=== PATIENT | female | born 1945 | race African-American/Black ===

== ENCOUNTER 2020-02-24 18:41 | Emergency (ER) | payer MEDICARE, SELFPAY ==
--- NOTE | ~2020-02-24 | CT_ITS ---
EXAMINATION: CT brain wo con DATE: 02/24/2020 19:31 INDICATION: Altered mental status TECHNIQUE: Computed tomography (CT) of the head was performed without intravenous contrast. Sagittal and coronal reconstructions were performed. The mA was adjusted according to patient size. Iterative reconstruction technique was employed. The dose-length product was 681.00 mGy-cm. COMPARISON: head CT dated 12/27/2017 FINDINGS: Large amount of intraparenchymal hemorrhage throughout the left and right lateral ventricles, the thi rd ventricle and fourth ventricle extending through the bilateral foramina of Luschka. No evident int raparenchymal hemorrhage or other abnormal peripheral extra-axial fluid collections. There has been i nterval enlargement of the ventricles concerning for entrapment. Moderate-sized region of encephaloma lacia in the right parietal lobe consistent with chronic infarct. No abnormal masses. There is modera te scattered white matter hypoattenuation consistent with chronic small vessel ischemic disease. Chavez ges of bilateral intraocular lens replacement. The orbits and mastoid air cells are normal. Mild muco periosteal thickening the bilateral ethmoid sinuses. Nasogastric tube extends through the nasopharynx . IMPRESSION: 1. Large intraventricular hemorrhage extending throughout the interval enlarged left and right latera l, third and fourth ventricles which is concerning for entrapment. Recommend emergent neurosurgical c onsultation. Dr. Amador discussed these findings with Dr. Rodriges at 7:30 PM. 2. Chronic moderate-sized right parietal infarct. 3. Moderate scattered white matter hypoattenuation consistent with chronic small vessel ischemic dise ase. Reviewed, dictated and finalized at location A. IMPRESSION: 1. Large intraventricular hemorrhage extending throughout the interval enlarged left and right lateral, third and fourth ventricles which is concerning for en trapment. Recommend emergent neurosurgical consultation. Dr. Amador discussed these findings with Dr. Rodriges at 7:30 PM. 2. Chronic moderate-sized right parietal infarct. 3. Moderate scattered white matter hypoattenuation consistent with chronic smal l vessel ischemic disease.
--- NOTE | ~2020-02-24 | XR_ITS ---
EXAMINATION: XR chest ET placement DATE: 02/24/2020 19:24 INDICATION: Endotracheal tube and orogastric tube placement TECHNIQUE: frontal view of the chest was obtained. COMPARISON: Chest radiograph dated 01/26/2019 FINDINGS: Endotracheal tube tip 2.3 cm above the kaykay. Nasogastric tube proximal side port in the body of the stomach with distal tip collimated beyond the inferior margin of the [id number]. Hazy opacities i n the right mid to upper lung zone patchy airspace opacities in the left lower lung zone which could represent atelectasis, pulmonary edema or pneumonia. No pleural effusion or pneumothorax. Cardiomegal y. IMPRESSION: 1. Bilateral airspace opacities which could represent atelectasis, pulmonary edema or pneumonia. 2. Cardiomegaly. Reviewed, dictated and finalized at location A. IMPRESSION: 1. Bilateral airspace opacities which could represent atelectasis, pulmonary ed wilberto or pneumonia. 2. Cardiomegaly.
--- NOTE | 2020-02-24 18:48 | ECG_ITS ---
Measurements Intervals [place] Rate: 138 P: AK: 0 QRS: 11 QRSD: 82 T: -23 QT: 294 QTc: 446 Interpretive Statements ATRIAL FLUTTER WITH RAPID VENTRICULAR RESPONSE NONSPECIFIC ST & T-WAVE ABNORMALITY- INF/LAT LEADS BASELINE ARTIFACT- II, III, AVF, V1-V2, V6 ABNORMAL ECG Electronically Signed On 02-25-2020 6:58:29 CDT by Mello Nesbitt D.O.
[2020-02-24 18:54] VITALS: O2SAT 98
[2020-02-24 18:55] VITALS: BP 181/136; PULSE 164; RESP 24; TEMP 36.7; O2SAT 96
[2020-02-24] MEDS: LABETALOL HCL INJ 100 MG/20 ML VIAL (18:59)
[2020-02-24 19:05] VITALS: PULSE 101; O2SAT 98
--- NOTE | 2020-02-24 19:08 | PC.NURSE ---
Called XR to confirm tube placement.
[2020-02-24 19:10] LABS: Basophils Absolute Auto 0.1 K/mm3 (0.0-0.1); Basophils Percent Auto 0.7 % (0.2-1.2); Eosinophils Absolute Auto 0.4 K/mm3 (0-0.3); Eosinophils Percent Auto 3.1 % (0-4.4); Hematocrit 49.4 % (37.0-47.0); Hemoglobin 15.8 g/dL (12.0-15.0); Immature Granulocyte Absolute 0.06 K/mm3 (0.00-0.031); Immature Granulocyte Percent A 0.5 % (0-0.5); Lymphocytes Absolute Auto 3.66 K/mm3 (0.9-3.2); Lymphocytes Percent Auto 30.2 % (18.3-44.2); Mean Corpuscular Hemoglobin 24.4 pg (26-34); Mean Corpuscular Volume 76.2 fl (80-100); Mean Platelet Volume 10.8 fl (7.4-10.4); Monocytes Absolute Auto 1.2 K/mm3 (0.1-0.6); Monocytes Percent Auto 9.8 % (2.6-8.5); Neutrophils Absolute Auto 6.8 K/mm3 (1.3-6.7); Neutrophils Percent Auto 55.7 % (45.5-73.1); Platelet Count Result 344 k/mm3 (150-375); Red Blood Count 6.48 M/mm3 (4.2-5.4); Red Cell Distribution Width 16.8 % (11.5-14.5); White Blood Count 12.1 K/mm3 (4.5-10.0)
[2020-02-24 19:13] LABS: Glucose Point of Care 194 (65-105)
[2020-02-24 19:16] LABS: Add Urine Microscopic? YES; Appearance Urine Clear (Clear); Bilirubin Urine Negative (Negative); Blood Urine Negative (Negative); Color Urine Straw (Yellow); Glucose Urine UA 1+ mg/dL (Negative); Ketones Urine Negative (Negative); Leukocyte Esterase Ur Negative LEU/UL (Negative); Nitrate Urine Negative (Negative); Protein Urine 3+ mg/dL (Negative); RBC Urine 0-2 /hpf (0-2); Specific Grav Ur 1.011 (1.001-1.035); Urobilinogen Urine Negative mg/dL (<2.0)
[2020-02-24 19:19] LABS: INR 1.1; Prothrombin Time 13.6 Seconds (11.1-14.7)
[2020-02-24 19:20] LABS: Partial Thromboplastin Time 20.8 SECONDS (22.3-36.8)
[2020-02-24 19:23] LABS: Alanine Aminotransferase 22 U/L (4-35); Alkaline Phosphatase 109 U/L (38-126); Anion Gap 7 mmol/L (8-16); Aspartate Amino Transferase 38 U/L (14-36); Bilirubin,Total 1.1 mg/dL (0.2-1.3); Blood Urea Nitrogen 23 mg/dL (7-17); Calcium 8.7 mg/dL (8.4-10.2); Carbon Dioxide 26 mmol/L (22-30); Chloride 103 mmol/L (98-107); Estimated Glomerular Filt Rate 53; Glucose 200 mg/dL (65-105); Potassium 4.1 mmol/L (3.4-5.0); Sodium 136 mmol/L (137-145)
--- NOTE | 2020-02-24 19:25 | PC.NURSE ---
185 20mg Etomidate given IVP per EDP via verbal order readback. 1856 Intubation complete, 23cm at the lip, 7.5 tube used 1858 per EDP via verbal order readback give 20mg of labetalol IVP for hypertension 1909 Pt. HR went from 180s to 110s and BP dropped from 90s/80s systolic. EDP notified. IVFs infusing wide open at this time per EDP via verbal order readback, Pt. taken to CT scan.
[2020-02-24 19:46] VITALS: BP 133/91; PULSE 102; RESP 12; O2SAT 96
--- NOTE | 2020-02-24 19:54 | ED.GENADULT ---
HPI - General Adult General Chief complaint: Altered Mental Status Stated complaint: unresponsive Time Seen by Provider: 02/24/20 19:01 Source: family and EMS History of Present Illness HPI narrative: Patient is a 74 y/o female brought in by EMS for unresponsiveness. Per EMS, patient had snoring respiration. They attempted to intubate, but was unsuccessful. She was bagged. Patient has no response to painful stimuli. She is unable to provide any history. Daughter states that patient complained of headache, neck pain and back pain prior to becoming unresponsive. She states that patient felt like of being struck by something suddenly around 5:25 PM. Patient had some nausea and dry heaving. She gave patient Aleve for headache. Patient then had snoring respiration and became unresponsive later. Daughter states that there was no recent trauma. EMS was then called. Per daughter, patient has history of A Fib and she is on Eliquis 5 mg twice daily. Related Data Home Medications Medication Instructions Recorded Confirmed apixaban [Eliquis] 5 mg PO BID 02/24/20 02/24/20 budesonide-formoterol [Symbicort] INHALATION 02/24/20 budesonide-formoterol [Symbicort] INHALATION 02/24/20 cefdinir mg 02/24/20 diltiazem HCl PO 02/24/20 famotidine 20 mg PO BID 02/24/20 02/24/20 insulin NPH isoph U-100 human SUBCUT 02/24/20 [Novolin N NPH U-100 Insulin] insulin syringe-needle U-100 [BD 02/24/20 02/24/20 Veo Insulin Syringe UF] loteprednol etabonate [Lotemax SM] 02/24/20 metoprolol tartrate 02/24/20 nebivolol [Bystolic] mg 02/24/20 oxybutynin chloride 02/24/20 Allergies Allergy/AdvReac Type Severity Reaction Status Date / Time JOLIE Inhibitors Allergy Unknown Verified 01/26/19 12:09 hydrocodone Allergy Unknown Verified 01/26/19 12:09 lovastatin Allergy Unknown Verified 01/26/19 12:09 pravastatin Allergy Unknown Verified 01/26/19 12:09 Sulfa (Sulfonamide Allergy Unknown Verified 01/26/19 12:09 Antibiotics) Sulfonylureas Allergy Unknown Verified 01/26/19 12:09 Review of Systems Review of Systems: ROS unobtainable: Yes unobtainable due to mental status Constitutional: Constitutional: Reports headache(s) [facility] Family History Family History Other Cerebrovascular accident Diabetes mellitus Family history of arthritis Hypertension Social History Social History Smoking status: Never smoker Alcohol intake: never Gender identity (if verbalized by the patient): Female Exam Const: General: no acute distress and well developed Orientation/consciousness: oriented to person, oriented to place, oriented to time and patient oriented x3 HENMT: Head: normocephalic Ears: external ears normal General nose exam: Normal external nose present Eyes: Conjunctivae: conjunctivae normal Pupils: Dilated pupils Neck: Neck: normal visual inspection and full ROM Chest: Chest palpation & inspection: normal inspection of the chest and no tenderness Resp: Effort & Inspection: normal respiratory effort, tachypneic and other (snoring respirations) Cardio: Rate: tachycardic Rhythm: regular rhythm GI: GI Palp: No abdominal tenderness and Yes Soft to palpation Skin: General skin exam: normal color and turgor normal Neuro: General: patient obtunded Cognition (Neuro): abnormal cognition Speech: Global aphasia present Motor exam (neuro): Other motor observations present (unable to assess motor strength due to unresponsiveness) Extrem: General: normal to inspection, full ROM and no pedal edema Psych: Appearance: grossly normal Mental Status: mental status grossly normal Affect: normal affect Course Reevaluation(s) Reevaluation #1: Discussed with patient's daughter about the options. Informed her that we're waiting for bed at [place], or patient can be transferred to [facility] ED. Daughter wants to wait for bed at [place]. Date
[2020-02-24 20:11] VITALS: BP 135/107; PULSE 106; RESP 14; O2SAT 98
[2020-02-24] MEDS: MANNITOL 20% 500 ML IV CONT (20:55)
--- NOTE | 2020-02-24 21:00 | PC.NURSE ---
report to ICU Yahir Garcia RN. awaiting transport.
[2020-02-24] MEDS: HUMAN PROTHROMBIN COMPLEX(PCC) 5,000 UNITS in PREMIXIV 0 ML 504 UNITS IV CONT (21:07)
[2020-02-24 21:38] VITALS: BP 150/104; PULSE 105; RESP 14; TEMP 36.7; O2SAT 98
== END 2020-02-24 21:39 | disposition short-term general hospital (02) ==
LOC: ANHED 19:28
PROVIDERS: Emergency Provider Emergency Medicine; PCP Family Medicine
DX: I61.5 Nontraumatic intracerebral hemorrhage, intraventricular (principal); I10 Essential (primary) hypertension; I48.20 Chronic atrial fibrillation, unspecified; R00.0 Tachycardia, unspecified; Z79.01 Long term (current) use of anticoagulants; E11.9 Type 2 diabetes mellitus without complications; Z79.4 Long term (current) use of insulin
CPT/HCPCS: 31500; 36415; 51702; 70450; 80053; 81001; 85025; 85610; 85730; 87086; 93005; 96365; 96375; 99285; C9132

== ENCOUNTER 2020-05-25 11:13 | Inpatient (IN) | payer MEDICARE, SELFPAY ==
[2020-05-25] VITALS (65 sets, daily range): BP systolic 49–151; BP diastolic 19–123; PULSE 62–144; RESP 12–36; TEMP 36.2–36.5; O2SAT 59–100; BMI 32.8
--- NOTE | ~2020-05-25 | XR_ITS ---
EXAMINATION: XR chest 1V portable EXAM DATE: 05/25/2020 12:03 INDICATION: Tachycardia. Atrial fibrillation. TECHNIQUE: Portable AP frontal chest x-ray was obtained. Comparison is made to prior examination from 02/24/2020. FINDINGS: There is new tubing extending along the right side of the thorax, could be a ventriculoperi toneal shunt but clinical correlation. The lungs are clear. There are no pleural effusions. The car diomediastinal silhouette is within normal limits. There is no pneumothorax suspected. The bones an d soft tissues are unremarkable. IMPRESSION: No acute cardiopulmonary findings. Reviewed, dictated and finalized at location A. SERVICER HELPER
--- NOTE | 2020-05-25 11:36 | ECG_ITS ---
Measurements Intervals [place] Rate: 140 P: MD: 0 QRS: -13 QRSD: 78 T: 90 QT: 289 QTc: 441 Interpretive Statements ATRIAL FLUTTER/TACHYCARDIA WITH RAPID VENTRICULAR RESPONSE NONSPECIFIC ST & T-WAVE ABNORMALITY- ANTEROLATERAL LEADS BASELINE ARTIFACT- I, II, AVR ABNORMAL ECG Electronically Signed On 05-25-2020 12:00:07 METAL CASTER by Mello Nesbitt D.O.
--- NOTE | 2020-05-25 11:55 | ED.GENADULT ---
HPI - General Adult General Chief complaint: Arrhythmia/Palpitations Stated complaint: heart palpitations Time Seen by Provider: 05/25/20 11:43 Source: patient and EMS History of Present Illness HPI narrative: Patient is a 74 y/o female sent from [facility] for tachycardia. She has history A fib/flutter. She is poor historian and does not know why she here. She denies any chest pain or SOB. Of note, she had intracranial bleed 3 months ago and was sent to [place]. Related Data Home Medications Medication Instructions Recorded Confirmed apixaban [Eliquis] 5 mg PO BID 02/24/20 02/24/20 budesonide-formoterol [Symbicort] INHALATION 02/24/20 budesonide-formoterol [Symbicort] INHALATION 02/24/20 cefdinir mg 02/24/20 diltiazem HCl PO 02/24/20 famotidine 20 mg PO BID 02/24/20 02/24/20 insulin NPH isoph U-100 human SUBCUT 02/24/20 [Novolin N NPH U-100 Insulin] insulin syringe-needle U-100 [BD 02/24/20 02/24/20 Veo Insulin Syringe UF] loteprednol etabonate [Lotemax SM] 02/24/20 metoprolol tartrate 02/24/20 nebivolol [Bystolic] mg 02/24/20 oxybutynin chloride 02/24/20 Allergies Allergy/AdvReac Type Severity Reaction Status Date / Time JOLIE Inhibitors Allergy Unknown Verified 01/26/19 12:09 hydrocodone Allergy Unknown Verified 01/26/19 12:09 lovastatin Allergy Unknown Verified 01/26/19 12:09 pravastatin Allergy Unknown Verified 01/26/19 12:09 Sulfa (Sulfonamide Allergy Unknown Verified 01/26/19 12:09 Antibiotics) Sulfonylureas Allergy Unknown Verified 01/26/19 12:09 Review of Systems Review of Systems: ROS unobtainable: Yes unobtainable due to mental status [facility] Past Medical History Medical History (Updated 05/25/20 @ 18:20 by Maryan Rodriges MD) Atrial flutter G tube feedings Intracerebral hemorrhage 02/2020 while on eliquis PAF (paroxysmal atrial fibrillation) SDH (subdural hematoma) 04/2020 Type 2 diabetes mellitus, uncontrolled Surgical History Surgical History (Updated 05/25/20 @ 17:58 by Mady Anderson MD) MACHINE ROPE MAKER (ventriculoperitoneal) shunt status Family History Family History Other Cerebrovascular accident Diabetes mellitus Family history of arthritis Hypertension Social History Social History Social History: Lives in [facility] Smoking status: Never smoker Alcohol intake: never Gender identity (if verbalized by the patient): Female Exam Const: General: no acute distress and well developed Orientation/consciousness: oriented to person and confusion HENMT: Head: normocephalic Ears: external ears normal General nose exam: Normal external nose present Eyes: General: appearance normal, both eyes and all related structures Conjunctivae: conjunctivae normal Neck: Neck: normal visual inspection and full ROM Chest: Chest palpation & inspection: normal inspection of the chest and no tenderness Resp: Effort & Inspection: normal respiratory effort Auscultation: clear to auscultation bilaterally Cardio: Rate: tachycardic Rhythm: regular rhythm GI: Inspection: other (gastrostomy tube in place) GI Palp: No abdominal tenderness and Yes Soft to palpation Skin: General skin exam: normal color and turgor normal Neuro: General: oriented to person Cognition (Neuro): abnormal cognition Extrem: General: normal to inspection, full ROM and no pedal edema Psych: Appearance: grossly normal Mental Status: mental status grossly normal Affect: normal affect Course Consultations Consultation #1: Discussed with Nguyen Luis (cardiology), who agrees to consult. Date: 05/25/20 Time: 14:32 Consultation #2: Discussed with Dr. Schmidt, who agrees to admit. Date: 05/25/20 Time: 14:42 Vital Signs Vital signs: Vital Signs Pulse Rate 140 H 05/25/20 11:25 Respiratory Rate 23 H 05/25/20 11:25 Pulse Oximetry 100 05/25/20 11:25 Pulse Rat
[2020-05-25] MEDS: dilTIAZem HCl INJ 25 MG/5 ML VIAL IV PUSH (12:32)
[2020-05-25 12:37] LABS: Basophils Absolute Auto 0.1 K/mm3 (0.0-0.1); Eosinophils Absolute Auto 0.7 K/mm3 (0-0.3); Eosinophils Percent Auto 6.3 % (0-4.4); Hematocrit 44.1 % (37.0-47.0); Hemoglobin 13.5 g/dL (12.0-15.0); Immature Granulocyte Absolute 0.06 K/mm3 (0.00-0.031); Immature Granulocyte Percent A 0.5 % (0-0.5); Lymphocytes Absolute Auto 1.83 K/mm3 (0.9-3.2); Lymphocytes Percent Auto 16.2 % (18.3-44.2); Mean Corpuscular HGB Conc 30.6 g/dl (32-36); Mean Corpuscular Hemoglobin 22.8 pg (26-34); Mean Corpuscular Volume 74.4 fl (80-100); Mean Platelet Volume 9.5 fl (7.4-10.4); Monocytes Absolute Auto 0.9 K/mm3 (0.1-0.6); Monocytes Percent Auto 7.5 % (2.6-8.5); Neutrophils Absolute Auto 7.7 K/mm3 (1.3-6.7); Neutrophils Percent Auto 68.5 % (45.5-73.1); Platelet Count Result 559 k/mm3 (150-375); Red Blood Count 5.93 M/mm3 (4.2-5.4); Red Cell Distribution Width 17.3 % (11.5-14.5); White Blood Count 11.3 K/mm3 (4.5-10.0)
[2020-05-25 12:45] LABS: Prothrombin Time 13.5 Seconds (11.1-14.7)
[2020-05-25 12:46] LABS: Partial Thromboplastin Time 23.4 SECONDS (22.3-36.8)
[2020-05-25 12:47] LABS: Anion Gap 6 mmol/L (8-16); Blood Urea Nitrogen 22 mg/dL (7-17); Calcium 9.5 mg/dL (8.4-10.2); Carbon Dioxide 32 mmol/L (22-30); Chloride 96 mmol/L (98-107); Estimated CRCL calculation 75 ml/min; Estimated Glomerular Filt Rate > 60; Glucose 300 mg/dL (65-105); Potassium 4.8 mmol/L (3.4-5.0); Sodium 134 mmol/L (137-145)
[2020-05-25 13:00] LABS: Troponin I < 0.012 ng/mL (0.000-0.034)
--- NOTE | 2020-05-25 13:54 | PC.NURSE ---
1354 - Diltiazem drip rate increased to 15 mg/hr per VO from MD Rodriges. Patient's HR remains 140 in aflutter. BP 120/94. Patient self-removed monitor leads and pulse ox multiple times. This RN verbalized need for all monitor equipment to remain in place. Call light in reach.
[2020-05-25] MEDS: AMIODARONE 150 MG/D5W 100 ML 150 MG/100 ML BAG 600 MG IV CONT (14:52)
[2020-05-25] MEDS: AMIODARONE 360 MG/D5W 200 ML 360 MG/200 ML BAG 33.33 MG IV CONT (15:08)
[2020-05-25 16:23] LABS: Troponin I < 0.012 ng/mL (0.000-0.034)
--- NOTE | 2020-05-25 17:00 | PM.IMHP ---
H&P: HPI History of Present Illness Date/Time: 05/25/20 17:00 Chief complaint: Atrial flutter with rapid ventricular response. Narrative: Bettie Roque is a 74-year-old female with history of paroxysmal atrial fibrillation/flutter, thromboembolic and hemorrhagic stroke, hypertension, insulin-dependent diabetes, and several other comorbidities who presented to the emergency department earlier this morning via EMS from [facility] for further treatment of atrial flutter with rapid ventricular response. She is able to provide a fair history but some of the following is obtained via a review of her electronic medical records as well. She has had an unfortunate couple of months with several admission to [place] after suffering from a hemorrhagic CVA in February 2020 while on Eliquis and a subdural hematoma after a fall in April 2020. She is now status post right GAS WELDING EQUIPMENT MECHANIC shunt due to hydrocephalus. She was hospitalized once again at the beginning of May with altered mental status attributed to a urinary tract infection and right lower lobe pneumonia (GAS WELDING EQUIPMENT MECHANIC shunt was functioning appropriately at that time). She was discharged back to the longterm on May 21, [address]. [address] Anderson's note, the patient had been taking metoprolol 100 mg q.6 hours and diltiazem 120 mg q.6 hours per NG tube for rate control but unfortunately her rate continued to be difficult to control. She is currently on diltiazem and amiodarone drips with some improvement in her rate. At the time my evaluation she is alert and voices no complaints. She specifically denies chest discomfort, feelings of racing heart, palpitations, shortness of breath, nausea, vomiting, and sweats. Review of Systems Review of Systems: Narrative: Twelve systems were reviewed with pertinent positives and negatives as per HPI. Somewhat limited as she seems to have some cognitive delay as a result of her previous strokes. She has no complaints and did say no to every question I asked of her. [facility] Past Medical History Medical History (Updated 05/25/20 @ 22:17 by Mara Topete PA-C) Beta thalassemia trait Cerebrovascular accident, embolic (~12/2017) Chronic anemia Dysphagia As a result of previous strokes. G-tube in place. Hydrocephalus (~02/2020) Status post GAS WELDING EQUIPMENT MECHANIC shunt. Hyperlipidemia Intolerant to statins. Hypertension Indwelling Aparicio catheter present Intracerebral hemorrhage (~02/2020) Hemorrhagic stroke occurred while she was on Eliquis, and she was hospitalized at [facility] at that time. Obstructive sleep apnea Osteoarthritis Paroxysmal atrial fibrillation Paroxysmal atrial flutter Subdural hematoma (~04/2020) Type 2 diabetes mellitus, uncontrolled Surgical History Surgical History (Updated 05/25/20 @ 22:00 by Mara Topete PA-C) History of appendectomy History of gastrostomy tube placement History of total bilateral knee replacement History of tracheostomy History of tubal ligation Status post ventriculo-peritoneal shunt placement (~02/2020) Family History Family History (Updated 05/25/20 @ 22:01 by Mara Topete PA-C) Other Alzheimer's dementia Carcinoma of colon Cerebrovascular accident Diabetes mellitus Family history of arthritis Hypertension Social History Social History (Updated 05/25/20 @ 22:04 by Mara Topete PA-C) Social History: The patient is a resident at [facility]. Prior to her recent stroke she was living in [place] with her . She is a former smoker and quit in the 1970s. No mention of alcohol or substance abuse. She has 3 children. Her Luis Roque and daughter Shaneka Hinojosa are listed as her emergency contact. She is listed as a full code. Spiritual care concerns: No Meds Home Medications and Allergies Home Medications Medication Instructions Recorded Confirmed Type apixaban [Eliquis] 5 mg FEEDING TUBE BID 02/24/20 05/25/20 History kayla
--- NOTE | 2020-05-25 17:37 | PM.CNCAR ---
Assessment and Plan Assessment and plan (1) Atrial flutter: Code(s): I48.92 - Unspecified atrial flutter Status: Acute Assessment and Plan: Patient has a history of atrial flutter which has been controlled with metoprolol 100 mg q.6 hours and diltiazem 120 mg Q.6 hours per NG tube-- at least, according to the discharge summary from [place] on May 21. The seemed like extremely high doses particularly the metoprolol, suggesting her atrial flutter has been difficult to control in the past. I do not have any documentation of what she is currently getting at [facility]. I do not see any evidence of any inciting events such as pneumonia or UTI, or sepsis to cause her atrial flutter to be so difficult to control. She remains in RVR although does not appear to be in any distress. Will continue the IV Cardizem and amiodarone and I have ordered another bolus of IV amiodarone. In view of her intracerebral bleed, and recent subdural hematoma, I think it is unwise to add any anticoagulation at this time. (2) PAF (paroxysmal atrial fibrillation): Code(s): I48.0 - Paroxysmal atrial fibrillation Status: Acute Assessment and Plan: History of paroxysmal atrial fibrillation (3) Intracerebral hemorrhage: Code(s): I61.9 - Nontraumatic intracerebral hemorrhage, unspecified Status: Acute Assessment and Plan: History of intracerebral hemorrhage and also subdural hematoma this year. Baseline mental status is oriented x1; she seems at baseline. History of Present Illness History of Present Illness Consult date/time: 05/25/20 17:37 Requesting physician: Rell Schmidt MD Reason For Visit: atrial flutter with rvr Narrative: Date of service: 05/25/2020 Bettie Roque is an unfortunate 74-year-old white female, who resides in a group home because of a history of hemorrhagic stroke, whom we were asked to see at the request of the hospitalist for advice and opinion regarding her a flutter, RVR. She has a history of atrial flutter and is supposed to be taking metoprolol and diltiazem. I cannot find any group home notes to confirm her current medications. She was admitted to [place] in February with an intracranial bleed while on Eliquis. She has hydrocephalus status post a right MEDICAL LEGAL INVESTIGATOR shunt. She was again hospitalized in April for an acute subdural hematoma after a fall. Apixaban was to be resumed on May 15. She was readmitted to [facility] on May 16 with an altered mental status and these records were reviewed. She had a right lower lobe pneumonia as well as UTI. The MEDICAL LEGAL INVESTIGATOR shunt was functioning appropriately. Her atrial flutter sounds like it was under control on metoprolol and diltiazem by a her G-tube and her apixaban was still held. She was discharged on May 21 back to [facility]. Today she was noted to be tachycardic and brought to the ER w/ atrial flutter HR 130-140's. She was started in a cardizem bolus + drip at 15 mg/hour but HR still in the 130's so started on IV amiodarone. she is normally O X 1, but has no complaints today. BP and O2 sat are stable, Review of Systems Review of Systems: Narrative: Difficult to obtain 2nd mental status. some obtained fr the RN. Eyes: Eyes: Reports no additional eye complaints ENT: Denies epistaxis Cardiovascular: Cardiovascular: Denies chest pain, Denies leg edema, Denies lightheadedness and Denies palpitations Respiratory: Respiratory: Denies no additional respiratory complaints, Denies cough and Denies dyspnea Gastrointestinal: Gastrointestinal: Denies abdominal pain and Denies hematochezia Genitourinary: Genitourinary: Denies hematuria Musculoskeletal: Musculoskeletal: Denies back pain Integumentary/Breasts: Skin/Breast: Denies rash Neurologic: Reports confusion (baseline) Psychiatric: Psychi
--- NOTE | 2020-05-25 18:03 | PC.NURSE ---
This patient, Bettie Roque, was admitted to IMU Room 206-02. Patient/family oriented to hospital policies and general routines including ID bracelet, bed and alarms, visiting hours, pain management, procedures, bathroom and other care routines, personal items, smoking policy, room service/diet, and visiting hours. Information on how to activate the Rapid Response Team has been discussed. Patient/Family are encouraged to report perceived risks to care and to ask questions if they do not understand what they are told or what they should do.
[2020-05-25 20:12] LABS: Glucose Point of Care 242 (65-105)
[2020-05-25] MEDS: AMIODARONE 360 MG/D5W 200 ML 360 MG/200 ML BAG 16.67 MG IV CONT (23:27)
[2020-05-25] MEDS: METOPROLOL TARTRATE INJ 5 MG/5 ML VIAL IV PUSH (23:29)
[2020-05-25 23:35] LABS: Troponin I < 0.012 ng/mL (0.000-0.034)
[2020-05-25] MEDS: levETIRAcetam 500 MG TABLET 1000 MG XX (23:35)
[2020-05-26] VITALS (25 sets, daily range): BP systolic 108–136; BP diastolic 59–90; PULSE 43–131; RESP 16–20; TEMP 36.1–36.7; O2SAT 92–100; BMI 33.0
[2020-05-26] MEDS: dilTIAZem HCl INJ 25 MG/5 ML VIAL 10 MG IV PUSH (01:49)
[2020-05-26] MEDS: AMIODARONE 150 MG/D5W 100 ML 150 MG/100 ML BAG 600 MG IV CONT (01:53)
[2020-05-26 02:41] LABS: Add Urine Microscopic? YES; Appearance Urine Clear (Clear); Bilirubin Urine Negative (Negative); Blood Urine 1+ (Negative); Calcium Oxalate Crystals Urine Present /hpf; Color Urine Yellow (Yellow); Glucose Urine UA 3+ mg/dL (Negative); Ketones Urine Negative (Negative); Leukocyte Esterase Ur Trace LEU/UL (Negative); Mucus Urine Rare /lpf; Nitrate Urine Negative (Negative); Protein Urine 1+ mg/dL (Negative); RBC Urine 51-75 /hpf (0-2); Squamous Epithelial Cell Urine Rare /hpf (Few); Urobilinogen Urine Negative mg/dL (<2.0); WBC Urine 21-30 /hpf
[2020-05-26] MEDS: METOPROLOL TARTRATE INJ 5 MG/5 ML VIAL IV PUSH (03:37)
[2020-05-26] MEDS: METOPROLOL TARTRATE 50 MG TAB 100 MG FEED TUBE ×4 (06:06→23:53)
[2020-05-26 07:27] LABS: Glucose Point of Care 295 (65-105)
[2020-05-26] MEDS: INSULIN ASPART (*BKC) 100 UNITS/ML SUB-Q ×3 (07:27→18:04)
[2020-05-26 07:44] LABS: Hematocrit 38.3 % (37.0-47.0); Hemoglobin 12.1 g/dL (12.0-15.0); Mean Corpuscular HGB Conc 31.6 g/dl (32-36); Mean Corpuscular Hemoglobin 22.6 pg (26-34); Mean Corpuscular Volume 71.6 fl (80-100); Mean Platelet Volume 9.4 fl (7.4-10.4); Platelet Count Result 461 k/mm3 (150-375); Red Blood Count 5.35 M/mm3 (4.2-5.4); White Blood Count 10.6 K/mm3 (4.5-10.0)
[2020-05-26 07:52] LABS: Hemoglobin A1C 7.9 % (<5.7)
[2020-05-26 07:55] LABS: Anion Gap 6 mmol/L (8-16); Blood Urea Nitrogen 19 mg/dL (7-17); Carbon Dioxide 28 mmol/L (22-30); Chloride 98 mmol/L (98-107); Estimated CRCL calculation 66 ml/min; Estimated Glomerular Filt Rate > 60; Glucose 303 mg/dL (65-105); Magnesium 1.5 mg/dL (1.6-2.3); Potassium 4.5 mmol/L (3.4-5.0); Sodium 132 mmol/L (137-145)
[2020-05-26] MEDS: FLUTICASONE PROPIONATE 0.05% NA SPR 16 GM BTL (*BKC) 2 SPRAY NASAL (08:53)
[2020-05-26] MEDS: LORATADINE 10 MG TABLET PO (08:54)
[2020-05-26] MEDS: levETIRAcetam 500 MG TABLET 1000 MG XX ×2 (08:54→20:20)
[2020-05-26] MEDS: FAMOTIDINE 20 MG TABLET FEED TUBE ×2 (08:54→18:02)
[2020-05-26] MEDS: CHOLECALCIFEROL 1,000 UNITS TABLET 4000 UNITS FEED TUBE (08:54)
[2020-05-26] MEDS: CALCIUM CARBONATE (TUMS) 500 MG (200 MG ELEMENTAL) FEED TUBE (08:56)
--- NOTE | 2020-05-26 09:08 | PC.NURSE ---
RN notifed Ngueyn WORKMAN of patient heart rate sustaining in 40s. Verbal orders to decrease diltiazem gtt to 10mcg from 20mcg. Will continue to monitor.
[2020-05-26] MEDS: MAGNESIUM SULFATE 3GM/D5W100ML 3 GM/100 ML BAG IVPB (10:58)
--- NOTE | 2020-05-26 11:59 | PM.PNCARD ---
Progress Note: A&P Assessment and Plan (1) Atrial flutter with rapid ventricular response: Code(s): I48.92 - Unspecified atrial flutter Status: Acute Assessment and Plan: History of atrial fibrillation and more recently atrial flutter with a difficult to control heart rate, uncontrolled while taking metoprolol 100 mg and diltiazem 120 mg per G-tube Q 6 hours. No obvious factor causing exacerbation of atrial flutter. Currently much improved with IV amiodarone, IV metoprolol and Cardizem. Had elevated liver enzymes in the past on amiodarone but adding amio may be the best option for now. Will obtain baseline liver enzymes. Back on his her usual high dose Cardizem and metoprolol; will change the IV amiodarone to p.o. amiodarone 200 mg daily. She's a occasionally bradycardic so will hold her meds if HR < 50 BPM. Aware of interaction of amio with diltiazem. (2) History of intracranial hemorrhage: Code(s): Z86.79 - Personal history of other diseases of the circulatory system Status: Acute Assessment and Plan: History of intracerebral hemorrhage and also subdural hematoma. Anticoagulation is being held. Mental status appears at baseline. (3) Hypertension: Code(s): I10 - Essential (primary) hypertension Status: Acute Assessment and Plan: Controlled. Subjective Date/time seen: 05/26/20 11:59 Interval history: Follow-up AFlutter RVR. History of atrial fibrillation and atrial flutter with a very difficult to control heart rate. She also has a history intracranial bleed while on Eliquis in February, status post a right CHARTER DRIVER shunt, acute subdural hematoma and of recently admitted for altered mental status secondary to pneumonia at [facility], discharged May 21 to [facility]. Further review of records show that he she has been seen by Dr. Hurtado in the past and also library services assistant Dr. Arguelles at [facility]. When last seen her heart rate seemed controlled with metoprolol 25 mg b.i.d., although she has been on much higher doses recently, 100 mg q.6 hours as well as diltiazem 120 mg q.6 hours. She had been on amiodarone past which was discontinued because of elevated liver enzymes (SGOT/SGPT 100-110). She failed sotalol in the past and had a ischemic stroke in 2018, despite anticoagulation. She has not been anticoagulated recently because of her intracranial bleed and subdural hematoma. Date of service 05/26/2020: The patient was on a Cardizem drip overnight, increased to 20 milligrams/hour, as well as amiodarone drip which required 2nd amiodarone bolus. Through the night her heart rate became better controlled, and was even dropping into the 40s so we stopped the Cardizem drip and started her back on her usual Cardizem 120 mg q.6 hours and metoprolol 100 mg q.6 hours per G tube. The patient denies any problems with palpitations, shortness of breath or chest pain. Review of Systems Constitutional: Constitutional: Reports weakness Eyes: Eyes: Reports no additional eye complaints ENT: Denies epistaxis Cardiovascular: Cardiovascular: Denies chest pain, Denies pedal edema and Denies palpitations Respiratory: Respiratory: Denies no additional respiratory complaints and Denies dyspnea Gastrointestinal: Gastrointestinal: Denies abdominal pain Genitourinary: Genitourinary: Denies hematuria Musculoskeletal: Musculoskeletal: Denies back pain Integumentary/Breasts: Skin/Breast: Denies rash Neurologic: Reports confusion Psychiatric: Psychiatric: Reports no additional psychiatric complaints Exam Narrative: Exam Narrative: The patient does regard me and is more alert today, answers some simple questions and smiles. Const: General: comfortable and no acute distress HENMT: Mouth: Yes Abnormal oral and palat
[2020-05-26] MEDS: AMIODARONE 360 MG/D5W 200 ML 360 MG/200 ML BAG 16.67 MG IV CONT (12:16)
[2020-05-26] MEDS: dilTIAZem HCL 60 MG TABLET 120 MG FEED TUBE ×3 (12:55→23:53)
--- NOTE | 2020-05-26 13:07 | PM.IMPN ---
Progress Note: A&P Assessment and Plan (1) Atrial flutter with rapid ventricular response: Code(s): I48.92 - Unspecified atrial flutter Status: Acute Assessment and Plan: Management per cardiology - appreciate further recommendations. Historically difficult to control her rate. Initially treated with IV amiodarone, IV metoprolol and cardizem. Today she is being transitioned back to her home high-dose cardizem and metoprolol and transitioned to oral amio. Anticoagulation held due to recent hemorrhagic CVA Feb 2020 and subdural hematoma Apr 2020. (2) Type 2 diabetes mellitus: Code(s): E11.9 - Type 2 diabetes mellitus without complications Status: Chronic Assessment and Plan: Hgb A1c 7.9%. Blood sugars elevated. Continue to monitor accu-cheks and cover with SSI. (3) Chronic anemia: Code(s): D64.9 - Anemia, unspecified Status: Chronic Assessment and Plan: Stable. Monitor H&H. (4) Hypertension: Code(s): I10 - Essential (primary) hypertension Status: Chronic Assessment and Plan: Blood pressures are stable despite medication changes; last 124/. Monitor BP and adjust treatment as needed. Cardiology following. (5) Hydrocephalus: Onset Date: ~02/2020 Code(s): G91.9 - Hydrocephalus, unspecified Status: Chronic Assessment and Plan: History of hydrocephalus s/p BATTERY LOADER shunt. (6) History of intracranial hemorrhage: Code(s): Z86.79 - Personal history of other diseases of the circulatory system Status: Chronic Assessment and Plan: Recent hemorrhagic CVA February 2020, subdural hematoma after a fall April 2020 thus she is not on any systemic anticoagulation. Dysphagia secondary to CVA; G-tube in place. Subjective Date/time seen: 05/26/20 1245 Interval history: Ms. Roque is a 74yo F admitted for a flutter RVR. She is seen in follow up this afternoon and reports feeling okay, denies being in any pain. She denies any chest pain or shortness of breath at this time and is resting comfortably. She gets a bit confused and becomes tearful talking about her children but otherwise offers no complaints at this time. Review of Systems Review of Systems: All systems reviewed & are unremarkable except as noted in HPI and below Exam Narrative: Exam Narrative: General: Female resting supine in bed in no acute distress. HEENT: Normocephalic, EOMI, oral mucosa moist. Cardiovascular: Rate is normal, rhythm irregular. Telemetry review shows rates high 50sbpm. Respiratory: Lungs clear to auscultation bilaterally. Non-labored breathing. Tolerating room air. Abdomen: Soft, non-tender, non-distended, bowel sounds present. G-tube intact left upper abdomen. Extremities: Peripheral pulses intact. No edema. Neuro: She is oriented to self and place but not time. Able to follow simple commands. Degreaser Operator strength is weak bilaterally. Speech is clear, memory deficit noted. Objective Data Vital Signs Vital Signs: Last Vital Signs Temp 97.9 F 05/26/20 07:06 Pulse 66 05/26/20 12:54 Resp 18 05/26/20 07:06 BP 124/66 05/26/20 12:16 Pulse Ox 94 05/26/20 07:06 Intake/Output Intake/Output: Intake & Output 05/23/20 05/24/20 05/25/20 05/26/20 23:59 23:59 23:59 23:59 Intake Total 100 300 Output Total 600 Balance 100 -300 Meds/Results Medications: Active Medications Generic Name Dose Route Start Last Admin Trade Name Freq PRN Reason Stop Dose Admin Acetaminophen 650 mg 05/25/20 22:21 Acetaminophen 325 Mg Tablet FEED TUBE Q4H PRN Fever Albuterol 5 mg 05/25/20 22:21 Albuterol Sulfate Neb 2.5 Mg/0.5 Ml Inh INHALATION Q4H PRN
[2020-05-26 13:24] LABS: Glucose Point of Care 277 (65-105)
--- NOTE | 2020-05-26 15:38 | PCDIET ---
MD consult received. Agree with Glucerna 1.2 formula. Recommend goal rate of 60mL/hr x 22 hours/day for 1584kcal, 79g protein and 1062mL free water. Suggest continuing 50mL water flush every 4 hours at this time. Will monitor closely; thank you for this consult.
[2020-05-26 17:22] LABS: Glucose Point of Care 228 (65-105)
[2020-05-26 23:29] LABS: Glucose Point of Care 225 (65-105)
[2020-05-27] VITALS (20 sets, daily range): BP systolic 112–132; BP diastolic 48–70; PULSE 62–126; RESP 12–18; TEMP 35.5–36.6; O2SAT 94–100
[2020-05-27] MEDS: METOPROLOL TARTRATE 50 MG TAB 100 MG FEED TUBE ×4 (05:11→23:36)
[2020-05-27] MEDS: dilTIAZem HCL 60 MG TABLET 120 MG FEED TUBE ×4 (05:12→23:36)
[2020-05-27 05:13] LABS: Alanine Aminotransferase 22 U/L (4-35); Albumin Level 3.3 g/dL (3.5-5.1); Alkaline Phosphatase 102 U/L (38-126); Anion Gap 10 mmol/L (8-16); Aspartate Amino Transferase 24 U/L (14-36); Bilirubin,Total 0.5 mg/dL (0.2-1.3); Blood Urea Nitrogen 21 mg/dL (7-17); Calcium 9.2 mg/dL (8.4-10.2); Carbon Dioxide 27 mmol/L (22-30); Chloride 97 mmol/L (98-107); Estimated CRCL calculation 59 ml/min; Estimated Glomerular Filt Rate > 60; Glucose 260 mg/dL (65-105); Magnesium 1.9 mg/dL (1.6-2.3); Potassium 4.3 mmol/L (3.4-5.0); Sodium 134 mmol/L (137-145)
[2020-05-27 05:25] LABS: Glucose Point of Care 233 (65-105)
[2020-05-27] MEDS: CALCIUM CARBONATE (TUMS) 500 MG (200 MG ELEMENTAL) FEED TUBE (10:00)
[2020-05-27] MEDS: AMIODARONE HCL 200 MG TABLET PO (10:00)
[2020-05-27] MEDS: CHOLECALCIFEROL 1,000 UNITS TABLET 4000 UNITS FEED TUBE (10:01)
[2020-05-27] MEDS: FAMOTIDINE 20 MG TABLET FEED TUBE ×2 (10:01→17:44)
[2020-05-27] MEDS: LORATADINE 10 MG TABLET PO (10:02)
[2020-05-27] MEDS: levETIRAcetam 500 MG TABLET 1000 MG XX ×2 (10:02→21:56)
--- NOTE | 2020-05-27 11:45 | PM.IMPN ---
Progress Note: A&P Assessment and Plan (1) Atrial flutter with rapid ventricular response: Code(s): I48.92 - Unspecified atrial flutter Status: Acute Assessment and Plan: Management per cardiology - appreciate further recommendations. Historically difficult to control her rate. Initially treated with IV amiodarone, IV metoprolol and cardizem; now transitioned back to her home high-dose cardizem and metoprolol and transitioned to oral amio. Anticoagulation held due to recent hemorrhagic CVA Feb 2020 and subdural hematoma Apr 2020. (2) Type 2 diabetes mellitus: Qualifiers: Diabetes mellitus medical terminologist insulin use: with medical terminologist use Diabetes mellitus complication status: without complication Qualified Code(s): E11.9 - Type 2 diabetes mellitus without complications; Z79.4 - prison (current) use of insulin Code(s): E11.9 - Type 2 diabetes mellitus without complications Status: Chronic Assessment and Plan: Hgb A1c 7.9%. Blood sugars elevated. Continue to monitor accu-cheks and cover with SSI, increase SSI. (3) Chronic anemia: Code(s): D64.9 - Anemia, unspecified Status: Chronic Assessment and Plan: Stable. Monitor H&H. (4) Hypertension: Qualifiers: Hypertension type: essential hypertension Qualified Code(s): I10 - Essential (primary) hypertension Code(s): I10 - Essential (primary) hypertension Status: Chronic Assessment and Plan: Blood pressures are stable despite medication changes; last . Monitor BP and adjust treatment as needed. Cardiology following. (5) Hydrocephalus: Onset Date: ~02/2020 Qualifiers: Hydrocephalus type: unspecified Qualified Code(s): G91.9 - Hydrocephalus, unspecified Code(s): G91.9 - Hydrocephalus, unspecified Status: Chronic Assessment and Plan: History of hydrocephalus s/p HEEL SEAM RUBBER shunt. (6) History of intracranial hemorrhage: Code(s): Z86.79 - Personal history of other diseases of the circulatory system Status: Chronic Assessment and Plan: Recent hemorrhagic CVA February 2020, subdural hematoma after a fall April 2020 thus she is not on any systemic anticoagulation. Dysphagia secondary to CVA; G-tube in place. Additional Plan Mild growth of yeast in urine is noted; asymptomatic. No further treatment indicated at this time. Subjective Date/time seen: 05/27/20 0900 Interval history: Ms. Roque is a 74yo F admitted for a flutter RVR. She is feeling okay today. Nursing notes she had an episode of vomiting last night and tube feed was stopped. Patient is baseline disoriented thus does not recall this episode and endorses no nausea currently. Denies chest pain or shortness of breath and is resting comfortably. She calls out for her daughter who is not in the room. Review of Systems Review of Systems: All systems reviewed & are unremarkable except as noted in HPI and below Exam Narrative: Exam Narrative: General: Female resting comfortably supine in bed in no acute distress. HEENT: Normocephalic, EOMI, oral mucosa moist. Cardiovascular: Rate is normal, rhythm irregular. Telemetry review shows a flutter rate 82bpm with intermittent bradycardia into the high 40s bpm overnight. Respiratory: Lungs clear to auscultation bilaterally. Non-labored breathing. Tolerating room air. Abdomen: Soft, non-tender, non-distended, bowel sounds present. G-tube clean/dry/intact left upper abdomen. Extremities: Peripheral pulses intact. No edema. Neuro: She is oriented to self and place but not time. Able to follow simple commands. Drawstring Knotter strength is weak bilaterally. Speech is clear, memory deficit noted.
[2020-05-27] MEDS: FLUTICASONE PROPIONATE 0.05% NA SPR 16 GM BTL (*BKC) 2 SPRAY NASAL (11:52)
[2020-05-27] MEDS: INSULIN ASPART (*BKC) 100 UNITS/ML SUB-Q ×3 (11:55→23:56)
--- NOTE | 2020-05-27 12:39 | PM.PNCARD ---
Progress Note: A&P Assessment and Plan (1) Atrial flutter with rapid ventricular response: Code(s): I48.92 - Unspecified atrial flutter Status: Acute Assessment and Plan: History of atrial fibrillation and more recently atrial flutter with a difficult to control heart rate, uncontrolled while taking metoprolol 100 mg and diltiazem 120 mg per G-tube Q 6 hours. No obvious factor causing exacerbation of atrial flutter. Currently much improved with IV amiodarone, IV metoprolol and Cardizem. Had elevated liver enzymes in the past on amiodarone but adding amio may be the best option for now. Baseline LFTs within normal limits Back on his her usual high dose Cardizem and metoprolol. Continue amiodarone 200 mg daily. She's a occasionally bradycardic so will hold her meds if HR < 50 BPM. Aware of interaction of amio with diltiazem. (2) History of intracranial hemorrhage: Code(s): Z86.79 - Personal history of other diseases of the circulatory system Status: Chronic Assessment and Plan: History of intracerebral hemorrhage and also subdural hematoma. Anticoagulation is being held. Mental status appears at baseline. (3) Hypertension: Qualifiers: Hypertension type: essential hypertension Qualified Code(s): I10 - Essential (primary) hypertension Code(s): I10 - Essential (primary) hypertension Status: Chronic Assessment and Plan: Controlled. Additional Plan Has had no tachyarrhythmias for the last 24 hours. Can discharge from a cardiac standpoint. Will need close follow-up with labs for amiodarone monitoring. Plan discussed with Dr. Hurtado 1300 05/27/2020 Subjective Date/time seen: 05/27/20 12:39 Interval history: Follow-up for: AFlutter RVR, history of atrial fibrillation and atrial flutter with difficult heart rate control. History of intracranial bleed while on Eliquis in February 2020, history of recent acute subdural hematoma. Date of service: 05/27/2020 Subjective: Smiles and says that she is okay. Denied chest discomfort, shortness of breath, lightheadedness or palpitations. Review of Systems Constitutional: Constitutional: Reports weakness Eyes: Eyes: Denies blind spots and Denies blurry vision ENT: Denies epistaxis Cardiovascular: Cardiovascular: Denies chest pain, Denies pedal edema, Denies leg edema, Denies lightheadedness, Denies palpitations and Denies dyspnea Respiratory: Respiratory: Denies cough and Denies dyspnea Gastrointestinal: Gastrointestinal: Denies abdominal pain, Denies hematochezia, Denies nausea and Denies vomiting Genitourinary: Genitourinary: Denies hematuria Musculoskeletal: Musculoskeletal: Denies back pain Integumentary/Breasts: Skin/Breast: Denies rash Neurologic: Reports behavioral changes (baseline disorientation), Reports confusion and Reports weakness Psychiatric: Psychiatric: Reports no additional psychiatric complaints, Reports behavioral changes (baseline disorientation) and Reports confusion Endocrine: Endocrine: Denies palpitations Hematologic/Lymphatic: Hematologic/Lymphatic: Denies easy bleeding and Denies easy bruising Allergic/Immunologic: Allergic/Immunologic: Denies wheezing Exam Const: General: comfortable, no acute distress and confusion Orientation/consciousness: confusion HENMT: General nose exam: no epistaxis Mouth: Yes moist mucous membranes and Yes Abnormal oral and palatal mucosa present Eyes: EOM: EOMs intact bilaterally Neck: Neck: supple and no JVD Resp: Effort & Inspection: normal respiratory effort Auscultation: clear to auscultation bilaterally Cardio: Jugular venous distension: no JVD Rate: regular rate Rhythm: abnormal rhythm irregularly irregular Heart sounds: no murmurs GI: Inspection: non-distended GI Palp: Yes Soft to palpation
[2020-05-27 12:54] LABS: Glucose Point of Care 303 (65-105)
--- NOTE | 2020-05-27 15:50 | PC.NURSE ---
Transfer has been received from IMU room 206. Patient belongings are with patient. Patient is oriented to room.
--- NOTE | 2020-05-27 15:51 | PC.NURSE ---
This patient, Bettie Roque, was transferred to [[id number]] on 05/27/20 at 1551. Personal belongings sent with patient. Report given to [Sarah YARBROUGH]. Appropriate documentation sent with patient.
[2020-05-27 17:46] LABS: Glucose Point of Care 234 (65-105)
[2020-05-27 23:59] LABS: Glucose Point of Care 237 (65-105)
[2020-05-28] VITALS (9 sets, daily range): BP systolic 103–120; BP diastolic 49–85; PULSE 54–128; RESP 16–20; TEMP 35.9–37.2; O2SAT 94–97
[2020-05-28] MEDS: dilTIAZem HCL 60 MG TABLET 120 MG FEED TUBE ×2 (05:05→14:26)
[2020-05-28] MEDS: METOPROLOL TARTRATE 50 MG TAB 100 MG FEED TUBE ×2 (05:05→14:26)
[2020-05-28] MEDS: INSULIN ASPART (*BKC) 100 UNITS/ML SUB-Q ×2 (05:11→14:24)
[2020-05-28 05:16] LABS: Glucose Point of Care 250 (65-105)
[2020-05-28 06:06] LABS: Anion Gap 7 mmol/L (8-16); Blood Urea Nitrogen 20 mg/dL (7-17); Carbon Dioxide 28 mmol/L (22-30); Chloride 97 mmol/L (98-107); Estimated CRCL calculation 66 ml/min; Estimated Glomerular Filt Rate > 60; Glucose 267 mg/dL (65-105); Magnesium 1.7 mg/dL (1.6-2.3); Potassium 4.6 mmol/L (3.4-5.0); Sodium 132 mmol/L (137-145)
[2020-05-28 06:20] LABS: Basophils Absolute Auto 0.1 K/mm3 (0.0-0.1); Basophils Percent Auto 0.9 % (0.2-1.2); Eosinophils Absolute Auto 0.4 K/mm3 (0-0.3); Eosinophils Percent Auto 4.9 % (0-4.4); Hematocrit 39.7 % (37.0-47.0); Hemoglobin 12.5 g/dL (12.0-15.0); Immature Granulocyte Absolute 0.05 K/mm3 (0.00-0.031); Immature Granulocyte Percent A 0.6 % (0-0.5); Lymphocytes Absolute Auto 1.26 K/mm3 (0.9-3.2); Lymphocytes Percent Auto 14.8 % (18.3-44.2); Mean Corpuscular HGB Conc 31.5 g/dl (32-36); Mean Corpuscular Hemoglobin 22.7 pg (26-34); Mean Corpuscular Volume 72.2 fl (80-100); Mean Platelet Volume 9.3 fl (7.4-10.4); Monocytes Percent Auto 11.8 % (2.6-8.5); Neutrophils Absolute Auto 5.7 K/mm3 (1.3-6.7); Platelet Count Result 457 k/mm3 (150-375); Red Cell Distribution Width 16.6 % (11.5-14.5); White Blood Count 8.5 K/mm3 (4.5-10.0)
[2020-05-28] MEDS: levETIRAcetam 500 MG TABLET 1000 MG XX (09:14)
[2020-05-28] MEDS: AMIODARONE HCL 200 MG TABLET PO (09:14)
[2020-05-28] MEDS: FAMOTIDINE 20 MG TABLET FEED TUBE (09:14)
[2020-05-28] MEDS: CHOLECALCIFEROL 1,000 UNITS TABLET 4000 UNITS FEED TUBE (09:14)
[2020-05-28] MEDS: CALCIUM CARBONATE (TUMS) 500 MG (200 MG ELEMENTAL) FEED TUBE (09:14)
[2020-05-28] MEDS: LORATADINE 10 MG TABLET PO (09:14)
[2020-05-28] MEDS: FLUTICASONE PROPIONATE 0.05% NA SPR 16 GM BTL (*BKC) 2 SPRAY NASAL (09:15)
[2020-05-28] MEDS: MAGNESIUM SULF 2 GM/WATER 50ML 2 GM/50 ML BAG IVPB (10:07)
--- NOTE | 2020-05-28 10:43 | PCNFU ---
Nutrition Follow-Up Complete: Inadequate infusion of enteral nutrition related to tube feeding order as evidenced by tube feeding order providing 1320kcal per 22 hours versus estimated needs of 1600kcal per day. Goal: Patient to meet estimated nutritional needs. Progressing towards goal. We will continue current goal. Pt current nutrition is Glucerna 1.2 at 50 ml/hr. Last recorded weight is 103.6 kg up from admit weight of 101.6 kg. Bowel Motility: No reported BM. Labs Reviewed: BUN 20,Na 132 Meds Noted:Tums,Novolog,Lopressor,Vit.D, Keppra, Pepsid. Additional Notes: Spoke with nursing today, patient is tolerating tube feedings at 50 ml/hr. Tube feedings are providing 1320 kcals/66 gms protein. Current tube feeding is meeting 83% of patients caloric needs. To meet estimated nutritional needs recommend increasing tube feedings to 60 ml/hr. which will provide 1584 kcals/79 gms protein. No wounds noted. Monitoring: Follow up every Sunday/Sunday.
--- NOTE | 2020-05-28 12:52 | PM.PNCARD ---
Progress Note: A&P Assessment and Plan (1) Atrial flutter with rapid ventricular response: Code(s): I48.92 - Unspecified atrial flutter Status: Acute Assessment and Plan: History of atrial fibrillation and more recently atrial flutter with a difficult to control heart rate, uncontrolled while taking metoprolol 100 mg and diltiazem 120 mg per G-tube Q 6 hours. No obvious factor causing exacerbation of atrial flutter. Currently much improved with IV amiodarone, IV metoprolol and Cardizem. Had elevated liver enzymes in the past on amiodarone but adding amio may be the best option for now. Baseline LFTs within normal limits Back on his her usual high dose Cardizem and metoprolol. Continue amiodarone 200 mg daily. She's a occasionally bradycardic so will hold her meds if HR < 50 BPM. Aware of interaction of amio with diltiazem. Heart rate tends to get into the 126 range when it is time for her next dose of medications. The staff at [facility] needs to be aware of this. (2) History of intracranial hemorrhage: Code(s): Z86.79 - Personal history of other diseases of the circulatory system Status: Chronic Assessment and Plan: History of intracerebral hemorrhage and also subdural hematoma. Anticoagulation is being held. Resumption of anticoagulation will be up to the neurosurgeons at [place] (3) Hypertension: Qualifiers: Hypertension type: essential hypertension Qualified Code(s): I10 - Essential (primary) hypertension Code(s): I10 - Essential (primary) hypertension Status: Chronic Assessment and Plan: Controlled. Additional Plan OK to discharge from cardiac standpoint. Will need close follow-up of labs with amiodarone therapy. Plan discussed Dr. Hurtado 1300 05/28/2020 Subjective Date/time seen: 05/28/20 12:52 Interval history: Follow-up for: AFlutter RVR, history of atrial fibrillation and atrial flutter with difficult heart rate control. History of intracranial bleed while on Eliquis in February 2020, history of recent acute subdural hematoma. Date of service: 05/28/2020 Subjective: Less verbal today. Arouses from sleep answering questions today. Review of Systems Review of Systems: ROS unobtainable: Yes unobtainable due to mental status Exam Const: General: comfortable, no acute distress and confusion (Not answering questions today.) HENMT: General nose exam: no epistaxis Mouth: Yes moist mucous membranes and Yes Abnormal oral and palatal mucosa present Eyes: EOM: EOMs intact bilaterally Neck: Neck: supple and no JVD Resp: Effort & Inspection: normal respiratory effort Auscultation: clear to auscultation bilaterally Cardio: Jugular venous distension: no JVD Rate: regular rate Rhythm: abnormal rhythm irregularly irregular Heart sounds: no murmurs GI: Inspection: non-distended Auscultation: normal bowel sounds Other: G-tube present Urinary Catheter: Urinary Catheter: patent and draining and urine clear Skin: General skin exam: normal color and no rashes or lesions noted Neuro: Cognition (Neuro): abnormal cognition (Unable to assess she is not answering questions today) Extrem: General: no pedal edema Other: intact post tibial pulses and left DP pulse; ouldn't easily palpate right DP pulse. Warm extremities Psych: Mental Status: mental status grossly abnormal (appears bewildered but calm) Affect: No normal affect Objective Data Vital Signs Vital Signs: Vital Signs - 24 hr 05/27/20 14:00 05/27/20 15:31 05/27/20 16:00 Temperature 36.3 C L Pulse Rate 62 62 84 Respiratory Rate 14 Blood Pressure 112/48 L Pulse Oximetry 98 05/27/20 16:29 05/27/20 17:44 05/27/20 18:00 Temperature 35.5 C L Pulse Rate 76 85 94 Respiratory Rate 16 Blood Pressure 131/66 Pul
[2020-05-28 15:04] LABS: Glucose Point of Care 299 (65-105)
--- NOTE | 2020-05-28 15:35 | PC.NURSE ---
Report called to LINNEA Pittman at [facility]. No further questions or concerns regarding the patient.
--- NOTE | 2020-05-28 16:44 | PM.DS ---
DS: Admitting Diagnosis Admitting Diagnosis Admitting Diagnosis: Atrial flutter with rapid ventricular response. DS: Discharge Diagnosis Discharge Diagnosis (1) Atrial flutter with rapid ventricular response: Code(s): I48.92 - Unspecified atrial flutter Status: Acute Assessment and Plan: Date of Admission 05/25/20 Date of Discharge/DOS 05/28/20 Ms. Roque is a 74yo F with history of recent hemorrhagic CVA February 2020, subdural hematoma after a fall April 2020, dysphagia secondary to CVA with G tube and G tube feedings (NPO), hydrocephalus s/p MANAGER FRONT OFFICE shunt, insulin-dependent type 2 diabetes mellitus, chronic anemia, hypertension, and history of atrial flutter not on systemic anticoagulation due to recent bleeds mentioned above who presented to the ED from the snf for evaluation of elevated heart rate. She was found to be in atrial flutter with RVR. She is known to require high doses of her rate-controlling medications with metoprolol and diltiazem through her G tube due to difficulty controlling her heart rate. Cardiology was consulted and she was seen by Dr Anderson. She was initially treated with IV amiodarone, IV metoprolol and IV cardizem. Her heart rates decreased and she was transitioned back to her oral (g tube) regimen with cardizem and metoprolol. She was started on new oral (g tube) amiodarone. Baseline TSH and liver function are normal. She was recently hospitalized at [place] last week and her home Deborah remains on hold per [place] neuro[facility] until her follow up appointment with them. Her G tube feeds are Glucerna 1.5 50mL/hr continuous feed with 100mL water flushes. She is alert and oriented to self but not place or time which has been her new baseline since recent CVAs in past months. Her rates were improved and she was hemodynamically stable for discharge back to SNF with instructions to follow up with PCP/snf provider within 1 week. Blood sugars were elevated and need to continue to be monitored at the snf. 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 Blood sugars elevated. Follow up with PCP. (3) Chronic anemia: Code(s): D64.9 - Anemia, unspecified Status: Chronic Assessment and Plan: Stable. Monitor H&H. (4) Hypertension: Qualifiers: Hypertension type: essential hypertension Qualified Code(s): I10 - Essential (primary) hypertension Code(s): I10 - Essential (primary) hypertension Status: Chronic Assessment and Plan: Blood pressures are stable on regimen described above. (5) Hydrocephalus: Onset Date: ~02/2020 Qualifiers: Hydrocephalus type: unspecified Qualified Code(s): G91.9 - Hydrocephalus, unspecified Code(s): G91.9 - Hydrocephalus, unspecified Status: Chronic Assessment and Plan: History of hydrocephalus s/p MANAGER FRONT OFFICE shunt. (6) History of intracranial hemorrhage: Code(s): Z86.79 - Personal history of other diseases of the circulatory system Status: Chronic Assessment and Plan: Recent hemorrhagic CVA February 2020, subdural hematoma after a fall April 2020 thus she is not on any systemic anticoagulation. Dysphagia secondary to CVA; G-tube in place. DS: Summary Time Spent with Patient Time attestation: Total time spent providing and/o
== END 2020-05-28 18:01 | DRG 309 ==
LOC: ANHED 11:43 → ANHIMU 18:20 → ANH3MED 05-28 11:32 → ANHIMU 06-01 10:32
PROVIDERS: Internal Medicine Cardiovascular Disease; Physician Assistant; Admitting Provider Internal Medicine; Emergency Provider Emergency Medicine; PCP Family Medicine; Visit Provider Physician Assistant
DX: I48.92 Unspecified atrial flutter (principal); G91.9 Hydrocephalus, unspecified; E11.9 Type 2 diabetes mellitus without complications; I48.0 Paroxysmal atrial fibrillation; D64.9 Anemia, unspecified; I69.191 Dysphagia following nontraumatic intracerebral hemorrhage; R13.10 Dysphagia, unspecified; Z93.1 Gastrostomy status; I10 Essential (primary) hypertension
CPT/HCPCS: 36415; 71045; 80048; 80053; 81001; 83036; 83735; 84443; 84484; 85025; 85027; 85610; 85730; 87086; 87088; 93005; 96365; 99285; A9270; J0282; J1815; J3475

== ENCOUNTER 2020-05-31 21:51 | Inpatient (IN) | payer MEDICARE, SELFPAY ==
--- NOTE | ~2020-05-31 | CT_ITS ---
EXAMINATION: CT abdomen pelvis w con DATE: 06/01/2020 00:50 INDICATION: Abdominal pain TECHNIQUE: Computed tomography (CT) of the abdomen and pelvis was performed without intravenous contr ast. The dose-length product was 1430.77 mGy-cm. Automated exposure control and iterative reconstruct ion technique were employed. COMPARISON: Chest dated 05/31/2020. FINDINGS: There is bibasilar dependent atelectasis. There are lingular infiltrates. Borderline heart size. No significant pleural or pericardial effusion. There is a G-tube present. Nonobstructive bowel gas pattern. There is a ventriculoperitoneal shunt. The liver, spleen, pancreas, adrenal glands and kidneys are unremarkable. Aparicio catheter present in t he bladder which is decompressed. There are calcifications of the uterus, likely fibroid changes. Sma ll fat-containing umbilical hernia. There is lumbar spondylosis. IMPRESSION: 1. Lingular infiltrates may represent atelectasis or pneumonia. Bibasilar dependent atelectasis. 2: No acute abdominal abnormality. Reviewed, dictated and finalized at location A. SYSTEMS ENGINEER IMPRESSION: 1. Lingular infiltrates may represent atelectasis or pneumonia. Bibasilar depen dent atelectasis. 2: No acute abdominal abnormality.
--- NOTE | ~2020-05-31 | XR_ITS ---
EXAMINATION: XR chest 1V portable DATE: 05/31/2020 22:50 INDICATION: Diabetes, hypertension and atrial fibrillation presenting with chest pain TECHNIQUE: frontal view of the chest was obtained. COMPARISON: Chest radiograph dated 05/25/2020 FINDINGS: The lungs remain clear with no focal airspace opacities, pulmonary edema, pleural effusion or pneumot horax. The cardiomediastinal silhouette is normal. Dense seen is catheter tubing extending from the r ight neck across the medial side of the right thorax into the right upper quadrant likely representin g a ventriculoperitoneal shunt. Correlate with clinical history. IMPRESSION: 1. No acute cardiopulmonary disease. Reviewed, dictated and finalized at location H. R OPERATOR
[2020-05-31 21:51] VITALS: BP 188/137; PULSE 147; RESP 40; TEMP 37.5; O2SAT 100
--- NOTE | 2020-05-31 22:20 | ED.ARRPALP ---
HPI - Arrhythmia/Palpitations General Chief Complaint: Recheck/Abnormal Lab/Rx Stated Complaint: elevated bp/HR Time Seen by Provider: 05/31/20 22:00 History of Present Illness HPI narrative: 74 yo female w/ h/o DM, HTN, a-fib, hemorrhagic stroke, SDH presents to the ED for abdominal pain. She has been having abdominal pain since early this evening. Thought to be mildly distended. She receives her medications through her G-tube and [facility] staff did not admister them due to her pain. Since not receiving her medications she went into atrial flutter. History limited by mental status. Daughter assisted in providing the history. Related Data Home Medications Medication Instructions Recorded Confirmed Eliquis 5 mg FEEDING TUBE BID 02/24/20 05/25/20 budesonide-formoterol [Symbicort] 2 puff INHALATION BID 02/24/20 05/25/20 famotidine 20 mg FEEDING TUBE BID 02/24/20 05/25/20 insulin syringe-needle U-100 [BD 02/24/20 05/25/20 Veo Insulin Syringe UF] metoprolol tartrate 100 mg FEEDING TUBE Q6H 02/24/20 05/25/20 acetaminophen 650 mg FEEDING TUBE Q4H PRN 05/25/20 05/25/20 albuterol sulfate 5 mg INHALATION Q4H PRN 05/25/20 05/25/20 aspirin 81 mg FEEDING TUBE DAILY 05/25/20 05/25/20 bisacodyl 10 mg MN DAILY PRN 05/25/20 05/25/20 calcium carbonate 200 mg FEEDING TUBE DAILY 05/25/20 05/25/20 cetirizine 10 mg FEEDING TUBE DAILY 05/25/20 05/25/20 cholecalciferol (vitamin D3) 4,000 mcg FEEDING TUBE DAILY 05/25/20 05/25/20 [Vitamin D3] diltiazem HCl 120 mg FEEDING TUBE Q6H 05/25/20 05/25/20 docusate sodium 10 mg FEEDING TUBE BID 05/25/20 05/25/20 fluticasone propionate [Flonase 2 spray INTRANASAL DAILY 05/25/20 05/25/20 Allergy Relief] glucagon 1 mg SUBCUT Q30M PRN 05/25/20 05/25/20 ipratropium bromide 2.5 ml INHALATION QID 05/25/20 05/25/20 levetiracetam 1,000 mg FEEDING TUBE Q12H 05/25/20 05/25/20 polyethylene glycol 3350 17 g FEEDING TUBE DAILY PRN 05/25/20 05/25/20 ramelteon 8 mg PO HS 05/25/20 05/25/20 vitamin B complex [B 1 tablet FEEDING TUBE DAILY 05/25/20 05/25/20 Complex-Vitamin B12] Allergies Allergy/AdvReac Type Severity Reaction Status Date / Time JOLIE Inhibitors Allergy Unknown Unknown Verified 05/25/20 18:23 hydrocodone Allergy Unknown Unknown Verified 05/25/20 18:23 lovastatin Allergy Unknown Unknown Verified 05/25/20 18:23 pravastatin Allergy Unknown Unknown Verified 05/25/20 18:23 Sulfa (Sulfonamide Allergy Unknown Unknown Verified 05/25/20 18:23 Antibiotics) Sulfonylureas Allergy Unknown Unknown Verified 05/25/20 18:23 acetaminophen Allergy Unknown Verified 05/31/20 22:03 Review of Systems Review of Systems: ROS unobtainable: Yes unobtainable due to mental status PMFSH Past Medical History Medical History Atrial flutter Beta thalassemia trait Cerebrovascular accident, embolic (~12/2017) Chronic anemia Dysphagia As a result of previous strokes. G-tube in place. History of intracranial hemorrhage Hydrocephalus (~02/2020) Status post BLANKET CUTTING MACHINE OPERATOR shunt. Hyperlipidemia Intolerant to statins. Hypertension Indwelling Aparicio catheter present Intracerebral hemorrhage (~02/2020) Hemorrhagic stroke occurred while she was on Eliquis, and she was hospitalized at [facility] at that time. Obstructive sleep apnea Osteoarthritis Paroxysmal atrial fibrillation Paroxysmal atrial flutter Subdural hematoma (~04/2020) Type 2 diabetes mellitus, uncontrolled Surgical History Surgical History History of appendectomy History of gastrostomy tube placement History of total bilateral knee replacement History of tracheostomy History of tubal ligation Status post ventriculo-peritoneal shunt placement (~02/2020) Family History Family History Other Alzheimer's dementia Carcinoma of colon Cerebrovascular accident Diabetes mellitus Family history of
--- NOTE | 2020-05-31 22:24 | ECG_ITS ---
Measurements Intervals [place] Rate: 145 P: [place]: 0 QRS: -32 QRSD: 86 T: 149 QT: 185 QTc: 288 Interpretive Statements ATRIAL FLUTTER/TACHYCARDIA WITH RAPID VENTRICULAR RESPONSE LEFT AXIS DEVIATION NONSPECIFIC ST & T-WAVE ABNORMALITY- DIFFUSE LEADS ABNORMAL ECG Electronically Signed On 06-01-2020 7:16:56 CHUCKING MACHINE SET UP OPERATOR by Mello Nesbitt D.O.
--- NOTE | 2020-05-31 23:15 | PC.NURSE ---
3 FAILED PERIPHERAL IV STICKS AT THIS TIME, 2 BY THIS RN AND [address] WHITING WITH ULTRASOUND ASSISTANCE.
[2020-05-31 23:46] LABS: Add Urine Microscopic? YES; Appearance Urine Turbid (Clear); Bacteria Urine 1+ /hpf; Bilirubin Urine Negative (Negative); Blood Urine 1+ (Negative); Color Urine Yellow (Yellow); Glucose Urine UA 3+ mg/dL (Negative); Ketones Urine Trace mg/dL (Negative); Leukocyte Esterase Ur 3+ LEU/UL (Negative); Mucus Urine Rare /lpf; Nitrate Urine Negative (Negative); Protein Urine 2+ mg/dL (Negative); RBC Urine >75 /hpf (0-2); Specific Grav Ur 1.017 (1.001-1.035); Squamous Epithelial Cell Urine Few /hpf (Few); Urobilinogen Urine Negative mg/dL (<2.0); WBC Urine 21-30 /hpf
[2020-05-31 23:49] LABS: Budding Yeast Urine Present /hpf
[2020-06-01] VITALS (32 sets, daily range): BP systolic 93–160; BP diastolic 53–115; PULSE 72–149; RESP 16–37; TEMP 36.2–37.4; O2SAT 91–100; BMI 29.9
[2020-06-01 00:03] LABS: Basophils Absolute Auto 0.1 K/mm3 (0.0-0.1); Basophils Percent Auto 0.7 % (0.2-1.2); Eosinophils Percent Auto 0.2 % (0-4.4); Hematocrit 41.5 % (37.0-47.0); Hemoglobin 13.3 g/dL (12.0-15.0); Immature Granulocyte Absolute 0.03 K/mm3 (0.00-0.031); Immature Granulocyte Percent A 0.3 % (0-0.5); Lymphocytes Absolute Auto 0.74 K/mm3 (0.9-3.2); Lymphocytes Percent Auto 8.3 % (18.3-44.2); Mean Corpuscular Hemoglobin 23.3 pg (26-34); Mean Corpuscular Volume 72.7 fl (80-100); Mean Platelet Volume 9.8 fl (7.4-10.4); Monocytes Absolute Auto 0.9 K/mm3 (0.1-0.6); Monocytes Percent Auto 9.6 % (2.6-8.5); Neutrophils Absolute Auto 7.2 K/mm3 (1.3-6.7); Neutrophils Percent Auto 80.9 % (45.5-73.1); Platelet Count Result 466 k/mm3 (150-375); Red Blood Count 5.71 M/mm3 (4.2-5.4); Red Cell Distribution Width 16.5 % (11.5-14.5)
[2020-06-01 00:07] LABS: Prothrombin Time 13.5 Seconds (11.1-14.7)
[2020-06-01 00:08] LABS: Lactic Acid Reflex 1.5 mmol/L (0.7-2.1); Partial Thromboplastin Time 24.7 SECONDS (22.3-36.8)
[2020-06-01] MEDS: dilTIAZem HCl INJ 25 MG/5 ML VIAL 10 MG IV PUSH ×2 (00:10→01:26)
[2020-06-01 00:11] LABS: Alanine Aminotransferase 16 U/L (4-35); Albumin Level 3.6 g/dL (3.5-5.1); Alkaline Phosphatase 116 U/L (38-126); Anion Gap 11 mmol/L (8-16); Aspartate Amino Transferase 20 U/L (14-36); Bilirubin,Total 0.7 mg/dL (0.2-1.3); Blood Urea Nitrogen 23 mg/dL (7-17); CRP 7.7 mg/dL (<1.0); Calcium 9.2 mg/dL (8.4-10.2); Carbon Dioxide 29 mmol/L (22-30); Chloride 97 mmol/L (98-107); Estimated CRCL calculation 71 ml/min; Estimated Glomerular Filt Rate > 60; Glucose 458 mg/dL (65-105); Potassium 4.5 mmol/L (3.4-5.0); Sodium 137 mmol/L (137-145)
[2020-06-01] MEDS: fentaNYL CITRATE INJ (*CRX) 100 MCG/2 ML VIAL 50 MCG IV PUSH (00:12)
[2020-06-01] MEDS: SODIUM CHLORIDE 0.9% IV 1,000 ML 999 ML IV CONT (00:19)
[2020-06-01 00:20] LABS: Troponin I < 0.012 ng/mL (0.000-0.034)
[2020-06-01] MEDS: INSULIN HUMAN REGULAR (*BKC) 100 UNITS/ML 10 UNITS IV PUSH (02:44)
[2020-06-01 06:09] LABS: Glucose Point of Care 389 (65-105)
--- NOTE | 2020-06-01 09:52 | PM.IMHP ---
H&P: HPI History of Present Illness Date/Time: 06/01/20 09:52 Chief complaint: Atrial flutter with RVR, UTI Narrative: Bettie Roque is a 74yo female with hx of DM, HTN, Afib, and recent hemorrhagic stroke (Feb 2020) who is sent in [facility] for abdominal pain. She is aphasic and dysphagia secondary to CVA with G tube(NPO), hydrocephalus s/p ADJUNCT PROFESSOR OF LAW shunt. She was recently hospitalized here from 05/25- for AFlutter with RVR. She had been at [facility] the week before and her home Eliquis is to remain on hold per [facility] neurosurgery until her follow up appointment with them. She was discharged on 05/28 on Amiodarone 200mg daily, diltiazem 120mg Q6h and metoprolol 100mg Q6h. She has been having abdominal pain which began on the day of admission. The [facility] staff did not administer her home meds due to pain. Since not receiving her medications she went into atrial flutter. The NH notes show a BP 170/130 with HR 114 and that she was somnolent. EMS notes with BP 170-100, HR 144 and glucose 396. History unable to be provided by patient. Discussed with daughter. Patient was complaining of frequency and urgency but no fever or chills per dtr. In the ED, patient was tachycardic and hypertensive. EKG showing AFlutter with RVR. She was given Diltiazem and started on a drip. UA positive and Rocephin started emperically. She was admitted for further care. Review of Systems Review of Systems: ROS unobtainable: Yes unobtainable due to mental status [facility] Past Medical History Medical History (Updated 06/01/20 @ 10:42 by Rohan Colon MD) Atrial flutter Beta thalassemia trait Cerebrovascular accident, embolic (~12/2017) Chronic anemia Dysphagia As a result of previous strokes. G-tube in place. History of intracranial hemorrhage Hydrocephalus (~02/2020) Status post ADJUNCT PROFESSOR OF LAW shunt. Hyperlipidemia Intolerant to statins. Hypertension Indwelling Aparicio catheter present Intracerebral hemorrhage (~02/2020) Hemorrhagic stroke occurred while she was on Eliquis, and she was hospitalized at [facility] at that time. Obstructive sleep apnea Osteoarthritis Paroxysmal atrial fibrillation Paroxysmal atrial flutter Subdural hematoma (~04/2020) Type 2 diabetes mellitus, uncontrolled Surgical History Surgical History History of appendectomy History of gastrostomy tube placement History of total bilateral knee replacement History of tracheostomy History of tubal ligation Status post ventriculo-peritoneal shunt placement (~02/2020) Family History Family History Other Alzheimer's dementia Carcinoma of colon Cerebrovascular accident Diabetes mellitus Family history of arthritis Hypertension Social History Social History (Updated 06/01/20 @ 10:37 by Rohan Colon MD) Social History: The patient is a resident at [facility] ([facility]). Prior to her recent stroke she was living in [place] with her . She is a former smoker and quit in the . No alcohol or substance abuse. She has 3 children. Her Luis Roque and daughter Shaneka Hinojosa are listed as her emergency contact. She is listed as a full code. Smoking status: Unknown if ever smoked Alcohol intake: unknown Substance use: unknown Spiritual care concerns: No Meds Home Medications and Allergies Home Medications Medication Instructions Recorded Confirmed Type Eliquis 5 mg FEEDING TUBE BID 02/24/20 06/01/20 History budesonide-formoterol [Symbicort] 2 puff INHALATION BID 02/24/20 06/01/20 History famotidine 20 mg FEEDING TUBE BID 02/24/20 06/01/20 History metoprolol tartrate 100 mg FEEDING TUBE Q6H 02/24/20 06/01/20 History acetaminophen 650 mg FEEDING TUBE Q4H PRN 05/25/20 06/01/20 History albuterol sulfate 5 mg INHALATION Q4H PRN 05/25/20 06/01/20 History aspirin 81 mg FEEDING TUBE DAILY 05/25/20 06/01/20
[2020-06-01] MEDS: SODIUM CHLORIDE 0.9% IV 1,000 ML 70 ML IV CONT (10:51)
[2020-06-01] MEDS: METOPROLOL TARTRATE INJ 5 MG/5 ML VIAL IV PUSH (10:52)
[2020-06-01 11:58] LABS: Glucose Point of Care 392 (65-105)
[2020-06-01] MEDS: INSULIN ASPART (*BKC) 100 UNITS/ML SUB-Q ×3 (11:59→23:27)
[2020-06-01] MEDS: levETIRAcetam 1000MG/NACL100ML 1,000 MG/100 ML BAG 400 MG IVPB ×2 (13:47→23:19)
[2020-06-01] MEDS: METOPROLOL TARTRATE 50 MG TAB 100 MG FEED TUBE ×3 (13:47→23:20)
--- NOTE | 2020-06-01 15:02 | PC.NURSE ---
Spoke with Dr. Colon regarding patient's heart rate after receiving metoprolol thru feeding tube. Patient still in Aflutter but rate has decreased to 70's from 140's. New order to start on 90mg cardizem q6hr through feeding tune. D/C cardizem drip one hour after first dose through feeding tube
[2020-06-01] MEDS: dilTIAZem HCL TAB 30 MG, dilTIAZem HCL TAB 60 MG 90 MG FEED TUBE ×2 (15:52→23:20)
[2020-06-01] MEDS: DOCUSATE SODIUM LIQ 100 MG/10 ML UDC FEED TUBE (17:46)
[2020-06-01] MEDS: FAMOTIDINE 20 MG TABLET FEED TUBE (17:46)
[2020-06-01 17:57] LABS: Glucose Point of Care 300 (65-105)
[2020-06-01 23:17] LABS: Glucose Point of Care 282 (65-105)
[2020-06-02] VITALS (12 sets, daily range): BP systolic 118–147; BP diastolic 60–97; PULSE 75–152; RESP 16–28; TEMP 35.8–36.8; O2SAT 91–100
[2020-06-02 04:39] LABS: Basophils Percent Auto 0.5 % (0.2-1.2); Eosinophils Percent Auto 0.3 % (0-4.4); Hematocrit 38.7 % (37.0-47.0); Hemoglobin 11.9 g/dL (12.0-15.0); Immature Granulocyte Absolute 0.03 K/mm3 (0.00-0.031); Immature Granulocyte Percent A 0.5 % (0-0.5); Lymphocytes Absolute Auto 1.13 K/mm3 (0.9-3.2); Lymphocytes Percent Auto 17.7 % (18.3-44.2); Mean Corpuscular HGB Conc 30.7 g/dl (32-36); Mean Corpuscular Hemoglobin 22.7 pg (26-34); Mean Corpuscular Volume 73.7 fl (80-100); Mean Platelet Volume 9.4 fl (7.4-10.4); Monocytes Absolute Auto 0.8 K/mm3 (0.1-0.6); Neutrophils Absolute Auto 4.4 K/mm3 (1.3-6.7); Platelet Count Result 299 k/mm3 (150-375); Red Blood Count 5.25 M/mm3 (4.2-5.4); Red Cell Distribution Width 16.3 % (11.5-14.5); White Blood Count 6.4 K/mm3 (4.5-10.0)
[2020-06-02] MEDS: SODIUM CHLORIDE 0.9% IV 1,000 ML 70 ML IV CONT (05:26)
[2020-06-02] MEDS: dilTIAZem HCL TAB 30 MG, dilTIAZem HCL TAB 60 MG 90 MG FEED TUBE (05:27)
[2020-06-02] MEDS: METOPROLOL TARTRATE 50 MG TAB 100 MG FEED TUBE ×2 (05:28→11:52)
[2020-06-02] MEDS: FLUTICASONE PROPIONATE 0.05% NA SPR 16 GM BTL (*BKC) 2 SPRAY NASAL (08:26)
[2020-06-02] MEDS: DOCUSATE SODIUM LIQ 100 MG/10 ML UDC FEED TUBE (08:26)
[2020-06-02] MEDS: ASPIRIN 81 MG CHEWABLE TABLET FEED TUBE (08:27)
[2020-06-02] MEDS: AMIODARONE HCL 200 MG TABLET FEED TUBE (08:27)
[2020-06-02] MEDS: FAMOTIDINE 20 MG TABLET FEED TUBE (08:27)
[2020-06-02] MEDS: CHOLECALCIFEROL 1,000 UNITS TABLET 4000 UNITS FEED TUBE (08:27)
[2020-06-02] MEDS: levETIRAcetam 1000MG/NACL100ML 1,000 MG/100 ML BAG 400 MG IVPB (08:32)
[2020-06-02] MEDS: CALCIUM CARBONATE (TUMS) 500 MG (200 MG ELEMENTAL) FEED TUBE (08:37)
--- NOTE | 2020-06-02 10:08 | PC.NURSE ---
Spoke with Dr. Colon regarding increase in heart rate back to 150's. New order for one time Lopressor 5mg IVP, and will increase Cardizem to home dose of 120mg PO q6hr resuming at 1200 today
[2020-06-02] MEDS: LORATADINE 10 MG TABLET FEED TUBE (10:21)
[2020-06-02] MEDS: METOPROLOL TARTRATE INJ 5 MG/5 ML VIAL IV PUSH (10:22)
[2020-06-02] MEDS: MULTIVIT W/ IRON, MINERALS 15 ML LIQUID (*BKC) PO (10:22)
[2020-06-02 11:41] LABS: Glucose Point of Care 417 (65-105)
[2020-06-02 11:44] LABS: Alanine Aminotransferase 15 U/L (4-35); Albumin Level 3.1 g/dL (3.5-5.1); Alkaline Phosphatase 92 U/L (38-126); Anion Gap 8 mmol/L (8-16); Aspartate Amino Transferase 24 U/L (14-36); Bilirubin,Total 0.6 mg/dL (0.2-1.3); Blood Urea Nitrogen 34 mg/dL (7-17); Calcium 8.6 mg/dL (8.4-10.2); Carbon Dioxide 28 mmol/L (22-30); Chloride 100 mmol/L (98-107); Estimated CRCL calculation 54 ml/min; Estimated Glomerular Filt Rate > 60; Glucose 433 mg/dL (65-105); Magnesium 1.7 mg/dL (1.6-2.3); Phosphorus 3.9 mg/dL (2.5-4.5); Potassium 4.2 mmol/L (3.4-5.0); Sodium 136 mmol/L (137-145)
[2020-06-02] MEDS: INSULIN ASPART (*BKC) 100 UNITS/ML SUB-Q (11:51)
[2020-06-02] MEDS: dilTIAZem HCL 60 MG TABLET 120 MG FEED TUBE (12:34)
--- NOTE | 2020-06-02 12:39 | PM.DS ---
DS: Admitting Diagnosis Admitting Diagnosis Admitting Diagnosis: Atrial flutter with RVR, UTI DS: Discharge Diagnosis Discharge Diagnosis (1) Atrial flutter with rapid ventricular response: Code(s): I48.92 - Unspecified atrial flutter Status: Acute Assessment and Plan: Patient has been admitted to IMU on a diltiazem drip. Heart rate poorly controlled. Will determine if G-tube is functional. Start medications via G-tube when able. Anticoagulation on hold. Lopressor IV x1. Continue diltiazem drip. (2) Dysphagia: Code(s): R13.10 - Dysphagia, unspecified Status: Inactive Assessment and Plan: There is concern that the G-tube has been replaced recently although unclear when this would have been done. I called the care home but nurse not available at this time. Will perform G-tube radiology evaluation to ensure proper placement. If properly placed, will resume medications and tube feedings. Spoke with radiology. CT scan showing GTube in good position and he felt that further imaging not required. Will start back home meds and tube feedings. (3) Abdominal pain: Code(s): R10.9 - Unspecified abdominal pain Status: Acute Assessment and Plan: Patient had abdominal pain prior to admission. Clinically, no significant pain or concerning exam findings at this time. CT of the abdomen and pelvis showed no acute abdominal abnormalities. She has lingular infiltrates either atelectasis or pneumonia but felt atelectasis. Urinalysis could be consistent with UTI which could explain some abdominal pain. She also pulled her GTube which also could have caused the pain. (4) History of intracranial hemorrhage: Code(s): Z86.79 - Personal history of other diseases of the circulatory system Status: Chronic Assessment and Plan: Patient has recent hemorrhagic stroke (Feb 2020) who is aphasic and dysphagia with G tube. She also had hydrocephalus s/p HOMEOWNER ASSOCIATION MANAGER shunt. There is a heel bruise and she has heel protectors. Also with groin maceration and barrier cream added. (5) Type 2 diabetes mellitus: Qualifiers: Diabetes mellitus complication status: without complication Diabetes mellitus remote computer terminal operator insulin use: with halfway use Qualified Code(s): E11.9 - Type 2 diabetes mellitus without complications; Z79.4 - termination clerk (current) use of insulin Code(s): E11.9 - Type 2 diabetes mellitus without complications Status: Chronic Assessment and Plan: A1c 7.9. The patient's blood glucose to be monitored. Continue AccuCheks covering with sliding scale. Hypoglycemia protocol available as needed. (6) Hypertension: Qualifiers: Hypertension type: essential hypertension Qualified Code(s): I10 - Essential (primary) hypertension Code(s): I10 - Essential (primary) hypertension Status: Chronic Assessment and Plan: Patient's blood pressure noted. Blood pressure stable currently. Will continue current medications. DS: Summary Hospital Course Reason for hospitalization: 74yo female here for abdominal pain and AFib/RVR. Please see H&P for details Hospital Course: Please see above. Time Spent with Patient Time attestation: Total time spent providing and/or coordinating discharge services:34 minutes Time spent: Greater than 30 minutes Exam Narrative: Exam Narrative: AF 98.2 102 147/97 22 94% ra Gen - NARD Chest - lungs are clear anteriorly CV - regular; Tele showing AFlutter Abd - abdomen was soft. Nondistended. Positive bowel sounds. Gtube site clean, dry and intact Ext - no edema. Neuro - patient is more alert and can speak a few words; confused Skin - warm and dry. Right heel ecchymosis and possible early bullae DS: Data Data Completed and Pending Labs on day of discharge: Labs from last 24 hours 06/02/20 06/02/20 06/02/20 11:33 11:25 04:25 WBC 6.4 RBC 5.25 Hgb 11.9 L H
--- NOTE | 2020-06-07 14:01 | PC.NURSE ---
Blood cx are negative. Urine cx shows >100,00 of VRE. >100,[address] Isaiah galvan.
== END 2020-06-02 16:39 | DRG 309 ==
LOC: ANHED 06-01 02:20 → ANHIMU 06-01 04:09
PROVIDERS: Admitting Provider Family Medicine; Emergency Provider Emergency Medicine; PCP Family Medicine; Visit Provider Internal Medicine
DX: I48.92 Unspecified atrial flutter (principal); N39.0 Urinary tract infection, site not specified; J98.11 Atelectasis; E11.9 Type 2 diabetes mellitus without complications; I10 Essential (primary) hypertension; D64.9 Anemia, unspecified; E78.5 Hyperlipidemia, unspecified; G47.33 Obstructive sleep apnea (adult) (pediatric); E86.0 Dehydration; I69.391 Dysphagia following cerebral infarction; R13.10 Dysphagia, unspecified; I69.320 Aphasia following cerebral infarction; E66.9 Obesity, unspecified; Z68.33 Body mass index [BMI] 33.0-33.9, adult; Z96.653 Presence of artificial knee joint, bilateral; Z79.4 Long term (current) use of insulin; Z93.1 Gastrostomy status; Z87.891 Personal history of nicotine dependence; Z98.2 Presence of cerebrospinal fluid drainage device
CPT/HCPCS: 36415; 71045; 74177; 80053; 81001; 83605; 83735; 84100; 84484; 85025; 85610; 85730; 86140; 87040; 87077; 87086; 87088; 87186; 93005; 94640; 96365; 96375; 96376; 99285; A9270; J0696; J1815; J1953; J3010; J3370; J7030; Q9967

== ENCOUNTER 2020-06-03 15:46 | Inpatient (IN) | payer MEDICARE, SELFPAY ==
[2020-06-03] VITALS (15 sets, daily range): BP systolic 105–140; BP diastolic 67–86; PULSE 75–120; RESP 18–54; TEMP 36.1–36.4; O2SAT 92–100; BMI 33.9; BMI 31.7
--- NOTE | ~2020-06-03 | XR_ITS ---
XR chest 1V portable DATE: 06/05/2020 05:59 INDICATION: Left-sided weakness. Confusion. Covid-positive. TECHNIQUE: Portable AP chest on 06/05/2020 at 0540 hours COMPARISON: 06/03/2020 portable AP chest at 1739 hours 05/31/2020 portable AP chest FINDINGS: The patient is rotated to the left; this limits assessment for possible volume loss and jorge ft of heart and mediastinum. There are left mid and bilateral lower lung infiltrates and/atelectasis, increased since 05/28/2020. Again noted is mild elevation of the right leaf of the diaphragm. No pleural effusion or pneumothorax is evident. Right ventriculoperitoneal shunt catheter tubing. IMPRESSION: Left mid and bilateral lower lung infiltrate and/atelectasis, increased since 06/03/2020 Reviewed, dictated and finalized at location A. CTOR OF STUDENT FINANCIAL AID IMPRESSION: Left mid and bilateral lower lung infiltrate and/atelectasis, incre ased since 06/03/2020
--- NOTE | ~2020-06-03 | XR_ITS ---
EXAMINATION: XR chest 1V portable DATE: 06/03/2020 18:06 INDICATION: Hypoxia. TECHNIQUE: A single frontal view of the chest was obtained. COMPARISON: Chest single view 05/31/2020 FINDINGS: There are airspace opacities in left mid and lower lung zones. No pleural effusion or pneum othorax. The heart size is normal. There is a right-sided ventriculoperitoneal shunt. IMPRESSION: 1. Worsened airspace opacities in left mid and lower lung zones, consistent with pneumonia. Reviewed, dictated and finalized at location A. OR PROGRAMMER ANALYST IMPRESSION: 1. Worsened airspace opacities in left mid and lower lung zones, consistent wit h pneumonia.
--- NOTE | ~2020-06-03 | XR_ITS ---
EXAMINATION: XR chest 1V portable EXAM DATE: 06/07/2020 06:02 INDICATION: COVID-19. TECHNIQUE: Portable AP frontal chest x-ray was obtained. Comparison is made to prior examination from 1126, 06/05, 05/31. FINDINGS: There is been slight interval progression in the bilateral acute airspace disease, moderate on the left and smaller amount on the right compared to prior studies. There is right-sided shunt tu john. No pneumothorax or pleural effusion. The cardiomediastinal silhouette is prominent but magnifie d on this AP technique. There are no osseous abnormalities identified. IMPRESSION: Mild progression in left-sided predominant atelectasis and/or infection. Reviewed, dictated and finalized at location A. ER FEEDER IMPRESSION: Mild progression in left-sided predominant atelectasis and/or infe ction.
--- NOTE | ~2020-06-03 | CT_ITS ---
EXAMINATION: CT brain wo con DATE: 06/03/2020 17:52 INDICATION: Altered mental status. Weakness. TECHNIQUE: Computed tomography (CT) of the head was performed without intravenous contrast. The mA wa s adjusted according to patient size. Iterative reconstruction technique was employed. The dose-lengt h product was 605.33 mGy-cm. COMPARISON: Head CT 02/24/2020 FINDINGS: There is a mixed hyperdense and hypodense subdural hematoma overlying right frontal parieta l region with maximum thickness of 11 mm. There is chronic encephalomalacia in right parietal lobe. T here is an infarct in left occipital lobe, new from 02/24/2020. There are scattered areas of low atten uation in the cerebral white matter. There is no abnormal mass lesion. The ventricles are normal in s ize. There is a right-sided ventriculostomy catheter with tip in the right lateral ventricle abutting the septum pellucidum. The paranasal sinuses are clear. The mastoid air cells are normal. There are likely changes of ocular lens replacement surgeries. IMPRESSION: 1. Right frontal parietal subdural hematoma, likely acute or subacute. 2. Infarct in left occipital lobe, new from 02/24/2020, likely acute or subacute. 3. Chronic encephalomalacia in right parietal lobe. 4. Moderate nonspecific cerebral white matter disease, which likely represents chronic small vessel i schemic disease. 5. I discussed this case with Aleksandr Conley on 06/03/20 at 18:01. Reviewed, dictated and finalized at location A. SIT PLANNING MANAGER IMPRESSION: 1. Right frontal parietal subdural hematoma, likely acute or subacute. 2. Infarct in left occipital lobe, new from 02/24/2020, likely acute or subacute . 3. Chronic encephalomalacia in right parietal lobe. 4. Moderate nonspecific cerebral white matter disease, which likely represents chronic small vessel ischemic disease. 5. I discussed this case with Aleksandr Conley on 06/03/20 at 18:01.
--- NOTE | 2020-06-03 15:45 | ECG_ITS ---
Measurements Intervals [place] Rate: 75 P: [place]: 0 QRS: 7 QRSD: 97 T: 49 QT: 420 QTc: 469 Interpretive Statements ATRIAL FLUTTER/TACHYCARDIA ABNORMAL ECG Electronically Signed On 06-03-2020 16:11:42 BOOK COVERER by Mello Nesbitt D.O.
--- NOTE | 2020-06-03 15:56 | ED.GENADULT ---
HPI - General Adult General Chief complaint: Shortness of Breath/Dyspnea Stated complaint: AMS, COVID + Source: EMS and old records reviewed Mode of arrival: EMS Limitations: altered mental status History of Present Illness HPI narrative: Patient is a 74-year-old female who presents back to emergency department after being discharged yesterday patient had been treated for atrial flutter urinary tract infection at that time was discharged back notes that she has had altered mentation per staff low blood pressure. Patient on arrival is a limited historian due to history of dementia and stroke. Patient is alert and oriented to self. Patient does not appear to be in distress upon arrival or uncomfortable Related Data Home Medications Medication Instructions Recorded Confirmed Eliquis 5 mg FEEDING TUBE BID 02/24/20 06/01/20 budesonide-formoterol [Symbicort] 2 puff INHALATION BID 02/24/20 06/01/20 famotidine 20 mg FEEDING TUBE BID 02/24/20 06/01/20 metoprolol tartrate 100 mg FEEDING TUBE Q6H 02/24/20 06/01/20 acetaminophen 650 mg FEEDING TUBE Q4H PRN 05/25/20 06/01/20 albuterol sulfate 5 mg INHALATION Q4H PRN 05/25/20 06/01/20 aspirin 81 mg FEEDING TUBE DAILY 05/25/20 06/01/20 bisacodyl 10 mg MD DAILY PRN 05/25/20 06/01/20 calcium carbonate 200 mg FEEDING TUBE DAILY 05/25/20 06/01/20 cetirizine 10 mg FEEDING TUBE DAILY 05/25/20 06/01/20 cholecalciferol (vitamin D3) 4,000 mcg FEEDING TUBE DAILY 05/25/20 06/01/20 [Vitamin D3] diltiazem HCl 120 mg FEEDING TUBE Q6H 05/25/20 06/01/20 docusate sodium 100 mg FEEDING TUBE BID 05/25/20 06/01/20 fluticasone propionate [Flonase 2 spray INTRANASAL DAILY 05/25/20 06/01/20 Allergy Relief] glucagon 1 mg SUBCUT Q30M PRN 05/25/20 06/01/20 ipratropium bromide 2.5 ml INHALATION QID 05/25/20 06/01/20 levetiracetam 1,000 mg FEEDING TUBE Q12H 05/25/20 06/01/20 polyethylene glycol 3350 17 g FEEDING TUBE DAILY PRN 05/25/20 06/01/20 ramelteon 8 mg PO HS 05/25/20 06/01/20 vitamin B complex [B 1 tablet FEEDING TUBE DAILY 05/25/20 06/01/20 Complex-Vitamin B12] amiodarone [Pacerone] 200 mg FEEDING TUBE DAILY@0800 06/01/20 06/01/20 insulin NPH isoph U-100 human 20 unit SUBCUT Q12H 06/01/20 06/01/20 Allergies Allergy/AdvReac Type Severity Reaction Status Date / Time JOLIE Inhibitors Allergy Unknown Unknown Verified 05/25/20 18:23 hydrocodone Allergy Unknown Unknown Verified 06/01/20 04:23 lovastatin Allergy Unknown Unknown Verified 06/01/20 04:23 pravastatin Allergy Unknown Unknown Verified 06/01/20 04:23 Sulfa (Sulfonamide Allergy Unknown Unknown Verified 06/01/20 04:23 Antibiotics) Sulfonylureas Allergy Unknown Unknown Verified 06/01/20 04:23 acetaminophen Allergy Unknown Verified 06/01/20 04:23 Review of Systems Review of Systems: ROS unobtainable: Yes unobtainable due to medical condition PMFSH Past Medical History Medical History Atrial flutter Beta thalassemia trait Cerebrovascular accident, embolic (~12/2017) Chronic anemia Dysphagia As a result of previous strokes. G-tube in place. History of intracranial hemorrhage Hydrocephalus (~02/2020) Status post NATIONAL ACCOUNTS RECRUITER shunt. Hyperlipidemia Intolerant to statins. Hypertension Indwelling Aparicio catheter present Intracerebral hemorrhage (~02/2020) Hemorrhagic stroke occurred while she was on Eliquis, and she was hospitalized at [facility] at that time. Obstructive sleep apnea Osteoarthritis Paroxysmal atrial fibrillation Paroxysmal atrial flutter Subdural hematoma (~04/2020) Type 2 diabetes mellitus, uncontrolled Surgical History Surgical History History of appendectomy History of gastrostomy tube placement History of total bilateral knee replacement History of tracheostomy History of tubal ligation Status post ventriculo-peritoneal shunt placement (~02/2020) Family History Family History (Reviewed 06/01/20 @ 10:10 by Terrance
[2020-06-03 16:24] LABS: Basophils Percent Auto 0.5 % (0.2-1.2); Eosinophils Percent Auto 0.5 % (0-4.4); Hematocrit 38.7 % (37.0-47.0); Immature Granulocyte Absolute 0.07 K/mm3 (0.00-0.031); Immature Granulocyte Percent A 1.1 % (0-0.5); Immature Platelet Fraction Pct 2.7 % (0.9-11.2); Lymphocytes Absolute Auto 0.99 K/mm3 (0.9-3.2); Lymphocytes Percent Auto 15.1 % (18.3-44.2); Mean Corpuscular Hemoglobin 22.8 pg (26-34); Mean Corpuscular Volume 73.4 fl (80-100); Mean Platelet Volume 11.5 fl (7.4-10.4); Monocytes Absolute Auto 0.7 K/mm3 (0.1-0.6); Monocytes Percent Auto 10.4 % (2.6-8.5); Neutrophils Absolute Auto 4.8 K/mm3 (1.3-6.7); Neutrophils Percent Auto 72.4 % (45.5-73.1); Platelet Count Result 190 k/mm3 (150-375); Red Blood Count 5.27 M/mm3 (4.2-5.4); Red Cell Distribution Width 16.8 % (11.5-14.5); White Blood Count 6.6 K/mm3 (4.5-10.0)
[2020-06-03 16:35] LABS: Lactic Acid Reflex 3.6 mmol/L (0.7-2.1)
[2020-06-03 16:36] LABS: Add Urine Microscopic? YES; Appearance Urine Turbid (Clear); Bilirubin Urine Negative (Negative); Budding Yeast Urine Present /hpf; Color Urine Yellow (Yellow); Glucose Urine UA 3+ mg/dL (Negative); Ketones Urine Negative (Negative); Leukocyte Esterase Ur 3+ LEU/UL (Negative); Nitrate Urine Negative (Negative); Protein Urine 2+ mg/dL (Negative); RBC Urine >75 /hpf (0-2); Specific Grav Ur 1.017 (1.001-1.035); Squamous Epithelial Cell Urine Moderate /hpf (Few); WBC Urine >75 /hpf
[2020-06-03 16:39] LABS: Blood Urine Negative (Negative)
[2020-06-03 16:40] LABS: Alanine Aminotransferase 17 U/L (4-35); Albumin Level 3.1 g/dL (3.5-5.1); Alkaline Phosphatase 107 U/L (38-126); Anion Gap 9 mmol/L (8-16); Aspartate Amino Transferase 31 U/L (14-36); Bilirubin,Total 0.6 mg/dL (0.2-1.3); Blood Urea Nitrogen 53 mg/dL (7-17); Carbon Dioxide 30 mmol/L (22-30); Chloride 102 mmol/L (98-107); Estimated CRCL calculation 37 ml/min; Estimated Glomerular Filt Rate 41; Glucose 380 mg/dL (65-105); Lipase 55 U/L (23-300); Potassium 4.5 mmol/L (3.4-5.0); Sodium 141 mmol/L (137-145)
[2020-06-03 16:49] LABS: Troponin I 0.245 ng/mL (0.000-0.034)
[2020-06-03 17:04] LABS: CRP 14.9 mg/dL (<1.0)
[2020-06-03] MEDS: SODIUM CHLORIDE 0.9% IV 1,000 ML 999 ML IV CONT (17:15)
[2020-06-03 17:28] LABS: Alveolar/Arterial O2 Gradient 100.8 mmHg; Base Excess ABG 2.6 mEq/l (+/-2.0); Carboxyhemoglobin 0.7 % THb (0-2.0); Fractional Inspired Oxygen 30 %; HCO3 ABG 27.3 mEq/l (22.0-26.0); Methemoglobin ABG 0.3 %THb (0-1.5); Oxygen Saturation ABG 92.6 % (95.0-100.0); Oxyhemoglobin 90.8 % THb (90.0-100.0); PCO2 ABG 42.5 mmHg (35.0-45.0); PO2 ABG 63.2 mmHg (80.0-100.0); PO2 FiO2 Ratio Arterial Blood 2.11 %; Reduced Hemoglobin 8.2 %THb (0-5.0); Total Hemoglobin 12.5 g/dL (12.0-18.0); pH ABG 7.425 (7.350-7.450)
[2020-06-03 17:29] LABS: Device NASAL CANNULA; Liters per Minute 2.5 LPM; Site Drawn LEFT BRACHIAL
--- NOTE | 2020-06-03 17:39 | PC.NURSE ---
LAB HAS REJECTED X2 BLUE TOP, PT STUCK X6 WITHOUT SUCCESS, ED CHARGE PETERSON INFORMED, SHE HAS SPOKEN WITH JACINTA MALCOLM AT THIS TIME WHO STATES THAT THE D-DIMER AND PT/PTT INR DOES NOT NEED TO BE STAT DRAW AND CAN WAIT. ALSO STATES THAT HE WILL INFORM THE HOSPITALIST.
--- NOTE | 2020-06-03 18:00 | PC.NURSE ---
SPOKE WITH PT FAMILY, UPDATED ON STATUS, NO FURTHER QUESTIONS.
[2020-06-03 19:20] LABS: Reflex Lactic Acid Yes or No Add Lactic
[2020-06-03] MEDS: LACTATED RINGERS 1,000 ML 75 ML IV CONT (20:38)
[2020-06-03 20:41] LABS: Prothrombin Time 13.6 Seconds (11.1-14.7)
[2020-06-03 20:42] LABS: Partial Thromboplastin Time 26.2 SECONDS (22.3-36.8)
[2020-06-03 20:59] LABS: Troponin I 0.187 ng/mL (0.000-0.034)
[2020-06-03 21:05] LABS: D Dimer 19.77 ug/mL (<0.48)
--- NOTE | 2020-06-03 22:30 | ADMGEN ---
This patient, Bettie Roque, was admitted to IMU Room 206-01 at 2220. Patient/family oriented to hospital policies and general routines including ID bracelet, bed and alarms, visiting hours, pain management, procedures, bathroom and other care routines, personal items, smoking policy, room service/diet, and visiting hours. Information on how to activate the Rapid Response Team has been discussed. Patient/Family are encouraged to report perceived risks to care and to ask questions if they do not understand what they are told or what they should do.
--- NOTE | 2020-06-03 23:21 | PM.IMHP ---
H&P: HPI History of Present Illness Date/Time: 06/03/20 23:21 Chief complaint: sepsis, elevated troponin, UTI, pneumonia, Narrative: This is an unfortunate 74 year old Diabetic female with known history of atrial fibrillation, HTN, and recent hemorrhagic CVA this past summer who was just discharged from the hospital yesterday and now returned from the long term secondary to hyperglycemia. The patient is known to be aphasic w/ dysphagia w/ G tube at baseline. The patient was just treated this past week in our hospital for atrial fibrillation w/ RVR. She tested positive at the long term for COVID-19. She is followed by [facility] who had placed her DECORATOR CONSULTANT shunt secondary to hydrocephalus. Today in the ER the patient was found to have a right frontal parietal subdural hematoma, likely acute or subacute and an infarct in left occipital lobe, new from 02/24/2020, likely acute or subacute. ER provider has discussed these findings with [facility], Dr. Smart who refused the patient for direct admission after reviewing the CT images as they felt the patient did not need neurosurgical services. The patient has an indwelling Aparicio catheter and her Urine culture from 05/31/2020 just came back positive tonight with VRE. Her urinalysis in the ER was grossly abnormal. On my encounter with the patient she cannot answer my questions appropriately. I called and spoke with the patient's daughter who hasn't seen the patient and cannot tell me if her baseline is any different than normal. At this point in time her daughter wants us to continue medical management and keep the patient full code. Review of Systems Review of Systems: ROS unobtainable: Yes unobtainable due to medical condition and unobtainable due to mental status [facility] Past Medical History Medical History Atrial flutter Beta thalassemia trait Cerebrovascular accident, embolic (~12/2017) Chronic anemia Diabetes mellitus Dysphagia As a result of previous strokes. G-tube in place. History of intracranial hemorrhage Hydrocephalus (~02/2020) Status post DECORATOR CONSULTANT shunt. Hyperlipidemia Intolerant to statins. Hypertension Indwelling Aparicio catheter present Intracerebral hemorrhage (~02/2020) Hemorrhagic stroke occurred while she was on Eliquis, and she was hospitalized at [facility] at that time. Obstructive sleep apnea Osteoarthritis Paroxysmal atrial fibrillation Paroxysmal atrial flutter Subdural hematoma (~04/2020) Type 2 diabetes mellitus, uncontrolled Surgical History Surgical History History of appendectomy History of gastrostomy tube placement History of total bilateral knee replacement History of tracheostomy History of tubal ligation Status post ventriculo-peritoneal shunt placement (~02/2020) Family History Family History Other Alzheimer's dementia Carcinoma of colon Cerebrovascular accident Diabetes mellitus Family history of arthritis Hypertension Social History Social History Social History: The patient is a resident at [facility] ([facility]). Prior to her recent stroke she was living in [place] with her . She is a former smoker and quit in the . No alcohol or substance abuse. She has 3 children. Her Luis Roque and daughter Shaneka Hinojosa are listed as her emergency contact. She is listed as a full code. Smoking status: Unknown if ever smoked Alcohol intake: unknown Substance use: unknown Gender identity (if verbalized by the patient): Female Spiritual care concerns: No Meds Home Medications and Allergies Home Medications Medication Instructions Recorded Confirmed Type Eliquis 5 mg FEEDING TUBE BID 02/24/20 06/03/20 History budesonide-formoterol [Symbicor
[2020-06-04] VITALS (23 sets, daily range): BP systolic 104–145; BP diastolic 57–97; PULSE 96–159; RESP 22–36; TEMP 36–38.3; O2SAT 90–100; BMI 31.7
[2020-06-04 00:37] LABS: Alveolar/Arterial O2 Gradient 185.2 mmHg; Fractional Inspired Oxygen 40 %; HCO3 ABG 26.2 mEq/l (22.0-26.0); Oxygen Content ABG 15.3 %vol (16.0-22.0); Oxygen Saturation ABG 89.6 % (95.0-100.0); PCO2 ABG 39.4 mmHg (35.0-45.0); PO2 ABG 54.7 mmHg (80.0-100.0); PO2 FiO2 Ratio Arterial Blood 1.37 %; Total Hemoglobin 12.4 g/dL (12.0-18.0)
[2020-06-04 00:38] LABS: Device NASAL CANNULA; Site Drawn RIGHT BRACHIAL
--- NOTE | 2020-06-04 01:14 | ECG_ITS ---
Measurements Intervals [place] Rate: 136 P: NH: 0 QRS: -12 QRSD: 93 T: 78 QT: 306 QTc: 460 Interpretive Statements ATRIAL FLUTTER/TACHYCARDIA WITH RAPID VENTRICULAR RESPONSE NONSPECIFIC ST & T-WAVE ABNORMALITY- HIGH LATERA LEADS BASELINE ARTIFACT- I, II, III, AVR, AVL, AVF, V1-V2 ABNORMAL ECG Electronically Signed On 06-07-2020 12:06:21 SIGN SHOP SUPERVISOR by Mello Nesbitt D.O.
[2020-06-04] MEDS: LINEZOLID 600 MG/300 ML 600 MG/300 ML SOLN 300 MG IVPB ×2 (02:47→13:51)
[2020-06-04] MEDS: FAMOTIDINE 20 MG/2 ML VIAL IV PUSH ×3 (02:47→21:46)
[2020-06-04] MEDS: dilTIAZem HCl INJ 25 MG/5 ML VIAL 15 MG IV PUSH (02:48)
--- NOTE | 2020-06-04 03:12 | WPDPROCEDUR ---
Procedures Central Line Placement Right Femoral: Central Line Date: 06/04/20 Central Line Time: 02:30 Discussed w/ the patient/family/POA,the placement of a central venous catheter, including its clinical necessity/indication & associated potential risks, benifits and alternatives.: Yes Time Out Performed: Yes Patient Position: supine Patient placed on monitor/pulse ox: Yes Provider Prep: mask, sterile gown, sterile gloves, Max. sterile barrier precautions, cap and hand hygiene with conventional soap/water or alcohol based hand rub Central line prep: 2% Chlorhexidine scrub Local anesthesia used: lidocaine 1% Amount of anesthesia used (ml): 4 Sterile US Technique with sterile gel/sterile probe covers: Yes Central line lumen inserted: triple [place]kin[place]: 7 Length (cm): 20 Depth of Insertion (cm): 20 Post Procedure: sutured in place, good blood return, all ports aspirated, flushed, capped, transparent dressing, securement product and aseptic technique maintained throughout procedure Patient tolerated procedure: well Complications: none Additional comments: Date of service of procedure was 06/04/2020 at 02:30 hrs.
[2020-06-04 03:33] LABS: Troponin I 0.114 ng/mL (0.000-0.034)
[2020-06-04 05:36] LABS: Basophils Percent Auto 0.3 % (0.2-1.2); Eosinophils Percent Auto 0.6 % (0-4.4); Hematocrit 36.1 % (37.0-47.0); Hemoglobin 11.3 g/dL (12.0-15.0); Immature Granulocyte Absolute 0.05 K/mm3 (0.00-0.031); Immature Granulocyte Percent A 0.7 % (0-0.5); Immature Platelet Fraction Pct 3.2 % (0.9-11.2); Lymphocytes Absolute Auto 0.63 K/mm3 (0.9-3.2); Lymphocytes Percent Auto 8.8 % (18.3-44.2); Mean Corpuscular HGB Conc 31.3 g/dl (32-36); Mean Corpuscular Hemoglobin 22.8 pg (26-34); Mean Corpuscular Volume 72.8 fl (80-100); Mean Platelet Volume 10.9 fl (7.4-10.4); Monocytes Absolute Auto 0.6 K/mm3 (0.1-0.6); Monocytes Percent Auto 8.8 % (2.6-8.5); Neutrophils Absolute Auto 5.8 K/mm3 (1.3-6.7); Neutrophils Percent Auto 80.8 % (45.5-73.1); Platelet Count Result 159 k/mm3 (150-375); Red Blood Count 4.96 M/mm3 (4.2-5.4); Red Cell Distribution Width 16.3 % (11.5-14.5); White Blood Count 7.2 K/mm3 (4.5-10.0)
[2020-06-04 05:56] LABS: Alanine Aminotransferase 14 U/L (4-35); Albumin Level 2.9 g/dL (3.5-5.1); Alkaline Phosphatase 87 U/L (38-126); Anion Gap 8 mmol/L (8-16); Aspartate Amino Transferase 27 U/L (14-36); Bilirubin,Total 0.7 mg/dL (0.2-1.3); Blood Urea Nitrogen 37 mg/dL (7-17); Calcium 8.3 mg/dL (8.4-10.2); Carbon Dioxide 29 mmol/L (22-30); Chloride 106 mmol/L (98-107); Estimated CRCL calculation 60 ml/min; Estimated Glomerular Filt Rate > 60; Glucose 392 mg/dL (65-105); Sodium 143 mmol/L (137-145)
--- NOTE | 2020-06-04 06:06 | PCRCNOTE ---
Window of time for administration has passed. See next scheduled administration.
[2020-06-04] MEDS: INSULIN ASPART (*BKC) 100 UNITS/ML SUB-Q ×3 (06:41→16:34)
--- NOTE | 2020-06-04 07:33 | WPDCDIQUERY2 ---
CDI Query Clarification Request -05/31 urine culture growing VRE and Emily albicans - urinalysis could be consistent with UTI documented. Please clarify if UTI has been ruled in or ruled out. <Laura Ortiz RN - Last Filed: 06/04/20 12:34>
[2020-06-04 07:38] LABS: Glucose Point of Care 358 (65-105)
[2020-06-04] MEDS: LACTATED RINGERS 1,000 ML 75 ML IV CONT (13:51)
[2020-06-04 14:54] LABS: Glucose Point of Care 345 (65-105)
--- NOTE | 2020-06-04 15:10 | PM.IMPN ---
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 She had been on Eliquis at the time. She also had a subdural hematoma after a fall in April 2020. Patient has had multiple hospitalizations and a ACUTE DIALYSIS NURSE shunt was placed at one point for hydrocephalus. Last hospitalization at [place] was earlier this month for AMS felt related to UTI and PNA (ACUTE DIALYSIS NURSE shunt was working normally at that time). Patient returns this admission for hyperglycemia and AMS. She has CT brain showing a right frontal parietal subdural hematoma, likely acute or subacute and a infarct in left occipital lobe, new from 02/24/2020, likely acute or subacute. [facility] was contacted but the neurosurgeon did not feel patient needed to be transferred because these were more chronic. Will discuss with family about termite renewal inspector plans. Spoke with daughter today. She wants patient transferred to [facility]. [facility] unable to accept at this time. After speaking with her family, daughter states patient should remain a full code at this time. I spoke with her about hospice as an option and all questions were answered. (2) Catheter-associated urinary tract infection: Qualifiers: Encounter type: initial encounter Indwelling urinary catheter type: indwelling urethral catheter Qualified Code(s): T83.511A - Infection and inflammatory reaction due to indwelling urethral catheter, initial encounter; N39.0 - Urinary tract infection, site not specified Code(s): T83.511A - Infection and inflammatory reaction due to indwelling urethral catheter, initial encounter; N39.0 - Urinary tract infection, site not specified Status: Acute Assessment and Plan: Patient has chronic indwelling Aparicio. UCx growing VRE. Zyvox IV ordered. Infectious Disease consulted. (3) Atrial fibrillation with rapid ventricular response: Code(s): I48.91 - Unspecified atrial fibrillation Status: Acute Assessment and Plan: Patient started on IV diltiazem. Heart rate still poorly controlled. Will resume metoprolol and amiodarone through the G-tube. Will change house attendant to diltiazem to G-tube as well if blood pressure tolerates. (4) Severe sepsis: Code(s): A41.9 - Sepsis, unspecified organism; R65.20 - Severe sepsis without septic shock Status: Acute Assessment and Plan: Low-grade fever, tachycardia and lactic acidosis. Probably multifactorial from COVID, and/or VRE UTI and/or PNA. Continue to monitor (5) COVID-19: Code(s): U07.1 - COVID-19 Status: Acute Assessment and Plan: Patient had a positive rapid test. Daughter is concerned that this was a false positive. Chest x-ray was clear on 05/31/[address] scan showed possible lingular infiltrate. [facility] X-ray this admission showed worsened airspace opacities left mid lower lung zones consistent with pneumonia. Patient currently on 5 L nasal cannula and is tachypneic. Will start dexamethasone and Remdesivir. Consider retesting. (6) Pneumonia: Code(s): J18.9 - Pneumonia, unspecified organism Status: Acute Assessment and Plan: Chest x-ray reviewed. Patient with left lower lobe findings. Probably COVID related but will cover for bacterial PNA. Consider possible aspiration given hx. Continue Rocephin, Azithro and Zyvox. Continue Xopenex. Wean O2 at tolerated. (7) Acute kidney injury: Code(s): N17.9 - Acute kidney failure, unspecified Status: A
--- NOTE | 2020-06-04 15:55 | PCDIET ---
Nutrition Assessment Complete: Swallowing difficulty related to hx of CVA as evidence by need for enteral nutrition to meet needs Goal: Total intake will meet estimated nutrition needs Additional Notes: Recommend initiation of Glucerna 1.2 at 10ml/hr, advancing 10ml/hr q 4 hrs to goal of 60ml/hr to provide 1584kcals, 79g protein, and 1062ml of free water to meet needs. Water flush of 30ml q 4hrs appropriate with other IV fluids, otherwise recommend 70ml water flush q 4 hrs if all IV fluids off.
[2020-06-04] MEDS: AMIODARONE HCL 200 MG TABLET FEED TUBE (16:14)
[2020-06-04] MEDS: METOPROLOL TARTRATE 50 MG TAB 100 MG PO (16:15)
[2020-06-04] MEDS: ACETAMINOPHEN ELIXIR 325 MG/10.15 ML UDC 650 MG FEED TUBE (16:16)
[2020-06-04] MEDS: DOCUSATE SODIUM LIQ 100 MG/10 ML UDC FEED TUBE (16:19)
[2020-06-04 16:42] LABS: Glucose Point of Care 373 (65-105)
--- NOTE | 2020-06-04 20:09 | WPDINFPN2 ---
Progress Note: A&P Assessment and Plan (1) COVID-19: Code(s): U07.1 - COVID-19 Status: Acute Assessment and Plan: 1. Fever and lung infiltrates due to CoVid 2. Chronic Aparicio with abnormal UA, no infection REC Agree remdesivir and steroid. No antibacterials. Call if other Qs Subjective Date/time seen: 06/04/20 20:09 Objective Data Vital Signs Vital Signs: Vital Signs - 24 hr 06/03/20 21:55 06/03/20 22:00 06/03/20 22:30 Temperature 36.1 C L Pulse Rate 97 110 H 120 H Respiratory Rate 40 H 26 H Blood Pressure 123/76 140/86 Pulse Oximetry 94 94 06/04/20 00:00 06/04/20 00:15 06/04/20 01:00 Temperature 36.4 C L Pulse Rate 120 H 140 H Respiratory Rate 26 H 26 H 24 H Blood Pressure 136/97 H Pulse Oximetry 90 90 98 06/04/20 02:00 06/04/20 02:49 06/04/20 04:00 Temperature 36.6 C Pulse Rate 131 H 138 H 132 H Respiratory Rate 22 H Blood Pressure 145/87 H Pulse Oximetry 100 06/04/20 06:00 06/04/20 08:00 06/04/20 10:30 Temperature 38.3 C H Pulse Rate 127 H 120 H 129 H Respiratory Rate 24 H Blood Pressure 135/76 Pulse Oximetry 91 06/04/20 15:11 06/04/20 15:23 06/04/20 16:14 Temperature Pulse Rate 159 H 158 H 153 H Respiratory Rate 36 H 36 H Blood Pressure Pulse Oximetry 91 06/04/20 16:15 06/04/20 16:16 06/04/20 16:33 Temperature 38.3 C H Pulse Rate 158 H 127 H Respiratory Rate Blood Pressure 130/79 Pulse Oximetry 06/04/20 19:59 Temperature Pulse Rate 96 Respiratory Rate Blood Pressure Pulse Oximetry Intake/Output Intake/Output: Intake & Output 06/01/20 06/02/20 06/03/20 06/04/20 23:59 23:59 23:59 23:59 Intake Total 1050 1800 Output Total 1200 Balance 1050 600 Meds/Results Medications: Active Medications Generic Name Dose Route Start Last Admin Trade Name Freq PRN Reason Stop Dose Admin Acetaminophen 650 mg 06/04/20 13:45 06/04/20 16:16 Acetaminophen Elixir 325 Mg/10.15 Ml Udc FEED TUBE 650 mg Q4H PRN Administration Mild Pain (1-3) or Fever Amiodarone HCl 200 mg 06/05/20 08:00 Amiodarone Hcl 200 Mg Tablet FEED TUBE DAILY@0800 [facility] Bisacodyl 10 mg 06/04/20 15:07 Bisacodyl 10 Mg Suppository RECTAL DAILY PRN Constipation Budesonide/Formoterol Fumarate 2 puff 06/04/20 20:00 Budesonide/Form 160-4.5 Mcg (*Sp) INHALATION Q12HRT [facility] Calcium Carbonate 200 mg 06/05/20 09:00 Calcium Carbonate (Tums) 500 Mg (200 Mg Elemental) FEED TUBE DAILY [facility] Dexamethasone Sodium Phosphate 6 mg 06/04/20 16:15 Dexamethasone Sod Phos Inj 4 Mg/Ml Vial IV PUSH 06/13/20 09:01 DAILY [facility] Dextrose 12.5 gm 06/03/20 20:07 Dextrose 50% 25 Gm/50 Ml Syringe IV PUSH PRN PRN Hypoglycemia Protocol Dextrose 12.5 gm 06/04/20 16:15 Dextrose 50% 25 Gm/50 Ml Syringe IV PUSH PRN PRN Hypoglycemia Protocol Docusate Sodium 100 mg 06/04/20 17:00 06/04/20 16:19 Docusate Sodium Liq 100 Mg/10 Ml Udc FEED TUBE 100 mg BID BENITA Administration Famotidine 20 mg 06/03/20 21:00 06/04/20 08:51 Famotidine 20 Mg/2 Ml Vial IV PUSH 20 mg Q12HR BENITA Administration Fluticasone Propionate 2 spray 06/05/20 09:00 Fluticasone Propionate 0.05% Na Spr 16 Gm Btl (*Bkc) NASAL DAILY [facility] Glucagon 1 mg 06/03/20 20:07 Glucagon For Inj 1 Mg Vial IM PRN PRN Hypoglycemia Protocol Glucagon 1 mg 06/04/20 16:15 Glucagon For Inj 1 Mg Vial IM PRN PRN Hypoglycemia Protocol Glucose 15 gm 06/03/20 20:07 Glucose Oral Gel 15 Gm Of Glucse In 37.5 Gm Tube PO PRN PRN Hypoglycemia Protocol Glucose 15 gm 06/04/20 16:15 Glucose Oral Gel 15 Gm Of Glucse In 37.5 Gm Tube PO PRN PRN Hypoglycemia Protocol Lactated Ringer's 1,000 mls @ 75 mls/hr 06/03/20 20:10 06/04/20 13:51 Lr - Lactated Ringers Iv IV CONT 75 mls/hr .[id number] [facility] Administ
[2020-06-04] MEDS: DEXAMETHASONE SOD PHOS INJ 4 MG/ML VIAL 6 MG IV PUSH (20:26)
[2020-06-04] MEDS: REMDESIVIR 200 MG/NS 250 ML 200 MG/250 ML BAG 250 MG IVPB (20:26)
--- NOTE | 2020-06-04 21:02 | CONS_ITS ---
DATE OF CONSULTATION: 06/04/2020 REASON FOR CONSULTATION: VRE in the urine. HISTORY OF PRESENT ILLNESS: The patient is a 74-year-old female, who was admitted on May 25 with atrial flutter. She was discharged on the , returned on the with atrial flutter once again, discharged on the , and then came back on the with low blood pressure and altered mentation. Here, she has been started on linezolid due to concern over urinary tract infection present on her previous culture. She has a chronic Aparicio catheter in place. She is unable to provide any history. She has been febrile here at 38.3. No events here in the hospital this admission. FAMILY HISTORY: Diabetes and other illnesses. PAST MEDICAL HISTORY: POSTIE shunt February of this year, bilateral total knee arthroplasties, G-tube, appendectomy, intracerebral hemorrhage, subdural hematoma in April 2020, hydrocephalus necessitating the POSTIE shunt, previous strokes, beta thalassemia trait, multiple other illnesses as detailed on record. MEDICATIONS: Present medications, linezolid. She also has been started on remdesivir and dexamethasone for positive Coronavirus assay. Copy of the result is on her paper chart. Present medications, no other immunosuppressants. ALLERGIES: SULFA, UNKNOWN REACTION. OTHERS NOT PERTINENT. REVIEW OF SYSTEMS: 5-point review not obtainable from the patient, but attempted. PHYSICAL EXAMINATION: GENERAL: This is an elderly female, who appears her actual age. No acute distress. Coughing actively. Vital Signs: T-max 38.3, and in the last several weeks, no fevers recorded at this hospital pulse 127, blood pressure 130/79, and her saturation down to 91%. SKIN: Warm and dry. EENT: Conjunctivae are normal. She will not cooperate for exam of the mouth. NECK: No masses. No meningismus. HEAD: Surgical scars in place and no drainage. LUNGS: Clear to auscultation. CARDIAC: Regular rate and rhythm at this time. No murmurs or gallops. ABDOMEN: Nontender, soft, obese. : Aparicio catheter draining clear yellow urine. EXTREMITIES: 2+ edema. LABORATORY DATA: Blood cultures from the and early on , no growth so far. Repeated yesterday. Urine from the , yeast and urine from the , yeast and VRE. White blood cell count 7.2, hemoglobin 11.3, platelets are 159. Her arterial blood gases show a pO2 of 55 on 5 L. High Accu-Cheks and glucose. Troponin high. Urinalysis, multiple abnormalities over time, which are reviewed in full. RADIOLOGY: Chest x-ray 06/03, airspace opacities. ASSESSMENT: 1. 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 She has no apparent urine infection. 2. Fever, hypoxemia, lung infiltrates due to Coronavirus infection. RECOMMENDATIONS: 1. Stop linezolid. 2. Also stop ceftriaxone, azithromycin. 3. Remdesivir and dexamethasone had been started. Stop dates already entered. Thank you very much for asking me to see her. Please call if other questions arise. MARILIN BRYANT M.D. PHARMACY CUSTOMER CARE SPECIALIST PHARMACY CUSTOMER CARE SPECIALIST D I MT: [place]
[2020-06-04] MEDS: levETIRAcetam ORAL SOL 500 MG/5 ML UDC 1000 MG FEED TUBE (21:46)
[2020-06-04] MEDS: INSULIN DETEMIR 100 UNITS/ML 30 UNITS SUB-Q (21:53)
[2020-06-04 22:05] LABS: Glucose Point of Care 364 (65-105)
[2020-06-05] VITALS (27 sets, daily range): BP systolic 98–129; BP diastolic 42–88; PULSE 66–128; RESP 18–30; TEMP 36.1–37.6; O2SAT 90–100
[2020-06-05 00:36] LABS: Glucose Point of Care 364 (65-105)
[2020-06-05] MEDS: METOPROLOL TARTRATE 50 MG TAB 100 MG FEED TUBE ×4 (00:51→16:36)
--- NOTE | 2020-06-05 01:04 | PCRCNOTE ---
Window of time for administration has passed. See next scheduled administration.
[2020-06-05] MEDS: IPRATROPIUM BR 0.02% INH SOLN 0.5 MG/2.5 ML VIAL INHALATION ×3 (03:41→22:30)
[2020-06-05] MEDS: LACTATED RINGERS 1,000 ML 75 ML IV CONT (05:31)
[2020-06-05 05:54] LABS: Glucose Point of Care 357 (65-105)
[2020-06-05 06:19] LABS: Basophils Percent Auto 0.2 % (0.2-1.2); Hematocrit 33.6 % (37.0-47.0); Hemoglobin 10.6 g/dL (12.0-15.0); Immature Granulocyte Absolute 0.03 K/mm3 (0.00-0.031); Immature Granulocyte Percent A 0.5 % (0-0.5); Immature Platelet Fraction Pct 5.6 % (0.9-11.2); Lymphocytes Absolute Auto 0.61 K/mm3 (0.9-3.2); Lymphocytes Percent Auto 10.1 % (18.3-44.2); Mean Corpuscular HGB Conc 31.5 g/dl (32-36); Mean Corpuscular Volume 72.9 fl (80-100); Monocytes Absolute Auto 0.2 K/mm3 (0.1-0.6); Monocytes Percent Auto 3.5 % (2.6-8.5); Neutrophils Absolute Auto 5.2 K/mm3 (1.3-6.7); Neutrophils Percent Auto 85.7 % (45.5-73.1); Platelet Count Result 137 k/mm3 (150-375); Red Blood Count 4.61 M/mm3 (4.2-5.4)
[2020-06-05 07:15] LABS: Iron 14 ug/dL (37-170)
[2020-06-05 07:21] LABS: Alveolar/Arterial O2 Gradient 196.8 mmHg; Base Excess ABG 1.7 mEq/l (+/-2.0); Fractional Inspired Oxygen 40 %; Oxygen Content ABG 13.9 %vol (16.0-22.0); Oxygen Saturation ABG 87.1 % (95.0-100.0); Oxyhemoglobin 84.4 % THb (90.0-100.0); PCO2 ABG 34.8 mmHg (35.0-45.0); PO2 FiO2 Ratio Arterial Blood 1.21 %; Total Hemoglobin 11.7 g/dL (12.0-18.0); pH ABG 7.475 (7.350-7.450)
[2020-06-05 07:23] LABS: PO2 ABG 48.4 mmHg (80.0-100.0)
[2020-06-05 07:24] LABS: Device NASAL CANNULA; Modified Allen's Test Pass; Site Drawn LEFT RADIAL
[2020-06-05 07:25] LABS: Percent Iron Saturation 6 % (20-50)
[2020-06-05 08:52] LABS: Alanine Aminotransferase 16 U/L (4-35); Albumin Level 2.7 g/dL (3.5-5.1); Alkaline Phosphatase 66 U/L (38-126); Anion Gap 7 mmol/L (8-16); Aspartate Amino Transferase 30 U/L (14-36); Bilirubin,Total 0.6 mg/dL (0.2-1.3); Blood Urea Nitrogen 33 mg/dL (7-17); CRP 21.3 mg/dL (<1.0); Calcium 8.4 mg/dL (8.4-10.2); Carbon Dioxide 29 mmol/L (22-30); Chloride 106 mmol/L (98-107); Estimated CRCL calculation 55 ml/min; Estimated Glomerular Filt Rate > 60; Folic Acid 16.3 ng/mL (2.76->20); Glucose 403 mg/dL (65-105); Lactate Dehydrogenase 770 U/L (313-618); Magnesium 1.8 mg/dL (1.6-2.3); Phosphorus 3.6 mg/dL (2.5-4.5); Potassium 4.5 mmol/L (3.4-5.0); Sodium 142 mmol/L (137-145); Vitamin B12 > 1000.0 pg/mL (239-931)
[2020-06-05] MEDS: INSULIN DETEMIR 100 UNITS/ML 30 UNITS SUB-Q (09:20)
[2020-06-05] MEDS: INSULIN ASPART (*BKC) 100 UNITS/ML SUB-Q ×3 (09:20→18:38)
[2020-06-05] MEDS: FAMOTIDINE 20 MG/2 ML VIAL IV PUSH ×2 (09:21→21:53)
[2020-06-05] MEDS: levETIRAcetam ORAL SOL 500 MG/5 ML UDC 1000 MG FEED TUBE ×2 (09:21→21:54)
[2020-06-05] MEDS: DEXAMETHASONE SOD PHOS INJ 4 MG/ML VIAL 6 MG IV PUSH (09:21)
[2020-06-05] MEDS: FLUTICASONE PROPIONATE 0.05% NA SPR 16 GM BTL (*BKC) 2 SPRAY NASAL (09:22)
[2020-06-05] MEDS: DOCUSATE SODIUM LIQ 100 MG/10 ML UDC FEED TUBE ×2 (09:22→16:36)
[2020-06-05 09:36] LABS: Glucose Point of Care 365 (65-105)
[2020-06-05] MEDS: LORATADINE 10 MG TABLET FEED TUBE (09:54)
[2020-06-05] MEDS: CALCIUM CARBONATE (TUMS) 500 MG (200 MG ELEMENTAL) FEED TUBE (09:55)
[2020-06-05] MEDS: AMIODARONE HCL 200 MG TABLET FEED TUBE (09:55)
[2020-06-05] MEDS: VITAMIN B COMPLEX CAPSULE 1 CAP FEED TUBE (09:55)
[2020-06-05] MEDS: CHOLECALCIFEROL 1,000 UNITS TABLET 4000 UNITS FEED TUBE (09:57)
[2020-06-05 13:14] LABS: Glucose Point of Care 374 (65-105)
--- NOTE | 2020-06-05 13:51 | ECG_ITS ---
Measurements Intervals [place] Rate: 105 P: NH: 0 QRS: -3 QRSD: 107 T: 72 QT: 349 QTc: 462 Interpretive Statements ATRIAL FLUTTER WITH RAPID VENTRICULAR RESPONSE BASELINE ARTIFACT- V1-V3 ABNORMAL ECG Electronically Signed On 06-05-2020 16:28:09 CHANCELLOR by Mello Nesbitt D.O.
--- NOTE | 2020-06-05 16:24 | PM.IMPN ---
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 She had been on Eliquis at the time. She also had a subdural hematoma after a fall in April 2020. Patient has had multiple hospitalizations at [facility] and had a FARM ASSISTANT shunt placed at one point for hydrocephalus. Last hospitalization at [facility] was earlier this month for AMS felt related to UTI and PNA (FARM ASSISTANT shunt was working normally at that time). Patient returns this admission for hyperglycemia and AMS. She had a CT brain showing a right frontal parietal subdural hematoma, likely acute or subacute and a infarct in left occipital lobe, new from 02/24/2020, likely acute or subacute. [facility] was contacted but the neurosurgeon did not feel patient needed to be transferred because these were more chronic findings. Will discuss with family about terminal worker plans. Spoke with daughter yesterday and she wanted patient transferred to [facility] medical service. Spoke with [facility] yesterday and again last evening. They wee unable to accept patient. RN did inform daughter. Patient improving so feel need for transfer unnecessary. (2) Catheter-associated urinary tract infection: Qualifiers: Encounter type: initial encounter Indwelling urinary catheter type: indwelling urethral catheter Qualified Code(s): T83.511A - Infection and inflammatory reaction due to indwelling urethral catheter, initial encounter; N39.0 - Urinary tract infection, site not specified Code(s): T83.511A - Infection and inflammatory reaction due to indwelling urethral catheter, initial encounter; N39.0 - Urinary tract infection, site not specified Status: Acute Assessment and Plan: She was recently hospitalized here from 06/01-06/02 for abdominal pain. Patient has chronic indwelling Aparicio. She was found to have UCx positive for Enterococcus and yeast. She was discharged to [facility] with macrobid (sensitivities were not back at time of discharge). Patient returns and original UCx growing VRE. Zyvox IV ordered but ID felt NOT a true infection. Abx stopped. UTI RULED OUT. (3) Atrial fibrillation with rapid ventricular response: Code(s): I48.91 - Unspecified atrial fibrillation Status: Acute Assessment and Plan: Patient started on IV diltiazem. Heart rate was poorly controlled yesterday. We resumed metoprolol and amiodarone through the G-tube and HR improved. BP stable. Will cell changer to diltiazem today. (4) Severe sepsis: Code(s): A41.9 - Sepsis, unspecified organism; R65.20 - Severe sepsis without septic shock Status: Acute Assessment and Plan: Low-grade fever, tachycardia and lactic acidosis. Probably from COVID/PNA since UTI ruled out. Continue supportive care. (5) COVID-19: Code(s): U07.1 - COVID-19 Status: Acute Assessment and Plan: Patient had a positive rapid test. Daughter is concerned that this was a false positive. Chest x-ray was clear on 05/31/[address] scan showed possible lingular infiltrate. Patient was discharged back to the intermediate on room air. X-ray this admission showing worsening airspace opacities left mid lower lung zones consistent with pneumonia. Patient currently on 5 L nasal cannula and is tachypneic. Continue dexamethasone and Remdesivir. (6) Pneumonia: Code(s): J18.9 - Pneumonia, unspecified organism Status: Acute Assessment and Plan: Chest x-ray reviewed. Patient with left lower lobe findings. Probably COVID related; bacterial PNA l
[2020-06-05] MEDS: REMDESIVIR 100 MG/NS 250 ML 100 MG/250 ML BAG 250 MG IVPB (16:46)
[2020-06-05 18:31] LABS: SARS-CoV-2 RNA PCR Positive
[2020-06-05] MEDS: dilTIAZem HCL 60 MG TABLET 120 MG FEED TUBE (18:34)
[2020-06-05 18:41] LABS: Glucose Point of Care 358 (65-105)
[2020-06-05] MEDS: INSULIN DETEMIR 100 UNITS/ML 40 UNITS SUB-Q (21:54)
[2020-06-06] VITALS (24 sets, daily range): BP systolic 100–118; BP diastolic 61–74; PULSE 75–157; RESP 16–28; TEMP 36.1–36.5; O2SAT 91–100
[2020-06-06 00:38] LABS: Glucose Point of Care 276 (65-105)
[2020-06-06] MEDS: dilTIAZem HCL 60 MG TABLET 120 MG FEED TUBE ×4 (01:20→17:21)
[2020-06-06] MEDS: METOPROLOL TARTRATE 50 MG TAB 100 MG FEED TUBE ×4 (01:21→17:20)
[2020-06-06] MEDS: INSULIN ASPART (*BKC) 100 UNITS/ML SUB-Q ×4 (01:21→17:20)
[2020-06-06 05:55] LABS: Glucose Point of Care 232 (65-105)
[2020-06-06 06:02] LABS: Hematocrit 33.6 % (37.0-47.0); Hemoglobin 10.5 g/dL (12.0-15.0); Immature Platelet Fraction Pct 7.2 % (0.9-11.2); Mean Corpuscular HGB Conc 31.3 g/dl (32-36); Mean Corpuscular Hemoglobin 22.7 pg (26-34); Mean Corpuscular Volume 72.7 fl (80-100); Platelet Count Result 141 k/mm3 (150-375); Red Blood Count 4.62 M/mm3 (4.2-5.4); Red Cell Distribution Width 16.1 % (11.5-14.5); White Blood Count 11.4 K/mm3 (4.5-10.0)
[2020-06-06 06:46] LABS: Alanine Aminotransferase 15 U/L (4-35); CRP 16.1 mg/dL (<1.0); Lactate Dehydrogenase 748 U/L (313-618); Magnesium 2.1 mg/dL (1.6-2.3); Phosphorus 3.1 mg/dL (2.5-4.5)
--- NOTE | 2020-06-06 06:52 | PCRCNOTE ---
Window of time for administration has passed. See next scheduled administration.
[2020-06-06] MEDS: AMIODARONE HCL 200 MG TABLET FEED TUBE (08:50)
[2020-06-06] MEDS: CALCIUM CARBONATE (TUMS) 500 MG (200 MG ELEMENTAL) FEED TUBE (08:51)
[2020-06-06] MEDS: LORATADINE 10 MG TABLET FEED TUBE (08:51)
[2020-06-06] MEDS: CHOLECALCIFEROL 1,000 UNITS TABLET 4000 UNITS FEED TUBE (08:51)
[2020-06-06] MEDS: FLUTICASONE PROPIONATE 0.05% NA SPR 16 GM BTL (*BKC) 2 SPRAY NASAL (08:51)
[2020-06-06] MEDS: levETIRAcetam ORAL SOL 500 MG/5 ML UDC 1000 MG FEED TUBE ×2 (08:51→21:56)
[2020-06-06] MEDS: DOCUSATE SODIUM LIQ 100 MG/10 ML UDC FEED TUBE (08:51)
[2020-06-06] MEDS: DEXAMETHASONE SOD PHOS INJ 4 MG/ML VIAL 6 MG IV PUSH (08:52)
[2020-06-06] MEDS: INSULIN DETEMIR 100 UNITS/ML 40 UNITS SUB-Q (08:52)
[2020-06-06] MEDS: FAMOTIDINE 20 MG/2 ML VIAL IV PUSH ×2 (08:52→21:56)
[2020-06-06] MEDS: VITAMIN B COMPLEX CAPSULE 1 CAP FEED TUBE (08:52)
--- NOTE | 2020-06-06 09:00 | ECG_ITS ---
Measurements Intervals [place] Rate: 80 P: NM: 0 QRS: 12 QRSD: 93 T: 53 QT: 461 QTc: 532 Interpretive Statements ATRIAL FLUTTER/TACHYCARDIA BASELINE ARTIFACT- I, V1-V3 ABNORMAL ECG Electronically Signed On 06-06-2020 9:27:40 GUEST ROOM INSPECTOR by Mello Nesbitt D.O.
[2020-06-06] MEDS: IPRATROPIUM BR 0.02% INH SOLN 0.5 MG/2.5 ML VIAL INHALATION ×2 (10:56→21:14)
[2020-06-06 11:57] LABS: Glucose Point of Care 214 (65-105)
[2020-06-06] MEDS: REMDESIVIR 100 MG/NS 250 ML 100 MG/250 ML BAG 250 MG IVPB (17:20)
[2020-06-06 17:30] LABS: Glucose Point of Care 260 (65-105)
--- NOTE | 2020-06-06 18:23 | PM.IMPN ---
Progress Note: A&P Assessment and Plan (1) COVID-19: Code(s): U07.1 - COVID-19 Status: Acute Assessment and Plan: Patient had a positive rapid test that was confirmed here. Chest x-ray was clear on 05/31/[address] scan showed possible lingular infiltrate. Patient was discharged back to the senior living on room air. X-ray this admission 06/03 showing worsening airspace opacities left mid lower lung zones. Repeat CXR 06/05 showing progression. Inflammatory markers better toay. Patient remains on 5 L nasal cannula but is more comfortable. Continue dexamethasone and Remdesivir. 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 She had been on Eliquis at the time. She also had a subdural hematoma after a fall in April 2020. Patient has had multiple hospitalizations at [facility] and had a SENIOR SITE MANAGER shunt placed at one point for hydrocephalus. Last hospitalization at [facility] was earlier this month for AMS felt related to UTI and PNA (SENIOR SITE MANAGER shunt was working normally at that time). Patient returns this admission for hyperglycemia and AMS. She had a CT brain showing a right frontal parietal subdural hematoma, likely acute or subacute and a infarct in left occipital lobe, new from 02/24/2020, likely acute or subacute. [facility] was contacted but the neurosurgeon did not feel patient needed to be transferred because these were more chronic findings. Patient is returning to her baseline with current care. (3) Catheter-associated urinary tract infection: Qualifiers: Encounter type: initial encounter Indwelling urinary catheter type: indwelling urethral catheter Qualified Code(s): T83.511A - Infection and inflammatory reaction due to indwelling urethral catheter, initial encounter; N39.0 - Urinary tract infection, site not specified Code(s): T83.511A - Infection and inflammatory reaction due to indwelling urethral catheter, initial encounter; N39.0 - Urinary tract infection, site not specified Status: Acute Assessment and Plan: She was recently hospitalized here from 06/01-06/02 for abdominal pain. Patient has chronic indwelling Aparicio. She was found to have UCx positive for Enterococcus and yeast. She was discharged to [facility] with macrobid (sensitivities were not back at time of discharge). Patient returns and original UCx growing VRE. Zyvox IV ordered but ID felt NOT a true infection. Abx stopped. UTI RULED OUT. (4) Atrial fibrillation with rapid ventricular response: Code(s): I48.91 - Unspecified atrial fibrillation Status: Acute Assessment and Plan: Heart rate was poorly controlled. Patient started on IV diltiazem. We resumed metoprolol and amiodarone through the G-tube and HR improved. BP stable. We changed her over to diltiazem via GTube yesterday. HR remaining stable. (5) Severe sepsis: Code(s): A41.9 - Sepsis, unspecified organism; R65.20 - Severe sepsis without septic shock Status: Acute Assessment and Plan: Low-grade fever, tachycardia and lactic acidosis. Probably from COVID/PNA since UTI ruled out. Continue supportive care. (6) Pneumonia: Code(s): J18.9 - Pneumonia, unspecified organism Status: Acute Assessment and Plan: Chest x-ray reviewed. Patient with left lower lobe findings. Probably COVID related; bacterial PNA les likely. Consider possible aspiration given hx. Fever has resolved. Abx stopped. Continue Xopenex and Atrovent. Wean O2 at tolerated. (7) Acute kidney injury: Code(s): N17.9 - Acute kid
[2020-06-06 21:30] LABS: Glucose Point of Care 221 (65-105)
[2020-06-06] MEDS: INSULIN DETEMIR 100 UNITS/ML 48 UNITS SUB-Q (21:56)
[2020-06-07] VITALS (21 sets, daily range): BP systolic 112–151; BP diastolic 68–92; PULSE 78–158; RESP 18–36; TEMP 35.6–36.2; O2SAT 90–100
[2020-06-07 00:10] LABS: Glucose Point of Care 251 (65-105)
[2020-06-07] MEDS: INSULIN ASPART (*BKC) 100 UNITS/ML SUB-Q (00:40)
[2020-06-07] MEDS: dilTIAZem HCL 60 MG TABLET 120 MG FEED TUBE ×5 (00:41→22:27)
[2020-06-07] MEDS: METOPROLOL TARTRATE 50 MG TAB 100 MG FEED TUBE ×5 (00:42→22:27)
[2020-06-07] MEDS: IPRATROPIUM BR 0.02% INH SOLN 0.5 MG/2.5 ML VIAL INHALATION ×3 (03:50→21:19)
[2020-06-07 05:33] LABS: Glucose Point of Care 179 (65-105)
[2020-06-07 05:54] LABS: Alanine Aminotransferase 17 U/L (4-35); Albumin Level 2.9 g/dL (3.5-5.1); Alkaline Phosphatase 101 U/L (38-126); Anion Gap 5 mmol/L (8-16); Aspartate Amino Transferase 38 U/L (14-36); Bilirubin,Total 0.7 mg/dL (0.2-1.3); Blood Urea Nitrogen 50 mg/dL (7-17); CRP 6.9 mg/dL (<1.0); Calcium 8.8 mg/dL (8.4-10.2); Carbon Dioxide 31 mmol/L (22-30); Chloride 111 mmol/L (98-107); Estimated CRCL calculation 61 ml/min; Estimated Glomerular Filt Rate > 60; Glucose 201 mg/dL (65-105); Lactate Dehydrogenase 1016 U/L (313-618); Potassium 4.1 mmol/L (3.4-5.0); Sodium 147 mmol/L (137-145)
[2020-06-07 05:55] LABS: Basophils Percent Auto 0.2 % (0.2-1.2); Hematocrit 36.1 % (37.0-47.0); Hemoglobin 11.2 g/dL (12.0-15.0); Immature Granulocyte Absolute 0.25 K/mm3 (0.00-0.031); Immature Granulocyte Percent A 1.4 % (0-0.5); Immature Platelet Fraction Pct 6.8 % (0.9-11.2); Lymphocytes Absolute Auto 1.36 K/mm3 (0.9-3.2); Lymphocytes Percent Auto 7.3 % (18.3-44.2); Mean Corpuscular Hemoglobin 22.8 pg (26-34); Mean Corpuscular Volume 73.4 fl (80-100); Monocytes Percent Auto 5.3 % (2.6-8.5); Neutrophils Absolute Auto 15.9 K/mm3 (1.3-6.7); Neutrophils Percent Auto 85.8 % (45.5-73.1); Nucleated Red Blood Cells Absolute Auto 0.2 K/mm3 (0.0-0.012); Nucleated Red Blood Cells Perc 1.2 % (0.0-0.2); Platelet Count Result 189 k/mm3 (150-375); Red Blood Count 4.92 M/mm3 (4.2-5.4); White Blood Count 18.5 K/mm3 (4.5-10.0)
[2020-06-07] MEDS: ASPIRIN 81 MG CHEWABLE TABLET FEED TUBE (11:11)
[2020-06-07] MEDS: CHOLECALCIFEROL 1,000 UNITS TABLET 4000 UNITS FEED TUBE (11:11)
[2020-06-07] MEDS: DOCUSATE SODIUM LIQ 100 MG/10 ML UDC FEED TUBE (11:11)
[2020-06-07] MEDS: CALCIUM CARBONATE (TUMS) 500 MG (200 MG ELEMENTAL) FEED TUBE (11:12)
[2020-06-07] MEDS: AMIODARONE HCL 200 MG TABLET FEED TUBE (11:12)
[2020-06-07] MEDS: levETIRAcetam ORAL SOL 500 MG/5 ML UDC 1000 MG FEED TUBE ×2 (11:13→20:53)
[2020-06-07] MEDS: DEXAMETHASONE SOD PHOS INJ 4 MG/ML VIAL 6 MG IV PUSH (11:13)
[2020-06-07] MEDS: FLUTICASONE PROPIONATE 0.05% NA SPR 16 GM BTL (*BKC) 2 SPRAY NASAL (11:13)
[2020-06-07] MEDS: FAMOTIDINE 20 MG/2 ML VIAL IV PUSH (11:13)
[2020-06-07] MEDS: LORATADINE 10 MG TABLET FEED TUBE (11:13)
[2020-06-07] MEDS: VITAMIN B COMPLEX CAPSULE 1 CAP FEED TUBE (11:14)
[2020-06-07] MEDS: INSULIN DETEMIR 100 UNITS/ML 48 UNITS SUB-Q ×2 (12:00→20:54)
[2020-06-07 12:25] LABS: Glucose Point of Care 139 (65-105)
--- NOTE | 2020-06-07 13:07 | PM.IMPN ---
Progress Note: A&P Assessment and Plan (1) COVID-19: Code(s): U07.1 - COVID-19 Status: Acute Assessment and Plan: Patient had a positive rapid test that was confirmed here. Chest x-ray was clear on 05/31/[address] scan showed possible lingular infiltrate. Patient was discharged back to the long term on room air on 06/02. X-ray this admission 06/03 showing worsening airspace opacities left mid lower lung zones. Repeat CXR 06/07 showing progression mostly in the lower lobes. Inflammatory markers up and down. Patient remains on 5L nasal cannula but is more comfortable. Continue dexamethasone and Remdesivir. Wean O2 as tolerated Called dtr and updated. All questions answered. 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 She had been on Eliquis at the time. She also had a subdural hematoma after a fall in April 2020. 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 Last hospitalization at [facility] was earlier this month for AMS felt related to UTI and PNA (HEALTH EDUCATION COORDINATOR shunt was working normally at that time). Patient returns this admission for hyperglycemia and AMS. She had a CT brain showing a right frontal parietal subdural hematoma, likely acute or subacute and a infarct in left occipital lobe, new from 02/24/2020, likely acute or subacute. [facility] was contacted but the neurosurgeon did not feel patient needed to be transferred because these were more chronic findings. Patient's mental status is returning to her baseline with current care. (3) Catheter-associated urinary tract infection: Qualifiers: Encounter type: initial encounter Indwelling urinary catheter type: indwelling urethral catheter Qualified Code(s): T83.511A - Infection and inflammatory reaction due to indwelling urethral catheter, initial encounter; N39.0 - Urinary tract infection, site not specified Code(s): T83.511A - Infection and inflammatory reaction due to indwelling urethral catheter, initial encounter; N39.0 - Urinary tract infection, site not specified Status: Acute Assessment and Plan: She was recently hospitalized here from 06/01-06/02 for abdominal pain. Patient has chronic indwelling Aparicio. She was found to have UCx positive for Enterococcus and yeast. She was discharged to [place] with macrobid (sensitivities were not back at time of discharge). Patient returns and original UCx growing VRE. Zyvox IV ordered but ID felt NOT a true infection. Abx stopped. UTI RULED OUT. (4) Atrial fibrillation with rapid ventricular response: Code(s): I48.91 - Unspecified atrial fibrillation Status: Acute Assessment and Plan: Heart rate was poorly controlled. Patient started on IV diltiazem. We resumed metoprolol and amiodarone through the G-tube and HR improved. BP stable. We changed her over to diltiazem via GTube yesterday. HR remaining stable. (5) Severe sepsis: Code(s): A41.9 - Sepsis, unspecified organism; R65.20 - Severe sepsis without septic shock Status: Acute Assessment and Plan: Low-grade fever, tachycardia and lactic acidosis. Probably from COVID/PNA since UTI ruled out. Continue supportive care. (6) Pneumonia: Code(s): J18.9 - Pneumonia, unspecified organism Status: Acute Assessment and Plan: Chest x-ray reviewed from today showing mostly left sided airspace disease. Probably COVID related; bacterial PNA les likely. Consider possible aspiration given hx. Fever has resolved.
[2020-06-07] MEDS: REMDESIVIR 100 MG/NS 250 ML 100 MG/250 ML BAG 250 MG IVPB (17:42)
[2020-06-07] MEDS: NEOMYCIN/POLYMYXIN/BACITRACIN OINTMENT PACKET 1 PACKET TOPICAL (17:43)
--- NOTE | 2020-06-07 18:07 | PCRCNOTE ---
Window of time for administration has passed. See next scheduled administration.
[2020-06-07 19:10] LABS: Glucose Point of Care 252 (65-105)
[2020-06-07 21:01] LABS: Glucose Point of Care 253 (65-105)
--- NOTE | 2020-06-07 22:51 | PC.NURSE ---
Jacinda parks in the 150s. called [facility] and gave midnight meds early. now in the 90s
[2020-06-08] VITALS (17 sets, daily range): BP systolic 117–149; BP diastolic 70–99; PULSE 43–154; RESP 14–22; TEMP 35.5–36.6; O2SAT 90–98
[2020-06-08] MEDS: INSULIN ASPART (*BKC) 100 UNITS/ML SUB-Q (00:45)
[2020-06-08 00:47] LABS: Glucose Point of Care 239 (65-105)
--- NOTE | 2020-06-08 04:28 | ADMGEN ---
This patient, Bettie Roque, was admitted to IMU Room 211-01. Patient/family oriented to hospital policies and general routines including ID bracelet, bed and alarms, visiting hours, pain management, procedures, bathroom and other care routines, personal items, smoking policy, room service/diet, and visiting hours. Information on how to activate the Rapid Response Team has been discussed. Patient/Family are encouraged to report perceived risks to care and to ask questions if they do not understand what they are told or what they should do. This patient, Bettie Roque, was transferred to [[id number]] on 06/08/20 at 0428. Personal belongings sent with patient. Report given to [ ]. Appropriate documentation sent with patient.
--- NOTE | 2020-06-08 04:50 | PC.NURSE ---
Pt transfered from IMU 211 to 3RD M/S 314 at 0410. Report from Huan. Pt resting comfortably on 4L 02.
[2020-06-08] MEDS: dilTIAZem HCL 60 MG TABLET 120 MG FEED TUBE ×4 (05:29→23:23)
[2020-06-08] MEDS: METOPROLOL TARTRATE 50 MG TAB 100 MG FEED TUBE ×4 (05:30→23:23)
[2020-06-08 06:23] LABS: Glucose Point of Care 238 (65-105)
--- NOTE | 2020-06-08 06:53 | PC.NURSE ---
Pt received to floor with no tube feeding running. Called house sup for glucerna 1.2 pt is to receive, but none available in the kitchen. Rate from IMU was 40 mls/hr. Charted rate had been 60. Pt heart rate at 265; sustained heart rate greater than 160 for [address] minutes[address] Called Dr. Gaviria to inform. Was administering 0600 dose of metoprolol and diltiazem. She said to give pt an hour to observe heart rate and call back if further episodes of tach. Ok to hold feedings until able to obtain from dietary.
[2020-06-08] MEDS: IPRATROPIUM BR 0.02% INH SOLN 0.5 MG/2.5 ML VIAL INHALATION ×3 (08:54→21:05)
[2020-06-08] MEDS: FAMOTIDINE 20 MG/2 ML VIAL IV PUSH ×2 (09:23→21:11)
[2020-06-08] MEDS: LORATADINE 10 MG TABLET FEED TUBE (09:23)
[2020-06-08] MEDS: AMIODARONE HCL 200 MG TABLET FEED TUBE (09:23)
[2020-06-08] MEDS: VITAMIN B COMPLEX CAPSULE 1 CAP FEED TUBE (09:24)
[2020-06-08] MEDS: CHOLECALCIFEROL 1,000 UNITS TABLET 4000 UNITS FEED TUBE (09:24)
[2020-06-08] MEDS: DEXAMETHASONE SOD PHOS INJ 4 MG/ML VIAL 6 MG IV PUSH (09:24)
[2020-06-08] MEDS: FLUTICASONE PROPIONATE 0.05% NA SPR 16 GM BTL (*BKC) 2 SPRAY NASAL (09:25)
[2020-06-08] MEDS: levETIRAcetam ORAL SOL 500 MG/5 ML UDC 1000 MG FEED TUBE ×2 (09:25→21:09)
[2020-06-08] MEDS: INSULIN DETEMIR 100 UNITS/ML 48 UNITS SUB-Q (09:28)
[2020-06-08] MEDS: CALCIUM CARBONATE (TUMS) 500 MG (200 MG ELEMENTAL) FEED TUBE (10:51)
[2020-06-08] MEDS: DOCUSATE SODIUM LIQ 100 MG/10 ML UDC FEED TUBE ×2 (10:51→17:28)
[2020-06-08] MEDS: ASPIRIN 81 MG CHEWABLE TABLET FEED TUBE (10:51)
[2020-06-08 11:37] LABS: Hematocrit 40.8 % (37.0-47.0); Hemoglobin 12.7 g/dL (12.0-15.0); Immature Platelet Fraction Pct 6.6 % (0.9-11.2); Mean Corpuscular HGB Conc 31.1 g/dl (32-36); Mean Corpuscular Hemoglobin 22.8 pg (26-34); Mean Corpuscular Volume 73.1 fl (80-100); Platelet Count Result 200 k/mm3 (150-375); Red Blood Count 5.58 M/mm3 (4.2-5.4); Red Cell Distribution Width 18.1 % (11.5-14.5); White Blood Count 19.2 K/mm3 (4.5-10.0)
[2020-06-08 11:52] LABS: Alanine Aminotransferase 17 U/L (4-35); Anion Gap 5 mmol/L (8-16); Blood Urea Nitrogen 46 mg/dL (7-17); CRP 5.1 mg/dL (<1.0); Calcium 9.1 mg/dL (8.4-10.2); Carbon Dioxide 30 mmol/L (22-30); Chloride 114 mmol/L (98-107); Estimated CRCL calculation 68 ml/min; Estimated Glomerular Filt Rate > 60; Glucose 106 mg/dL (65-105); Lactate Dehydrogenase 1102 U/L (313-618); Potassium 3.9 mmol/L (3.4-5.0); Sodium 149 mmol/L (137-145)
[2020-06-08 12:05] LABS: Glucose Point of Care 89 (65-105)
--- NOTE | 2020-06-08 14:43 | PM.IMPN ---
Progress Note: A&P Assessment and Plan (1) COVID-19: Code(s): U07.1 - COVID-19 Status: Acute Assessment and Plan: Patient had a positive rapid test that was confirmed here. Chest x-ray was clear on 05/31/[address] scan showed possible lingular infiltrate. Patient was discharged back to the senior living on room air. X-ray this admission 06/03 showing worsening airspace opacities left mid lower lung zones. Repeat CXR 06/05 showing progression. . Patient down to 4 L nasal cannula and is more comfortable. Continue dexamethasone and finished Remdesivir today. 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 She had been on Eliquis at the time. She also had a subdural hematoma after a fall in April 2020. 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 Last hospitalization at [facility] was earlier this month for AMS felt related to UTI and PNA (SUPERVISOR MOLD CONSTRUCTION shunt was working normally at that time). Patient returns this admission for hyperglycemia and AMS. She had a CT brain showing a right frontal parietal subdural hematoma, likely acute or subacute and a infarct in left occipital lobe, new from 02/24/2020, likely acute or subacute. [facility] was contacted but the neurosurgeon did not feel patient needed to be transferred because these were more chronic findings. Patient is returning to her baseline with current care. (3) Catheter-associated urinary tract infection: Qualifiers: Indwelling urinary catheter type: indwelling urethral catheter Encounter type: initial encounter Qualified Code(s): T83.511A - Infection and inflammatory reaction due to indwelling urethral catheter, initial encounter; N39.0 - Urinary tract infection, site not specified Code(s): T83.511A - Infection and inflammatory reaction due to indwelling urethral catheter, initial encounter; N39.0 - Urinary tract infection, site not specified Status: Acute Assessment and Plan: She was recently hospitalized here from 06/01-11/25 for abdominal pain. Patient has chronic indwelling Aparicio. She was found to have UCx positive for Enterococcus and yeast. She was discharged to [place] with macrobid (sensitivities were not back at time of discharge). Patient returns and original UCx growing VRE. Zyvox IV ordered but ID felt NOT a true infection. Abx stopped. UTI RULED OUT. (4) Atrial fibrillation with rapid ventricular response: Code(s): I48.91 - Unspecified atrial fibrillation Status: Acute Assessment and Plan: Heart rate was poorly controlled. We resumed metoprolol, diltiazem and amiodarone through the G-tube and HR improved. BP stable. (5) Severe sepsis: Code(s): A41.9 - Sepsis, unspecified organism; R65.20 - Severe sepsis without septic shock Status: Acute Assessment and Plan: Low-grade fever, tachycardia and lactic acidosis. Probably from COVID/PNA since UTI ruled out. Continue supportive care. (6) Pneumonia: Code(s): J18.9 - Pneumonia, unspecified organism Status: Acute Assessment and Plan: Chest x-ray reviewed. Patient with left lower lobe findings. Probably COVID related; bacterial PNA les likely. Consider possible aspiration given hx. Fever has resolved. Abx stopped. Continue Xopenex and Atrovent. Wean O2 at tolerated. (7) Acute kidney injury: Code(s): N17.9 - Acute kidney failure, unspecified Status: Acute Assessment and Plan: Cr 1.5 on admission but back to normal
--- NOTE | 2020-06-08 17:11 | PCDIET ---
Nutrition Follow-Up Complete: Swallowing difficulty related to hx of CVA as evidence by need for enteral nutrition to meet needs Total intake will meet estimated nutrition needs Goal: Goal met. Continue goal. Pt current nutrition is Glucerna 1.2 at 60ml/hr Nutrition recommendation: agree Last recorded weight is 103 kg, up from 100.4kg on admit Bowel Motility: None noted, miralax on board Labs Reviewed:Na 149, WBC 19.2, .114 Troponin Meds Noted:Colace, Decadron, Insulin, Remdesivir, Vitamin D, Vitamin B complex Additional Notes: Pt tolerating EN well. Glucerna 1.2 at 60ml/hr over 22hrs providing 1584kcals, 79g protein, and 1062ml of free water. Water flush of 30ml q 4hrs appropriate with other IV fluids, otherwise recommend 70ml water flush q 4 hrs if all IV fluids off. We will continue to monitor tube feed tolerance, wt, labs, skin every t/f.
[2020-06-08] MEDS: REMDESIVIR 100 MG/NS 250 ML 100 MG/250 ML BAG 250 MG IVPB (17:28)
[2020-06-08] MEDS: DEXTROSE 5% 1,000 ML 1,000 ML 100 ML IVPB (17:39)
[2020-06-08 18:18] LABS: Glucose Point of Care 60 (65-105)
[2020-06-08 21:53] LABS: Glucose Point of Care 92 (65-105)
[2020-06-08 23:42] LABS: Glucose Point of Care 99 (65-105)
[2020-06-09] VITALS (12 sets, daily range): BP systolic 115–137; BP diastolic 66–89; PULSE 63–105; RESP 14–20; TEMP 36.4–36.9; O2SAT 90–95; BMI 11.0
[2020-06-09] MEDS: IPRATROPIUM BR 0.02% INH SOLN 0.5 MG/2.5 ML VIAL INHALATION ×4 (02:00→20:21)
[2020-06-09] MEDS: dilTIAZem HCL 60 MG TABLET 120 MG FEED TUBE ×4 (06:18→23:58)
[2020-06-09] MEDS: METOPROLOL TARTRATE 50 MG TAB 100 MG FEED TUBE ×3 (06:18→17:08)
[2020-06-09 06:53] LABS: Glucose Point of Care 191 (65-105)
[2020-06-09] MEDS: AMIODARONE HCL 200 MG TABLET FEED TUBE (07:36)
[2020-06-09] MEDS: CHOLECALCIFEROL 1,000 UNITS TABLET 4000 UNITS FEED TUBE (07:36)
[2020-06-09] MEDS: levETIRAcetam ORAL SOL 500 MG/5 ML UDC 1000 MG FEED TUBE ×2 (07:36→21:21)
[2020-06-09] MEDS: ASPIRIN 81 MG CHEWABLE TABLET FEED TUBE (07:37)
[2020-06-09] MEDS: LORATADINE 10 MG TABLET FEED TUBE (07:37)
[2020-06-09] MEDS: DOCUSATE SODIUM LIQ 100 MG/10 ML UDC FEED TUBE ×2 (07:37→17:08)
[2020-06-09] MEDS: FLUTICASONE PROPIONATE 0.05% NA SPR 16 GM BTL (*BKC) 2 SPRAY NASAL (07:37)
[2020-06-09] MEDS: VITAMIN B COMPLEX CAPSULE 1 CAP FEED TUBE (07:37)
[2020-06-09] MEDS: CALCIUM CARBONATE (TUMS) 500 MG (200 MG ELEMENTAL) FEED TUBE (07:39)
[2020-06-09] MEDS: INSULIN DETEMIR 100 UNITS/ML 35 UNITS SUB-Q ×2 (08:27→21:22)
[2020-06-09 10:00] LABS: Basophils Absolute Auto 0.1 K/mm3 (0.0-0.1); Basophils Percent Auto 0.3 % (0.2-1.2); Hemoglobin 13.3 g/dL (12.0-15.0); Immature Granulocyte Absolute 0.76 K/mm3 (0.00-0.031); Immature Granulocyte Percent A 3.7 % (0-0.5); Immature Platelet Fraction Pct 6.8 % (0.9-11.2); Lymphocytes Absolute Auto 2.35 K/mm3 (0.9-3.2); Lymphocytes Percent Auto 11.5 % (18.3-44.2); Mean Corpuscular HGB Conc 30.9 g/dl (32-36); Mean Corpuscular Hemoglobin 22.9 pg (26-34); Mean Corpuscular Volume 73.9 fl (80-100); Monocytes Percent Auto 4.7 % (2.6-8.5); Neutrophils Absolute Auto 16.3 K/mm3 (1.3-6.7); Neutrophils Percent Auto 79.8 % (45.5-73.1); Platelet Count Result 243 k/mm3 (150-375); Red Blood Count 5.82 M/mm3 (4.2-5.4); Red Cell Distribution Width 18.8 % (11.5-14.5); White Blood Count 20.5 K/mm3 (4.5-10.0)
[2020-06-09] MEDS: FAMOTIDINE 20 MG/2 ML VIAL IV PUSH ×2 (10:00→21:21)
[2020-06-09] MEDS: DEXAMETHASONE SOD PHOS INJ 4 MG/ML VIAL 6 MG IV PUSH (10:00)
[2020-06-09 10:40] LABS: Alanine Aminotransferase 19 U/L (4-35); Albumin Level 3.3 g/dL (3.5-5.1); Alkaline Phosphatase 114 U/L (38-126); Anion Gap 7 mmol/L (8-16); Aspartate Amino Transferase 41 U/L (14-36); Bilirubin,Total 1.1 mg/dL (0.2-1.3); Blood Urea Nitrogen 46 mg/dL (7-17); CRP 3.3 mg/dL (<1.0); Calcium 9.1 mg/dL (8.4-10.2); Carbon Dioxide 31 mmol/L (22-30); Chloride 105 mmol/L (98-107); Estimated CRCL calculation 77 ml/min; Estimated Glomerular Filt Rate > 60; Glucose 301 mg/dL (65-105); Lactate Dehydrogenase 1531 U/L (313-618); Potassium 4.5 mmol/L (3.4-5.0); Sodium 143 mmol/L (137-145)
[2020-06-09 10:41] LABS: D Dimer > 20.00 ug/mL (<0.48)
[2020-06-09] MEDS: INSULIN ASPART (*BKC) 100 UNITS/ML SUB-Q ×2 (11:43→17:22)
[2020-06-09 11:53] LABS: Glucose Point of Care 242 (65-105)
--- NOTE | 2020-06-09 17:29 | PM.IMPN ---
Progress Note: A&P Assessment and Plan (1) COVID-19: Code(s): U07.1 - COVID-19 Status: Acute Assessment and Plan: Patient had a positive rapid test that was confirmed here. Chest x-ray was clear on 05/31/[address] scan showed possible lingular infiltrate. Patient was discharged back to the custodial on room air. X-ray this admission 06/03 showing worsening airspace opacities left mid lower lung zones. Repeat CXR 06/05 showing progression. . Patient down to 3 L nasal cannula and is more comfortable. Continue dexamethasone and finished Remdesivir 06/08. 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 She had been on Eliquis at the time. She also had a subdural hematoma after a fall in April 2020. 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 Last hospitalization at [facility] was earlier this month for AMS felt related to UTI and PNA (PARKING LOT CHAUFFEUR shunt was working normally at that time). Patient returns this admission for hyperglycemia and AMS. She had a CT brain showing a right frontal parietal subdural hematoma, likely acute or subacute and a infarct in left occipital lobe, new from 02/24/2020, likely acute or subacute. [facility] was contacted but the neurosurgeon did not feel patient needed to be transferred because these were more chronic findings. Patient is returning to her baseline with current care. (3) Catheter-associated urinary tract infection: Qualifiers: Indwelling urinary catheter type: indwelling urethral catheter Encounter type: initial encounter Qualified Code(s): T83.511A - Infection and inflammatory reaction due to indwelling urethral catheter, initial encounter; N39.0 - Urinary tract infection, site not specified Code(s): T83.511A - Infection and inflammatory reaction due to indwelling urethral catheter, initial encounter; N39.0 - Urinary tract infection, site not specified Status: Acute Assessment and Plan: She was recently hospitalized here from 06/01-06/02 for abdominal pain. Patient has chronic indwelling Aparicio. She was found to have UCx positive for Enterococcus and yeast. She was discharged to [place] with macrobid (sensitivities were not back at time of discharge). Patient returns and original UCx growing VRE. Zyvox IV ordered but ID felt NOT a true infection. Abx stopped. UTI RULED OUT. (4) Atrial fibrillation with rapid ventricular response: Code(s): I48.91 - Unspecified atrial fibrillation Status: Acute Assessment and Plan: Heart rate was poorly controlled. We resumed metoprolol, diltiazem and amiodarone through the G-tube and HR improved. BP stable. (5) Severe sepsis: Code(s): A41.9 - Sepsis, unspecified organism; R65.20 - Severe sepsis without septic shock Status: Acute Assessment and Plan: Low-grade fever, tachycardia and lactic acidosis. Probably from COVID/PNA since UTI ruled out. Continue supportive care. (6) Pneumonia: Code(s): J18.9 - Pneumonia, unspecified organism Status: Acute Assessment and Plan: Chest x-ray reviewed. Patient with left lower lobe findings. Probably COVID related; bacterial PNA les likely. Consider possible aspiration given hx. Fever has resolved. Abx stopped. Continue Xopenex and Atrovent. Wean O2 at tolerated. (7) Acute kidney injury: Code(s): N17.9 - Acute kidney failure, unspecified Status: Acute Assessment and Plan: Cr 1.5 on admission but back to normal
[2020-06-09 17:58] LABS: Glucose Point of Care 250 (65-105)
[2020-06-10] VITALS (17 sets, daily range): BP systolic 117–146; BP diastolic 68–97; PULSE 44–90; RESP 18–24; TEMP 36.2–37.1; O2SAT 90–100
[2020-06-10 00:21] LABS: Glucose Point of Care 232 (65-105)
[2020-06-10] MEDS: INSULIN ASPART (*BKC) 100 UNITS/ML SUB-Q ×2 (00:22→23:34)
[2020-06-10] MEDS: IPRATROPIUM BR 0.02% INH SOLN 0.5 MG/2.5 ML VIAL INHALATION ×4 (03:12→20:46)
[2020-06-10] MEDS: dilTIAZem HCL 60 MG TABLET 120 MG FEED TUBE ×4 (06:22→23:26)
[2020-06-10] MEDS: METOPROLOL TARTRATE 50 MG TAB 100 MG FEED TUBE ×4 (06:23→23:28)
[2020-06-10 06:41] LABS: Estimated CRCL calculation 77 ml/min; Estimated Glomerular Filt Rate > 60
[2020-06-10 06:42] LABS: Glucose Point of Care 197 (65-105)
[2020-06-10] MEDS: CHOLECALCIFEROL 1,000 UNITS TABLET 4000 UNITS FEED TUBE (08:47)
[2020-06-10] MEDS: AMIODARONE HCL 200 MG TABLET FEED TUBE (08:47)
[2020-06-10] MEDS: ASPIRIN 81 MG CHEWABLE TABLET FEED TUBE (08:47)
[2020-06-10] MEDS: VITAMIN B COMPLEX CAPSULE 1 CAP FEED TUBE (08:47)
[2020-06-10] MEDS: DEXAMETHASONE SOD PHOS INJ 4 MG/ML VIAL 6 MG IV PUSH (08:48)
[2020-06-10] MEDS: FLUTICASONE PROPIONATE 0.05% NA SPR 16 GM BTL (*BKC) 2 SPRAY NASAL (08:48)
[2020-06-10] MEDS: levETIRAcetam ORAL SOL 500 MG/5 ML UDC 1000 MG FEED TUBE ×2 (08:48→20:19)
[2020-06-10] MEDS: LORATADINE 10 MG TABLET FEED TUBE (08:48)
[2020-06-10] MEDS: FAMOTIDINE 20 MG/2 ML VIAL IV PUSH ×2 (08:48→20:19)
[2020-06-10] MEDS: DOCUSATE SODIUM LIQ 100 MG/10 ML UDC FEED TUBE ×2 (08:48→17:23)
[2020-06-10] MEDS: CALCIUM CARBONATE (TUMS) 500 MG (200 MG ELEMENTAL) FEED TUBE (08:49)
[2020-06-10] MEDS: INSULIN DETEMIR 100 UNITS/ML 35 UNITS SUB-Q ×2 (08:50→20:20)
[2020-06-10 13:07] LABS: Glucose Point of Care 147 (65-105)
--- NOTE | 2020-06-10 14:17 | PM.IMPN ---
Progress Note: A&P Assessment and Plan (1) COVID-19: Code(s): U07.1 - COVID-19 Status: Acute Assessment and Plan: Patient had a positive rapid test that was confirmed here. Chest x-ray was clear on 05/31/[address] scan showed possible lingular infiltrate. Patient was discharged back to the long-term on room air. X-ray this admission 06/03 showing worsening airspace opacities left mid lower lung zones. Repeat CXR 06/05 showing progression. . Patient down to 3-4 L nasal cannula and is more comfortable. Continue dexamethasone, day 7, and finished Remdesivir 06/08. 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 She had been on Eliquis at the time. She also had a subdural hematoma after a fall in April 2020. 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 Last hospitalization at [facility] was earlier this month for AMS felt related to UTI and PNA (PLASTICS SCIENTIST shunt was working normally at that time). Patient returns this admission for hyperglycemia and AMS. She had a CT brain showing a right frontal parietal subdural hematoma, likely acute or subacute and a infarct in left occipital lobe, new from 02/24/2020, likely acute or subacute. [facility] was contacted but the neurosurgeon did not feel patient needed to be transferred because these were more chronic findings. Patient is returning to her baseline with current care. (3) Catheter-associated urinary tract infection: Qualifiers: Indwelling urinary catheter type: indwelling urethral catheter Encounter type: initial encounter Qualified Code(s): T83.511A - Infection and inflammatory reaction due to indwelling urethral catheter, initial encounter; N39.0 - Urinary tract infection, site not specified Code(s): T83.511A - Infection and inflammatory reaction due to indwelling urethral catheter, initial encounter; N39.0 - Urinary tract infection, site not specified Status: Acute Assessment and Plan: She was recently hospitalized here from 06/01-06/02 for abdominal pain. Patient has chronic indwelling Aparicio. She was found to have UCx positive for Enterococcus and yeast. She was discharged to [place] with macrobid (sensitivities were not back at time of discharge). Patient returns and original UCx growing VRE. Zyvox IV ordered but ID felt NOT a true infection. Abx stopped. UTI RULED OUT. (4) Atrial fibrillation with rapid ventricular response: Code(s): I48.91 - Unspecified atrial fibrillation Status: Acute Assessment and Plan: Heart rate was poorly controlled. We resumed metoprolol, diltiazem and amiodarone through the G-tube and HR improved. BP stable. (5) Severe sepsis: Code(s): A41.9 - Sepsis, unspecified organism; R65.20 - Severe sepsis without septic shock Status: Acute Assessment and Plan: Low-grade fever, tachycardia and lactic acidosis. Probably from COVID/PNA since UTI ruled out. Continue supportive care. (6) Pneumonia: Code(s): J18.9 - Pneumonia, unspecified organism Status: Acute Assessment and Plan: Chest x-ray reviewed. Patient with left lower lobe findings. Probably COVID related; bacterial PNA les likely. Consider possible aspiration given hx. Fever has resolved. Abx stopped. Continue Xopenex and Atrovent. Wean O2 at tolerated. (7) Acute kidney injury: Code(s): N17.9 - Acute kidney failure, unspecified Status: Acute Assessment and Plan: Cr 1.5 on admission but back
[2020-06-10 17:48] LABS: Glucose Point of Care 138 (65-105)
[2020-06-10] MEDS: ACETAMINOPHEN ELIXIR 325 MG/10.15 ML UDC 650 MG FEED TUBE (23:49)
[2020-06-10 23:58] LABS: Glucose Point of Care 284 (65-105)
[2020-06-11] VITALS (17 sets, daily range): BP systolic 103–147; BP diastolic 68–95; PULSE 67–117; RESP 18–20; TEMP 36.3–36.7; O2SAT 94–100
[2020-06-11] MEDS: IPRATROPIUM BR 0.02% INH SOLN 0.5 MG/2.5 ML VIAL INHALATION ×4 (01:27→19:44)
[2020-06-11 06:33] LABS: Basophils Absolute Auto 0.1 K/mm3 (0.0-0.1); Basophils Percent Auto 0.3 % (0.2-1.2); Hematocrit 42.8 % (37.0-47.0); Immature Granulocyte Absolute 0.78 K/mm3 (0.00-0.031); Immature Granulocyte Percent A 4.3 % (0-0.5); Immature Platelet Fraction Pct 6.8 % (0.9-11.2); Lymphocytes Absolute Auto 1.55 K/mm3 (0.9-3.2); Lymphocytes Percent Auto 8.6 % (18.3-44.2); Mean Corpuscular HGB Conc 30.4 g/dl (32-36); Mean Corpuscular Hemoglobin 22.7 pg (26-34); Mean Corpuscular Volume 74.7 fl (80-100); Monocytes Absolute Auto 0.9 K/mm3 (0.1-0.6); Monocytes Percent Auto 4.7 % (2.6-8.5); Neutrophils Absolute Auto 14.8 K/mm3 (1.3-6.7); Neutrophils Percent Auto 82.1 % (45.5-73.1); Nucleated Red Blood Cells Absolute Auto 1.3 K/mm3 (0.0-0.012); Nucleated Red Blood Cells Perc 7.4 % (0.0-0.2); Platelet Count Result 217 k/mm3 (150-375); Red Blood Count 5.73 M/mm3 (4.2-5.4); Red Cell Distribution Width 19.6 % (11.5-14.5)
[2020-06-11] MEDS: METOPROLOL TARTRATE 50 MG TAB 100 MG FEED TUBE ×4 (06:37→23:09)
[2020-06-11] MEDS: dilTIAZem HCL 60 MG TABLET 120 MG FEED TUBE ×4 (06:37→23:08)
[2020-06-11] MEDS: INSULIN ASPART (*BKC) 100 UNITS/ML SUB-Q ×4 (06:37→23:07)
[2020-06-11 06:49] LABS: Glucose Point of Care 277 (65-105)
--- NOTE | 2020-06-11 06:56 | PC.NURSE ---
0400PT HAS REMOVED O2/NC, PULSE OX READING 100% ON ROOM AIR WILL CONTINUE TO MONITOR. PULSE OX OBTAIN ON LEFT THIRD TOE. 0640 PT REMAINS ON ROOM AIR 96%
[2020-06-11 07:49] LABS: D Dimer > 20.00 ug/mL (<0.48)
[2020-06-11 07:58] LABS: Hypochromasia 1+ (NORMAL); Target Cells 1+ (NORMAL)
[2020-06-11 07:59] LABS: Platelet Estimate Adequate (Adequate); Polychromasia 1+ (NORMAL)
--- NOTE | 2020-06-11 08:48 | PCRCNOTE ---
PT. unable to follow commands to do MDI properly.
[2020-06-11] MEDS: VITAMIN B COMPLEX CAPSULE 1 CAP FEED TUBE (09:08)
[2020-06-11] MEDS: AMIODARONE HCL 200 MG TABLET FEED TUBE (09:08)
[2020-06-11] MEDS: CHOLECALCIFEROL 1,000 UNITS TABLET 4000 UNITS FEED TUBE (09:08)
[2020-06-11] MEDS: levETIRAcetam ORAL SOL 500 MG/5 ML UDC 1000 MG FEED TUBE ×2 (09:09→22:40)
[2020-06-11] MEDS: LORATADINE 10 MG TABLET FEED TUBE (09:09)
[2020-06-11] MEDS: ASPIRIN 81 MG CHEWABLE TABLET FEED TUBE (09:09)
[2020-06-11] MEDS: FAMOTIDINE 20 MG/2 ML VIAL IV PUSH ×2 (09:09→22:39)
[2020-06-11] MEDS: DEXAMETHASONE SOD PHOS INJ 4 MG/ML VIAL 6 MG IV PUSH (09:09)
[2020-06-11] MEDS: FLUTICASONE PROPIONATE 0.05% NA SPR 16 GM BTL (*BKC) 2 SPRAY NASAL (09:10)
[2020-06-11] MEDS: INSULIN DETEMIR 100 UNITS/ML 35 UNITS SUB-Q (09:13)
[2020-06-11] MEDS: DOCUSATE SODIUM LIQ 100 MG/10 ML UDC FEED TUBE ×2 (09:14→17:50)
[2020-06-11] MEDS: CALCIUM CARBONATE (TUMS) 500 MG (200 MG ELEMENTAL) FEED TUBE (09:14)
[2020-06-11 09:19] LABS: Chloride 107 mmol/L (98-107); Potassium 4.5 mmol/L (3.4-5.0); Sodium 144 mmol/L (137-145)
[2020-06-11] MEDS: ACETAMINOPHEN ELIXIR 325 MG/10.15 ML UDC 650 MG FEED TUBE (09:37)
[2020-06-11 09:49] LABS: Glucose Point of Care 247 (65-105)
[2020-06-11 10:16] LABS: Alanine Aminotransferase 18 U/L (4-35); Alkaline Phosphatase 144 U/L (38-126); Anion Gap 6 mmol/L (8-16); Aspartate Amino Transferase 26 U/L (14-36); Bilirubin,Total 0.8 mg/dL (0.2-1.3); Blood Urea Nitrogen 48 mg/dL (7-17); CRP 1.7 mg/dL (<1.0); Carbon Dioxide 31 mmol/L (22-30); Estimated CRCL calculation 68 ml/min; Estimated Glomerular Filt Rate > 60; Glucose 336 mg/dL (65-105); Lactate Dehydrogenase 1279 U/L (313-618)
--- NOTE | 2020-06-11 11:29 | PCNFU ---
Nutrition Follow-Up Complete: Swallowing difficulty related to hx of CVA as evidence by need for enteral nutrition to meet needs Goal: Total intake will meet estimated nutrition needs Patient is currently meeting nutrition goal. No new goal. Pt current nutrition is tube feeding of Glucerna 1.2. Nutrition recommendation: Agree Last recorded weight is 103 kg up from 100.9 kg on admit. Bowel Motility:+BM reported 06/10 Labs Reviewed:BUN 46,Na 149 Meds Noted:Vit B complex, Vit D, Lopressor, Keppra, NovoLog, Levemir, Colace, Pepcid. Additional Notes: Nutrition follow up. Patient currently on tube feeding goal of Glucerna 1.2 at 60 ml/hr providing 1584 kcals/79 gms protein/1062 ml water. Tolerating tube feedings well per nursing. Monitoring: tube feed tolerance, wt, labs, skin every t/f
--- NOTE | 2020-06-11 12:55 | PC.NURSE ---
Spoke with pt's daughter Beverley. Pt's daughter seemed very surprised that the pt has not been speaking much and has been lethargic. She stated she was told by care coordination the pt had been talking and was awake and alert. She requested that the Dr be notified. Dr. Schmidt notified and aware of daughter's concern. Pt continuing to rest comfortably at this time and is currently on room air.
--- NOTE | 2020-06-11 13:00 | PM.IMPN ---
Progress Note: A&P Assessment and Plan (1) COVID-19: Code(s): U07.1 - COVID-19 Status: Acute Assessment and Plan: Patient had a positive rapid test that was confirmed here. Chest x-ray was clear on 05/31/[address] scan showed possible lingular infiltrate. Patient was [facility] to [facility]. X-ray this admission 06/03 showing worsening airspace opacities left mid lower lung zones. Repeat CXR 06/05 showing progression. . Patient down to RA, off nasal cannula and is more comfortable. Continue dexamethasone, day 8, and finished Remdesivir 06/08. 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 She had been on Eliquis at the time. She also had a subdural hematoma after a fall in April 2020. Patient has had multiple hospitalizations at [facility] and had a NUTRITION COUNSELOR shunt placed at one point for hydrocephalus. Last hospitalization at [facility] was earlier this month for AMS felt related to UTI and PNA (NUTRITION COUNSELOR shunt was working normally at that time). Patient returns this admission for hyperglycemia and AMS. She had a CT brain showing a right frontal parietal subdural hematoma, likely acute or subacute and a infarct in left occipital lobe, new from 02/24/2020, likely acute or subacute. [facility] was contacted but the neurosurgeon did not feel patient needed to be transferred because these were more chronic findings. Patient is returning to her baseline with current care. Still intermitant lethargy (3) Catheter-associated urinary tract infection: Qualifiers: Indwelling urinary catheter type: indwelling urethral catheter Encounter type: initial encounter Qualified Code(s): T83.511A - Infection and inflammatory reaction due to indwelling urethral catheter, initial encounter; N39.0 - Urinary tract infection, site not specified Code(s): T83.511A - Infection and inflammatory reaction due to indwelling urethral catheter, initial encounter; N39.0 - Urinary tract infection, site not specified Status: Acute Assessment and Plan: She was recently hospitalized here from 06/01-06/02 for abdominal pain. Patient has chronic indwelling Aparicio. She was found to have UCx positive for Enterococcus and yeast. She was discharged to [facility] with macrobid (sensitivities were not back at time of discharge). Patient returns and original UCx growing VRE. Zyvox IV ordered but ID felt NOT a true infection. Abx stopped. UTI RULED OUT. (4) Atrial fibrillation with rapid ventricular response: Code(s): I48.91 - Unspecified atrial fibrillation Status: Acute Assessment and Plan: Heart rate was poorly controlled. We resumed metoprolol, diltiazem and amiodarone through the G-tube and HR improved. BP stable. (5) Severe sepsis: Code(s): A41.9 - Sepsis, unspecified organism; R65.20 - Severe sepsis without septic shock Status: Acute Assessment and Plan: Low-grade fever, tachycardia and lactic acidosis. Probably from COVID/PNA since UTI ruled out. Continue supportive care. persistent leukocytosis thought secondary to dexamethasone and slowly falling now (6) Pneumonia: Code(s): J18.9 - Pneumonia, unspecified organism Status: Acute Assessment and Plan: Chest x-ray reviewed. Patient with left lower lobe findings. Probably COVID related; bacterial PNA les likely. Consider possible aspiration given hx. Fever has resolved. Abx stopped. Continue Xopenex and Atrovent. Weaned O2 off (7) Acute kidney injury: Code(s): N17.9 - Acute ki
[2020-06-11 13:03] LABS: Glucose Point of Care 297 (65-105)
--- NOTE | 2020-06-11 14:06 | PCPTNOTE ---
Attempted therapy session at 13:30. was with Pt for 30mins due to other needs. Pt refused therapy. Pt did not verbally communicate however answered yes and no questions. When therapist attempted AAROM/PROM to B LE's, Pt shook her head 'no' and scowled at therapist. When asked if she needed anything Pt stated water. Due to Pt being NPO therapist used mouth swabs to moisten Pt's lips and mouth. Therapist then applied chap stick to Pt's lips due to Pt being unable to do so after therapist handed her the chap stick. When asked again to participate in therapy, Pt shook her head 'no' and closed her eyes. Will continue per POC.
[2020-06-11 17:48] LABS: Glucose Point of Care 201 (65-105)
[2020-06-11] MEDS: ENOXAPARIN 40 MG/0.4 ML SYRINGE SUB-Q (22:39)
[2020-06-11] MEDS: INSULIN DETEMIR 100 UNITS/ML 40 UNITS SUB-Q (22:40)
[2020-06-11 23:45] LABS: Glucose Point of Care 213 (65-105)
[2020-06-12] VITALS (11 sets, daily range): BP systolic 103–135; BP diastolic 71–98; PULSE 71–120; RESP 18–24; TEMP 36.1–36.4; O2SAT 94–99
[2020-06-12] MEDS: dilTIAZem HCL 60 MG TABLET 120 MG FEED TUBE ×2 (06:53→12:38)
[2020-06-12] MEDS: METOPROLOL TARTRATE 50 MG TAB 100 MG FEED TUBE ×2 (06:53→13:53)
--- NOTE | 2020-06-12 07:33 | PCRCNOTE ---
Window of time for administration has passed. See next scheduled administration.
[2020-06-12 07:42] LABS: Anion Gap 2 mmol/L (8-16); Blood Urea Nitrogen 46 mg/dL (7-17); Calcium 9.3 mg/dL (8.4-10.2); Carbon Dioxide 35 mmol/L (22-30); Chloride 109 mmol/L (98-107); Estimated CRCL calculation 68 ml/min; Estimated Glomerular Filt Rate > 60; Glucose 94 mg/dL (65-105); Potassium 4.5 mmol/L (3.4-5.0); Sodium 146 mmol/L (137-145)
[2020-06-12 07:44] LABS: Hematocrit 43.6 % (37.0-47.0); Hemoglobin 13.4 g/dL (12.0-15.0); Immature Platelet Fraction Pct 6.9 % (0.9-11.2); Mean Corpuscular HGB Conc 30.7 g/dl (32-36); Mean Corpuscular Hemoglobin 23.1 pg (26-34); Mean Corpuscular Volume 75.3 fl (80-100); Platelet Count Result 249 k/mm3 (150-375); Red Blood Count 5.79 M/mm3 (4.2-5.4); White Blood Count 19.5 K/mm3 (4.5-10.0)
[2020-06-12] MEDS: AMIODARONE HCL 200 MG TABLET FEED TUBE (07:52)
[2020-06-12] MEDS: DEXAMETHASONE SOD PHOS INJ 4 MG/ML VIAL 6 MG IV PUSH (07:53)
[2020-06-12] MEDS: CHOLECALCIFEROL 1,000 UNITS TABLET 4000 UNITS FEED TUBE (07:53)
[2020-06-12] MEDS: ASPIRIN 81 MG CHEWABLE TABLET FEED TUBE (07:53)
[2020-06-12] MEDS: LORATADINE 10 MG TABLET FEED TUBE (07:54)
[2020-06-12] MEDS: DOCUSATE SODIUM LIQ 100 MG/10 ML UDC FEED TUBE (07:54)
[2020-06-12] MEDS: FAMOTIDINE 20 MG/2 ML VIAL IV PUSH (07:54)
[2020-06-12] MEDS: levETIRAcetam ORAL SOL 500 MG/5 ML UDC 1000 MG FEED TUBE (07:54)
[2020-06-12] MEDS: FLUTICASONE PROPIONATE 0.05% NA SPR 16 GM BTL (*BKC) 2 SPRAY NASAL (07:54)
[2020-06-12] MEDS: VITAMIN B COMPLEX CAPSULE 1 CAP FEED TUBE (07:55)
[2020-06-12] MEDS: CALCIUM CARBONATE (TUMS) 500 MG (200 MG ELEMENTAL) FEED TUBE (08:00)
[2020-06-12 08:23] LABS: Anisocytosis 1+ (NORMAL); Blastocytes 1 %; Monocytes Absolute Manual 1.17 K/mm3 (0.1-0.90); Monocytes Percent Manual 6 % (3-9); Neutrophils Percent Manual 73 % (46-73); Nucleated Red Blood Cells 10 %; Platelet Estimate Adequate (Adequate); Total Cells Counted 100
[2020-06-12 08:24] LABS: Ovalocytes 1+ (NORMAL); Target Cells 2+ (NORMAL)
[2020-06-12 08:25] LABS: Basophilic Stippling 1+ (NORMAL); Polychromasia 1+ (NORMAL)
[2020-06-12] MEDS: INSULIN DETEMIR 100 UNITS/ML 35 UNITS SUB-Q (09:03)
[2020-06-12] MEDS: IPRATROPIUM BR 0.02% INH SOLN 0.5 MG/2.5 ML VIAL INHALATION ×2 (09:16→14:31)
[2020-06-12 09:31] LABS: Glucose Point of Care 89 (65-105)
[2020-06-12 12:51] LABS: Glucose Point of Care 189 (65-105)
--- NOTE | 2020-06-12 17:36 | PM.DS ---
DS: Admitting Diagnosis Admitting Diagnosis Admitting Diagnosis: sepsis, elevated troponin, UTI, pneumonia, DS: Discharge Diagnosis Discharge Diagnosis (1) COVID-19: Code(s): U07.1 - COVID-19 Status: Acute Assessment and Plan: Patient had a positive rapid test that was confirmed here. Chest x-ray was clear on 05/31/[address] scan showed possible lingular infiltrate. Patient was [facility] air. X-ray this admission 06/03 showing worsening airspace opacities left mid lower lung zones. Repeat CXR 06/05 showing progression. . Patient down to RA, off nasal cannula and is more comfortable by time of discharge although Nursing would replace patient back on 2 L. finished 9 days of dexamethasone, and finished course of Remdesivir 06/08. 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 She had been on Eliquis at the time. She also had a subdural hematoma after a fall in April 2020. 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 Last hospitalization at [facility] was earlier this month for AMS felt related to UTI and PNA (CUSTOMER DATA TECHNICIAN shunt was working normally at that time). Patient returns this admission for hyperglycemia and AMS. She had a CT brain showing a right frontal parietal subdural hematoma, likely acute or subacute and a infarct in left occipital lobe, new from 02/24/2020, likely acute or subacute. [facility] was contacted but the neurosurgeon did not feel patient needed to be transferred because these were more chronic findings. Patient is returning to her baseline with current care. Still intermitant lethargy Off full anticoagulation due to above cerebral findings (3) Catheter-associated urinary tract infection: Qualifiers: Indwelling urinary catheter type: indwelling urethral catheter Encounter type: initial encounter Qualified Code(s): T83.511A - Infection and inflammatory reaction due to indwelling urethral catheter, initial encounter; N39.0 - Urinary tract infection, site not specified Code(s): T83.511A - Infection and inflammatory reaction due to indwelling urethral catheter, initial encounter; N39.0 - Urinary tract infection, site not specified Status: Acute Assessment and Plan: She was recently hospitalized here from 06/01-06/02 for abdominal pain. Patient has chronic indwelling Aparicio. She was found to have UCx positive for Enterococcus and yeast. She was discharged to [facility] with macrobid (sensitivities were not back at time of discharge). Patient returns and original UCx growing VRE. Zyvox IV ordered but ID felt NOT a true infection. Abx stopped. UTI RULED OUT. (4) Atrial fibrillation with rapid ventricular response: Code(s): I48.91 - Unspecified atrial fibrillation Status: Acute Assessment and Plan: Heart rate was poorly controlled. We resumed metoprolol, diltiazem and amiodarone through the G-tube and HR improved. BP stable. And no anticoagulation due to cerebral bleeds (5) Severe sepsis: Code(s): A41.9 - Sepsis, unspecified organism; R65.20 - Severe sepsis without septic shock Status: Acute Assessment and Plan: Low-grade fever, tachycardia and lactic acidosis. Probably from COVID/PNA since UTI ruled out. Continue supportive care. persistent leukocytosis thought secondary to dexamethasone and slowly falling now , repeat [facility] 10 [facility] at the [facility] (6) Pneumonia: Code(s): J18.9 - Pneumonia, unspecified organism
== END 2020-06-12 16:28 | DRG 871 ==
LOC: ANHED 20:03 → ANHIMU 06-04 07:47 → ANH3MEDSUR 06-11 23:01 → ANHIMU 06-15 17:48
PROVIDERS: Emergency Medicine Emergency Medical Services; Internal Medicine; Admitting Provider Family Medicine; Emergency Provider Emergency Medicine; PCP Family Medicine; Visit Provider Internal Medicine
DX: A41.89 Other specified sepsis (principal); U07.1 COVID-19; S06.5X9A Traumatic subdural hemorrhage with loss of consciousness of unspecified duration, initial encounter; J12.89 Other viral pneumonia; N17.9 Acute kidney failure, unspecified; G91.9 Hydrocephalus, unspecified; R65.20 Severe sepsis without septic shock; E11.65 Type 2 diabetes mellitus with hyperglycemia; F03.90 Unspecified dementia, unspecified severity, without behavioral disturbance, psychotic disturbance, mood disturbance, and anxiety; I48.91 Unspecified atrial fibrillation; I10 Essential (primary) hypertension; D56.3 Thalassemia minor; I69.320 Aphasia following cerebral infarction; I69.391 Dysphagia following cerebral infarction; R13.10 Dysphagia, unspecified; G47.33 Obstructive sleep apnea (adult) (pediatric); R77.8 Other specified abnormalities of plasma proteins; Z93.1 Gastrostomy status; Z98.2 Presence of cerebrospinal fluid drainage device; Z79.01 Long term (current) use of anticoagulants; Z79.4 Long term (current) use of insulin; Z79.82 Long term (current) use of aspirin; Z87.891 Personal history of nicotine dependence; Z88.2 Allergy status to sulfonamides; Z96.653 Presence of artificial knee joint, bilateral
CPT/HCPCS: 36415; 36600; 70450; 71045; 80048; 80053; 80076; 81001; 82375; 82565; 82607; 82728; 82746; 82805; 83050; 83540; 83550; 83605; 83615; 83690; 83735; 84100; 84460; 84484; 85025; 85027; 85055; 85380; 85610; 85730; 86140; 87040; 87086; 87635; 93005; 94640; 96361; 96365; 97110; 97161; 97167; 99285; A9270; C1751; C9803; J0456; J0696; J1100; J1650; J1815; J2020; J7030; J7070; J7120; U0003

== ENCOUNTER 2020-07-08 23:30 | Emergency (ER) | payer MEDICARE, SELFPAY ==
--- NOTE | ~2020-07-08 | XR_ITS ---
EXAMINATION: XR chest 2V DATE: 07/09/2020 00:29 INDICATION: Shortness of breath. COVID positive. TECHNIQUE: frontal and lateral views of the chest were obtained. COMPARISON: Chest radiograph dated 06/07/2020 FINDINGS: Increased opacities in the bilateral lower lung zones due primarily to small right and very small lef t pleural effusions. No pneumothorax. The cardiomediastinal silhouette is within normal limits for AP technique. Ventriculoperitoneal shunt projects over the right side of the chest and neck, poorly vis ualized in the region of the abdomen due to body habitus and underpenetration. IMPRESSION: 1. Small right and very small left pleural effusions with associated basilar atelectasis versus less likely pneumonia. Reviewed, dictated and finalized at location A. RGICAL MUSIC DIRECTOR IMPRESSION: 1. Small right and very small left pleural effusions with associated basilar at electasis versus less likely pneumonia.
--- NOTE | ~2020-07-08 | CT_ITS ---
EXAMINATION: CTA chest PE protocol DATE: 07/09/2020 03:23 INDICATION: Shortness of breath TECHNIQUE: Computed tomography angiography (CTA) of the chest was performed with 100 mL Omnipaque-350 intravenous contrast timed to evaluate the pulmonary arteries. Coronal maximum intensity projection 3D-reconstructions were created by the technologist. The dose-length product (DLP) was 886.59 mGy-cm. Automated exposure control and iterative reconstruction technique were employed. COMPARISON: None. FINDINGS: The pulmonary arteries are well-opacified. There are emboli in the proximal right lower lob e pulmonary artery extending into several smaller branches. An embolus is also present in the right m ain pulmonary artery. There is thrombus in the left atrium. Straightening of the interventricular sep jorden is noted. There are moderate size right and small left pleural effusions. There is dependent atel ectasis. More focal airspace opacities are seen in the right lower lobe. Smooth interlobular septal t hickening is noted. There is cardiomegaly. Ventriculoperitoneal shunt catheter tubing courses anterio rly in the right chest. A percutaneous gastrostomy is noted. There is a partially imaged inferior jesus a cava filter. There is mild thoracic spondylosis. IMPRESSION: 1. Acute pulmonary emboli in the right main pulmonary artery and right lower lobe. 2. Thrombus in the left atrium. 3. Moderate size right and small left pleural effusions. 4. Right basilar airspace opacities which could reflect atelectasis, pneumonia, or possibly pulmonary infarct. Case findings were transmitted to the Emergency Department at 0426 hours on 07/09/2020 by the [facility] R adiologist. Reviewed, dictated and finalized at location A. IT VERIFIER IMPRESSION: 1. Acute pulmonary emboli in the right main pulmonary artery and right lower lo be. 2. Thrombus in the left atrium. 3. Moderate size right and small left pleural effusions. 4. Right basilar airspace opacities which could reflect atelectasis, pneumonia, or possibly pulmonary infarct. Case findings were transmitted to the Emergency Department at 0426 hours on 07/09 by the [facility] Radiologist.
[2020-07-08 23:34] VITALS: BP 127/68; PULSE 63; RESP 26; TEMP 37; O2SAT 90
[2020-07-09] VITALS (60 sets, daily range): BP systolic 108–149; BP diastolic 65–92; PULSE 70–95; RESP 13–35; O2SAT 86–100
--- NOTE | 2020-07-09 00:03 | ECG_ITS ---
Measurements Intervals [place] Rate: 66 P: ID: 0 QRS: 10 QRSD: 97 T: 250 QT: 418 QTc: 438 Interpretive Statements ATRIAL FLUTTER/TACHYCARDIA NONSPECIFIC T-WAVE ABNORMALITY- HIGH LATERAL LEADS BASELINE ARTIFACT- I, II, AVL, AVF, V1-V3 ABNORMAL ECG Electronically Signed On 07-09-2020 8:09:40 NUT TIGHTENER by Mello Nesbitt D.O.
[2020-07-09 01:13] LABS: Basophils Absolute Auto 0.1 K/mm3 (0.0-0.1); Basophils Percent Auto 0.9 % (0.2-1.2); Eosinophils Absolute Auto 0.1 K/mm3 (0-0.3); Eosinophils Percent Auto 1.4 % (0-4.4); Hematocrit 32.7 % (37.0-47.0); Hemoglobin 10.1 g/dL (12.0-15.0); Immature Granulocyte Absolute 0.03 K/mm3 (0.00-0.031); Immature Granulocyte Percent A 0.5 % (0-0.5); Lymphocytes Absolute Auto 1.65 K/mm3 (0.9-3.2); Lymphocytes Percent Auto 25.3 % (18.3-44.2); Mean Corpuscular HGB Conc 30.9 g/dl (32-36); Mean Corpuscular Hemoglobin 23.8 pg (26-34); Mean Corpuscular Volume 76.9 fl (80-100); Mean Platelet Volume 8.9 fl (7.4-10.4); Monocytes Absolute Auto 0.9 K/mm3 (0.1-0.6); Monocytes Percent Auto 14.4 % (2.6-8.5); Neutrophils Absolute Auto 3.7 K/mm3 (1.3-6.7); Neutrophils Percent Auto 57.5 % (45.5-73.1); Nucleated Red Blood Cells Absolute Auto 0.1 K/mm3 (0.0-0.012); Nucleated Red Blood Cells Perc 1.8 % (0.0-0.2); Platelet Count Result 336 k/mm3 (150-375); Red Blood Count 4.25 M/mm3 (4.2-5.4); Red Cell Distribution Width 21.9 % (11.5-14.5); White Blood Count 6.5 K/mm3 (4.5-10.0)
[2020-07-09 01:31] LABS: Anion Gap 6 mmol/L (8-16); Blood Urea Nitrogen 14 mg/dL (7-17); Calcium 8.3 mg/dL (8.4-10.2); Carbon Dioxide 26 mmol/L (22-30); Chloride 101 mmol/L (98-107); Estimated CRCL calculation 56 ml/min; Estimated Glomerular Filt Rate > 60; Glucose 160 mg/dL (65-105); Potassium 4.4 mmol/L (3.4-5.0); Sodium 133 mmol/L (137-145)
[2020-07-09 01:32] LABS: Alanine Aminotransferase 22 U/L (4-35); Albumin Level 2.8 g/dL (3.5-5.1); Alkaline Phosphatase 76 U/L (38-126); Aspartate Amino Transferase 22 U/L (14-36); Bilirubin,Total 0.6 mg/dL (0.2-1.3)
[2020-07-09 01:49] LABS: NT Pro B Type Natriuretic Pept 2660 PG/ML (5-100); Troponin I 0.115 ng/mL (0.000-0.034)
--- NOTE | 2020-07-09 03:52 | ED.GENADULT ---
HPI - General Adult General Chief complaint: Shortness of Breath/Dyspnea <Rohan Harper MD - Last Filed: 07/09/20 06:13> Stated complaint: SOB <Rohan Harper MD - Last Filed: 07/09/20 06:13> Time Seen by Provider: 07/09/20 00:24 <Rohan Harper MD - Last Filed: 07/09/20 06:13> History of Present Illness HPI narrative: Patient is a 74-year-old female who presents the emergency department with chief complaint of shortness of breath. Patient was recently admitted at [facility] and was discharged in the last week. Patient this evening had an episode of shortness of breath and the family decided to call an ambulance. Patient was initially being transported to [facility] and then after discussion with EMS decided to be transported to our facility. Patient currently states that she feels okay does not having any shortness of breath or chest pain at this exact time. Patient states that she has had lower extremity clots and has a Harvey filter. <Rohan Harper MD - Last Filed: 07/09/20 06:13> Related Data Home medications: Home Medications Medication Instructions Recorded Confirmed budesonide-formoterol [Symbicort] 2 puff INHALATION BID 02/24/20 06/03/20 famotidine 20 mg FEEDING TUBE BID 02/24/20 06/03/20 metoprolol tartrate 100 mg FEEDING TUBE Q6H 02/24/20 06/03/20 acetaminophen 650 mg FEEDING TUBE Q4H PRN 05/25/20 06/03/20 albuterol sulfate 5 mg INHALATION Q4H PRN 05/25/20 06/03/20 aspirin 81 mg FEEDING TUBE DAILY 05/25/20 06/03/20 bisacodyl 10 mg IL DAILY PRN 05/25/20 06/03/20 calcium carbonate 200 mg FEEDING TUBE DAILY 05/25/20 06/03/20 cetirizine 10 mg FEEDING TUBE DAILY 05/25/20 06/03/20 cholecalciferol (vitamin D3) 4,000 mcg FEEDING TUBE DAILY 05/25/20 06/03/20 [Vitamin D3] diltiazem HCl 120 mg FEEDING TUBE Q6H 05/25/20 06/03/20 docusate sodium 100 mg FEEDING TUBE BID 05/25/20 06/03/20 fluticasone propionate [Flonase 2 spray INTRANASAL DAILY 05/25/20 06/03/20 Allergy Relief] glucagon 1 mg SUBCUT Q30M PRN 05/25/20 06/03/20 ipratropium bromide 2.5 ml INHALATION QID 05/25/20 06/03/20 levetiracetam 1,000 mg FEEDING TUBE Q12H 05/25/20 06/03/20 polyethylene glycol 3350 17 g FEEDING TUBE DAILY PRN 05/25/20 06/03/20 ramelteon 8 mg PO HS 05/25/20 06/03/20 vitamin B complex [B 1 tablet FEEDING TUBE DAILY 05/25/20 06/03/20 Complex-Vitamin B12] amiodarone [Pacerone] 200 mg FEEDING TUBE DAILY@0800 06/01/20 06/03/20 <Rohan Harper MD - Last Filed: 07/09/20 06:13> Allergies/adverse reactions: Allergies Allergy/AdvReac Type Severity Reaction Status Date / Time JOLIE Inhibitors Allergy Unknown Unknown Verified 07/09/20 08:51 hydrocodone Allergy Unknown Unknown Verified 07/09/20 08:51 lovastatin Allergy Unknown Unknown Verified 07/09/20 08:51 pravastatin Allergy Unknown Unknown Verified 07/09/20 08:51 Sulfa (Sulfonamide Allergy Unknown Unknown Verified 07/09/20 08:51 Antibiotics) Sulfonylureas Allergy Unknown Unknown Verified 07/09/20 08:51 <Rohan Harper MD - Last Filed: 07/09/20 06:13> Review of Systems Review of Systems: Narrative: A 10 system review of systems was completed on the patient and is negative except for what is stated in the HPI. Nursing and ancillary documentation was reviewed. <Rohan Harper MD - Last Filed: 07/09/20 06:13> [facility] Past Medical History Medical History: Medical History Atrial flutter Beta thalassemia trait Cerebrovascular accident, embolic (~12/2017) Chronic anemia Diabetes mellitus Dysphagia As a result of previous strokes. G-tube in place. History of intracranial hemorrhage Hydrocephalus (~02/2020) Status post AGRISCIENCE INSTRUCTOR shunt. Hyperlipidemia Intolerant to statins. Hypertension Indwelling Aparicio catheter present Intracerebral hemorrhage (~02/2020) Hemorrhagic stroke occurred while she was on Eliquis, and she was hospi
[2020-07-09] MEDS: HEPARIN SODIUM 5,000 UNITS/ML VIAL 8500 UNITS IV PUSH (06:45)
[2020-07-09] MEDS: HEPARIN SOD/D5W 100 UNITS/ML 25,000 UNITS/250 ML BAG 15 UNITS IV CONT (06:46)
--- NOTE | 2020-07-09 07:12 | PC.NURSE ---
rec'd pt from night coordinator joey mtz. pt asleep without cardiac or resp distress. iv heparin continues via pump at 1500 units/hr. relative at bedside. awaiting acceptance at [facility]
--- NOTE | 2020-07-09 08:15 | PC.NURSE ---
received report from Vilma YARBROUGH. patient being transferred to [facility] when bed available. notes reviewed. resting on stretcher. both RN's to room. patient changed into hospital gown. Zamzam and merly assessed. statlock for moreland placed on right thigh. patient's in room. both aware of current treatment plan and possible wait time. warm blankets given. denies needs. call light in reach.
--- NOTE | 2020-07-09 08:39 | PC.NURSE ---
[facility] declined transfer to [facility] accepted transfer to [facility] 12:30 Trip #[phone]
--- NOTE | 2020-07-09 08:47 | PC.NURSE ---
phone report to [facility] [phone]
[2020-07-09 08:48] LABS: INR 1.2; Prothrombin Time 15.4 Seconds (11.1-14.7)
[2020-07-09 09:05] LABS: Partial Thromboplastin Time > 200.0 SECONDS (22.3-36.8)
--- NOTE | 2020-07-09 09:07 | PC.NURSE ---
[facility], [facility], [facility] and [facility] all declined transfer to [facility]
--- NOTE | 2020-07-09 09:45 | PC.NURSE ---
patient has bed assigned at [facility]. EMS contacted for transfer. no availablity until 12:30pm. patient and updated. coffee given to each. no change in conditon.
--- NOTE | 2020-07-09 12:07 | PC.NURSE ---
EMS should be here in 10 minutes. chart is ready. patient and aware.
--- NOTE | 2020-07-09 12:30 | PC.NURSE ---
EMS here for transport to [facility]. EMS given copy of chart for [facility], report given and patient released to EMS care for transport. patient denies needs prior to transfer. aware to call [facility] for updated visitor policy.
== END 2020-07-09 12:32 | disposition short-term general hospital (02) ==
PROVIDERS: Emergency Medicine; Emergency Provider Emergency Medicine; PCP Family Medicine
DX: I26.99 Other pulmonary embolism without acute cor pulmonale (principal); I50.9 Heart failure, unspecified; R79.89 Other specified abnormal findings of blood chemistry; I48.0 Paroxysmal atrial fibrillation; I48.92 Unspecified atrial flutter; D64.9 Anemia, unspecified; E11.9 Type 2 diabetes mellitus without complications; E78.5 Hyperlipidemia, unspecified; I11.0 Hypertensive heart disease with heart failure; G47.33 Obstructive sleep apnea (adult) (pediatric); M19.90 Unspecified osteoarthritis, unspecified site; Z79.82 Long term (current) use of aspirin; I69.391 Dysphagia following cerebral infarction; R13.10 Dysphagia, unspecified; G91.9 Hydrocephalus, unspecified; Z79.4 Long term (current) use of insulin; R94.31 Abnormal electrocardiogram [ECG] [EKG]; R91.8 Other nonspecific abnormal finding of lung field; Z93.1 Gastrostomy status; Z96.653 Presence of artificial knee joint, bilateral; Z98.2 Presence of cerebrospinal fluid drainage device; Z87.891 Personal history of nicotine dependence
CPT/HCPCS: 36415; 71046; 71275; 80048; 80076; 83880; 84484; 85025; 85610; 85730; 93005; 96365; 96366; 99285; J1644; Q9967

== ENCOUNTER 2020-12-10 10:47 | Inpatient (IN) | payer MEDICARE, SELFPAY ==
[2020-12-10] VITALS (34 sets, daily range): BP systolic 121–183; BP diastolic 60–82; PULSE 30–50; RESP 14–25; TEMP 35.7–36.7; O2SAT 92–100; BMI 39.9
--- NOTE | ~2020-12-10 | XR_ITS ---
EXAMINATION: XR chest 1V portable EXAM DATE: 12/10/2020 11:56 INDICATION: Bradycardia. TECHNIQUE: Portable AP frontal chest x-ray was obtained. Comparison is made to prior examination from 07/09/2020. FINDINGS: There is cardiomegaly and pulmonary vascular congestion. Possible mild pulmonary edema. No confluent consolidation, pneumothorax or pleural effusion suspected. There are no osseous abnormaliti es identified. IMPRESSION: 1. Cardiomegaly, congestion. 2. Possible mild edema. Reviewed, dictated and finalized at location B.
[2020-12-10 11:02] LABS: Glucose Point of Care > 500 mg/dl (65-105)
[2020-12-10 11:39] LABS: Alveolar/Arterial O2 Gradient 28.8 mmHg; Base Excess ABG 1.6 mEq/l (+/-2.0); Carboxyhemoglobin 1.4 % THb (0-2.0); Fractional Inspired Oxygen 21 %; HCO3 ABG 27.3 mEq/l (22.0-26.0); Methemoglobin ABG 0.3 %THb (0-1.5); Oxygen Content ABG 15.7 %vol (16.0-22.0); Oxygen Saturation ABG 91.9 % (95.0-100.0); Oxyhemoglobin 89.7 % THb (90.0-100.0); PCO2 ABG 47.4 mmHg (35.0-45.0); PO2 ABG 64.2 mmHg (80.0-100.0); PO2 FiO2 Ratio Arterial Blood 3.06 %; Reduced Hemoglobin 8.6 %THb (0-5.0); Total Hemoglobin 12.4 g/dL (12.0-18.0); pH ABG 7.378 (7.350-7.450)
[2020-12-10 11:41] LABS: Device ROOM AIR; Modified Allen's Test Pass; Site Drawn RIGHT BRACHIAL
[2020-12-10 11:54] LABS: Basophils Absolute Auto 0.1 K/mm3 (0.0-0.1); Eosinophils Absolute Auto 0.2 K/mm3 (0-0.3); Eosinophils Percent Auto 2.3 % (0-4.4); Hematocrit 36.8 % (37.0-47.0); Immature Granulocyte Absolute 0.02 K/mm3 (0.00-0.031); Immature Granulocyte Percent A 0.3 % (0-0.5); Lymphocytes Absolute Auto 1.96 K/mm3 (0.9-3.2); Lymphocytes Percent Auto 28.5 % (18.3-44.2); Mean Corpuscular HGB Conc 29.9 g/dl (32-36); Mean Corpuscular Hemoglobin 21.9 pg (26-34); Mean Corpuscular Volume 73.3 fl (80-100); Mean Platelet Volume 10.9 fl (7.4-10.4); Monocytes Absolute Auto 0.7 K/mm3 (0.1-0.6); Monocytes Percent Auto 9.6 % (2.6-8.5); Neutrophils Percent Auto 58.3 % (45.5-73.1); Platelet Count Result 316 k/mm3 (150-375); Red Blood Count 5.02 M/mm3 (4.2-5.4); Red Cell Distribution Width 18.4 % (11.5-14.5); White Blood Count 6.9 K/mm3 (4.5-10.0)
[2020-12-10 12:00] LABS: Alanine Aminotransferase 41 U/L (4-35); Albumin Level 3.3 g/dL (3.5-5.1); Alkaline Phosphatase 87 U/L (38-126); Anion Gap 9 mmol/L (8-16); Aspartate Amino Transferase 33 U/L (14-36); Bilirubin,Total 0.8 mg/dL (0.2-1.3); Blood Urea Nitrogen 25 mg/dL (7-17); Calcium 8.5 mg/dL (8.4-10.2); Carbon Dioxide 22 mmol/L (22-30); Chloride 100 mmol/L (98-107); Estimated CRCL calculation 39 ml/min; Estimated Glomerular Filt Rate 48; Glucose 478 mg/dL (65-105); Magnesium 1.5 mg/dL (1.6-2.3); Potassium 5.4 mmol/L (3.4-5.0); Sodium 131 mmol/L (137-145)
--- NOTE | 2020-12-10 12:02 | ECG_ITS ---
Measurements Intervals [place] Rate: 37 P: CO: 0 QRS: 5 QRSD: 91 T: 27 QT: 541 QTc: 425 Interpretive Statements SLOW JUNCTIONAL RHYTHM ATRIAL PREMATURE COMPLEX DELAYED PRECORDIAL R/S TRANSITION BORDERLINE ST-T WAVE ABNORMALITY- INFERIOR LEADS BASELINE ARTIFACT- I, II, III, AVR, AL, AVF, V1-V6 ABNORMAL ECG Electronically Signed On 12-10-2020 13:37:56 CDT by Mello Nesbitt D.O.
[2020-12-10] MEDS: SODIUM CHLORIDE 0.9% IV 1,000 ML 999 ML IV CONT (12:03)
[2020-12-10 12:10] LABS: Troponin I < 0.012 ng/mL (0.000-0.034)
--- NOTE | 2020-12-10 12:36 | ED.RECABL ---
HPI - Recheck/Abnormal Lab/Rx General Chief Complaint: Recheck/Abnormal Lab/Rx Stated Complaint: Elevated Blood Sugar Time Seen by Provider: 12/10/20 11:01 Source: patient, RN notes reviewed and old records reviewed Mode of arrival: ambulatory Limitations: no limitations History of Present Illness HPI narrative: This is a 75 year old female with multiple medical problems including DM who presents to ER for evaluation of high blood sugar. She states she has a home health nurse who checked her BS this morning and it was found to be over 500. She reports there hasn't been a change in her diet and she has been taking her insulin and medication as prescribed. She denies chest pain, cough, nausea, vomiting, abdominal pain, headache or fever. She was found to be bradycardic in ER but she denies dizziness or weakness. She takes Eliquis, metoprolol and amiodarone for atrial fibrillation. Related Data Home Medications Medication Instructions Recorded Confirmed budesonide-formoterol [Symbicort] 2 puff INHALATION BID 02/24/20 12/10/20 metoprolol tartrate 100 mg PO DAILY 02/24/20 12/10/20 cetirizine 10 mg PO DAILY 05/25/20 12/10/20 cholecalciferol (vitamin D3) 5,000 mcg PO DAILY 05/25/20 12/10/20 [Vitamin D3] fluticasone propionate [Flonase 2 spray INTRANASAL DAILY 05/25/20 12/10/20 Allergy Relief] polyethylene glycol 3350 17 g PO DAILY PRN 05/25/20 12/10/20 amiodarone [Pacerone] 200 mg PO BID 06/01/20 12/10/20 acetaminophen 500 mg PO Q4H PRN 12/10/20 12/10/20 albuterol sulfate 2 puff INHALATION DAILY 12/10/20 12/10/20 enoxaparin [Lovenox] 150 mg SUBCUT DAILY 12/10/20 12/10/20 escitalopram oxalate 5 mg PO HS 12/10/20 12/10/20 gabapentin [Neurontin] 100 mg PO HS 12/10/20 12/10/20 insulin degludec [Tresiba 40 unit SUBCUT DAILY 12/10/20 12/10/20 FlexTouch U-100] pantoprazole [Protonix] 40 mg PO DAILY 12/10/20 12/10/20 Allergies Allergy/AdvReac Type Severity Reaction Status Date / Time JOLIE Inhibitors Allergy Unknown Unknown Verified 12/10/20 17:23 hydrocodone Allergy Unknown Unknown Verified 12/10/20 17:23 lovastatin Allergy Unknown Unknown Verified 12/10/20 17:23 pravastatin Allergy Unknown Unknown Verified 12/10/20 17:23 Sulfa (Sulfonamide Allergy Unknown Unknown Verified 12/10/20 17:23 Antibiotics) Sulfonylureas Allergy Unknown Unknown Verified 12/10/20 17:23 Review of Systems Review of Systems: All systems reviewed & are unremarkable except as noted in HPI and below PMFSH Past Medical History Medical History (Updated 12/10/20 @ 17:15 by Jaimee Quinones NP) Atrial flutter Atrial flutter with rapid ventricular response Beta thalassemia trait Catheter-associated urinary tract infection Cerebrovascular accident, embolic (~12/2017) Chronic anemia Diabetes mellitus DVT (deep venous thrombosis) Dysphagia As a result of previous strokes. G-tube in place. Gastrostomy tube in place History of intracranial hemorrhage Hydrocephalus (~02/2020) Status post COOK LARDER shunt. Hyperlipidemia Intolerant to statins. Hypertension Indwelling Aparicio catheter present Intracerebral hemorrhage (~02/2020) Hemorrhagic stroke occurred while she was on Eliquis, and she was hospitalized at [facility] at that time. Obstructive sleep apnea Osteoarthritis PAF (paroxysmal atrial fibrillation) Paroxysmal atrial fibrillation Paroxysmal atrial flutter Severe sepsis Subdural hematoma (~04/2020) Type 2 diabetes mellitus, uncontrolled Surgical History Surgical History (Updated 12/10/20 @ 17:25 by Jaimee Quinones NP) History of appendectomy History of gastrostomy tube placement History of total bilateral knee replacement History of tracheostomy History of tubal ligation S/P IVC filter Status post ventriculo-peritoneal shunt placement (~02/2020) Family History Family History Other Alzheimer's dementia Carcinoma of colon Cerebrovascular accident Diabetes mellitus
[2020-12-10 12:40] LABS: NT Pro B Type Natriuretic Pept 2660 pg/mL (5-100)
[2020-12-10 12:41] LABS: Add Urine Microscopic? YES; Appearance Urine Clear (Clear); Bilirubin Urine Negative (Negative); Blood Urine Negative (Negative); Color Urine Yellow (Yellow); Glucose Urine UA 3+ mg/dL (Negative); Ketones Urine Negative (Negative); Leukocyte Esterase Ur Negative LEU/UL (Negative); Mucus Urine Rare /lpf; Nitrate Urine Negative (Negative); Protein Urine Negative (Negative); RBC Urine 0-2 /hpf (0-2); Specific Grav Ur 1.021 (1.001-1.035); Squamous Epithelial Cell Urine Rare /hpf (Few); Urobilinogen Urine Negative mg/dL (<2.0); WBC Urine 0-3 /hpf
[2020-12-10] MEDS: INSULIN HUMAN REGULAR (*BKC) 100 UNITS/ML 6 UNITS IV PUSH (12:51)
[2020-12-10 12:56] LABS: Glucose Point of Care 381 mg/dl (65-105)
[2020-12-10 13:54] LABS: Glucose Point of Care 255 mg/dl (65-105)
--- NOTE | 2020-12-10 14:55 | PM.CNCAR ---
Assessment and Plan Additional Plan This is a 75-year-old lady who has had problematic atrial fibrillation for about 5 years. She has recently for the last 6-9 months been maintained on beta-gaetano therapy and modest dose of amiodarone. She presents to the hospital with concerning hyperglycemia and in that setting is found to be much more bradycardic and interestingly no longer in atrial fib or flutter. It was presumed that she would be chronically in atrial fib/flutter the last time she saw the electrophysiology consultants as I mentioned above. Presumably with ongoing amiodarone treatment she has now converted and is no longer in AF. The rhythm now was junctional with retrograde atrial activation. I am going to recommend holding her beta-gaetano and amiodarone at this time in hopes that her sinus node will recover. She is hemodynamically stable and at this point does not require a temporary pacemaker she has a fairly stable looking narrow QRS escape rhythm. Furthermore she has not had any symptoms of syncope or presyncope. I would hope and expect the sinus node activity was start to recover and reappear as the medications washout and I would like then to probably consider resuming maintenance dose of amiodarone since this lady has very difficult to control heart rate when she is in AFib or flutter. Thank you for asking me to see this nice lady and participate in this challenging situation Vincent Hurtado MD [facility] History of Present Illness History of Present Illness Consult date/time: 12/10/20 14:55 Consult reason: atrial fibrillation Reason For Visit: bradycardia/atrial fibrillation/hyperglycemia Narrative: This is a very pleasant and rather unfortunate 75-year-old lady who I know with a history of atrial fibrillation. Seeing her at the request of the hospitalist because of bradycardia. She has a complex history of atrial fibrillation which has been problematic since January of 2016. She was found that time to have left ventricular hypertrophy from hypertension and good systolic function and was treated with a combination of sotalol and systemic anticoagulation. That went on for a couple of years but surprisingly she had an ischemic CVA in 2017 despite being compliant with systemic anticoagulation. She had had recurrences of atrial fib despite high doses of sotalol and was shifted to amiodarone. She was seen by our practice as well as the arrhythmia Center at [facility] for the next couple of years and was actually the last time I saw her in persistent atrial fibrillation with which she was unaware and was anticoagulated and the electrophysiology compensation consultant did not believe there was any need to consider ablate of treatment since she was asymptomatic of her arrhythmia otherwise. In 2019 she had a series of hospitalizations at several other institutions where she was treated for atrial fib with RVR, she had connor virus pneumonia in April of 2020 and had some atrial fibrillation at that that time. She had a hemorrhagic subdural hematoma in the fall of 2019 that resulted in the obvious decision to discontinue anticoagulation. In June and July she was hospitalized a couple of times at [facility] with symptoms of excessive lethargy and bilateral lower extremity DVTs for which she received an IVC filter. Despite all of this she did have in July evidence of pulmonary embolism in the right main pulmonary artery and ultimately was discharged to home. Most recent hospitalization in August of this year occurred because of some chest pain and hematemesis which resulted in her being evaluated again at [facility]. Anticoagulation was changed to Lovenox at that time at a dosage of 80 mg b.i.d. being titrated to an anti factor 10 a goal of 0.5-1. She then has been maintained recently on low-dose of amiodarone and very high dose of metoprolol at 100 mg q.6 hours to maintain heart rate control. The patient has not had any cardiac symptoms recently was lucia
[2020-12-10 16:27] LABS: Glucose Point of Care 200 mg/dl (65-105)
--- NOTE | 2020-12-10 17:07 | PM.IMHP ---
H&P: HPI History of Present Illness Date/Time: 12/10/20 17:07 patient lives at home with her . She has home health coming to her home. Today home health felt that her blood sugar was too high. Her blood sugar was greater than 500. The patient stated that she has been taking her oral medication as well as insulin. Her daughter told her that she needed to go to the emergency room. The patient was not having any shortness of breath or chest pain. The patient has been taking her medications as prescribed. When the patient was received to the hospital her blood sugar was Greater than 500 and that came down to 381. IV fluids and IV insulin x1. Her heart rate was found to be in the 30s. Cardiology has been consulted. Patient is asymptomatic with her bradycardia patient is now converted. Is recommended the patient is being admitted to observation status on the date of service of 12/10/2020. Chief Complaint: elevated blood sugar Review of Systems Review of Systems: All systems reviewed & are unremarkable except as noted in HPI and below Constitutional: Constitutional: Reports as per HPI and Reports no additional constitutional complaints Eyes: Eyes: Reports as per HPI and Reports no additional eye complaints ENT: Reports system reviewed and no additional complaints, except as documented and Reports Normal hearing present Cardiovascular: Cardiovascular: Reports no additional cardiovascular complaints Respiratory: Respiratory: Reports no additional respiratory complaints and Reports no additional respiratory complaints Gastrointestinal: Gastrointestinal: Reports as per HPI and Reports no additional gastrointestinal complaints Musculoskeletal: Musculoskeletal: Reports no additional musculoskeletal complaints Integumentary/Breasts: Skin/Breast: Reports system reviewed and no additional complaints, except as docu and Reports as per HPI Neurologic: Reports system reviewed and no additional complaints, except as documented, Reports as per HPI and Reports Normal hearing present Psychiatric: Psychiatric: Reports no additional psychiatric complaints and Reports as per HPI Endocrine: Endocrine: Reports no additional endocrine complaints Hematologic/Lymphatic: Hematologic/Lymphatic: Reports no additional hematologic/lymphatic complaints Allergic/Immunologic: Allergic/Immunologic: Reports no additional allergic/immunologic complaints [facility] Past Medical History Medical History (Updated 12/10/20 @ 17:15 by Jaimee Quinones NP) Atrial flutter Atrial flutter with rapid ventricular response Beta thalassemia trait Catheter-associated urinary tract infection Cerebrovascular accident, embolic (~12/2017) Chronic anemia Diabetes mellitus DVT (deep venous thrombosis) Dysphagia As a result of previous strokes. G-tube in place. Gastrostomy tube in place History of intracranial hemorrhage Hydrocephalus (~02/2020) Status post DESIGN CHECKER shunt. Hyperlipidemia Intolerant to statins. Hypertension Indwelling Aparicio catheter present Intracerebral hemorrhage (~02/2020) Hemorrhagic stroke occurred while she was on Eliquis, and she was hospitalized at [facility] at that time. Obstructive sleep apnea Osteoarthritis PAF (paroxysmal atrial fibrillation) Paroxysmal atrial fibrillation Paroxysmal atrial flutter Severe sepsis Subdural hematoma (~04/2020) Type 2 diabetes mellitus, uncontrolled Surgical History Surgical History (Updated 12/10/20 @ 17:25 by Jaimee Quinones NP) History of appendectomy History of gastrostomy tube placement History of total bilateral knee replacement History of tracheostomy History of tubal ligation S/P IVC filter Status post ventriculo-peritoneal shunt placement (~02/2020) Family History Family History Other Alzheimer's dementia Carcinoma of colon Cerebrovascular accident Diabetes mellitus Family history of arthritis Hypertension Social History
[2020-12-10 17:11] LABS: Hemoglobin A1C 11.1 % (<5.7)
--- NOTE | 2020-12-10 17:16 | ADMGEN ---
This patient, Bettie Roque, was admitted to IMU Room 202-01 12/10/20 at 1422. Patient/family oriented to hospital policies and general routines including ID bracelet, bed and alarms, visiting hours, pain management, procedures, bathroom and other care routines, personal items, smoking policy, room service/diet, and visiting hours. Information on how to activate the Rapid Response Team has been discussed. Patient/Family are encouraged to report perceived risks to care and to ask questions if they do not understand what they are told or what they should do.
[2020-12-10] MEDS: ACETAMINOPHEN 500 MG TABLET PO (18:27)
[2020-12-10] MEDS: MAGNESIUM SULF 2 GM/WATER 50ML 2 GM/50 ML BAG IVPB (18:27)
[2020-12-10] MEDS: ESCITALOPRAM OXALATE 5 MG TABLET PO (20:21)
[2020-12-10] MEDS: GABAPENTIN 100 MG CAPSULE PO (20:21)
[2020-12-10] MEDS: INSULIN GLARGINE (*BKC) 100 UNITS/ML 40 UNITS SUB-Q (20:22)
[2020-12-10 20:40] LABS: Glucose Point of Care 324 mg/dl (65-105)
[2020-12-10] MEDS: INSULIN ASPART (*BKC) 100 UNITS/ML SUB-Q (21:00)
[2020-12-10 22:19] LABS: Anion Gap 5 mmol/L (8-16); Blood Urea Nitrogen 22 mg/dL (7-17); Calcium 8.8 mg/dL (8.4-10.2); Carbon Dioxide 26 mmol/L (22-30); Chloride 104 mmol/L (98-107); Estimated CRCL calculation 34 ml/min; Estimated Glomerular Filt Rate 41; Glucose 317 mg/dL (65-105); Potassium 4.9 mmol/L (3.4-5.0); Sodium 135 mmol/L (137-145)
[2020-12-11] VITALS (15 sets, daily range): BP systolic 128–188; BP diastolic 67–84; PULSE 34–68; RESP 16–20; TEMP 36.1–36.6; O2SAT 94–100
[2020-12-11 05:31] LABS: Basophils Absolute Auto 0.1 K/mm3 (0.0-0.1); Basophils Percent Auto 0.9 % (0.2-1.2); Eosinophils Absolute Auto 0.3 K/mm3 (0-0.3); Eosinophils Percent Auto 4.6 % (0-4.4); Hemoglobin 11.3 g/dL (12.0-15.0); Immature Granulocyte Absolute 0.02 K/mm3 (0.00-0.031); Immature Granulocyte Percent A 0.4 % (0-0.5); Lymphocytes Absolute Auto 1.65 K/mm3 (0.9-3.2); Lymphocytes Percent Auto 29.2 % (18.3-44.2); Mean Corpuscular HGB Conc 29.7 g/dl (32-36); Mean Corpuscular Hemoglobin 21.9 pg (26-34); Mean Corpuscular Volume 73.8 fl (80-100); Mean Platelet Volume 10.5 fl (7.4-10.4); Monocytes Absolute Auto 0.6 K/mm3 (0.1-0.6); Monocytes Percent Auto 11.2 % (2.6-8.5); Neutrophils Percent Auto 53.7 % (45.5-73.1); Platelet Count Result 323 k/mm3 (150-375); Red Blood Count 5.15 M/mm3 (4.2-5.4); Red Cell Distribution Width 18.2 % (11.5-14.5); White Blood Count 5.7 K/mm3 (4.5-10.0)
[2020-12-11 06:01] LABS: Alanine Aminotransferase 47 U/L (4-35); Albumin Level 3.2 g/dL (3.5-5.1); Alkaline Phosphatase 66 U/L (38-126); Anion Gap 7 mmol/L (8-16); Aspartate Amino Transferase 38 U/L (14-36); Bilirubin,Total 0.8 mg/dL (0.2-1.3); Blood Urea Nitrogen 20 mg/dL (7-17); Carbon Dioxide 27 mmol/L (22-30); Chloride 104 mmol/L (98-107); Estimated CRCL calculation 36 ml/min; Estimated Glomerular Filt Rate 44; Glucose 234 mg/dL (65-105); Potassium 4.8 mmol/L (3.4-5.0); Sodium 138 mmol/L (137-145)
[2020-12-11 06:21] LABS: Platelet Estimate Adequate (Adequate)
[2020-12-11 06:22] LABS: Hypochromasia 2+ (NORMAL)
[2020-12-11] MEDS: ALBUTEROL SULFATE (*SP) AEROSOL 1 PUFF 2 PUFF INHALATION (07:19)
[2020-12-11] MEDS: INSULIN ASPART (*BKC) 100 UNITS/ML SUB-Q ×4 (08:20→21:26)
[2020-12-11] MEDS: CHOLECALCIFEROL 1,000 UNITS TABLET 5000 UNITS PO (08:23)
[2020-12-11] MEDS: PANTOPRAZOLE 40 MG TABLET PO (08:24)
[2020-12-11] MEDS: LORATADINE 10 MG TABLET PO (08:24)
[2020-12-11] MEDS: FLUTICASONE PROPIONATE 0.05% NA SPR 16 GM BTL (*BKC) 2 SPRAY NASAL (08:24)
[2020-12-11] MEDS: ENOXAPARIN 80 MG/0.8 ML SYRINGE 150 MG SUB-Q (08:27)
[2020-12-11 08:41] LABS: Glucose Point of Care 222 mg/dl (65-105)
--- NOTE | 2020-12-11 10:31 | PM.PNCARD ---
Progress Note: A&P Assessment and Plan (1) Junctional rhythm: Code(s): I49.8 - Other specified cardiac arrhythmias Status: Acute Assessment and Plan: Went into a junctional rhythm taking metoprolol 100 mg q.6 hours an amiodarone 200 mg? daily. Converted to sinus bradycardia early this morning. Resume amiodarone 200 mg daily tomorrow to help maintain sinus rhythm but will hold off on metoprolol for now. Okay to discharge today though preferably tomorrow but will need close follow-up in the office. She also has a home health nurse who can check her heart rate and blood pressure periodically. (2) History of atrial flutter: Code(s): Z86.79 - Personal history of other diseases of the circulatory system Status: Acute Assessment and Plan: Patient has a history of difficult to control atrial fibrillation and atrial flutter requiring high-dose therapy. Has converted to sinus rhythm on amiodarone. (3) Chronic anticoagulation: Code(s): Z79.01 - computer terminal operator (current) use of anticoagulants Status: Acute Assessment and Plan: Currently on Lovenox but apparently was taking Eliquis at home. (4) History of stroke: Code(s): Z86.73 - Personal history of transient ischemic attack (TIA), and cerebral infarction without residual deficits Status: Acute Assessment and Plan: Patient has a history of (probably cardioembolic) stroke and also hemorrhagic strokes, recovering well. Subjective Date/time seen: 12/11/20 10:31 Interval history: Atrial fib, atrial flutter, and junctional rhythm. 12/10/[address] Hurtado: This is a 75-year-old lady who has had problematic atrial fibrillation for about 5 years. She has recently for the last 6-9 months been maintained on beta-gaetano therapy and modest dose of amiodarone. She presents to the hospital with concerning hyperglycemia and in that setting is found to be much more bradycardic and interestingly no longer in atrial fib or flutter. It was presumed that she would be chronically in atrial fib/flutter the last time she saw the electrophysiology consultants as I mentioned above. Presumably with ongoing amiodarone treatment she has now converted and is no longer in AF. The rhythm now was junctional with retrograde atrial activation. I am going to recommend holding her beta-gaetano and amiodarone at this time in hopes that her sinus node will recover. She is hemodynamically stable and at this point does not require a temporary pacemaker she has a fairly stable looking narrow QRS escape rhythm. Furthermore she has not had any symptoms of syncope or presyncope. I would hope and expect the sinus node activity was start to recover and reappear as the medications washout and I would like then to probably consider resuming maintenance dose of amiodarone since this lady has very difficult to control heart rate when she is in AFib or flutter. Date of service 12/11/2020: Converted from junctional rhythm to sinus bradycardia at 2:30 a.m.. Heart rate generally in the 50s, sometimes up in the 60s. Patient feels well today, no particular problems. Says she usually takes Eliquis at home. Review of Systems Constitutional: Constitutional: Reports no additional constitutional complaints ENT: Denies epistaxis Cardiovascular: Cardiovascular: Denies chest pain, Denies pedal edema, Denies leg edema and Denies lightheadedness Respiratory: Respiratory: Denies dyspnea and Denies wheezing Gastrointestinal: Gastrointestinal: Denies abdominal pain Genitourinary: Genitourinary: Denies hematuria Musculoskeletal: Musculoskeletal: Reports back pain (Chronic) Integumentary/Breasts: Skin/Breast: Denies rash Neurologic: Reports system reviewed and no additional complaints, except as documented Psychiatric: Psychiatric: Reports no additional psychiatric complaints Exam Narrative: Exam Narrative: Very pleasant lady in no distress Const: General: comforta
[2020-12-11 12:27] LABS: Glucose Point of Care 328 mg/dl (65-105)
--- NOTE | 2020-12-11 15:57 | PM.IMPN ---
Progress Note: A&P Assessment and Plan (1) Bradycardia, unspecified: Code(s): R00.1 - Bradycardia, unspecified Status: Acute Assessment and Plan: Patient has a heart rate in the 30s but is asymptomatic. Will hold the metoprolol and amiodarone for now. Cardiology has been consulted. And they recommended possibly adding low-dose amiodarone back to her regimen. (2) Hyperglycemia: Code(s): R73.9 - Hyperglycemia, unspecified Status: Acute Assessment and Plan: Will continue with her basal insulin with moderate sliding scale insulin. (3) Hydrocephalus: Onset Date: ~02/2020 Qualifiers: Hydrocephalus type: unspecified Qualified Code(s): G91.9 - Hydrocephalus, unspecified Code(s): G91.9 - Hydrocephalus, unspecified Status: Chronic Assessment and Plan: The patient has a RAILROAD ACCOUNTANT shunt and is very forgetful at times. She has a history of having of thrombolytic clot and then later on having a hemorrhagic stroke. (4) DVT (deep venous thrombosis): Code(s): I82.409 - Acute embolism and thrombosis of unspecified deep veins of unspecified lower extremity Status: Acute Assessment and Plan: pt is on lovenox daily (5) Atrial flutter: Qualifiers: Atrial flutter type: typical Qualified Code(s): I48.3 - Typical atrial flutter Code(s): I48.92 - Unspecified atrial flutter Status: Acute Assessment and Plan: Further recommendation per Cardiology from medication. Subjective Date/time seen: 12/11/20 15:57 Interval history: Patient is asymptomatic with her bradycardia patient is now converted. Pt Has history of AF/ Atrial flutter known to cardiology service. Pt has history of COVID subdural hematoma, pneumonia, DM Review of Systems Review of Systems: All systems reviewed & are unremarkable except as noted in HPI and below Exam Const: General: comfortable, alert and awake HENMT: Head: normal to inspection and other (Scar noted on top of her head, side and back from RAILROAD ACCOUNTANT shunt) Resp: Effort & Inspection: normal respiratory effort Auscultation: clear to auscultation bilaterally Percussion: percussion normal Cardio: Palpation: normal PMI Rate: regular rate Rhythm: regular rhythm Heart sounds: S1 normal heart sound present and S2 normal heart sound present Peripheral pulses: Peripheral pulses 2+ throughout GI: Inspection: normal to inspection Auscultation: normal bowel sounds Skin: General skin exam: normal color Lesions: no lesions Rashes: no rashes Trauma: no lacerations or abrasions Wounds: no wounds Hair: normal Nails: normal Neuro: General: oriented to person, oriented to place, oriented to time and patient oriented x3 Cranial nerves: Yes Equal, round and reactive pupils present and Yes Normal hearing present Cognition (Neuro): normal cognition Speech: normal speech Gait exam (Neuro): Normal gait present Motor exam (neuro): 5/5 motor strength present throughout Sensory Exam: normal sensation Psych: Appearance: grossly normal Mental Status: mental status grossly normal Speech and movement: Normal speech and movement present Affect: normal affect Attitude: cooperative Thought process: Other thought process findings present (Forgetful) Insight: Limited insight present (Psych) Judgement: Limited judgement present (Psych) Objective Data Vital Signs Vital Signs: Vital Signs - 24 hr 12/10/20 16:00 12/10/20 16:59 12/10/20 18:00 Temperature 35.7 C L Pulse Rate 34 L 40 L 36 L Respiratory Rate 20 Blood Pressure 148/69 H Pulse Oximetry 100 12/10/20 19:58 12/10/20 20:00 12/10/20 22:00 Temperature 36.4 C L Pulse Rate 38 L 50 L 39 L Respiratory Rate 16 Blood Pressure 121/60 Pulse Oximetry 96 12/11/20 00:00 12/11/20 02:00 12/11/20 04:00 Temperature 36.3 C L 36.3 C L Pulse Rate 39 L 52 L 53 L Respiratory Rate 16 16 Blood Pressure 128/67 180/74 H Pulse Oximetry 94 100 06
[2020-12-11 17:30] LABS: Glucose Point of Care 284 mg/dl (65-105)
[2020-12-11] MEDS: GABAPENTIN 100 MG CAPSULE PO (20:31)
[2020-12-11] MEDS: INSULIN GLARGINE (*BKC) 100 UNITS/ML 40 UNITS SUB-Q (20:32)
[2020-12-11] MEDS: ESCITALOPRAM OXALATE 5 MG TABLET PO (20:32)
[2020-12-11 20:35] LABS: Glucose Point of Care 291 mg/dl (65-105)
[2020-12-12] VITALS (9 sets, daily range): BP systolic 134–214; BP diastolic 77–96; PULSE 64–83; RESP 16–20; TEMP 36.3–36.5; O2SAT 100
[2020-12-12 08:45] LABS: Glucose Point of Care 319 mg/dl (65-105)
[2020-12-12] MEDS: FLUTICASONE PROPIONATE 0.05% NA SPR 16 GM BTL (*BKC) 2 SPRAY NASAL (08:47)
[2020-12-12] MEDS: CHOLECALCIFEROL 1,000 UNITS TABLET 5000 UNITS PO (08:47)
[2020-12-12] MEDS: PANTOPRAZOLE 40 MG TABLET PO (08:48)
[2020-12-12] MEDS: ENOXAPARIN 100 MG/ML SYRINGE SUB-Q (08:48)
[2020-12-12] MEDS: LORATADINE 10 MG TABLET PO (08:48)
[2020-12-12] MEDS: INSULIN ASPART (*BKC) 100 UNITS/ML SUB-Q ×2 (08:53→13:00)
[2020-12-12] MEDS: ALBUTEROL SULFATE (*SP) AEROSOL 1 PUFF 2 PUFF INHALATION (08:58)
--- NOTE | 2020-12-12 11:11 | PM.PNCARD ---
Progress Note: A&P Assessment and Plan (1) Junctional rhythm: Code(s): I49.8 - Other specified cardiac arrhythmias Status: Acute Assessment and Plan: Went into a junctional rhythm taking metoprolol 100 mg 100 mg q.d. and amiodarone 200 mg b.i.d.. Converted to sinus bradycardia 12/11/2020. Resume amiodarone 200 mg daily to help maintain sinus rhythm but will metoprolol. Okay to discharge today; daughter Shaneka will check heart rate and blood pressures at home and she will need close follow-up in the office. She also has a home health nurse who can check her heart rate and blood pressure periodically. (2) History of atrial flutter: Code(s): Z86.79 - Personal history of other diseases of the circulatory system Status: Acute Assessment and Plan: Patient has a history of difficult to control atrial fibrillation and atrial flutter requiring high-dose therapy. Has converted to sinus rhythm on amiodarone. (3) Chronic anticoagulation: Code(s): Z79.01 - exterminator (current) use of anticoagulants Status: Acute Assessment and Plan: Currently on Lovenox 150 mg daily at home (4) History of stroke: Code(s): Z86.73 - Personal history of transient ischemic attack (TIA), and cerebral infarction without residual deficits Status: Acute Assessment and Plan: Patient has a history of (probably cardioembolic) stroke and also hemorrhagic strokes, recovering well. (5) Hypertension: Qualifiers: Hypertension type: essential hypertension Qualified Code(s): I10 - Essential (primary) hypertension Code(s): I10 - Essential (primary) hypertension Status: Chronic Assessment and Plan: Blood pressures been quite high since she has been off of her metoprolol. Will resume a different antihypertensive. Since she is diabetic with some chronic kidney disease an ARB may be the best medication. Has an allergy to Jenaro inhibitors, with a cough but no angioedema. Discussed using an ARB with the patient and daughter, call if increased cough. Start losartan 50 mg daily. Subjective Date/time seen: 12/12/20 11:11 Interval history: Atrial fib, atrial flutter, and junctional rhythm. 12/10/[address] Fleissner: This is a 75-year-old lady who has had problematic atrial fibrillation for about 5 years. She has recently for the last 6-9 months been maintained on beta-gaetano therapy and modest dose of amiodarone. She presents to the hospital with concerning hyperglycemia and in that setting is found to be much more bradycardic and interestingly no longer in atrial fib or flutter. It was presumed that she would be chronically in atrial fib/flutter the last time she saw the electrophysiology consultants as I mentioned above. Presumably with ongoing amiodarone treatment she has now converted and is no longer in AF. The rhythm now was junctional with retrograde atrial activation. I am going to recommend holding her beta-gaetano and amiodarone at this time in hopes that her sinus node will recover. She is hemodynamically stable and at this point does not require a temporary pacemaker she has a fairly stable looking narrow QRS escape rhythm. Furthermore she has not had any symptoms of syncope or presyncope. I would hope and expect the sinus node activity was start to recover and reappear as the medications washout and I would like then to probably consider resuming maintenance dose of amiodarone since this lady has very difficult to control heart rate when she is in AFib or flutter. 12/11/2020: Converted from junctional rhythm to sinus bradycardia at 2:30 a.m.. Heart rate generally in the 50s, sometimes up in the 60s. Patient feels well today, no particular problems. Says she usually takes Eliquis at home. Date of service 12/12/2020: Remains in sinus rhythm, rate in the 70s. Daughter Shaneka is at the bedside. Patient says she was confused when she woke u
[2020-12-12 12:50] LABS: Glucose Point of Care 366 mg/dl (65-105)
[2020-12-12] MEDS: LOSARTAN POTASSIUM 50 MG TABLET PO (12:59)
--- NOTE | 2020-12-12 13:24 | PM.DS ---
DS: Admitting Diagnosis Admitting Diagnosis Admitting Diagnosis: Elevated blood sugar DS: Discharge Diagnosis Discharge Diagnosis (1) Bradycardia, unspecified: Code(s): R00.1 - Bradycardia, unspecified Status: Acute Assessment and Plan: Patient has a heart rate in the 30s but is asymptomatic. Will hold the metoprolol and amiodarone for now. Cardiology has been consulted. And they recommended possibly adding low-dose amiodarone back to her regimen. (2) Hyperglycemia: Code(s): R73.9 - Hyperglycemia, unspecified Status: Acute Assessment and Plan: Continue Lantus 40 units daily on discharge (3) Hydrocephalus: Onset Date: ~02/2020 Qualifiers: Hydrocephalus type: unspecified Qualified Code(s): G91.9 - Hydrocephalus, unspecified Code(s): G91.9 - Hydrocephalus, unspecified Status: Chronic Assessment and Plan: The patient has a ORDER ENTRY SPECIALIST shunt and is very forgetful at times. She has a history of having of thrombolytic clot and then later on having a hemorrhagic stroke. (4) DVT (deep venous thrombosis): Code(s): I82.409 - Acute embolism and thrombosis of unspecified deep veins of unspecified lower extremity Status: Acute Assessment and Plan: pt is on lovenox daily (5) Atrial flutter: Qualifiers: Atrial flutter type: typical Qualified Code(s): I48.3 - Typical atrial flutter Code(s): I48.92 - Unspecified atrial flutter Status: Acute Assessment and Plan: Further recommendation per Cardiology from medication. DS: Summary Hospital Course Hospital Course: Patient is asymptomatic with her bradycardia patient is now normal rhythm. Pt Has history of AF/ Atrial flutter known to cardiology service. Pt has history of COVID subdural hematoma, pneumonia, DM Time Spent with Patient Time attestation: Total time spent providing and/or coordinating discharge services:40 minutes on day of discharge Exam Const: General: comfortable, alert and awake Orientation/consciousness: oriented to person, oriented to place, oriented to time and patient oriented x3 HENMT: Head: normal to inspection and other (Scar noted on top of her head, side and back from ORDER ENTRY SPECIALIST shunt) Eyes: Pupils: Equal, round and reactive pupils present Resp: Effort & Inspection: normal respiratory effort Auscultation: clear to auscultation bilaterally Percussion: percussion normal Cardio: Palpation: normal PMI Rate: regular rate Rhythm: regular rhythm Heart sounds: S1 normal heart sound present and S2 normal heart sound present Peripheral pulses: Peripheral pulses 2+ throughout GI: Inspection: normal to inspection Auscultation: normal bowel sounds Skin: General skin exam: normal color Lesions: no lesions Rashes: no rashes Trauma: no lacerations or abrasions Wounds: no wounds Hair: normal Nails: normal Neuro: General: oriented to person, oriented to place, oriented to time and patient oriented x3 Cranial nerves: Yes Equal, round and reactive pupils present and Yes Normal hearing present Cognition (Neuro): normal cognition Speech: normal speech Gait exam (Neuro): Normal gait present Motor exam (neuro): 5/5 motor strength present throughout Sensory Exam: normal sensation Psych: Appearance: grossly normal Mental Status: mental status grossly normal Speech and movement: Normal speech and movement present Affect: normal affect Attitude: cooperative Thought process: Other thought process findings present (Forgetful) Insight: Limited insight present (Psych) Judgement: Limited judgement present (Psych) DS: Data Data Completed and Pending Labs on day of discharge: Labs from last 24 hours 12/12/20 12/12/20 12/11/20 12:45 08:39 20:26 POC Capillary Glucose 366 H 319 H 291 H 12/11/20 17:06 POC Capillary Glucose 284 H Discharge Plan Discharge Attending physician on discharge: Corinna Flynn Consulting providers: Ray
--- NOTE | 2020-12-12 14:18 | PC.NURSE ---
Pt discharging at the time. Discharge instructions explained to patient and daughter, verbalizes understanding.
== END 2020-12-12 14:20 | disposition home or self-care (01) | DRG 309 ==
LOC: ANHED 13:22 → ANHIMU 13:46
PROVIDERS: Nurse Practitioner; Admitting Provider Internal Medicine; Emergency Provider General Practice; PCP Family Medicine; Visit Provider Family Medicine
DX: R00.1 Bradycardia, unspecified (principal); I82.409 Acute embolism and thrombosis of unspecified deep veins of unspecified lower extremity; G91.9 Hydrocephalus, unspecified; I48.3 Typical atrial flutter; G47.33 Obstructive sleep apnea (adult) (pediatric); E11.65 Type 2 diabetes mellitus with hyperglycemia; Z79.4 Long term (current) use of insulin; Z79.899 Other long term (current) drug therapy; Z98.2 Presence of cerebrospinal fluid drainage device; Z87.891 Personal history of nicotine dependence; Z79.01 Long term (current) use of anticoagulants; Z86.73 Personal history of transient ischemic attack (TIA), and cerebral infarction without residual deficits; Z86.16 Personal history of COVID-19; Z88.8 Allergy status to other drugs, medicaments and biological substances
CPT/HCPCS: 36415; 36600; 51701; 71045; 80048; 80053; 81001; 82375; 82805; 82948; 83036; 83050; 83735; 83880; 84100; 84484; 85025; 93005; 94640; 96361; 96365; 96372; 96375; 99285; A9270; G0378; J1650; J1815; J3475; J7030

== ENCOUNTER 2021-02-01 09:43 | Emergency (ER) | payer MEDICARE, SELFPAY ==
[2021-02-01] VITALS (8 sets, daily range): BP systolic 121–158; BP diastolic 67–94; PULSE 44–69; RESP 16–20; TEMP 36.2; O2SAT 96–100
[2021-02-01 09:59] LABS: Glucose Point of Care > 500 mg/dl (65-105)
--- NOTE | 2021-02-01 10:46 | ED.GENADULT ---
HPI - General Adult General Chief complaint: Recheck/Abnormal Lab/Rx Stated complaint: HYPERGLYCEMIA Time Seen by Provider: 02/01/21 10:39 Source: patient Mode of arrival: ambulatory Limitations: no limitations History of Present Illness HPI narrative: Patient 75 years old -Maced[place] female referred to the our emergency room by her visiting home nurse because of elevated blood glucose over the last 2 days. Patient is asymptomatic. Patient been vaccinated for COVID-19. Patient denies any fever, chills, nausea, vomiting, abdominal pain, chest pain, shortness of breath, back pain, headache. Patient denies any thing new lately in her life. Related Data Home Medications Medication Instructions Recorded Confirmed budesonide-formoterol [Symbicort] 2 puff INHALATION BID 02/24/20 12/10/20 metoprolol tartrate 100 mg PO DAILY 02/24/20 12/10/20 cetirizine 10 mg PO DAILY 05/25/20 12/10/20 cholecalciferol (vitamin D3) 5,000 mcg PO DAILY 05/25/20 12/10/20 [Vitamin D3] fluticasone propionate [Flonase 2 spray INTRANASAL DAILY 05/25/20 12/10/20 Allergy Relief] polyethylene glycol 3350 17 g PO DAILY PRN 05/25/20 12/10/20 Tresiba FlexTouch U-100 40 unit SUBCUT DAILY 12/10/20 12/10/20 acetaminophen 500 mg PO Q4H PRN 12/10/20 12/10/20 albuterol sulfate 2 puff INHALATION DAILY 12/10/20 12/10/20 escitalopram oxalate 5 mg PO HS 12/10/20 12/10/20 gabapentin [Neurontin] 100 mg PO HS 12/10/20 12/10/20 pantoprazole [Protonix] 40 mg PO DAILY 12/10/20 12/10/20 Allergies Allergy/AdvReac Type Severity Reaction Status Date / Time JOLIE Inhibitors Allergy Unknown Unknown Verified 12/10/20 17:23 hydrocodone Allergy Unknown Unknown Verified 12/10/20 17:23 lovastatin Allergy Unknown Unknown Verified 12/10/20 17:23 pravastatin Allergy Unknown Unknown Verified 12/10/20 17:23 Sulfa (Sulfonamide Allergy Unknown Unknown Verified 12/10/20 17:23 Antibiotics) Sulfonylureas Allergy Unknown Unknown Verified 12/10/20 17:23 acetaminophen Allergy Unknown Verified 02/01/21 10:58 perfume Allergy Unknown Verified 02/01/21 10:59 pollen extracts Allergy Unknown Verified 02/01/21 10:59 Review of Systems Review of Systems: Narrative: CONSTITUTIONAL: Denies fever, chills, or sweats. EYES: Denies visual changes, redness, or discharge. ENT: Denies rhinorrhea, congestion, sore throat, or otalgia. CARDIOVASCULAR: Denies chest pain, palpitations, or edema. RESPIRATORY: Denies cough or dyspnea. GASTROINTESTINAL: Denies abdominal pain, nausea, vomiting, or diarrhea. GENITOURINARY: Denies dysuria or hematuria. SKIN: Denies rash or itching. MUSCULOSKELETAL: Denies back pain, joint pain, or myalgia. NEUROLOGIC: Denies headache, numbness, or weakness. PSYCHIATRIC: Denies anxiety or depression. [facility] Past Medical History Medical History Atrial flutter Atrial flutter with rapid ventricular response Beta thalassemia trait Catheter-associated urinary tract infection Cerebrovascular accident, embolic (~12/2017) Chronic anemia Diabetes mellitus DVT (deep venous thrombosis) Dysphagia As a result of previous strokes. G-tube in place. Gastrostomy tube in place History of intracranial hemorrhage Hydrocephalus (~02/2020) Status post DIGITAL MARKETING EXECUTIVE shunt. Hyperlipidemia Intolerant to statins. Hypertension Indwelling Aparicio catheter present Intracerebral hemorrhage (~02/2020) Hemorrhagic stroke occurred while she was on Eliquis, and she was hospitalized at [facility] at that time. Obstructive sleep apnea Osteoarthritis PAF (paroxysmal atrial fibrillation) Paroxysmal atrial fibrillation Paroxysmal atrial flutter Severe sepsis Subdural hematoma (~04/2020) Type 2 diabetes mellitus, uncontrolled Surgical History Surgical History History of appendectomy History of gastrostomy tube placement History of total bilateral knee replacement History of tracheostomy History of tubal ligatio
--- NOTE | 2021-02-01 11:00 | PC.NURSE ---
Pt states she does not have a list of her home medications. Pt unable to verify home medications.
[2021-02-01 11:09] LABS: Alveolar/Arterial O2 Gradient 25.3 mmHg; Base Excess ABG -2.8 mEq/l (+/-2.0); Carboxyhemoglobin 1.5 % THb (0-2.0); Fractional Inspired Oxygen 21 %; HCO3 ABG 24.1 mEq/l (22.0-26.0); Methemoglobin ABG 0.3 %THb (0-1.5); Oxygen Content ABG 17.4 %vol (16.0-22.0); Oxygen Saturation ABG 90.1 % (95.0-100.0); Oxyhemoglobin 89.4 % THb (90.0-100.0); PCO2 ABG 50.3 mmHg (35.0-45.0); PO2 ABG 64.2 mmHg (80.0-100.0); PO2 FiO2 Ratio Arterial Blood 3.06 %; Reduced Hemoglobin 8.8 %THb (0-5.0); Total Hemoglobin 13.8 g/dL (12.0-18.0); pH ABG 7.298 (7.350-7.450)
[2021-02-01 11:11] LABS: Device ROOM AIR; Site Drawn RIGHT BRACHIAL
[2021-02-01] MEDS: INSULIN HUMAN REGULAR (*BKC) 100 UNITS/ML 11 UNITS IV PUSH (11:35)
[2021-02-01] MEDS: INSULIN HUMAN REGULAR (*BKC) 100 UNITS in SODIUM CHLORIDE 0.9% IV 99 ML 8.8 UNITS IV CONT (11:39)
[2021-02-01] MEDS: SODIUM CHLORIDE 0.9% IV 1,000 ML 999 ML IV CONT (11:40)
[2021-02-01 11:58] LABS: Add Urine Microscopic? YES; Appearance Urine Clear (Clear); Bilirubin Urine Negative (Negative); Blood Urine Negative (Negative); Budding Yeast Urine Present /hpf; Color Urine Straw (Yellow); Glucose Urine UA 3+ mg/dL (Negative); Ketones Urine Negative (Negative); Leukocyte Esterase Ur Negative LEU/UL (Negative); Mucus Urine Rare /lpf; Nitrate Urine Negative (Negative); Protein Urine Negative (Negative); Specific Grav Ur 1.022 (1.001-1.035); Squamous Epithelial Cell Urine Occasional /hpf (Few); Urobilinogen Urine Negative mg/dL (<2.0); WBC Urine 0-3 /hpf
[2021-02-01 12:32] LABS: Alanine Aminotransferase 40 U/L (4-35); Albumin Level 3.7 g/dL (3.5-5.1); Alkaline Phosphatase 170 U/L (38-126); Anion Gap 10 mmol/L (8-16); Aspartate Amino Transferase 35 U/L (14-36); Bilirubin,Total 0.6 mg/dL (0.2-1.3); Blood Urea Nitrogen 29 mg/dL (7-17); Calcium 8.8 mg/dL (8.4-10.2); Carbon Dioxide 23 mmol/L (22-30); Chloride 99 mmol/L (98-107); Estimated CRCL calculation 31 ml/min; Estimated Glomerular Filt Rate 33; Glucose 500 mg/dL (65-110); Magnesium 1.9 mg/dL (1.6-2.3); Phosphorus 5.1 mg/dL (2.5-4.5); Potassium 6.8 mmol/L (3.4-5.0); Sodium 132 mmol/L (137-145)
[2021-02-01 12:51] LABS: Glucose Point of Care 337 mg/dl (65-105)
[2021-02-01 13:20] LABS: Basophils Absolute Auto 0.1 K/mm3 (0.0-0.1); Basophils Percent Auto 0.8 % (0.2-1.2); Eosinophils Absolute Auto 0.1 K/mm3 (0-0.3); Eosinophils Percent Auto 1.5 % (0-4.4); Hematocrit 47.1 % (37.0-47.0); Hemoglobin 13.5 g/dL (12.0-15.0); Immature Granulocyte Absolute 0.02 K/mm3 (0.00-0.031); Immature Granulocyte Percent A 0.3 % (0-0.5); Lymphocytes Absolute Auto 1.31 K/mm3 (0.9-3.2); Lymphocytes Percent Auto 21.4 % (18.3-44.2); Mean Corpuscular HGB Conc 28.7 g/dl (32-36); Mean Corpuscular Hemoglobin 21.3 pg (26-34); Mean Corpuscular Volume 74.3 fl (80-100); Mean Platelet Volume 10.7 fl (7.4-10.4); Monocytes Absolute Auto 0.4 K/mm3 (0.1-0.6); Monocytes Percent Auto 5.7 % (2.6-8.5); Neutrophils Absolute Auto 4.3 K/mm3 (1.3-6.7); Neutrophils Percent Auto 70.3 % (45.5-73.1); Platelet Count Result 354 k/mm3 (150-375); Red Blood Count 6.34 M/mm3 (4.2-5.4); Red Cell Distribution Width 19.8 % (11.5-14.5); White Blood Count 6.1 K/mm3 (4.5-10.0)
[2021-02-01] MEDS: SODIUM CHLORIDE 0.9% IV 500 ML IV CONT (13:27)
[2021-02-01] MEDS: SODIUM POLYSTYRENE SULFONONATE 15 GM/60 ML BTL 30 GM PO (13:27)
[2021-02-01] MEDS: CALCIUM CHLORIDE 1,000 MG/10 ML SYRINGE 1000 MG IV PUSH (13:27)
[2021-02-01] MEDS: SODIUM BICARBONATE 8.4% 50 MEQ/50 ML SYRINGE IV PUSH (13:27)
[2021-02-01 13:45] LABS: Macrocytosis 3+ (NORMAL)
[2021-02-01 13:48] LABS: Hyperchromasia 2+ (NORMAL); Poikilocytosis 1+ (NORMAL)
[2021-02-01 14:06] LABS: Glucose Point of Care 186 mg/dl (65-105)
[2021-02-01 14:49] LABS: Glucose Point of Care 150 mg/dl (65-105)
[2021-02-01 15:21] LABS: Alveolar/Arterial O2 Gradient 36.7 mmHg; Fractional Inspired Oxygen 21 %; Oxygen Saturation ABG 87.9 % (95.0-100.0); Oxyhemoglobin 87.8 % THb (90.0-100.0); PCO2 ABG 46.9 mmHg (35.0-45.0); PO2 ABG 56.9 mmHg (80.0-100.0); PO2 FiO2 Ratio Arterial Blood 2.71 %; pH ABG 7.345 (7.350-7.450)
[2021-02-01 15:22] LABS: Device ROOM AIR; Site Drawn LEFT BRACHIAL
--- NOTE | 2021-02-01 15:30 | PC.NURSE ---
Report given to LINNEA Chiang
--- NOTE | 2021-02-01 15:30 | PM.IMHP ---
H&P: HPI History of Present Illness Date/Time: 02/01/21 15:30 The patient was seen and evaluated in the emergency department. Chief Complaint: Hyperglycemia. Narrative: This is a very pleasant 75-year-old female with insulin-dependent diabetes, paroxysmal atrial fibrillation/flutter, hypertension, stroke, and several other comorbidities who presented to the emergency department earlier today from home for evaluation of hyperglycemia. Over the last couple of days her home health nerves has noted that her glucose has been ever increasing and they have been having a difficult time getting it down and thus she was sent in for evaluation. She was diagnosed with diabetic ketoacidosis in the emergency department was started on insulin drip. I came to evaluate the patient who was still in the emergency department and she had no complaints and told me she felt just fine. She denied fever, chills, sweats, cold and flu symptoms, chest pain, shortness of breath, cough, nausea, vomiting, diarrhea, and dysuria. I received a call couple of hours there after that she was off of the insulin drip and that her electrolytes and glucose had improved enough that she was going to be discharged home. Review of Systems Review of Systems: Narrative: Twelve systems were reviewed with pertinent positives and negatives as per HPI. Except as documented, all other systems were reviewed and are negative. [facility] Past Medical History Medical History Atrial flutter Atrial flutter with rapid ventricular response Beta thalassemia trait Catheter-associated urinary tract infection Cerebrovascular accident, embolic (~12/2017) Chronic anemia Diabetes mellitus DVT (deep venous thrombosis) Dysphagia As a result of previous strokes. G-tube in place. Gastrostomy tube in place History of intracranial hemorrhage Hydrocephalus (~02/2020) Status post PROGRAM STRATEGIST shunt. Hyperlipidemia Intolerant to statins. Hypertension Indwelling Aparicio catheter present Intracerebral hemorrhage (~02/2020) Hemorrhagic stroke occurred while she was on Eliquis, and she was hospitalized at [facility] at that time. Obstructive sleep apnea Osteoarthritis PAF (paroxysmal atrial fibrillation) Paroxysmal atrial fibrillation Paroxysmal atrial flutter Severe sepsis Subdural hematoma (~04/2020) Type 2 diabetes mellitus, uncontrolled Surgical History Surgical History History of appendectomy History of gastrostomy tube placement History of total bilateral knee replacement History of tracheostomy History of tubal ligation S/P IVC filter Status post ventriculo-peritoneal shunt placement (~02/2020) Family History Family History Other Alzheimer's dementia Carcinoma of colon Cerebrovascular accident Diabetes mellitus Family history of arthritis Hypertension Social History Social History Social History: The patient lives with her has [employer]. She is a former smoker and quit in the . No alcohol or substance abuse. She has 3 children. Her Luis Roque and daughter Shaneka Hinojosa are listed as her emergency contact. She is listed as a full code. Smoking packs per day: 2 Smoking cigarettes per day: 40.0 Years smoked: 22 Smoking pack-years: 44.00 Tobacco type: cigarettes Alcohol intake: never Substance use: never Gender identity (if verbalized by the patient): Female Spiritual care concerns: No Meds Home Medications and Allergies Home Medications Medication Instructions Recorded Confirmed Type budesonide-formoterol [Symbicort] 2 puff INHALATION BID 02/24/20 12/10/20 History metoprolol tartrate 100 mg PO DAILY 02/24/20 12/10/20 History cetirizine 10 mg PO DAILY 05/25/20 12/10/20 History cholecalciferol (vitamin
[2021-02-01 15:41] LABS: Anion Gap 7 mmol/L (8-16); Blood Urea Nitrogen 29 mg/dL (7-17); Calcium 9.5 mg/dL (8.4-10.2); Carbon Dioxide 27 mmol/L (22-30); Chloride 103 mmol/L (98-107); Estimated CRCL calculation 35 ml/min; Estimated Glomerular Filt Rate 38; Glucose 158 mg/dL (65-110); Magnesium 1.8 mg/dL (1.6-2.3); Potassium 4.9 mmol/L (3.4-5.0); Sodium 137 mmol/L (137-145)
== END 2021-02-01 18:40 | disposition home or self-care (01) ==
PROVIDERS: Physician Assistant; Emergency Provider Emergency Medicine; PCP Family Medicine
DX: E11.65 Type 2 diabetes mellitus with hyperglycemia (principal); E11.10 Type 2 diabetes mellitus with ketoacidosis without coma; N17.9 Acute kidney failure, unspecified; E87.5 Hyperkalemia; I48.92 Unspecified atrial flutter; I48.0 Paroxysmal atrial fibrillation; E78.5 Hyperlipidemia, unspecified; I10 Essential (primary) hypertension; G47.33 Obstructive sleep apnea (adult) (pediatric); M19.90 Unspecified osteoarthritis, unspecified site; Z86.73 Personal history of transient ischemic attack (TIA), and cerebral infarction without residual deficits; Z79.4 Long term (current) use of insulin; Z96.653 Presence of artificial knee joint, bilateral; Z86.718 Personal history of other venous thrombosis and embolism; Z87.891 Personal history of nicotine dependence
CPT/HCPCS: 36415; 36600; 80048; 80053; 81001; 82010; 82375; 82805; 82948; 83050; 83735; 84100; 85025; 96365; 96366; 96375; 99284; A9270; J1815; J7030; J7040

== ENCOUNTER 2021-12-16 00:47 | Day surgery (SDC) | payer MEDICARE, SELFPAY ==
--- NOTE | 2021-12-16 10:00 | ECG_ITS ---
Measurements Intervals [place] Rate: 86 P: [place]: 0 QRS: -2 QRSD: 97 T: -31 QT: 346 QTc: 414 Interpretive Statements ATRIAL FLUTTER NONSPECIFIC T-WAVE ABNORMALITY ABNORMAL RHYTHM ECG COMPARED TO ECG 12/10/2020 11:04:33 ATRIAL FLUTTER REPLACES JUNCTIONAL RHYTHM Electronically Signed On 12-16-2021 14:17:16 CDT by Vincent Hurtado M.D.
[2021-12-16 11:10] VITALS: BP 120/80; PULSE 89; RESP 12; TEMP 36.4; O2SAT 92
[2021-12-16 11:23] VITALS: BMI 36.4
[2021-12-16 11:31] LABS: Anion Gap 4 mmol/L (8-16); Blood Urea Nitrogen 20 mg/dL (7-17); Calcium 8.3 mg/dL (8.4-10.2); Carbon Dioxide 31 mmol/L (22-30); Chloride 106 mmol/L (98-107); Estimated CRCL calculation 33 ml/min; Estimated Glomerular Filt Rate 35; Glucose 132 mg/dL (65-110); Magnesium 1.9 mg/dL (1.6-2.3); Potassium 4.5 mmol/L (3.4-5.0); Sodium 141 mmol/L (137-145)
[2021-12-16 11:42] VITALS: BMI 36.4
--- NOTE | 2021-12-16 14:02 | PC.NURSE ---
During pre op prep work it was discovered that patient ate breakfast and drank coffee at around [address] Hurtado was immediately made aware and ordered for the procedure to be cancelled for today and rescheduled. Patient/caretake report they did not receive any instructions pre procedure in the mail and that they called the office the day prior and were not told that she couldn't eat and that her arrival time was 1030 for 11 am procedure (her arrival time should have been 10 am for 1130 am procedure). The numbers listed on file on the scheduling sheet are the patient's home and cell number both of which are not routinely monitored to be answered. I obtained better contact numbers including the phone number to the caregiver MICHAEL Hawk and Luis who were both present as well as the patient's daughter Shaneka Hinojosa. At discharge I escorted patient and family to [facility] office and gave the bowling or skating front desk clerk of [facility] the updated phone numbers for them to be updated in their office system and talked with Ana Lilia YARBROUGH who got the patient rescheduled. I also called [facility] patient registration and gave them the updated phone numbers as well. Patient was stable and nasal cannula O2 and peripheral IV were both discontinued. I informed mall plant caretaker to expect a call the day before her procedure to again review instructions as well as preadmission questions, meds, allergies and past medical history and that if they do not receive a call by 3pm the day prior to procedure to please call the [facility] [place] at [phone].
--- NOTE | 2021-12-16 14:23 | PC.NURSE ---
At discharge patient's preprocedure lab results from today 12/16 were given to LINNEA Sung at [facility] office to communicate to Dr. Hurtado as Creatinine was elevated at 1.70 and I was unaware of any prior results. Ana Lilia reported she will let Dr. Hurtado know of labs to ensure no changes such as renal dosing of anticoagulation are needed.
[2021-12-21] VITALS (8 sets, daily range): BP systolic 113–142; BP diastolic 69–91; PULSE 70–99; RESP 16–25; TEMP 36.4; O2SAT 94–100; BMI 40.1
--- NOTE | 2021-12-21 07:00 | ECG_ITS ---
Measurements Intervals [place] Rate: 73 P: 234 [place]: 230 QRS: -2 QRSD: 118 T: 18 QT: 454 QTc: 501 Interpretive Statements ELECTRONIC ATRIAL PACEMAKER MODERATE INTRAVENTRICULAR CONDUCTION DELAY [110+ ms QRS DURATION] PROLONGED QT INTERVAL NONSPECIFIC ST AND T-WAVE ABNORMALITY ABNORMAL ECG COMPARED TO ECG 12/21/2021 07:24:14 PROLONGED QT INTERVAL NOW PRESENT Electronically Signed On 12-21-2021 10:33:03 CDT by Kings West M.D.
--- NOTE | 2021-12-21 07:53 | SUR.PREOP ---
0798 I notified patient's deli clerk Carine Sandoval that patient's dexcomG6 had to be removed from right lower abdomen for cardioversion procedure and that patient's sensor was placed in denture cup with patient label and given to patient's . She said she would make Dr. Belle her hvac service tech at [facility] aware that it was removed and until her next sensor is placed she will do fingerstick blood glucose monitoring. She had no further questions. Patients dexcomG6 removal site was clean and a bandaid was placed to right lower abdomen at site.
[2021-12-21] MEDS: APIXABAN 2.5 MG TABLET PO (08:03)
[2021-12-21] MEDS: SODIUM CHLORIDE 0.9% IV 500 ML 50 ML (08:04)
--- NOTE | 2021-12-21 08:06 | SUR.PREOP ---
0806 patient's manager creative services Carinedesiree Verdugoier was made aware that patient received AM dose of Apixaban 2.5 mg while here at [place] and shewouldn't be due for next dose until her evening dose tonight. Carine verbalized understanding.
--- NOTE | 2021-12-21 08:45 | ECG_ITS ---
Measurements Intervals [place] Rate: 95 P: [place]: 0 QRS: -1 QRSD: 120 T: 50 QT: 397 QTc: 500 Interpretive Statements ATRIAL FIBRILLATION MODERATE INTRAVENTRICULAR CONDUCTION DELAY [110+ ms QRS DURATION] NONSPECIFIC T-WAVE ABNORMALITY ABNORMAL RHYTHM ECG COMPARED TO ECG 12/16/2021 08:07:56 ATRIAL FIBRILLATION NOW PRESENT INTRAVENTRICULAR CONDUCTION DELAY NOW PRESENT Electronically Signed On 12-21-2021 10:31:49 CDT by Kings West M.D.
--- NOTE | 2021-12-21 09:03 | P.PCNCC_ITS ---
Cardiac Cath Procedure Note Date of procedure:: 12/21/21 Performing physician:: Vincent Hurtado MD Indication:: Atrial flutter Brief clinical history:: This is a 76-year-old patient with a history of atrial fibrillation and atrial flutter. She underwent pacemaker implantation for treatment of symptomatic bradycardia to allow treatment of her arrhythmias. Device was implanted in June of last year. On device check she has now been in atrial flutter for over a month and the desire is to try to restore sinus rhythm electrically. She is taking amiodarone 400 mg daily at this time she is systemically anticoagulated with apixaban. Procedure Procedure performed:: DC cardioversion Sedation/Medication given:: IV propofol total dosage of 80 mg Estimated blood loss:: No blood loss Procedure note:: Patient was brought to the labor service representative holding area in the postabsorptive state IV access was placed in the right arm. Defibrillator patches were placed in AP position. Device was connected to the defibrillator in synchronized with 200 joule output. She was in after being sedated was DC cardioverted using 1 200 joule shock in a synchronized fashion which terminated the atrial flutter and the rhythm became atrial pacing with ventricular sensing. To keep the atrium in train we did increase the lower rate limit to 70 beats per minute. Patient was then recovered from sedation procedure was uneventful and well tolerated Findings:: As above Conclusion:: Successful uncomplicated DC cardioversion terminating atrial flutter restoring atrial pacing with normal left intraventricular conduction as discussed above Vincnet Hurtado MD [facility]
--- NOTE | 2022-01-27 12:44 | PM.IMHP ---
H&P: HPI History of Present Illness Date/Time: 01/27/22 12:44 Chief Complaint: No complaint, elective admission for cardioversion as an outpatient Narrative: A history of atrial fibrillation/atrial flutter. The patient also has history of problematic [place] arrhythmias for which she previously has undergone pacemaker implantation. In outpatient follow-up it has been noticed on her pacemaker interrogation that she has been in atrial flutter for approximately 2-3 months. She has been anticoagulated systemically and an attempt at restoring sinus rhythm electrically has been recommended for today. Patient is comfortable asymptomatic and has no complaints at this time Review of Systems Constitutional: Constitutional: Reports no additional constitutional complaints Eyes: Eyes: Reports no additional eye complaints ENT: Reports system reviewed and no additional complaints, except as documented Cardiovascular: Cardiovascular: Reports no additional cardiovascular complaints Respiratory: Respiratory: Reports no additional respiratory complaints Gastrointestinal: Gastrointestinal: Reports no additional gastrointestinal complaints Musculoskeletal: Musculoskeletal: Reports no additional musculoskeletal complaints Integumentary/Breasts: Skin/Breast: Reports system reviewed and no additional complaints, except as docu Neurologic: Reports system reviewed and no additional complaints, except as documented [facility] Past Medical History Medical History Atrial flutter Atrial flutter with rapid ventricular response Beta thalassemia trait Catheter-associated urinary tract infection Cerebrovascular accident, embolic (~12/2017) Chronic anemia Diabetes mellitus DVT (deep venous thrombosis) Dysphagia As a result of previous strokes. G-tube in place. Gastrostomy tube in place History of intracranial hemorrhage Hydrocephalus (~02/2020) Status post STOCKROOM SELECTOR shunt. Hyperlipidemia Intolerant to statins. Hypertension Indwelling Aparicio catheter present Intracerebral hemorrhage (~02/2020) Hemorrhagic stroke occurred while she was on Eliquis, and she was hospitalized at [facility] at that time. Obstructive sleep apnea Osteoarthritis PAF (paroxysmal atrial fibrillation) Paroxysmal atrial fibrillation Paroxysmal atrial flutter Severe sepsis Subdural hematoma (~04/2020) Type 2 diabetes mellitus, uncontrolled Surgical History Surgical History History of appendectomy History of gastrostomy tube placement History of total bilateral knee replacement History of tracheostomy History of tubal ligation S/P IVC filter Status post ventriculo-peritoneal shunt placement (~02/2020) Family History Family History Other Alzheimer's dementia Carcinoma of colon Cerebrovascular accident Diabetes mellitus Family history of arthritis Hypertension Social History Social History Social History: The patient lives with her has [facility] [employer] [facility]. She is a former smoker and quit in the 1970s. No alcohol or substance abuse. She has 3 children. Her Luis Roque and daughter Shaneka Hinojosa are listed as her emergency contact. She is listed as a full code. Smoking packs per day: 2 Smoking cigarettes per day: 40.0 Years smoked: 22 Smoking pack-years: 44.00 Tobacco type: cigarettes Alcohol intake: never Substance use: never Gender identity (if verbalized by the patient): Female Spiritual care concerns: No Meds Home Medications and Allergies Home Medications Medication Instructions Recorded Confirmed Type budesonide-formoterol HFA 160 2 puff inhalation BID 02/24/20 12/16/21 History mcg-4.5 mcg/actuation aerosol inhaler (Symbicort) metoprolol tartrate 50 mg tablet 100 mg PO DAILY
== END 2021-12-21 09:50 | disposition home or self-care (01) ==
PROVIDERS: PCP Family Medicine; Visit Provider Specialist
PROC: 5A2204Z Restoration of Cardiac Rhythm, Single (ICD-10-PCS; principal; 2021-12-21 08:30)
DX: I48.92 Unspecified atrial flutter (principal); Z79.01 Long term (current) use of anticoagulants
CPT/HCPCS: 36415; 80048; 83735; 92960; A9270; J2250; J2704; J3010; J7030; J7040

== ENCOUNTER 2022-06-14 12:57 | Inpatient (IN) | payer MEDICARE, SELFPAY ==
--- NOTE | ~2022-06-14 | CT_ITS ---
EXAMINATION: CT brain wo con DATE: 06/14/2022 20:53 INDICATION: Weakness . TECHNIQUE: Computed tomography (CT) of the head was performed without intravenous contrast. The mA wa s adjusted according to patient size. Iterative reconstruction technique was employed. The dose-lengt h product was 605.33 mGy-cm. COMPARISON: 06/03/2020. FINDINGS: No acute intracranial hemorrhage or extra-axial fluid collection. No hydrocephalus, mass, or herniation. No acute ischemic infarct. Unremarkable dural venous sinus attenuation. No acute osseous abnormality. The aerated spaces are clear. Right parietal DISASTER RECOVERY SPECIALIST shunt terminating in the right lateral ventricle, the tip positioned has changed sl ightly, but there is no interval ventriculomegaly. Thin chronic right subdural collection, likely chr onic subdural hemorrhage. Similar areas of encephalomalacia in the right frontal temporal and parieta l lobes. Interval progression of encephalomalacia in the left occipital and parietal lobes. Mild atro phy and chronic white matter change. Old bilateral basal ganglia lacunar infarcts. Atherosclerotic in tracranial calcification. Bilateral lens replacements. IMPRESSION: No acute intracranial process. Chronic findings detailed above. Reviewed, dictated and finalized at location K. RVISOR TUMBLING AND ROLLING
--- NOTE | ~2022-06-14 | XR_ITS ---
Portable chest x-ray Comparison: 06/14/2022 Clinical History: Shortness of breath Findings: There are probable mild central pulmonary venous congestive changes. No consolidation or p leural effusion. Cardiomediastinal silhouette is stable, with pacemaker device. Bones and soft tissu es are unremarkable. Impression: Probable mild central pulmonary venous congestive change. Pacemaker device. Reviewed, dictated and finalized at location [] TRUCTION ADMINISTRATIVE ASSISTANT Impression: Probable mild central pulmonary venous congestive change. Pacemaker device.
--- NOTE | ~2022-06-14 | US_ITS ---
EXAMINATION: US retroperitoneal duplex ltd, US renal BI DATE: 06/22/2022 09:20 INDICATION: Hypertension TECHNIQUE: Multiple grayscale, color Doppler, and pulsed Doppler images of the kidneys and renal fior joanna were obtained. COMPARISON: None. FINDINGS: The aorta peak systolic velocity is 75.7 cm/s. The right renal artery peak systolic velocity is 77.9 cm/s in the proximal segment, 39.6 cm/s in the mid segment, and 41.7 cm/s in the distal segment. The left renal artery peak systolic velocity is 42.1 cm/s in the proximal segment, 61.2 cm/s in the mid s egment, and 41.9 cm/s in the distal segment. The right kidney measures 9.8 x 3.9 x 3.8 cm. The left kidney measures 10.3 x 4.9 x 5.2 cm. The kidne ys demonstrate normal parenchymal echogenicity. There is no hydronephrosis. The bladder is normal. IMPRESSION: 1. No Doppler evidence of renal artery stenosis. 2. Normal kidneys without hydronephrosis. Reviewed, dictated and finalized at location A. ABLE FEED MILL OPERATOR IMPRESSION: 1. No Doppler evidence of renal artery stenosis. 2. Normal kidneys without hydronephrosis.
--- NOTE | ~2022-06-14 | US_ITS ---
EXAMINATION: US abdomen limited DATE: 06/17/2022 09:27 INDICATION: Elevated liver function tests TECHNIQUE: Multiple grayscale and Doppler ultrasound images of the abdomen were obtained. COMPARISON: None FINDINGS: The pancreatic head and body are normal in appearance. The pancreatic tail is not visualized. Liver has normal echogenicity and contour, with a smooth surface. No liver lesion identified. No intrahepat ic biliary duct dilation suspected. Portal venous flow was seen in the hepatopetal, normal direction and has normal Doppler waveform. The gallbladder is normal in appearance. There is no cholelithiasis . The common bile duct measures 5-6 mm, which is normal. Sonographic Stout sign was reported as nega tive by the drum tester. IMPRESSION: 1. Normal right upper quadrant ultrasound. Reviewed, dictated and finalized at location A. S OPERATOR APPRENTICE
--- NOTE | ~2022-06-14 | XR_ITS ---
Right Knee Technique: AP, lateral, and oblique views were obtained. Clinical History: Pain Findings: No fracture or dislocation is seen. Total knee arthroplasty hardware in place. No hardware complication identified. Soft tissues are unremarkable. No joint effusion is seen. Impression: No acute abnormality. Total knee arthroplasty in place. Reviewed, dictated and finalized at location [] NALISM INTERNSHIP Impression: No acute abnormality. Total knee arthroplasty in place.
--- NOTE | ~2022-06-14 | XR_ITS ---
XR chest 2V 06/14/2022 13:33 Indication: Weakness. Lower extremity edema. Procedure: AP and lateral views of the chest Comparison: Comparison to multiple prior studies sequentially, with oldest reviewed study dated 07/2020. Findings: There is bibasilar airspace disease which may represent atelectasis or pneumonia. Shallow i nspiration. Cardiomegaly. Pacemaker leads are in expected position. There is a catheter overlying the right chest. Impression: 1: Bibasilar airspace disease may represent atelectasis or pneumonia. Reviewed, dictated and finalized at location A. NICAL INFORMATION SPECIALIST Impression: 1: Bibasilar airspace disease may represent atelectasis or pneumonia.
--- NOTE | ~2022-06-14 | XR_ITS ---
Left Knee Technique: AP, lateral, and oblique views were obtained. Clinical History: Pain Findings: No fracture or dislocation is seen. Total knee arthroplasty hardware present. No hardware c omplication seen. Soft tissues are unremarkable. No joint effusion is seen. Impression: No acute abnormality. Total knee arthroplasty in place. Reviewed, dictated and finalized at location [] ET MAKER Impression: No acute abnormality. Total knee arthroplasty in place.
--- NOTE | 2022-06-14 13:03 | ECG_ITS ---
Measurements Intervals [place] Rate: 113 P: [place]: 0 QRS: -3 QRSD: 96 T: -9 QT: 363 QTc: 498 Interpretive Statements ATRIAL FIBRILLATION WITH RAPID VENTRICULAR RESPONSE ABNORMAL RHYTHM ECG COMPARED TO ECG 12/21/2021 08:50:38 ATRIAL FIBRILLATION NOW PRESENT Electronically Signed On 06-14-2022 15:16:07 BRIAR CUTTER by Saúl Almaraz M.D.
[2022-06-14 13:05] VITALS: BP 118/65; PULSE 114; RESP 20; TEMP 36.9; O2SAT 98
[2022-06-14 15:30] LABS: Basophils Absolute Auto 0.1 K/mm3 (0.0-0.1); Basophils Percent Auto 0.5 % (0.2-1.2); Eosinophils Absolute Auto 0.1 K/mm3 (0-0.3); Eosinophils Percent Auto 0.9 % (0-4.4); Hemoglobin 11.5 g/dL (12.0-15.0); Immature Granulocyte Absolute 0.06 K/mm3 (0.00-0.031); Immature Granulocyte Percent A 0.5 % (0-0.5); Lymphocytes Absolute Auto 0.87 K/mm3 (0.9-3.2); Lymphocytes Percent Auto 6.7 % (18.3-44.2); Mean Corpuscular HGB Conc 31.1 g/dl (32-36); Mean Corpuscular Hemoglobin 22.6 pg (26-34); Mean Corpuscular Volume 72.8 fl (80-100); Monocytes Absolute Auto 0.9 K/mm3 (0.1-0.6); Monocytes Percent Auto 7.1 % (2.6-8.5); Neutrophils Absolute Auto 10.9 K/mm3 (1.3-6.7); Neutrophils Percent Auto 84.3 % (45.5-73.1); Platelet Count Result 349 k/mm3 (150-375); Red Blood Count 5.08 M/mm3 (4.2-5.4); Red Cell Distribution Width 19.6 % (11.5-14.5); White Blood Count 12.9 K/mm3 (4.5-10.0)
[2022-06-14 15:42] LABS: Alanine Aminotransferase 71 U/L (6-35); Albumin Level 3.2 g/dL (3.5-5.1); Alkaline Phosphatase 135 U/L (38-126); Anion Gap 7 mmol/L (8-16); Aspartate Amino Transferase 112 U/L (14-36); Bilirubin,Total 1.6 mg/dL (0.2-1.3); Blood Urea Nitrogen 20 mg/dL (7-17); Calcium 8.1 mg/dL (8.4-10.2); Carbon Dioxide 26 mmol/L (22-30); Chloride 104 mmol/L (98-107); Estimated CRCL calculation 42 ml/min; Estimated Glomerular Filt Rate 48; Glucose 155 mg/dL (65-110); Potassium 4.8 mmol/L (3.4-5.0); Sodium 137 mmol/L (137-145)
[2022-06-14 16:08] LABS: Platelet Estimate Adequate (Adequate)
[2022-06-14 16:09] LABS: Anisocytosis 1+ (NORMAL); Hypochromasia 1+ (NORMAL); Microcytosis 1+ (NORMAL); Ovalocytes 1+ (NORMAL); Target Cells 1+ (NORMAL)
[2022-06-14 16:21] LABS: Schistocytes None Seen (NORMAL)
--- NOTE | 2022-06-14 20:17 | ED.GENADULT ---
HPI - General Adult General Chief complaint: Weakness Stated complaint: increased weakness Time Seen by Provider: 06/14/22 18:25 History of Present Illness HPI narrative: this is a 76-year-old female with multiple medical problems presenting ED with chief complaint of weakness. Patient recently finished a 10 day stay in a rehab center for generalized weakness. She is doing well at the custodial but then came home and was too weak to stand up or go to the restroom on her own. Patient notes that she is having shortness of breath and increased edema of her lower extremities. She has no history of heart failure that she knows of but does have a pacemaker. She is a poor historian in general. Patient denies fever, chills, chest pain, abdominal pain. She does note that she has had 1 episode of nausea vomiting diarrhea as well as urinary symptoms. Related Data Home Medications Medication Instructions Recorded Confirmed budesonide-formoterol HFA 160 2 puff inhalation BID 02/24/20 12/16/21 mcg-4.5 mcg/actuation aerosol inhaler (Symbicort) metoprolol tartrate 50 mg tablet 100 mg PO DAILY 02/24/20 12/16/21 cholecalciferol (vitamin D3) 25 5,000 mcg PO DAILY 05/25/20 12/16/21 mcg (1,000 unit) tablet (Vitamin D3) acetaminophen 500 mg tablet 500 mg PO Q4H PRN Pain 12/10/20 12/16/21 albuterol sulfate 90 mcg/actuation 2 puff inhalation DAILY 12/10/20 12/16/21 aerosol inhaler escitalopram oxalate 10 mg tablet 10 mg PO HS 12/10/20 12/20/21 insulin degludec 100 unit/mL (3 40 unit subcut DAILY 12/10/20 12/16/21 mL) subcutaneous pen (Tresiba FlexTouch U-100 insulin) pantoprazole 40 mg tablet,delayed 40 mg PO BID 12/10/20 12/16/21 release (Protonix) ondansetron HCl 4 mg tablet 4 mg PO Q8H PRN Nausea 12/16/21 12/20/21 amiodarone 200 mg tablet (Pacerone) 200 mg PO BID 12/20/21 12/20/21 amlodipine 10 mg tablet 1 tablet PO DAILY 12/20/21 12/20/21 apixaban 2.5 mg tablet (Eliquis) 2.5 tablet PO BID 12/20/21 12/21/21 ezetimibe 10 mg tablet 1 tablet PO DAILY 12/20/21 12/20/21 fluticasone propionate 50 2 spray intranasal DAILY 12/20/21 12/20/21 mcg/actuation nasal spray,suspension (Flonase Allergy Relief) gabapentin 300 mg capsule 1 cap PO BID 12/20/21 12/20/21 insulin aspart U-100 100 unit/mL subcut 12/20/21 (3 mL) subcutaneous pen (Novolog Flexpen U-100 Insulin aspart) insulin glargine 100 unit/mL (3 ea subcut 12/20/21 mL) subcutaneous pen (Basaglar KwikPen U-100 Insulin) insulin regular human 100 unit/mL ea subcut 12/20/21 (3 mL) subcutaneous pen (Novolin R Flexpen) linagliptin 5 mg tablet (Tradjenta) 1 tablet PO DAILY 12/20/21 12/20/21 montelukast 10 mg tablet 1 tablet PO DAILY 12/20/21 12/20/21 oxybutynin chloride 5 mg tablet 1 tablet PO BID 12/20/21 12/20/21 rosuvastatin 40 mg tablet 1 tablet PO DAILY 12/20/21 12/20/21 Allergies Allergy/AdvReac Type Severity Reaction Status Date / Time JOLIE Inhibitors Allergy Unknown Unknown Verified 12/21/21 07:34 hydrocodone Allergy Unknown Unknown Verified 12/21/21 07:34 lovastatin Allergy Unknown Unknown Verified 12/21/21 07:34 pravastatin Allergy Unknown Unknown Verified 12/21/21 07:34 Sulfa (Sulfonamide Allergy Unknown Unknown Verified 12/21/21 07:34 Antibiotics) Sulfonylureas Allergy Unknown Unknown Verified 12/21/21 07:34 acetaminophen Allergy Unknown Verified 12/21/21 07:34 perfume Allergy Unknown Verified 12/21/21 07:34 pollen extracts Allergy Unknown Verified 12/21/21 07:34 Review of Systems Review of Systems: CONSTITUTIONAL: Denies night sweats. EYES: No eye pain ENT: Denies rhinorrhea CARDIOVASCULAR: Denies palpitations RESPIRATORY: Denies hemoptysis GASTROINTESTINAL: Denies hematemesis GENITOURINARY: Denies hematuria. SKIN: Denies rash MUSCULOSKELETAL: Denies myalgia. NEUROLOGIC: Denies weakness. PSYCHIATRIC: Denies delusions PMFSH Past Medical History Medical History Atrial
[2022-06-14 20:29] LABS: Appearance Urine Slightly Cloudy (Clear); Bilirubin Urine Negative (Negative); Blood Urine Negative (Negative); Color Urine Amber (Yellow); Glucose Urine UA Negative (Negative); Ketones Urine Negative (Negative); Leukocyte Esterase Ur Negative LEU/UL (Negative); Nitrate Urine Negative (Negative); Protein Urine 1+ mg/dL (Negative); Specific Grav Ur 1.015 (1.001-1.035); Urobilinogen Urine 0.2 mg/dL (<2.0); pH Urine 5.5 (5.0-9.0)
[2022-06-14 20:36] LABS: Bacteria Urine Trace /hpf; Mucus Urine Rare /lpf; RBC Urine 0-2 /hpf (0-2); Squamous Epithelial Cell Urine Rare /hpf (Few); WBC Urine 0-3 /hpf
[2022-06-14 20:39] LABS: Add Urine Microscopic? YES
[2022-06-14 20:48] LABS: Influenza A QL RT-PCR Negative (Negative); Influenza B QL RT-PCR Negative (Negative); SARS-CoV-2 RNA PCR Negative
[2022-06-14 20:54] LABS: NT Pro B Type Natriuretic Pept 1260 pg/mL (5-100); Troponin I 0.018 ng/mL (0.000-0.034)
--- NOTE | 2022-06-14 22:14 | PM.IMHP ---
H&P: HPI History of Present Illness Date/Time: 06/14/22 22:14 Chief Complaint: generalized weakness Narrative: This is a 76-year-old female with past medical history significant for insulin-dependent diabetes mellitus, atrial flutter, beat and thalassemia trait, chronic anemia, obstructive sleep apnea, paroxysmal atrial fibrillation, subdural hematoma, ventriculoperitoneal shunt placement, pacemaker in situ due to bradyarrhythmia. patient just recently discharged from rehabilitation facility she comes today for evaluation to the emergency room for generalized weakness, chills, poor appetite, denies any nausea, vomiting, diarrhea, denies sputum production, denies cough, has had shortness of breath and bilateral lower extremity worsening edema. Preliminary workup was significant for: Impression: 1: Bibasilar airspace disease may represent atelectasis or pneumonia CT of the head was reported as: IMPRESSION:? No acute intracranial process. Chronic findings detailed above. Review of Systems Review of Systems: generalized weakness, poor appetite, bilateral lower extremity edema. Constitutional: Constitutional: Denies chills, Reports fatigue, Denies fever(s), Reports lethargy, Denies night sweats and Reports weakness Eyes: Eyes: Denies change in vision ENT: Denies dysphagia, Denies vertigo, Denies dizziness, Denies epistaxis, Denies nasal congestion and Denies odynophagia Cardiovascular: Cardiovascular: Denies chest pain, Denies syncope, Denies irregular heart rhythm, Reports leg edema and Denies lightheadedness Respiratory: Respiratory: Denies chest congestion, Denies cough, Denies excessive phlegm production, Reports dyspnea on exertion and Denies wheezing Gastrointestinal: Gastrointestinal: Denies abdominal pain, Denies dyspepsia, Denies diarrhea, Denies nausea and Denies vomiting Genitourinary: Genitourinary: Denies dysuria Musculoskeletal: Musculoskeletal: Reports muscle weakness Integumentary/Breasts: Skin/Breast: Denies rash Neurologic: Denies vertigo, Denies dizziness, Denies focal weakness and Denies Sensory deficit (Neuro) Psychiatric: Psychiatric: Reports no additional psychiatric complaints and Reports as per HPI Endocrine: Endocrine: Denies cold intolerance, Denies flushing, Denies heat intolerance, Denies polyphagia, Denies polydipsia and Denies palpitations Hematologic/Lymphatic: Hematologic/Lymphatic: Reports no additional hematologic/lymphatic complaints and Reports as per HPI Allergic/Immunologic: Allergic/Immunologic: Reports no additional allergic/immunologic complaints and Reports as per HPI [facility] Past Medical History Medical History Atrial flutter Atrial flutter with rapid ventricular response Beta thalassemia trait Catheter-associated urinary tract infection Cerebrovascular accident, embolic (~12/2017) Chronic anemia Diabetes mellitus DVT (deep venous thrombosis) Dysphagia As a result of previous strokes. G-tube in place. Gastrostomy tube in place History of intracranial hemorrhage Hydrocephalus (~02/2020) Status post INSURANCE BILLING SPECIALIST shunt. Hyperlipidemia Intolerant to statins. Hypertension Indwelling Aparicio catheter present Intracerebral hemorrhage (~02/2020) Hemorrhagic stroke occurred while she was on Eliquis, and she was hospitalized at [facility] at that time. Obstructive sleep apnea Osteoarthritis PAF (paroxysmal atrial fibrillation) Paroxysmal atrial fibrillation Paroxysmal atrial flutter Severe sepsis Subdural hematoma (~04/2020) Type 2 diabetes mellitus, uncontrolled Surgical History Surgical History History of appendectomy History of gastrostomy tube placement History of total bilateral knee replacement History of tracheostomy History of tubal ligation S/P IVC filter Status post ventriculo-peritoneal shunt placement (~02/2020) Family History Family History (Reviewed 06/14
[2022-06-14] MEDS: SODIUM CHLORIDE 0.9% IV 1,000 ML 999 ML IV CONT (22:51)
[2022-06-14 23:32] VITALS: BP 101/66; PULSE 90; RESP 20; O2SAT 98
[2022-06-15] VITALS (7 sets, daily range): BP systolic 100–129; BP diastolic 52–65; PULSE 78–89; RESP 16–20; TEMP 35.8–36.9; O2SAT 92–100; BMI 41.2
--- NOTE | 2022-06-15 03:50 | ADMGEN ---
This patient, Bettie Roque, was admitted to 3 Med Surg Room 306-01. Patient/family oriented to hospital policies and general routines including ID bracelet, bed and alarms, visiting hours, pain management, procedures, bathroom and other care routines, personal items, smoking policy, room service/diet, and visiting hours. Information on how to activate the Rapid Response Team has been discussed. Patient/Family are encouraged to report perceived risks to care and to ask questions if they do not understand what they are told or what they should do. Patient arrived and is confused about where she is and what is going on. Patient was redirected several times.
--- NOTE | 2022-06-15 07:54 | PM.IMPN ---
Progress Note: A&P Assessment and Plan (1) Weakness: Code(s): R53.1 - Weakness Status: Acute Assessment and Plan: Resolving, PT/OT pending (2) Pneumonia: Code(s): J18.9 - Pneumonia, unspecified organism Status: Acute Assessment and Plan: Day 2 of Rocephin azithromycin, blood cultures negative growth to date (3) Edema, peripheral: Code(s): R60.9 - Edema, unspecified Status: Acute Assessment and Plan: stable (4) Diabetes mellitus: Code(s): E11.9 - Type 2 diabetes mellitus without complications Status: Acute Assessment and Plan: Accu-Cheks AC and HS continue Lantus and post postprandial coverage Plan DVT prophylaxis with SCDs GI prophylaxis not indicated Code status full code Subjective Date/time seen: 06/15/22 07:54 Interval history: No overnight events noted. No chest pain or shortness of breath. No nausea, vomiting or diarrhea. No fevers or chills. 92% on room air Review of Systems Review of Systems: 12 point review of systems was assessed and was negative except as noted in the HPI Exam Narrative: General: No acute distress, alert and oriented per baseline HEENT: Atraumatic, normocephalic, mucous membranes moist CV: Regular rate and rhythm, S1, S2 Lungs: Clear to auscultation bilaterally, no rales or crackles noted, no wheezes, good air entry Abdomen: Soft, nontender, nondistended Extremities: Normal to inspection Skin: No rashes noted, no lesions or wounds seen Psych: Euthymic, normal affect Objective Data Vital Signs Vital Signs: Vital Signs - 24 hr 06/14/22 13:05 06/14/22 23:32 06/15/22 00:22 Temperature 98.4 F Pulse Rate 114 H 90 82 Respiratory Rate 20 20 20 Blood Pressure 118/65 101/66 105/65 Pulse Oximetry 98 98 99 Oxygen Delivery Room Air 06/15/22 02:21 06/15/22 02:53 06/15/22 05:47 Temperature 97.8 F 98.4 F Pulse Rate 84 82 78 Respiratory Rate 20 18 18 Blood Pressure 104/60 110/56 L 100/52 L Pulse Oximetry 98 92 92 Oxygen Delivery 06/15/22 05:53 Temperature 98.4 F Pulse Rate 78 Respiratory Rate Blood Pressure 100/52 L Pulse Oximetry Oxygen Delivery Intake/Output Intake/Output: Intake & Output 06/12/22 06/13/22 06/14/22 06/15/22 23:59 23:59 23:59 23:59 Intake Total 1050 250 Output Total 0 Balance 1050 250 Meds/Results Medications: Active Medications Generic Name Dose Route Start Last Admin Trade Name Earlq PRN Reason Stop Dose Admin Ceftriaxone Sodium/Dextrose 1 gm in 50 mls @ 100 mls/hr 06/15/22 21:00 Rocephin 1 Gm/D5w 50 Ml IVPB Q24H BENITA Azithromycin 500 mg in 250 mls @ 250 mls/hr 06/15/22 21:00 Zithromax IVPB Q24H BENITA Radiology Results: ITS Impressions Chest X-Ray 06/14/22 13:43 Impression: 1: Bibasilar airspace disease may represent atelectasis or pneumonia. Head CT 06/14/22 21:09 IMPRESSION: No acute intracranial process. Chronic findings detailed above. Labs Labs: Laboratory Results - last 24 hr 06/14/22 06/14/22 06/14/22 15:08 15:08 15:08 WBC 12.9 H RBC 5.08 Hgb 11.5 L Hct 37.0 MCV 72.8 L MCH 22.6 L MCHC 31.1 L RDW 19.6 H Plt Count 349 MPV 10.0 Immature Gran % (Auto) 0.5 Neut % (Auto) 84.3 H Lymph % (Auto) 6.7 L [place] % (Auto) 7.1 Eos % (Auto) 0.9 Baso % (Auto) 0.5 Lymph # (Auto) 0.87 L [place] # (Auto) 0.9 H Eos # (Auto) 0.1 Baso # (Auto) 0.1 Abs Immat Gran (auto) 0.06 H Absolute Neuts (auto) 10.9 H Absolute Nucleated RBC 0.0 Nucleated RBC % 0.0 Platelet Estimate Adequate Hypochromasia 1+ Anisocytosis 1+ Microcytosis 1+ Target Cells 1+ Ovalocytes 1+ Schistocytes None seen Sodium 137 Potassium 4.8 Chloride 104 Carbon Dioxide 26 Anion Gap 7 L BUN 20 H Creatinine 1.30 H Estim Creat Clear Calc 42 Estimated GFR 48 L Glucose 155 H
[2022-06-15 08:11] LABS: Glucose Point of Care 147 mg/dl (65-105)
[2022-06-15 11:59] LABS: Glucose Point of Care 218 mg/dl (65-105)
[2022-06-15 17:00] LABS: Glucose Point of Care 235 mg/dl (65-105)
[2022-06-15 19:08] LABS: Basophils Absolute Auto 0.1 K/mm3 (0.0-0.1); Basophils Percent Auto 0.6 % (0.2-1.2); Eosinophils Absolute Auto 0.5 K/mm3 (0-0.3); Eosinophils Percent Auto 5.7 % (0-4.4); Hematocrit 34.8 % (37.0-47.0); Hemoglobin 10.9 g/dL (12.0-15.0); Immature Granulocyte Absolute 0.03 K/mm3 (0.00-0.031); Immature Granulocyte Percent A 0.3 % (0-0.5); Lymphocytes Absolute Auto 1.03 K/mm3 (0.9-3.2); Mean Corpuscular HGB Conc 31.3 g/dl (32-36); Mean Corpuscular Hemoglobin 23.1 pg (26-34); Mean Corpuscular Volume 73.7 fl (80-100); Mean Platelet Volume 10.8 fl (7.4-10.4); Monocytes Absolute Auto 0.8 K/mm3 (0.1-0.6); Monocytes Percent Auto 8.9 % (2.6-8.5); Neutrophils Absolute Auto 6.2 K/mm3 (1.3-6.7); Neutrophils Percent Auto 72.5 % (45.5-73.1); Platelet Count Result 322 k/mm3 (150-375); Red Blood Count 4.72 M/mm3 (4.2-5.4); Red Cell Distribution Width 19.3 % (11.5-14.5); White Blood Count 8.6 K/mm3 (4.5-10.0)
[2022-06-15 19:18] LABS: Alanine Aminotransferase 126 U/L (6-35); Alkaline Phosphatase 143 U/L (38-126); Anion Gap 6 mmol/L (8-16); Aspartate Amino Transferase 193 U/L (14-36); Bilirubin,Total 1.1 mg/dL (0.2-1.3); Blood Urea Nitrogen 28 mg/dL (7-17); Calcium 7.6 mg/dL (8.4-10.2); Carbon Dioxide 25 mmol/L (22-30); Chloride 105 mmol/L (98-107); Estimated CRCL calculation 37 ml/min; Estimated Glomerular Filt Rate 38; Glucose 234 mg/dL (65-110); Potassium 4.4 mmol/L (3.4-5.0); Sodium 136 mmol/L (137-145)
[2022-06-15 19:51] LABS: Anisocytosis 2+ (NORMAL); Hypochromasia 1+ (NORMAL); Microcytosis 1+ (NORMAL); Platelet Estimate Adequate (Adequate)
[2022-06-15 19:52] LABS: Ovalocytes 1+ (NORMAL); Schistocytes None Seen (NORMAL); Target Cells 1+ (NORMAL)
[2022-06-16 06:26] VITALS: BP 129/69; PULSE 90; RESP 18; TEMP 36.3; O2SAT 97
[2022-06-16 07:16] LABS: Basophils Absolute Auto 0.1 K/mm3 (0.0-0.1); Basophils Percent Auto 0.8 % (0.2-1.2); Eosinophils Absolute Auto 0.6 K/mm3 (0-0.3); Eosinophils Percent Auto 7.6 % (0-4.4); Hemoglobin 10.9 g/dL (12.0-15.0); Immature Granulocyte Absolute 0.04 K/mm3 (0.00-0.031); Immature Granulocyte Percent A 0.5 % (0-0.5); Lymphocytes Absolute Auto 1.16 K/mm3 (0.9-3.2); Mean Corpuscular HGB Conc 32.1 g/dl (32-36); Mean Corpuscular Hemoglobin 23.3 pg (26-34); Mean Corpuscular Volume 72.8 fl (80-100); Mean Platelet Volume 11.2 fl (7.4-10.4); Monocytes Absolute Auto 0.7 K/mm3 (0.1-0.6); Monocytes Percent Auto 9.3 % (2.6-8.5); Neutrophils Absolute Auto 5.2 K/mm3 (1.3-6.7); Neutrophils Percent Auto 66.8 % (45.5-73.1); Platelet Count Result 340 k/mm3 (150-375); Red Blood Count 4.67 M/mm3 (4.2-5.4); Red Cell Distribution Width 19.1 % (11.5-14.5); White Blood Count 7.7 K/mm3 (4.5-10.0)
[2022-06-16 07:23] LABS: Alanine Aminotransferase 108 U/L (6-35); Alkaline Phosphatase 146 U/L (38-126); Anion Gap 4 mmol/L (8-16); Aspartate Amino Transferase 139 U/L (14-36); Bilirubin,Total 0.9 mg/dL (0.2-1.3); Blood Urea Nitrogen 25 mg/dL (7-17); Calcium 7.7 mg/dL (8.4-10.2); Carbon Dioxide 27 mmol/L (22-30); Chloride 102 mmol/L (98-107); Estimated CRCL calculation 46 ml/min; Estimated Glomerular Filt Rate 48; Glucose 232 mg/dL (65-110); Potassium 4.5 mmol/L (3.4-5.0); Sodium 133 mmol/L (137-145)
[2022-06-16 08:39] LABS: Glucose Point of Care 242 mg/dl (65-105)
[2022-06-16 10:15] LABS: Hypochromasia 1+ (NORMAL); Ovalocytes 1+ (NORMAL); Schistocytes None Seen (NORMAL); Target Cells 1+ (NORMAL)
[2022-06-16 11:42] LABS: Glucose Point of Care 344 mg/dl (65-105)
[2022-06-16 12:00] VITALS: BP 91/63; PULSE 89; RESP 18; TEMP 36.3; O2SAT 100
--- NOTE | 2022-06-16 13:14 | PCSTNOTE ---
Please refer to the Bedside Swallow Evaluation in the EMR. Please note, silent aspiration cannot be ruled out at bedside.
[2022-06-16 14:00] VITALS: BP 104/62; PULSE 89; RESP 18; TEMP 36; O2SAT 100
--- NOTE | 2022-06-16 14:09 | PC.NURSE ---
Dr Sin notified of bp 104/62 [facility]
[2022-06-16 15:05] VITALS: PULSE 90
[2022-06-16] MEDS: AMIODARONE HCL 200 MG TABLET PO ×2 (15:05→20:56)
[2022-06-16] MEDS: EZETIMIBE 10 MG TABLET PO (15:05)
[2022-06-16 15:06] VITALS: PULSE 90
[2022-06-16] MEDS: FLUTICASONE PROPIONATE 0.05% NA SPR 16 GM BTL (*BKC) 2 SPRAY NASAL (15:06)
[2022-06-16] MEDS: METOPROLOL TARTRATE 50 MG TAB 100 MG PO (15:06)
[2022-06-16] MEDS: MONTELUKAST SODIUM 10 MG TABLET PO (15:06)
[2022-06-16] MEDS: ROSUVASTATIN 10 MG TABLET 40 MG PO (15:06)
[2022-06-16 16:57] LABS: Glucose Point of Care 267 mg/dl (65-105)
[2022-06-16] MEDS: APIXABAN 2.5 MG TABLET PO ×2 (17:57→20:57)
[2022-06-16] MEDS: INSULIN ASPART (*BKC) 100 UNITS/ML SUB-Q (18:00)
--- NOTE | 2022-06-16 18:23 | PM.IMPN ---
Progress Note: A&P Assessment and Plan (1) Weakness: Code(s): R53.1 - Weakness Status: Acute Assessment and Plan: Resolving, PT/OT pending (2) Pneumonia: Code(s): J18.9 - Pneumonia, unspecified organism Status: Acute Assessment and Plan: Day 3 of Rocephin azithromycin, blood cultures negative growth to date (3) Edema, peripheral: Code(s): R60.9 - Edema, unspecified Status: Acute Assessment and Plan: stable (4) Diabetes mellitus: Code(s): E11.9 - Type 2 diabetes mellitus without complications Status: Acute Assessment and Plan: Accu-Cheks AC and HS continue Lantus and post postprandial coverage (5) Elevated LFTs: Code(s): R79.89 - Other specified abnormal findings of blood chemistry Status: Acute Assessment and Plan: Uncertain etiology, check right upper quadrant ultrasound, hepatitis panel Plan DVT prophylaxis with SCDs GI prophylaxis not indicated Code status full code Subjective Date/time seen: 06/16/22 18:23 Interval history: No overnight events noted. No chest pain or shortness of breath. No nausea, vomiting or diarrhea. No fevers or chills. 100% on room air Review of Systems Review of Systems: 12 point review of systems was assessed and was negative except as noted in the HPI Exam Narrative: General: No acute distress, alert and oriented per baseline HEENT: Atraumatic, normocephalic, mucous membranes moist CV: Regular rate and rhythm, S1, S2 Lungs: Clear to auscultation bilaterally, no rales or crackles noted, no wheezes, good air entry Abdomen: Soft, nontender, nondistended Extremities: Normal to inspection Skin: No rashes noted, no lesions or wounds seen Psych: Euthymic, normal affect Objective Data Vital Signs Vital Signs: Vital Signs - 24 hr 06/15/22 22:28 06/16/22 06:26 06/16/22 10:43 Temperature 97.6 F 97.3 F L Pulse Rate 89 90 Respiratory Rate 16 18 Blood Pressure 107/61 129/69 Pulse Oximetry 96 97 Oxygen Delivery Room Air 06/16/22 15:05 06/16/22 15:06 06/16/22 14:00 Temperature 96.8 F L Pulse Rate 90 90 89 Respiratory Rate 18 Blood Pressure 104/62 Pulse Oximetry 100 Oxygen Delivery 06/16/22 12:00 Temperature 97.3 F L Pulse Rate 89 Respiratory Rate 18 Blood Pressure 91/63 L Pulse Oximetry 100 Oxygen Delivery Intake/Output Intake/Output: Intake & Output 06/13/22 06/14/22 06/15/22 06/16/22 23:59 23:59 23:59 23:59 Intake Total 1050 1494 600 Output Total 0 Balance 1050 1494 600 Meds/Results Medications: Active Medications Generic Name Dose Route Start Last Admin Trade Name Freq PRN Reason Stop Dose Admin Acetaminophen 500 mg 06/16/22 12:36 Acetaminophen 500 Mg Tablet PO Q4H PRN Pain Albuterol 2 puff 06/16/22 13:09 Albuterol Sulfate (*Sp) Aerosol 1 Puff INHALATION Q6HRT PRN sob/wheeze Amiodarone HCl 200 mg 06/16/22 13:00 06/16/22 15:05 Amiodarone Hcl 200 Mg Tablet PO 200 mg Q12HR BENITA Administration Amlodipine Besylate 10 mg 06/16/22 13:00 06/16/22 14:09 Amlodipine Besylate 5 Mg Tablet PO Not Given DAILY BENITA Apixaban 2.5 mg 06/16/22 13:30 06/16/22 17:57 Apixaban 2.5 Mg Tablet PO 2.5 mg Q12HR BENITA Administration Dextrose 12.5 gm 06/16/22 12:37 Dextrose 50% 25 Gm/50 Ml Syringe IV PUSH PRN PRN Hypoglycemia Protocol Ezetimibe 10 mg 06/16/22 13:00 06/16/22 15:05 Ezetimibe 10 Mg Tablet PO 10 mg DAILY BENITA Administration Escitalopram Oxalate 10 mg 06/16/22 21:00 Escitalopram Oxalate 10 Mg Tablet PO HS BENITA Fluticasone Propionate 2 spray 06/16/22 13:00 06/16/22 15:06 Fluticasone Propionate 0.05% Na Spr 16 Gm Btl (*Bkc) NASAL 2 spray DAILY BENITA Administration Gabapentin 300 mg 06/16/22 21:00 Gabapentin 300 Mg Capsule PO Q12HR BENITA Glucagon 1 mg 06/16/22 12:37 Glucagon For Inj 1 M
[2022-06-16] MEDS: ONDANSETRON INJ 4 MG/2 ML VIAL IV PUSH (18:56)
[2022-06-16] MEDS: OXYBUTYNIN CHLORIDE 5 MG TABLET PO (20:57)
[2022-06-16] MEDS: PANTOPRAZOLE 40 MG TABLET PO (20:57)
[2022-06-16] MEDS: GABAPENTIN 300 MG CAPSULE PO (20:57)
[2022-06-16] MEDS: ESCITALOPRAM OXALATE 10 MG TABLET PO (20:58)
[2022-06-16 22:00] VITALS: BP 107/74; PULSE 79; RESP 18; TEMP 36.5; O2SAT 97
[2022-06-16] MEDS: INSULIN ASPART (*BKC) 100 UNITS/ML 15 UNITS SUB-Q (22:14)
[2022-06-16] MEDS: INSULIN GLARGINE (*BKC) 100 UNITS/ML 50 UNITS SUB-Q (22:15)
[2022-06-16 22:21] LABS: Glucose Point of Care 291 mg/dl (65-105)
[2022-06-17 06:00] VITALS: BP 101/70; PULSE 73; RESP 16; TEMP 36.6; O2SAT 100
[2022-06-17 07:48] LABS: Basophils Absolute Auto 0.1 K/mm3 (0.0-0.1); Basophils Percent Auto 0.9 % (0.2-1.2); Eosinophils Absolute Auto 0.5 K/mm3 (0-0.3); Eosinophils Percent Auto 6.9 % (0-4.4); Hematocrit 33.4 % (37.0-47.0); Hemoglobin 10.5 g/dL (12.0-15.0); Immature Granulocyte Absolute 0.01 K/mm3 (0.00-0.031); Immature Granulocyte Percent A 0.1 % (0-0.5); Lymphocytes Absolute Auto 1.12 K/mm3 (0.9-3.2); Lymphocytes Percent Auto 16.7 % (18.3-44.2); Mean Corpuscular HGB Conc 31.4 g/dl (32-36); Mean Corpuscular Hemoglobin 23.1 pg (26-34); Mean Corpuscular Volume 73.4 fl (80-100); Mean Platelet Volume 10.3 fl (7.4-10.4); Monocytes Absolute Auto 0.7 K/mm3 (0.1-0.6); Monocytes Percent Auto 10.9 % (2.6-8.5); Neutrophils Absolute Auto 4.3 K/mm3 (1.3-6.7); Neutrophils Percent Auto 64.5 % (45.5-73.1); Platelet Count Result 340 k/mm3 (150-375); Red Blood Count 4.55 M/mm3 (4.2-5.4); Red Cell Distribution Width 19.3 % (11.5-14.5); White Blood Count 6.7 K/mm3 (4.5-10.0)
[2022-06-17 08:03] LABS: Glucose Point of Care 98 mg/dl (65-105)
[2022-06-17 08:10] LABS: Alanine Aminotransferase 85 U/L (6-35); Alkaline Phosphatase 112 U/L (38-126); Anion Gap 4 mmol/L (8-16); Aspartate Amino Transferase 98 U/L (14-36); Bilirubin,Total 0.8 mg/dL (0.2-1.3); Blood Urea Nitrogen 20 mg/dL (7-17); Calcium 7.7 mg/dL (8.4-10.2); Carbon Dioxide 26 mmol/L (22-30); Chloride 106 mmol/L (98-107); Estimated CRCL calculation 49 ml/min; Estimated Glomerular Filt Rate 53; Glucose 82 mg/dL (65-110); Potassium 4.4 mmol/L (3.4-5.0); Sodium 136 mmol/L (137-145)
[2022-06-17 08:24] LABS: Hypochromasia 3+ (NORMAL); Platelet Estimate Adequate (Adequate); Target Cells 2+ (NORMAL)
[2022-06-17 08:25] LABS: Ovalocytes 2+ (NORMAL); Polychromasia 2+ (NORMAL)
[2022-06-17 08:26] LABS: Helmet Cells 1+ (NORMAL)
[2022-06-17 08:27] LABS: Schistocytes Rare (NORMAL); Tear Drop Cells 1+ (NORMAL)
[2022-06-17 09:12] LABS: Hepatitis B Surface Antigen Negative (Negative)
[2022-06-17 09:18] LABS: HAV RESULT Negative (Negative); Hepatitis B Core IgM Result Negative (Negative)
[2022-06-17 09:30] LABS: Hepatitis C Virus Antibody Negative (Negative)
[2022-06-17] MEDS: FLUTICASONE PROPIONATE 0.05% NA SPR 16 GM BTL (*BKC) 2 SPRAY NASAL (09:31)
[2022-06-17] MEDS: AMIODARONE HCL 200 MG TABLET PO ×2 (09:33→21:07)
[2022-06-17] MEDS: CHOLECALCIFEROL 1,000 UNITS TABLET 5000 UNITS PO (09:33)
[2022-06-17] MEDS: PANTOPRAZOLE 40 MG TABLET PO ×2 (09:33→21:07)
[2022-06-17] MEDS: ROSUVASTATIN 10 MG TABLET 40 MG PO (09:34)
[2022-06-17] MEDS: APIXABAN 2.5 MG TABLET PO ×2 (09:35→21:07)
[2022-06-17] MEDS: MONTELUKAST SODIUM 10 MG TABLET PO (09:35)
[2022-06-17] MEDS: OXYBUTYNIN CHLORIDE 5 MG TABLET PO ×2 (09:35→21:07)
[2022-06-17] MEDS: amLODIPine BESYLATE 5 MG TABLET 10 MG PO (09:35)
[2022-06-17] MEDS: GABAPENTIN 300 MG CAPSULE PO ×2 (09:35→21:07)
[2022-06-17] MEDS: METOPROLOL TARTRATE 50 MG TAB 100 MG PO (09:35)
[2022-06-17] MEDS: EZETIMIBE 10 MG TABLET PO (09:35)
[2022-06-17 11:53] LABS: Glucose Point of Care 160 mg/dl (65-105)
[2022-06-17 14:00] VITALS: BP 96/62; PULSE 61; RESP 20; TEMP 35.9; O2SAT 96
--- NOTE | 2022-06-17 14:13 | PM.IMPN ---
Progress Note: A&P Assessment and Plan (1) Weakness: Code(s): R53.1 - Weakness Status: Acute Assessment and Plan: Resolving, PT/OT pending (2) Pneumonia: Code(s): J18.9 - Pneumonia, unspecified organism Status: Acute Assessment and Plan: Day 3 of Rocephin azithromycin, blood cultures negative growth to date (3) Edema, peripheral: Code(s): R60.9 - Edema, unspecified Status: Acute Assessment and Plan: stable (4) Diabetes mellitus: Code(s): E11.9 - Type 2 diabetes mellitus without complications Status: Acute Assessment and Plan: Yearly eye exam and foot exam. HBA1c ( goal <7.0%) , Renal functions, Liver panel every 3 months Monitor vitamin B12 levels Optimize JOLIE-inhibitor and statin Routine glucose monitoring. Watch for Hypoglycemia. BMI goal < 25 Yearly eye exam and foot exam Exercise, Diet ( low salt- low carb) Weight loss Routinely check for urine microalbuminuria Routine follow-up with PCP and general ophthalmologist (5) Elevated LFTs: Code(s): R79.89 - Other specified abnormal findings of blood chemistry Status: Acute Assessment and Plan: ultrasound the gallbladder negative Plan DVT prophylaxis. GI prophylaxis. All records reviewed Discussed plan of care with the nursing staff and with the patient in detail. Answered all questions and concerns from the patient. All labs have been reviewed. Code status updated dictation may have been done utilizing a voice recognition system. Attempts have been made to correct errors. However, there may be uncorrected grammatical, spelling, and recognition errors present.d Code status full code Subjective Date/time seen: 06/17/22 14:13 Interval history: No new complaints appears very comfortable Review of Systems Review of Systems: All systems reviewed & are unremarkable except as noted in HPI and below Exam Narrative: GENERAL: Well appearing, well-nourished, non-toxic, in no acute distress. HEAD: Normocephalic, atraumatic. NECK: Supple. No adenopathy, no masses. RESPIRATORY: Airway patent, respirations nonlabored. Clear to auscultation bilaterally, no rales, rhonchi, wheezing. CARDIOVASCULAR: Regular rate and rhythm without murmurs, rubs, or gallops. Peripheral pulses 2+ and equal bilaterally. ABDOMINAL: Soft, nontender, nondistended, no hepatosplenomegaly. Normoactive BS. MUSCULOSKELETAL: no Epigastric and no hypochondrial tenderness SKIN: Warm, dry, normal color. No rashes. NEURO: A&O X3. Moves all extremities PSYCHIATRIC: Appropriate mood and affect. Normal interaction. Objective Data Vital Signs Vital Signs: Vital Signs - 24 hr 06/16/22 15:05 06/16/22 15:06 06/16/22 22:00 Temperature 36.5 C Pulse Rate 90 90 79 Respiratory Rate 18 Blood Pressure 107/74 Pulse Oximetry 97 Oxygen Delivery 06/17/22 06:00 06/17/22 08:00 06/17/22 14:00 Temperature 36.6 C 35.9 C L Pulse Rate 73 61 Respiratory Rate 16 20 Blood Pressure 101/70 96/62 L Pulse Oximetry 100 96 Oxygen Delivery Room Air Intake/Output Intake/Output: Intake & Output 06/14/22 06/15/22 06/16/22 06/17/22 23:59 23:59 23:59 23:59 Intake Total 1050 1494 1520 882 Output Total 0 5 Balance 1050 1494 1515 882 Meds/Results Medications: Active Medications Generic Name Dose Route Start Last Admin Trade Name Freq PRN Reason Stop Dose Admin Acetaminophen 500 mg 06/16/22 12:36 Acetaminophen 500 Mg Tablet PO Q4H PRN Pain Albuterol 2 puff 06/16/22 13:09 Albuterol Sulfate (*Sp) Aerosol 1 Puff INHALATION Q6HRT PRN sob/wheeze Amiodarone HCl 200 mg 06/16/22 13:00 06/17/22 09:33 Amiodarone Hcl 200 Mg Tablet PO 200 mg Q12HR BENITA Administration Amlodipine Besylate 10 mg 06/16/22 13:00 06/17/22 09:35 Amlodipine Besylate 5 Mg Tablet PO 10 mg DAILY BENITA Administration Apixaban 2.5 mg 06/16/22 13:30 06/17/22 09:3
[2022-06-17 15:15] LABS: Hematocrit 33.6 % (37.0-47.0); Hemoglobin 10.6 g/dL (12.0-15.0); Mean Corpuscular HGB Conc 31.5 g/dl (32-36); Mean Corpuscular Hemoglobin 22.7 pg (26-34); Mean Corpuscular Volume 71.9 fl (80-100); Platelet Count Result 372 k/mm3 (150-375); Red Blood Count 4.67 M/mm3 (4.2-5.4); Red Cell Distribution Width 19.1 % (11.5-14.5); White Blood Count 6.7 K/mm3 (4.5-10.0)
[2022-06-17 15:32] LABS: Alanine Aminotransferase 83 U/L (6-35); Albumin Level 2.9 g/dL (3.5-5.1); Alkaline Phosphatase 130 U/L (38-126); Anion Gap 5 mmol/L (8-16); Aspartate Amino Transferase 121 U/L (14-36); Bilirubin,Total 0.8 mg/dL (0.2-1.3); Blood Urea Nitrogen 22 mg/dL (7-17); Calcium 7.7 mg/dL (8.4-10.2); Carbon Dioxide 25 mmol/L (22-30); Chloride 107 mmol/L (98-107); Estimated CRCL calculation 40 ml/min; Estimated Glomerular Filt Rate 41; Glucose 141 mg/dL (65-110); Potassium 4.6 mmol/L (3.4-5.0); Sodium 137 mmol/L (137-145)
[2022-06-17 17:01] LABS: Glucose Point of Care 167 mg/dl (65-105)
[2022-06-17] MEDS: ESCITALOPRAM OXALATE 10 MG TABLET PO (21:07)
[2022-06-17] MEDS: INSULIN GLARGINE (*BKC) 100 UNITS/ML 30 UNITS SUB-Q (21:20)
[2022-06-17] MEDS: ACETAMINOPHEN 500 MG TABLET PO (21:21)
[2022-06-17 22:00] VITALS: BP 91/64; PULSE 69; RESP 18; TEMP 36; O2SAT 100
[2022-06-17 22:33] LABS: Glucose Point of Care 254 mg/dl (65-105)
[2022-06-18 06:00] VITALS: BP 115/64; PULSE 66; RESP 18; TEMP 35.7; O2SAT 100
[2022-06-18 07:23] LABS: Basophils Absolute Auto 0.1 K/mm3 (0.0-0.1); Basophils Percent Auto 1.1 % (0.2-1.2); Eosinophils Absolute Auto 0.4 K/mm3 (0-0.3); Eosinophils Percent Auto 6.6 % (0-4.4); Hemoglobin 10.5 g/dL (12.0-15.0); Immature Granulocyte Absolute 0.02 K/mm3 (0.00-0.031); Immature Granulocyte Percent A 0.3 % (0-0.5); Lymphocytes Percent Auto 23.7 % (18.3-44.2); Mean Corpuscular HGB Conc 30.9 g/dl (32-36); Mean Corpuscular Hemoglobin 22.9 pg (26-34); Mean Corpuscular Volume 74.2 fl (80-100); Mean Platelet Volume 10.4 fl (7.4-10.4); Monocytes Absolute Auto 0.7 K/mm3 (0.1-0.6); Monocytes Percent Auto 11.7 % (2.6-8.5); Neutrophils Absolute Auto 3.6 K/mm3 (1.3-6.7); Neutrophils Percent Auto 56.6 % (45.5-73.1); Platelet Count Result 382 k/mm3 (150-375); Red Blood Count 4.58 M/mm3 (4.2-5.4); Red Cell Distribution Width 19.6 % (11.5-14.5); White Blood Count 6.3 K/mm3 (4.5-10.0)
[2022-06-18 07:38] LABS: Alanine Aminotransferase 77 U/L (6-35); Albumin Level 2.9 g/dL (3.5-5.1); Alkaline Phosphatase 155 U/L (38-126); Anion Gap 4 mmol/L (8-16); Aspartate Amino Transferase 86 U/L (14-36); Bilirubin,Total 0.5 mg/dL (0.2-1.3); Blood Urea Nitrogen 25 mg/dL (7-17); Calcium 7.8 mg/dL (8.4-10.2); Carbon Dioxide 27 mmol/L (22-30); Chloride 104 mmol/L (98-107); Estimated CRCL calculation 40 ml/min; Estimated Glomerular Filt Rate 41; Glucose 210 mg/dL (65-110); Potassium 4.6 mmol/L (3.4-5.0); Sodium 135 mmol/L (137-145)
[2022-06-18 08:01] LABS: Platelet Estimate Adequate (Adequate)
[2022-06-18 08:02] LABS: Hypochromasia 3+ (NORMAL); Ovalocytes 1+ (NORMAL); Schistocytes None Seen (NORMAL); Target Cells 2+ (NORMAL)
[2022-06-18 08:16] LABS: Glucose Point of Care 193 mg/dl (65-105)
[2022-06-18] MEDS: INSULIN ASPART (*BKC) 100 UNITS/ML 10 UNITS SUB-Q ×2 (09:10→17:07)
[2022-06-18] MEDS: FLUTICASONE PROPIONATE 0.05% NA SPR 16 GM BTL (*BKC) 2 SPRAY NASAL (09:11)
[2022-06-18] MEDS: OXYBUTYNIN CHLORIDE 5 MG TABLET PO ×2 (09:12→20:59)
[2022-06-18] MEDS: AMIODARONE HCL 200 MG TABLET PO ×2 (09:12→20:58)
[2022-06-18] MEDS: METOPROLOL TARTRATE 50 MG TAB 100 MG PO (09:12)
[2022-06-18] MEDS: EZETIMIBE 10 MG TABLET PO (09:12)
[2022-06-18] MEDS: ROSUVASTATIN 10 MG TABLET 40 MG PO (09:12)
[2022-06-18] MEDS: APIXABAN 2.5 MG TABLET PO ×2 (09:13→20:57)
[2022-06-18] MEDS: amLODIPine BESYLATE 5 MG TABLET 10 MG PO (09:13)
[2022-06-18] MEDS: CHOLECALCIFEROL 1,000 UNITS TABLET 5000 UNITS PO (09:13)
[2022-06-18] MEDS: MONTELUKAST SODIUM 10 MG TABLET PO (09:13)
[2022-06-18] MEDS: GABAPENTIN 300 MG CAPSULE PO ×2 (09:13→20:57)
[2022-06-18] MEDS: PANTOPRAZOLE 40 MG TABLET PO ×2 (09:15→20:57)
[2022-06-18 11:57] LABS: Glucose Point of Care 82 mg/dl (65-105)
--- NOTE | 2022-06-18 13:49 | PM.IMPN ---
Progress Note: A&P Assessment and Plan (1) Weakness: Code(s): R53.1 - Weakness Status: Acute Assessment and Plan: Resolving, PT/OT pending (2) Pneumonia: Code(s): J18.9 - Pneumonia, unspecified organism Status: Acute Assessment and Plan: 06/18. CC moved of Rocephin azithromycin, blood cultures negative growth to date patient still complains of productive cough shortness of breath (3) Edema, peripheral: Code(s): R60.9 - Edema, unspecified Status: Acute Assessment and Plan: stable (4) Diabetes mellitus: Code(s): E11.9 - Type 2 diabetes mellitus without complications Status: Acute Assessment and Plan: HBA1c ( goal <7.0%) , Optimize JOLIE-inhibitor and statin Routine glucose monitoring. Watch for Hypoglycemia. BMI goal < 25 Exercise, Diet ( low salt- low carb) Weight loss (5) Elevated LFTs: Code(s): R79.89 - Other specified abnormal findings of blood chemistry Status: Acute Assessment and Plan: ultrasound the gallbladder negative Plan DVT prophylaxis. GI prophylaxis. All records reviewed Discussed plan of care with the nursing staff and with the patient in detail. Answered all questions and concerns from the patient. All labs have been reviewed. Code status updated dictation may have been done utilizing a voice recognition system. Attempts have been made to correct errors. However, there may be uncorrected grammatical, spelling, and recognition errors present.d Code status full code Subjective Date/time seen: 06/18/22 13:49 Interval history: still complaining of some shortness of breath and cough Review of Systems Review of Systems: All systems reviewed & are unremarkable except as noted in HPI and below Exam Narrative: GENERAL: Well appearing, well-nourished, non-toxic, in no acute distress. HEAD: Normocephalic, atraumatic. NECK: Supple. No adenopathy, no masses. RESPIRATORY: Airway patent, respirations nonlabored. Clear to auscultation bilaterally, no rales, rhonchi, wheezing. CARDIOVASCULAR: Regular rate and rhythm without murmurs, rubs, or gallops. Peripheral pulses 2+ and equal bilaterally. ABDOMINAL: Soft, nontender, nondistended, no hepatosplenomegaly. Normoactive BS. MUSCULOSKELETAL: no Epigastric and no hypochondrial tenderness SKIN: Warm, dry, normal color. No rashes. NEURO: A&O X3. Moves all extremities PSYCHIATRIC: Appropriate mood and affect. Normal interaction. Objective Data Vital Signs Vital Signs: Vital Signs - 24 hr 06/17/22 14:00 06/17/22 22:00 06/18/22 06:00 Temperature 35.9 C L 36.0 C L 35.7 C L Pulse Rate 61 69 66 Respiratory Rate 20 18 18 Blood Pressure 96/62 L 91/64 L 115/64 Pulse Oximetry 96 100 100 Oxygen Delivery 06/18/22 09:05 Temperature Pulse Rate Respiratory Rate Blood Pressure Pulse Oximetry Oxygen Delivery Room Air Intake/Output Intake/Output: Intake & Output 06/15/22 06/16/22 06/17/22 06/18/22 23:59 23:59 23:59 23:59 Intake Total 1494 1520 2352 760 Output Total 0 5 250 Balance 1494 1515 2352 510 Meds/Results Medications: Active Medications Generic Name Dose Route Start Last Admin Trade Name Freq PRN Reason Stop Dose Admin Acetaminophen 500 mg 06/16/22 12:36 06/17/22 21:21 Acetaminophen 500 Mg Tablet PO 500 mg Q4H PRN Administration Pain Albuterol 2 puff 06/16/22 13:09 Albuterol Sulfate (*Sp) Aerosol 1 Puff INHALATION Q6HRT PRN sob/wheeze Amiodarone HCl 200 mg 06/16/22 13:00 06/18/22 09:12 Amiodarone Hcl 200 Mg Tablet PO 200 mg Q12HR BENITA Administration Amlodipine Besylate 10 mg 06/16/22 13:00 06/18/22 09:13 Amlodipine Besylate 5 Mg Tablet PO 10 mg DAILY BENITA Administration Apixaban 2.5 mg 06/16/22 13:30 06/18/22 09:13 Apixaban 2.5 Mg Tablet PO 2.5 mg Q12HR BENITA Administration Dextrose 12.5 gm 06/16/22 12:37 Dextrose 50% 25 Gm/50 Ml
[2022-06-18 14:00] VITALS: BP 93/60; PULSE 69; RESP 18; TEMP 35.9; O2SAT 97
[2022-06-18 16:21] LABS: Glucose Point of Care 184 mg/dl (65-105)
[2022-06-18] MEDS: ESCITALOPRAM OXALATE 10 MG TABLET PO (20:57)
[2022-06-18 22:00] VITALS: BP 95/58; PULSE 71; RESP 18; TEMP 36.3; O2SAT 96
[2022-06-18 23:23] LABS: Glucose Point of Care 142 mg/dl (65-105)
[2022-06-18] MEDS: INSULIN GLARGINE (*BKC) 100 UNITS/ML 30 UNITS SUB-Q (23:46)
[2022-06-19 07:18] LABS: Basophils Absolute Auto 0.1 K/mm3 (0.0-0.1); Basophils Percent Auto 1.1 % (0.2-1.2); Eosinophils Absolute Auto 0.5 K/mm3 (0-0.3); Eosinophils Percent Auto 6.7 % (0-4.4); Hematocrit 32.4 % (37.0-47.0); Hemoglobin 10.2 g/dL (12.0-15.0); Immature Granulocyte Absolute 0.03 K/mm3 (0.00-0.031); Immature Granulocyte Percent A 0.4 % (0-0.5); Lymphocytes Absolute Auto 1.49 K/mm3 (0.9-3.2); Lymphocytes Percent Auto 21.3 % (18.3-44.2); Mean Corpuscular HGB Conc 31.5 g/dl (32-36); Mean Corpuscular Hemoglobin 23.3 pg (26-34); Mean Platelet Volume 10.2 fl (7.4-10.4); Monocytes Absolute Auto 0.7 K/mm3 (0.1-0.6); Monocytes Percent Auto 10.6 % (2.6-8.5); Neutrophils Absolute Auto 4.2 K/mm3 (1.3-6.7); Neutrophils Percent Auto 59.9 % (45.5-73.1); Platelet Count Result 358 k/mm3 (150-375); Red Blood Count 4.38 M/mm3 (4.2-5.4); Red Cell Distribution Width 19.4 % (11.5-14.5)
[2022-06-19 07:40] LABS: Alanine Aminotransferase 59 U/L (6-35); Albumin Level 2.6 g/dL (3.5-5.1); Alkaline Phosphatase 122 U/L (38-126); Anion Gap 4 mmol/L (8-16); Aspartate Amino Transferase 62 U/L (14-36); Bilirubin,Total 0.4 mg/dL (0.2-1.3); Blood Urea Nitrogen 26 mg/dL (7-17); Calcium 7.8 mg/dL (8.4-10.2); Carbon Dioxide 25 mmol/L (22-30); Chloride 106 mmol/L (98-107); Estimated CRCL calculation 46 ml/min; Estimated Glomerular Filt Rate 48; Glucose 110 mg/dL (65-110); Potassium 4.7 mmol/L (3.4-5.0); Sodium 135 mmol/L (137-145)
[2022-06-19 08:24] LABS: Glucose Point of Care 101 mg/dl (65-105)
[2022-06-19 09:30] VITALS: BP 97/56; PULSE 69; RESP 18; TEMP 35.9; O2SAT 98
[2022-06-19] MEDS: PANTOPRAZOLE 40 MG TABLET PO ×2 (09:52→20:19)
[2022-06-19] MEDS: GABAPENTIN 300 MG CAPSULE PO ×2 (09:52→20:19)
[2022-06-19] MEDS: ROSUVASTATIN 10 MG TABLET 40 MG PO (09:52)
[2022-06-19] MEDS: OXYBUTYNIN CHLORIDE 5 MG TABLET PO ×2 (09:52→20:19)
[2022-06-19] MEDS: CHOLECALCIFEROL 1,000 UNITS TABLET 5000 UNITS PO (09:52)
[2022-06-19] MEDS: MONTELUKAST SODIUM 10 MG TABLET PO (09:52)
[2022-06-19] MEDS: APIXABAN 2.5 MG TABLET PO ×2 (09:52→20:20)
[2022-06-19] MEDS: EZETIMIBE 10 MG TABLET PO (09:52)
[2022-06-19] MEDS: FLUTICASONE PROPIONATE 0.05% NA SPR 16 GM BTL (*BKC) 2 SPRAY NASAL (09:53)
[2022-06-19 10:33] LABS: Platelet Estimate Adequate (Adequate)
[2022-06-19 10:34] LABS: Macrocytosis 2+ (NORMAL); Schistocytes None Seen (NORMAL); Target Cells 1+ (NORMAL)
[2022-06-19 10:35] LABS: Anisocytosis 1+ (NORMAL); Hypochromasia 1+ (NORMAL); Poikilocytosis 1+ (NORMAL)
[2022-06-19 11:59] LABS: Glucose Point of Care 189 mg/dl (65-105)
[2022-06-19] MEDS: AMIODARONE HCL 200 MG TABLET PO ×2 (13:05→20:20)
[2022-06-19] MEDS: INSULIN ASPART (*BKC) 100 UNITS/ML 10 UNITS SUB-Q ×2 (13:05→17:38)
[2022-06-19 14:00] VITALS: BP 105/62; PULSE 69; RESP 16; TEMP 35.9; O2SAT 90
--- NOTE | 2022-06-19 14:12 | PM.IMPN ---
Progress Note: A&P Assessment and Plan (1) Weakness: Code(s): R53.1 - Weakness Status: Acute Assessment and Plan: Resolving, PT/OT pending monitor blood pressure medication which are being readjusted as patient has been running low blood pressure and low heart rate (2) Pneumonia: Code(s): J18.9 - Pneumonia, unspecified organism Status: Acute Assessment and Plan: 06/18. Rocephin azithromycin, blood cultures negative growth to date patient still complains of productive cough shortness of breath (3) Edema, peripheral: Code(s): R60.9 - Edema, unspecified Status: Acute Assessment and Plan: stable (4) Diabetes mellitus: Code(s): E11.9 - Type 2 diabetes mellitus without complications Status: Acute Assessment and Plan: HBA1c ( goal <7.0%) , Optimize JOLIE-inhibitor and statin Routine glucose monitoring. Watch for Hypoglycemia. BMI goal < 25 Exercise, Diet ( low salt- low carb) Weight loss (5) Elevated LFTs: Code(s): R79.89 - Other specified abnormal findings of blood chemistry Status: Acute Assessment and Plan: ultrasound the gallbladder negative Plan DVT prophylaxis. GI prophylaxis. All records reviewed Discussed plan of care with the nursing staff and with the patient in detail. Answered all questions and concerns from the patient. All labs have been reviewed. Code status updated dictation may have been done utilizing a voice recognition system. Attempts have been made to correct errors. However, there may be uncorrected grammatical, spelling, and recognition errors present.d Code status full code Subjective Date/time seen: 06/19/22 14:12 Interval history: still complaining of some shortness of breath and cough Review of Systems Review of Systems: All systems reviewed & are unremarkable except as noted in HPI and below Exam Narrative: GENERAL: Well appearing, well-nourished, non-toxic, in no acute distress. HEAD: Normocephalic, atraumatic. NECK: Supple. No adenopathy, no masses. RESPIRATORY: Airway patent, respirations nonlabored. Clear to auscultation bilaterally, no rales, rhonchi, wheezing. CARDIOVASCULAR: Regular rate and rhythm without murmurs, rubs, or gallops. Peripheral pulses 2+ and equal bilaterally. ABDOMINAL: Soft, nontender, nondistended, no hepatosplenomegaly. Normoactive BS. MUSCULOSKELETAL: no Epigastric and no hypochondrial tenderness SKIN: Warm, dry, normal color. No rashes. NEURO: A&O X3. Moves all extremities PSYCHIATRIC: Appropriate mood and affect. Normal interaction. Objective Data Vital Signs Vital Signs: Vital Signs - 24 hr 06/18/22 22:00 06/19/22 09:30 Temperature 36.3 C L 35.9 C L Pulse Rate 71 69 Respiratory Rate 18 18 Blood Pressure 95/58 L 97/56 L Pulse Oximetry 96 98 Intake/Output Intake/Output: Intake & Output 06/16/22 06/17/22 06/18/22 06/19/22 23:59 23:59 23:59 23:59 Intake Total 1520 2352 1380 0 Output Total 5 750 Balance 1515 2352 630 0 Meds/Results Medications: Active Medications Generic Name Dose Route Start Last Admin Trade Name Freq PRN Reason Stop Dose Admin Acetaminophen 500 mg 06/16/22 12:36 06/17/22 21:21 Acetaminophen 500 Mg Tablet PO 500 mg Q4H PRN Administration Pain Albuterol 2 puff 06/16/22 13:09 Albuterol Sulfate (*Sp) Aerosol 1 Puff INHALATION Q6HRT PRN sob/wheeze Amiodarone HCl 200 mg 06/16/22 13:00 06/19/22 13:05 Amiodarone Hcl 200 Mg Tablet PO 200 mg Q12HR BENITA Administration Amlodipine Besylate 10 mg 06/16/22 13:00 06/19/22 12:31 Amlodipine Besylate 5 Mg Tablet PO Not Given DAILY BENITA Apixaban 2.5 mg 06/16/22 13:30 06/19/22 09:52 Apixaban 2.5 Mg Tablet PO 2.5 mg Q12HR BENITA Administration Dextrose 12.5 gm 06/16/22 12:37 Dextrose 50% 25 Gm/50 Ml Syringe IV PUSH PRN PRN Hypoglycemia Protocol Ezetimibe 10 mg
[2022-06-19 17:20] LABS: Glucose Point of Care 152 mg/dl (65-105)
[2022-06-19 20:20] VITALS: PULSE 79
[2022-06-19] MEDS: CEFDINIR 300 MG CAPSULE PO (20:20)
[2022-06-19] MEDS: INSULIN GLARGINE (*BKC) 100 UNITS/ML 30 UNITS SUB-Q (20:20)
[2022-06-19] MEDS: ESCITALOPRAM OXALATE 10 MG TABLET PO (20:20)
[2022-06-19 21:52] LABS: Glucose Point of Care 224 mg/dl (65-105)
[2022-06-19 22:00] VITALS: BP 109/55; PULSE 78; RESP 14; TEMP 36.6; O2SAT 95
[2022-06-20 06:00] VITALS: BP 118/68; PULSE 70; RESP 16; TEMP 36.1; O2SAT 92
[2022-06-20 06:08] LABS: Basophils Absolute Auto 0.1 K/mm3 (0.0-0.1); Basophils Percent Auto 0.9 % (0.2-1.2); Eosinophils Absolute Auto 0.4 K/mm3 (0-0.3); Eosinophils Percent Auto 5.5 % (0-4.4); Hematocrit 32.4 % (37.0-47.0); Hemoglobin 10.1 g/dL (12.0-15.0); Immature Granulocyte Absolute 0.04 K/mm3 (0.00-0.031); Immature Granulocyte Percent A 0.5 % (0-0.5); Lymphocytes Absolute Auto 1.39 K/mm3 (0.9-3.2); Lymphocytes Percent Auto 18.1 % (18.3-44.2); Mean Corpuscular HGB Conc 31.2 g/dl (32-36); Mean Corpuscular Hemoglobin 23.1 pg (26-34); Monocytes Absolute Auto 0.8 K/mm3 (0.1-0.6); Monocytes Percent Auto 10.3 % (2.6-8.5); Neutrophils Percent Auto 64.7 % (45.5-73.1); Platelet Count Result 369 k/mm3 (150-375); Red Blood Count 4.38 M/mm3 (4.2-5.4); Red Cell Distribution Width 19.7 % (11.5-14.5); White Blood Count 7.7 K/mm3 (4.5-10.0)
[2022-06-20 07:19] LABS: Anisocytosis 1+ (NORMAL); Hypochromasia 2+ (NORMAL); Ovalocytes 1+ (NORMAL); Platelet Estimate Adequate (Adequate); Target Cells 2+ (NORMAL)
[2022-06-20 07:20] LABS: Schistocytes None Seen (NORMAL)
[2022-06-20 07:32] LABS: Glucose Point of Care 121 mg/dl (65-105)
[2022-06-20] MEDS: ROSUVASTATIN 10 MG TABLET 40 MG PO (09:41)
[2022-06-20] MEDS: GABAPENTIN 300 MG CAPSULE PO ×2 (09:42→21:27)
[2022-06-20] MEDS: METOPROLOL TARTRATE 50 MG TAB 100 MG PO (09:42)
[2022-06-20] MEDS: FLUTICASONE PROPIONATE 0.05% NA SPR 16 GM BTL (*BKC) 2 SPRAY NASAL (09:42)
[2022-06-20] MEDS: CEFDINIR 300 MG CAPSULE PO ×2 (09:42→21:27)
[2022-06-20] MEDS: CHOLECALCIFEROL 1,000 UNITS TABLET 5000 UNITS PO (09:42)
[2022-06-20] MEDS: AMIODARONE HCL 200 MG TABLET PO ×2 (09:43→21:27)
[2022-06-20] MEDS: APIXABAN 2.5 MG TABLET PO ×2 (09:44→21:27)
[2022-06-20] MEDS: MONTELUKAST SODIUM 10 MG TABLET PO (09:44)
[2022-06-20] MEDS: EZETIMIBE 10 MG TABLET PO (09:44)
[2022-06-20] MEDS: amLODIPine BESYLATE 5 MG TABLET 10 MG PO (09:44)
[2022-06-20] MEDS: INSULIN ASPART (*BKC) 100 UNITS/ML 10 UNITS SUB-Q ×2 (09:44→12:42)
[2022-06-20] MEDS: PANTOPRAZOLE 40 MG TABLET PO ×2 (09:44→21:27)
[2022-06-20 09:50] LABS: Alanine Aminotransferase 53 U/L (6-35); Albumin Level 2.6 g/dL (3.5-5.1); Alkaline Phosphatase 136 U/L (38-126); Anion Gap 3 mmol/L (8-16); Aspartate Amino Transferase 54 U/L (14-36); Bilirubin,Total 0.5 mg/dL (0.2-1.3); Blood Urea Nitrogen 26 mg/dL (7-17); Calcium 7.8 mg/dL (8.4-10.2); Carbon Dioxide 28 mmol/L (22-30); Chloride 107 mmol/L (98-107); Estimated CRCL calculation 46 ml/min; Estimated Glomerular Filt Rate 48; Glucose 104 mg/dL (65-110); Sodium 138 mmol/L (137-145)
[2022-06-20] MEDS: OXYBUTYNIN CHLORIDE 5 MG TABLET PO ×2 (10:10→21:27)
[2022-06-20 11:30] LABS: Glucose Point of Care 158 mg/dl (65-105)
--- NOTE | 2022-06-20 11:44 | PM.IMPN ---
Progress Note: A&P Assessment and Plan (1) Weakness: Code(s): R53.1 - Weakness Status: Acute Assessment and Plan: PT/OT monitor blood pressure medication which are being readjusted as patient has been running low blood pressure and low heart rate (2) Pneumonia: Code(s): J18.9 - Pneumonia, unspecified organism Status: Acute Assessment and Plan: 06/18. Rocephin azithromycin, blood cultures negative growth to date patient still complains of productive cough shortness of breath will get a repeat chest x-ray (3) Edema, peripheral: Code(s): R60.9 - Edema, unspecified Status: Acute Assessment and Plan: stable (4) Diabetes mellitus: Code(s): E11.9 - Type 2 diabetes mellitus without complications Status: Acute Assessment and Plan: HBA1c ( goal <7.0%) , Optimize JOLIE-inhibitor and statin Routine glucose monitoring. Watch for Hypoglycemia. BMI goal < 25 Exercise, Diet ( low salt- low carb) Weight loss (5) Elevated LFTs: Code(s): R79.89 - Other specified abnormal findings of blood chemistry Status: Acute Assessment and Plan: ultrasound the gallbladder negative Plan DVT prophylaxis. GI prophylaxis. All records reviewed Discussed plan of care with the nursing staff and with the patient in detail. Answered all questions and concerns from the patient. All labs have been reviewed. Code status updated dictation may have been done utilizing a voice recognition system. Attempts have been made to correct errors. However, there may be uncorrected grammatical, spelling, and recognition errors present.d Code status full code Subjective Date/time seen: 06/20/22 11:44 Interval history: patient still complaining of weakness productive cough shortness of breath but appears comfortable in bed Review of Systems Review of Systems: All systems reviewed & are unremarkable except as noted in HPI and below Exam Narrative: GENERAL: Well appearing, well-nourished, non-toxic, in no acute distress. HEAD: Normocephalic, atraumatic. NECK: Supple. No adenopathy, no masses. RESPIRATORY: Airway patent, respirations nonlabored. Clear to auscultation bilaterally, no rales, rhonchi, wheezing. CARDIOVASCULAR: Regular rate and rhythm without murmurs, rubs, or gallops. Peripheral pulses 2+ and equal bilaterally. ABDOMINAL: Soft, nontender, nondistended, no hepatosplenomegaly. Normoactive BS. MUSCULOSKELETAL: no Epigastric and no hypochondrial tenderness SKIN: Warm, dry, normal color. No rashes. NEURO: A&O X3. Moves all extremities PSYCHIATRIC: Appropriate mood and affect. Normal interaction. Objective Data Vital Signs Vital Signs: Vital Signs - 24 hr 06/19/22 14:00 06/19/22 20:20 06/19/22 20:00 Temperature 35.9 C L Pulse Rate 69 79 Respiratory Rate 16 Blood Pressure 105/62 Pulse Oximetry 90 Oxygen Delivery Room Air 06/19/22 22:00 06/20/22 06:00 Temperature 36.6 C 36.1 C L Pulse Rate 78 70 Respiratory Rate 14 16 Blood Pressure 109/55 L 118/68 Pulse Oximetry 95 92 Oxygen Delivery Intake/Output Intake/Output: Intake & Output 06/17/22 06/18/22 06/19/22 06/20/22 23:59 23:59 23:59 23:59 Intake Total 2352 1380 1230 540 Output Total 750 Balance 2352 630 1230 540 Meds/Results Medications: Active Medications Generic Name Dose Route Start Last Admin Trade Name Freq PRN Reason Stop Dose Admin Acetaminophen 500 mg 06/16/22 12:36 06/17/22 21:21 Acetaminophen 500 Mg Tablet PO 500 mg Q4H PRN Administration Pain Albuterol 2 puff 06/16/22 13:09 Albuterol Sulfate (*Sp) Aerosol 1 Puff INHALATION Q6HRT PRN sob/wheeze Amiodarone HCl 200 mg 06/16/22 13:00 06/20/22 09:43 Amiodarone Hcl 200 Mg Tablet PO 200 mg Q12HR BENITA Administration Amlodipine Besylate 10 mg 06/16/22 13:00 06/20/22 09:44 Amlodipine Besylate 5 Mg Tablet PO 10 mg DAILY BENITA
[2022-06-20 13:54] VITALS: BP 121/68; PULSE 70; RESP 18; TEMP 36.7; O2SAT 100
[2022-06-20 16:23] LABS: Glucose Point of Care 102 mg/dl (65-105)
[2022-06-20 21:27] VITALS: PULSE 70
[2022-06-20] MEDS: ESCITALOPRAM OXALATE 10 MG TABLET PO (21:27)
[2022-06-20] MEDS: INSULIN GLARGINE (*BKC) 100 UNITS/ML 30 UNITS SUB-Q (21:27)
[2022-06-20 21:40] LABS: Glucose Point of Care 148 mg/dl (65-105)
[2022-06-20 22:00] VITALS: BP 111/67; PULSE 70; RESP 18; TEMP 36.4; O2SAT 93
[2022-06-20] MEDS: guaiFENesin/DEXTROMETHORPHAN 10 ML UDC 5 ML PO (23:27)
[2022-06-21] VITALS (7 sets, daily range): BP systolic 112–127; BP diastolic 59–74; PULSE 70–76; RESP 16–26; TEMP 36.2–36.6; O2SAT 92–100
[2022-06-21 06:58] LABS: Basophils Absolute Auto 0.1 K/mm3 (0.0-0.1); Basophils Percent Auto 1.1 % (0.2-1.2); Eosinophils Absolute Auto 0.4 K/mm3 (0-0.3); Eosinophils Percent Auto 4.9 % (0-4.4); Hematocrit 32.8 % (37.0-47.0); Hemoglobin 10.2 g/dL (12.0-15.0); Immature Granulocyte Absolute 0.06 K/mm3 (0.00-0.031); Immature Granulocyte Percent A 0.7 % (0-0.5); Lymphocytes Absolute Auto 1.48 K/mm3 (0.9-3.2); Lymphocytes Percent Auto 18.1 % (18.3-44.2); Mean Corpuscular HGB Conc 31.1 g/dl (32-36); Mean Corpuscular Hemoglobin 22.7 pg (26-34); Mean Corpuscular Volume 73.1 fl (80-100); Mean Platelet Volume 9.7 fl (7.4-10.4); Monocytes Absolute Auto 0.8 K/mm3 (0.1-0.6); Monocytes Percent Auto 9.8 % (2.6-8.5); Neutrophils Absolute Auto 5.4 K/mm3 (1.3-6.7); Neutrophils Percent Auto 65.4 % (45.5-73.1); Platelet Count Result 376 k/mm3 (150-375); Red Blood Count 4.49 M/mm3 (4.2-5.4); Red Cell Distribution Width 19.5 % (11.5-14.5); White Blood Count 8.2 K/mm3 (4.5-10.0)
[2022-06-21 07:15] LABS: Alanine Aminotransferase 44 U/L (6-35); Albumin Level 2.9 g/dL (3.5-5.1); Alkaline Phosphatase 134 U/L (38-126); Anion Gap 4 mmol/L (8-16); Aspartate Amino Transferase 58 U/L (14-36); Bilirubin,Total 0.6 mg/dL (0.2-1.3); Blood Urea Nitrogen 24 mg/dL (7-17); Calcium 7.6 mg/dL (8.4-10.2); Carbon Dioxide 28 mmol/L (22-30); Chloride 103 mmol/L (98-107); Estimated CRCL calculation 46 ml/min; Estimated Glomerular Filt Rate 48; Glucose 147 mg/dL (65-110); Potassium 4.4 mmol/L (3.4-5.0); Sodium 135 mmol/L (137-145)
[2022-06-21 08:01] LABS: Anisocytosis 1+ (NORMAL); Hypochromasia 1+ (NORMAL); Ovalocytes 1+ (NORMAL); Platelet Estimate Adequate (Adequate); Target Cells 2+ (NORMAL)
[2022-06-21 08:02] LABS: Schistocytes None Seen (NORMAL)
[2022-06-21] MEDS: ONDANSETRON INJ 4 MG/2 ML VIAL IV PUSH (08:14)
[2022-06-21] MEDS: EZETIMIBE 10 MG TABLET PO (08:15)
[2022-06-21] MEDS: METOPROLOL TARTRATE 50 MG TAB 100 MG PO (08:15)
[2022-06-21] MEDS: CEFDINIR 300 MG CAPSULE PO (08:15)
[2022-06-21] MEDS: CHOLECALCIFEROL 1,000 UNITS TABLET 5000 UNITS PO (08:15)
[2022-06-21] MEDS: GABAPENTIN 300 MG CAPSULE PO ×2 (08:15→20:35)
[2022-06-21] MEDS: ROSUVASTATIN 10 MG TABLET 40 MG PO (08:15)
[2022-06-21] MEDS: OXYBUTYNIN CHLORIDE 5 MG TABLET PO ×2 (08:15→20:35)
[2022-06-21] MEDS: PANTOPRAZOLE 40 MG TABLET PO ×2 (08:16→20:35)
[2022-06-21] MEDS: FLUTICASONE PROPIONATE 0.05% NA SPR 16 GM BTL (*BKC) 2 SPRAY NASAL (08:16)
[2022-06-21] MEDS: AMIODARONE HCL 200 MG TABLET PO ×2 (08:16→20:35)
[2022-06-21] MEDS: APIXABAN 2.5 MG TABLET PO ×2 (08:16→20:35)
[2022-06-21] MEDS: MONTELUKAST SODIUM 10 MG TABLET PO (08:16)
[2022-06-21 08:23] LABS: Glucose Point of Care 140 mg/dl (65-105)
--- NOTE | 2022-06-21 10:20 | PCNWS ---
Weekly nutritional screen. Patient is tolerating current diet with adequate intake. No weight loss reported. No nutritional needs at this time.
[2022-06-21 11:41] LABS: Glucose Point of Care 233 mg/dl (65-105)
--- NOTE | 2022-06-21 11:58 | PM.IMPN ---
Progress Note: A&P Assessment and Plan (1) Weakness: Code(s): R53.1 - Weakness Status: Acute Assessment and Plan: Per PT patient is doing well. Weakness likely multifactorial due to chronic debility and current illness as well as relatively recent diagnosis of COVID19 on 06/05/22. -Continue treatment for pneumonia -Continue PT/OT (2) Pneumonia: Code(s): J18.9 - Pneumonia, unspecified organism Status: Acute Assessment and Plan: Continue treatment with cefdinir. Azithromycin treatment completed. Will monitor. (3) Edema, peripheral: Code(s): R60.9 - Edema, unspecified Status: Acute Assessment and Plan: Will give furosemide today. (4) Diabetes mellitus: Code(s): E11.9 - Type 2 diabetes mellitus without complications Status: Acute Assessment and Plan: Takes glargine and aspart at home. Will continue. -POC glucose -Glargine 30 units hs -Aspart 10 units with meals -SSI (5) Elevated LFTs: Code(s): R79.89 - Other specified abnormal findings of blood chemistry Status: Acute Assessment and Plan: HBV, HCV, HAV negative. Ultrasound the gallbladder negative. LFTs stable. Will monitor. (6) Cough: Code(s): R05.9 - Cough, unspecified Status: Acute Assessment and Plan: This could be due to pneumonia, relatively recent COVID19 infection 06/05/22. Due to worsening during hospitalizaton CXR was obtained, which showed pulmonary vascular congestion. Also has significant leg edema on exam. -Furosemide 20 mg po x1 today (7) Hypertension: Qualifiers: Hypertension type: essential hypertension Qualified Code(s): I10 - Essential (primary) hypertension Code(s): I10 - Essential (primary) hypertension Status: Chronic Assessment and Plan: Takes amlodipine and metoprolol at home. There was some concern about hypotension, but this has resolved. Patient now normotensive on her antihypertensive medications. -Continue amlodipine 10 mg po daily -Continue metoprolol 100 mg po daily (8) Paroxysmal atrial fibrillation: Code(s): I48.0 - Paroxysmal atrial fibrillation Status: Acute Assessment and Plan: EKG with atrial fibrillation with RVR on admission on 06/14/22. Patient rate controlled on metoprolol and amiodarone. Apixaban for stroke prophylaxis. -Will repeat EKG for AM -Continue apixaban -Continue metoprolol -Continue amiodarone (9) Elevated serum creatinine: Code(s): R79.89 - Other specified abnormal findings of blood chemistry Status: Acute Assessment and Plan: Creatinine normal until 12/10/2020. New baseline appears to be around 1.3. Currently at baseline. Will monitor. -Renal ultrasound -Renal artery duplex Subjective Date/time seen: 06/21/22 11:58 Patient says she feels very tired. PT had just finished working with the patient. She says she feels like her cough has worsened since arriving in the hospital. Says she is producing a significant amount of sputum. Says she feels like she cannot breathe. Patient says she feels weak all over. sitting at bedside. Review of Systems Respiratory: Respiratory: Reports cough and Reports dyspnea Exam Narrative: GENERAL: NAD, cooperative HEENT: Normocephalic, atraumatic, anicteric NECK: Supple CV: Normal S1, S2, RRR, No MRG RESP:Crackles to left base EXTREMITIES: Warm and well perfused, no clubbing, cyanosis. 1+ pitting edema to bilateral LE up to arriaga SKIN: warm, dry and intact. NEURO: CN II-XII grossly intact. Objective Data Vital Signs Vital Signs: Vital Signs - 24 hr 06/20/22 21:27 06/20/22 20:00 06/20/22 22:00 Temperature 36.4 C L Pulse Rate 70 70 Respiratory Rate 18 Blood Pressure 111/67 Pulse Oximetry 93 Oxygen Delivery Room Air 06/21/22 06:00 06/21/22 08:15 06/21/22 08:16 Temperature 3
[2022-06-21] MEDS: INSULIN ASPART (*BKC) 100 UNITS/ML 10 UNITS SUB-Q (13:00)
[2022-06-21 16:44] LABS: Glucose Point of Care 138 mg/dl (65-105)
[2022-06-21] MEDS: FUROSEMIDE 20 MG TABLET PO (17:34)
[2022-06-21] MEDS: ESCITALOPRAM OXALATE 10 MG TABLET PO (20:35)
[2022-06-21] MEDS: INSULIN GLARGINE (*BKC) 100 UNITS/ML 30 UNITS SUB-Q (20:36)
[2022-06-21 21:04] LABS: Glucose Point of Care 188 mg/dl (65-105)
[2022-06-22 06:00] VITALS: BP 118/65; PULSE 70; RESP 14; TEMP 36.1; O2SAT 92
[2022-06-22 06:43] LABS: Basophils Absolute Auto 0.1 K/mm3 (0.0-0.1); Basophils Percent Auto 1.1 % (0.2-1.2); Eosinophils Absolute Auto 0.4 K/mm3 (0-0.3); Eosinophils Percent Auto 4.8 % (0-4.4); Hematocrit 33.3 % (37.0-47.0); Hemoglobin 10.1 g/dL (12.0-15.0); Immature Granulocyte Absolute 0.06 K/mm3 (0.00-0.031); Immature Granulocyte Percent A 0.7 % (0-0.5); Lymphocytes Percent Auto 17.8 % (18.3-44.2); Mean Corpuscular HGB Conc 30.3 g/dl (32-36); Mean Corpuscular Hemoglobin 22.9 pg (26-34); Mean Corpuscular Volume 75.5 fl (80-100); Mean Platelet Volume 10.1 fl (7.4-10.4); Monocytes Absolute Auto 0.9 K/mm3 (0.1-0.6); Monocytes Percent Auto 10.7 % (2.6-8.5); Neutrophils Absolute Auto 5.5 K/mm3 (1.3-6.7); Neutrophils Percent Auto 64.9 % (45.5-73.1); Platelet Count Result 402 k/mm3 (150-375); Red Blood Count 4.41 M/mm3 (4.2-5.4); Red Cell Distribution Width 19.8 % (11.5-14.5); White Blood Count 8.4 K/mm3 (4.5-10.0)
[2022-06-22 07:15] LABS: Alanine Aminotransferase 40 U/L (6-35); Albumin Level 2.9 g/dL (3.5-5.1); Alkaline Phosphatase 111 U/L (38-126); Anion Gap 4 mmol/L (8-16); Aspartate Amino Transferase 49 U/L (14-36); Bilirubin,Total 0.7 mg/dL (0.2-1.3); Blood Urea Nitrogen 20 mg/dL (7-17); Calcium 7.5 mg/dL (8.4-10.2); Carbon Dioxide 29 mmol/L (22-30); Chloride 102 mmol/L (98-107); Estimated CRCL calculation 46 ml/min; Estimated Glomerular Filt Rate 48; Glucose 93 mg/dL (65-110); Potassium 4.3 mmol/L (3.4-5.0); Sodium 135 mmol/L (137-145)
--- NOTE | 2022-06-22 08:00 | ECG_ITS ---
Measurements Intervals [place] Rate: 69 P: 115 UT: 262 QRS: -8 QRSD: 105 T: -20 QT: 454 QTc: 489 Interpretive Statements ELECTRONIC ATRIAL PACEMAKER MINIMAL ST DEPRESSION [0.025+ mV ST DEPRESSION] PROLONGED QT INTERVAL COMPARED TO ECG 06/14/2022 13:14:40 ST (T WAVE) DEVIATION NOW PRESENT PROLONGED QT INTERVAL NOW PRESENT Electronically Signed On 06-22-2022 16:06:31 [facility] SPECIALIST by Saúl Almaraz M.D.
[2022-06-22 08:05] LABS: Glucose Point of Care 82 mg/dl (65-105)
--- NOTE | 2022-06-22 08:09 | PM.IMPN ---
Subjective Date/time seen: 06/22/22 08:09 Objective Data Vital Signs Vital Signs: Vital Signs - 24 hr 06/21/22 08:15 06/21/22 08:16 06/21/22 10:25 Temperature Pulse Rate 76 76 Respiratory Rate Blood Pressure Pulse Oximetry 92 Oxygen Delivery Room Air 06/21/22 14:00 06/21/22 20:35 06/21/22 20:00 Temperature 36.6 C Pulse Rate 70 70 Respiratory Rate 26 H Blood Pressure 127/74 Pulse Oximetry 93 Oxygen Delivery Room Air 06/21/22 22:00 06/22/22 06:00 Temperature 36.2 C L 36.1 C L Pulse Rate 72 70 Respiratory Rate 16 14 Blood Pressure 120/59 L 118/65 Pulse Oximetry 96 92 Oxygen Delivery Intake/Output Intake/Output: Intake & Output 06/19/22 06/20/22 06/21/22 06/22/22 23:59 23:59 23:59 23:59 Intake Total 1230 1340 1280 670 Output Total 100 400 Balance 1230 1340 1180 270 Meds/Results Medications: Active Medications Generic Name Dose Route Start Last Admin Trade Name Freq PRN Reason Stop Dose Admin Acetaminophen 500 mg 06/16/22 12:36 06/17/22 21:21 Acetaminophen 500 Mg Tablet PO 500 mg Q4H PRN Administration Pain Albuterol 2 puff 06/16/22 13:09 Albuterol Sulfate (*Sp) Aerosol 1 Puff INHALATION Q6HRT PRN sob/wheeze Amiodarone HCl 200 mg 06/16/22 13:00 06/21/22 20:35 Amiodarone Hcl 200 Mg Tablet PO 200 mg Q12HR BENITA Administration Amlodipine Besylate 10 mg 06/16/22 13:00 06/21/22 20:13 Amlodipine Besylate 5 Mg Tablet PO Not Given DAILY BENITA Apixaban 2.5 mg 06/16/22 13:30 06/21/22 20:35 Apixaban 2.5 Mg Tablet PO 2.5 mg Q12HR BENITA Administration Dextrose 12.5 gm 06/16/22 12:37 Dextrose 50% 25 Gm/50 Ml Syringe IV PUSH PRN PRN Hypoglycemia Protocol Ezetimibe 10 mg 06/16/22 13:00 06/21/22 08:15 Ezetimibe 10 Mg Tablet PO 10 mg DAILY BENITA Administration Escitalopram Oxalate 10 mg 06/16/22 21:00 06/21/22 20:35 Escitalopram Oxalate 10 Mg Tablet PO 10 mg HS BENITA Administration Fluticasone Propionate 2 spray 06/16/22 13:00 06/21/22 08:16 Fluticasone Propionate 0.05% Na Spr 16 Gm Btl (*Bkc) NASAL 2 spray DAILY BENITA Administration Gabapentin 300 mg 06/16/22 21:00 06/21/22 20:35 Gabapentin 300 Mg Capsule PO 300 mg Q12HR BENITA Administration Glucagon 1 mg 06/16/22 12:37 Glucagon For Inj 1 Mg Vial IM PRN PRN Hypoglycemia Protocol Glucose 15 gm 06/16/22 12:37 Glucose Oral Gel 15 Gm Of Glucse In 37.5 Gm Tube PO PRN PRN Hypoglycemia Protocol Guaifenesin/Dextromethorphan 5 ml 06/20/22 23:15 06/20/22 23:27 Guaifenesin/Dextromethorphan 10 Ml Udc PO 5 ml Q4H PRN Administration Cough Dextrose 1,000 mls @ 100 mls/hr 06/16/22 12:37 Dextrose 5% 1,000 Ml IVPB PRN PRN Hypoglycemia Protocol Insulin Aspart 10 units 06/17/22 17:00 06/21/22 20:14 Insulin Aspart (*Bkc) 100 Units/Ml SUB-Q Not Given [facility] Insulin Glargine 30 units 06/17/22 21:00 06/21/22 20:36 Insulin Glargine (*Bkc) 100 Units/Ml SUB-Q 30 units HS BENITA Administration Metoprolol Tartrate 100 mg 06/16/22 13:00 06/21/22 08:15 Metoprolol Tartrate 50 Mg Tab PO 100 mg DAILY BENITA Administration Montelukast Sodium 10 mg 06/16/22 13:00 06/21/22 08:16 Montelukast Sodium 10 Mg Tablet PO 10 mg DAILY BENITA Administration Ondansetron HCl 4 mg 06/16/22 18:04 06/21/22 08:14 Ondansetron Inj 4 Mg/2 Ml Vial IV PUSH 4 mg Q4H PRN Administration Nausea And Vomiting Oxybutynin Chloride 5 mg 06/16/22 21:00 06/21/22 20:35 Oxybutynin Chloride 5 Mg Tablet PO 5 mg Q12HR BENITA Administration Pantoprazole Sodium 40 mg 06/16/22 21:00 06/21/22 20:35 Pantoprazole 40 Mg Tablet PO 40 mg Q12HR BENITA Administration Rosuvastatin Calcium 40 mg 06/16/22 13:00 06/21/22 08:15 Rosuvastatin 10 Mg Tablet PO 40 mg DAILY BENITA Administration Vitamin D 5,000 units 06/17/22
[2022-06-22 09:50] VITALS: PULSE 72
[2022-06-22] MEDS: METOPROLOL TARTRATE 50 MG TAB 100 MG PO (09:50)
[2022-06-22] MEDS: FLUTICASONE PROPIONATE 0.05% NA SPR 16 GM BTL (*BKC) 2 SPRAY NASAL (09:50)
[2022-06-22 09:51] VITALS: PULSE 72
[2022-06-22] MEDS: PANTOPRAZOLE 40 MG TABLET PO (09:51)
[2022-06-22] MEDS: GABAPENTIN 300 MG CAPSULE PO (09:51)
[2022-06-22] MEDS: MONTELUKAST SODIUM 10 MG TABLET PO (09:51)
[2022-06-22] MEDS: EZETIMIBE 10 MG TABLET PO (09:51)
[2022-06-22] MEDS: AMIODARONE HCL 200 MG TABLET PO (09:51)
[2022-06-22] MEDS: APIXABAN 2.5 MG TABLET PO (09:52)
[2022-06-22] MEDS: OXYBUTYNIN CHLORIDE 5 MG TABLET PO (09:52)
[2022-06-22] MEDS: CHOLECALCIFEROL 1,000 UNITS TABLET 5000 UNITS PO (09:52)
[2022-06-22] MEDS: ROSUVASTATIN 10 MG TABLET 40 MG PO (09:52)
[2022-06-22 11:40] LABS: Glucose Point of Care 147 mg/dl (65-105)
[2022-06-22] MEDS: INSULIN ASPART (*BKC) 100 UNITS/ML 10 UNITS SUB-Q (12:49)
[2022-06-22] MEDS: polyethylene glycoL 3350 17 GM POWD.PACK PO (12:50)
--- NOTE | 2022-06-22 13:24 | PM.DS ---
DS: Admitting Diagnosis Discharge Date 06/22/2022 Admitting Diagnosis Generalized Weakness, Pneumonia DS: Discharge Diagnosis Discharge Diagnosis (1) Weakness: Code(s): R53.1 - Weakness Status: Acute Assessment and Plan: Patient reported feeling stronger today and is ready for discharge to [facility]. Will continue rehab at [facility]. -Continue treatment for pneumonia -Continue PT/OT (2) Pneumonia: Code(s): J18.9 - Pneumonia, unspecified organism Status: Acute Assessment and Plan: Pneumonia treatment completed initially with ceftriaxone and azithromycin. Then was transitioned to cefdinir, which was completed on 06/21/22. (3) Edema, peripheral: Code(s): R60.9 - Edema, unspecified Status: Acute Assessment and Plan: Has less leg edema today. May benefit from intermittent furosemide prescribed by primary care physician. Will need follow up outpatient by primary care physician. (4) Diabetes mellitus: Code(s): E11.9 - Type 2 diabetes mellitus without complications Status: Acute Assessment and Plan: Will resume home Basaglar and novolog at home dose. Was given glargine and aspart while inpatient as her home insulin was not on formulary for the hospital. (5) Elevated LFTs: Code(s): R79.89 - Other specified abnormal findings of blood chemistry Status: Acute Assessment and Plan: HBV, HCV, HAV negative. Ultrasound the gallbladder negative. LFTs improved. Will monitor. (6) Cough: Code(s): R05.9 - Cough, unspecified Status: Acute Assessment and Plan: This could be due to pneumonia, relatively recent COVID19 infection 06/05/22. Due to worsening during hospitalizaton CXR was obtained, which showed pulmonary vascular congestion. Gave furosemide yesterday and volume status appears improved. Cough is still present but has not worsened. Due to chronic leg swelling patient may benefit from taking furosemide intermittently. This will need to be discussed with the primary care physician. (7) Hypertension: Qualifiers: Hypertension type: essential hypertension Qualified Code(s): I10 - Essential (primary) hypertension Code(s): I10 - Essential (primary) hypertension Status: Chronic Assessment and Plan: Takes amlodipine and metoprolol at home. There was some concern about hypotension, but this has resolved. Patient now normotensive on her antihypertensive medications. -Continue amlodipine 10 mg po daily -Continue metoprolol 100 mg po daily (8) Paroxysmal atrial fibrillation: Code(s): I48.0 - Paroxysmal atrial fibrillation Status: Acute Assessment and Plan: EKG with atrial fibrillation with RVR on admission on 06/14/22. Repeat EKG shows pacing with a rate of 69. Will continue amiodarone, metoprolol and apixaban for discahrge. (9) Elevated serum creatinine: Code(s): R79.89 - Other specified abnormal findings of blood chemistry Status: Acute Assessment and Plan: Creatinine normal until 12/10/2020. New baseline appears to be around 1.3. Renal ultrasound and renal artery duplex showed normal kidneys without renal artery stenosis. The change in creatinine was discussed with the patient as well as the plan to obtain the studies but that the additional workup or referral would need to be made by the primary care physician. DS: Summary Hospital Course Reason for hospitalization: Generalized weakness, Pneumonia Hospital Course: 76F with a past medical history of stroke, diabetes, atrial flutter, beta thalassemia trait, anemia, obstructive sleep apnea, paroxysmal atrial fibrillation, subdural hematoma, KOHINOOR OPERATOR shunt, pacemaker 2/2 bradyarrhythmia who presented to the emergency department on 06/14/22 with generalized weakness, poor appetite, shortness of breath with bilateral LE edema and was fo
[2022-06-22 14:00] VITALS: BP 112/57; PULSE 73; RESP 18; TEMP 36.2; O2SAT 96
== END 2022-06-22 16:00 | DRG 195 ==
LOC: ANHED 22:11 → ANH3MEDSUR 06-16 16:02
PROVIDERS: Emergency Medicine; Internal Medicine; Student in an Organized Health Care Education/Training Program; Admitting Provider Internal Medicine; Emergency Provider Emergency Medicine; PCP Family Medicine; Visit Provider Family Medicine
DX: J18.9 Pneumonia, unspecified organism (principal); I69.391 Dysphagia following cerebral infarction; R13.10 Dysphagia, unspecified; D56.3 Thalassemia minor; D64.9 Anemia, unspecified; E11.9 Type 2 diabetes mellitus without complications; E78.5 Hyperlipidemia, unspecified; G47.33 Obstructive sleep apnea (adult) (pediatric); I48.0 Paroxysmal atrial fibrillation; I10 Essential (primary) hypertension; M19.90 Unspecified osteoarthritis, unspecified site; R60.9 Edema, unspecified; R79.89 Other specified abnormal findings of blood chemistry; R05.3 Chronic cough; Z20.822 Contact with and (suspected) exposure to COVID-19; Z86.16 Personal history of COVID-19; Z90.49 Acquired absence of other specified parts of digestive tract; Z96.653 Presence of artificial knee joint, bilateral; Z87.891 Personal history of nicotine dependence; Z95.0 Presence of cardiac pacemaker; Z79.4 Long term (current) use of insulin; Z86.718 Personal history of other venous thrombosis and embolism; Z93.1 Gastrostomy status; Z98.2 Presence of cerebrospinal fluid drainage device
CPT/HCPCS: 36415; 70450; 71045; 71046; 73562; 76705; 76775; 80053; 80074; 81001; 82948; 83880; 84484; 85025; 85027; 87040; 87636; 92610; 93005; 93976; 97110; 97116; 97161; 97165; 97530; 97535; 99285; A9270; J0456; J0696; J1815; J2405; J7030

== ENCOUNTER 2022-07-04 21:10 | Inpatient (IN) | payer MEDICARE, SELFPAY ==
--- NOTE | ~2022-07-04 | XR_ITS ---
XR chest 1V portable DATE: 07/05/2022 14:27 INDICATION: Altered mental state. Low oxygen saturation. TECHNIQUE: Portable upright AP chest on 06/27/2022 at 1419 hours COMPARISON: 07/04/2022 portable AP chest at 2127 hours FINDINGS: Cardiomegaly. Left-sided dual-lead pacemaker device with leads overlying right atrium and r ight ventricle. There is pulmonary vascular congestion and redistribution. There is prominence of the minor fissure c onsistent with subpleural edema. There are bilateral primarily central and lower lung zone infiltrate s suggesting pulmonary edema, increased since 07/04/2022. Pneumonia or aspiration are not excluded. Small pleural effusions are suggested. No pneumothorax. Apparent ventriculoperitoneal shunt catheter overlies the right neck, chest and abdomen. IMPRESSION: Congestive heart failure, pulmonary edema, increased since 07/04/2022 Reviewed, dictated and finalized at location A. RFACE DEVELOPER IMPRESSION: Congestive heart failure, pulmonary edema, increased since 07/04/20 22
--- NOTE | ~2022-07-04 | US_ITS ---
EXAMINATION: US venous doppler [facility] DATE: 07/06/2022 21:47 INDICATION: Lower limb edema. TECHNIQUE: Grayscale ultrasound images without and with compression and Doppler ultrasound images of the bilateral lower extremity veins were obtained. COMPARISON: None. FINDINGS: The visualized portions of right common femoral vein, profunda (deep) femoral vein, femoral vein, pop liteal vein, posterior tibial veins, and greater saphenous vein outflow are patent. The visualized portions of left common femoral vein, profunda femoral vein, femoral vein, popliteal v ein, posterior tibial veins, and greater saphenous vein outflow are patent. IMPRESSION: 1. No deep venous thrombosis. Reviewed, dictated and finalized at location A. PULLER
--- NOTE | ~2022-07-04 | XR_ITS ---
EXAMINATION: XR chest 1V portable Exam Date/Time: 07/04/2022 21:30 FOOD SAFETY MANAGER HISTORY: weakness, low O2. Hx afib, htn, cva Comparison: None available. RESULT: Lines, tubes, and devices: Left chest pacer with intact leads. Lungs and pleura: Ill-defined patchy subsegmental opacities in the right lower lung. Stable scar/ate lectasis in the left lung base. Cardiomediastinal silhouette: Stable. Other: No acute osseous or upper abdominal finding. IMPRESSION: Subsegmental right lower lobe atelectasis/consolidation. Reviewed, dictated and finalized at location K. SAFETY MANAGER
[2022-07-04 21:12] VITALS: BP 144/82; PULSE 79; RESP 19; TEMP 36.8; O2SAT 85
--- NOTE | 2022-07-04 21:16 | ECG_ITS ---
Measurements Intervals [place] Rate: 69 P: 222 IA: 214 QRS: -8 QRSD: 106 T: 26 QT: 417 QTc: 449 Interpretive Statements ELECTRONIC ATRIAL PACEMAKER ABNORMAL RHYTHM ECG COMPARED TO ECG 06/22/2022 11:24:54 PROLONGED QT INTERVAL NO LONGER PRESENT Electronically Signed On 07-05-2022 13:17:03 COMMUNICATION EQUIPMENT REPAIRER by Saúl Almaraz M.D.
[2022-07-04 21:28] VITALS: O2SAT 96
[2022-07-04 21:45] LABS: Basophils Absolute Auto 0.1 K/mm3 (0.0-0.1); Basophils Percent Auto 0.4 % (0.2-1.2); Eosinophils Absolute Auto 0.3 K/mm3 (0-0.3); Eosinophils Percent Auto 2.1 % (0-4.4); Hematocrit 37.6 % (37.0-47.0); Hemoglobin 11.5 g/dL (12.0-15.0); Immature Granulocyte Absolute 0.09 K/mm3 (0.00-0.031); Immature Granulocyte Percent A 0.7 % (0-0.5); Mean Corpuscular HGB Conc 30.6 g/dl (32-36); Mean Corpuscular Hemoglobin 23.3 pg (26-34); Mean Corpuscular Volume 76.1 fl (80-100); Mean Platelet Volume 10.5 fl (7.4-10.4); Monocytes Absolute Auto 0.8 K/mm3 (0.1-0.6); Monocytes Percent Auto 6.3 % (2.6-8.5); Neutrophils Absolute Auto 9.9 K/mm3 (1.3-6.7); Neutrophils Percent Auto 81.5 % (45.5-73.1); Nucleated Red Blood Cells Perc 0.2 % (0.0-0.2); Platelet Count Result 373 k/mm3 (150-375); Red Blood Count 4.94 M/mm3 (4.2-5.4); Red Cell Distribution Width 21.5 % (11.5-14.5); White Blood Count 12.2 K/mm3 (4.5-10.0)
[2022-07-04 21:55] LABS: Alanine Aminotransferase 53 U/L (6-35); Albumin Level 3.3 g/dL (3.5-5.1); Alkaline Phosphatase 125 U/L (38-126); Anion Gap 5 mmol/L (8-16); Aspartate Amino Transferase 116 U/L (14-36); Bilirubin,Total 1.7 mg/dL (0.2-1.3); Blood Urea Nitrogen 20 mg/dL (7-17); Calcium 7.5 mg/dL (8.4-10.2); Carbon Dioxide 28 mmol/L (22-30); Chloride 106 mmol/L (98-107); Estimated CRCL calculation 34 ml/min; Estimated Glomerular Filt Rate 33; Glucose 171 mg/dL (65-110); Potassium 5.1 mmol/L (3.4-5.0); Sodium 139 mmol/L (137-145)
[2022-07-04 22:02] VITALS: BP 122/62; PULSE 71; RESP 26; O2SAT 93
[2022-07-04 22:09] VITALS: PULSE 70; O2SAT 94
[2022-07-04 22:22] LABS: Influenza A QL RT-PCR Negative (Negative); Influenza B QL RT-PCR Negative (Negative); RSV RNA, RT-PCR Negative (Negative); SARS-CoV-2 RNA PCR Negative
--- NOTE | 2022-07-04 22:41 | PM.IMHP ---
H&P: HPI History of Present Illness Date/Time: 07/04/22 22:41 Chief Complaint: Shortness of breath Narrative: This is a 76-year-old female with past medical history significant for type 2 diabetes mellitus, chronic kidney disease, GERD, dyslipidemia, paroxysmal atrial fibrillation, atrial flutter, beta thalassemia trait, stroke, obstructive sleep apnea. Patient wishes recently discharged home from [facility] after she was treated for community-acquired pneumonia however patient comes back today due to generalized malaise, poor appetite, shortness of breath, body aches and pains, chills, fevers, generalized weakness. In emergency room patient received Ceftriaxone and Zithromax. Preliminary workup was significant for a chest x-ray was reported as: RESULT: Lines, tubes, and devices:? Left chest pacer with intact leads. Lungs and pleura:? Ill-defined patchy subsegmental opacities in the right lower lung. Stable scar/atelectasis in the left lung base. Cardiomediastinal silhouette:? Stable. Other:? No acute osseous or upper abdominal finding. ? IMPRESSION: Subsegmental right lower lobe atelectasis/consolidation. metabolic profile was significant for a creatinine of 1.8 A brain natriuretic peptide was 2000 potassium was 5.1 total bili was 1.7. Patient has been admitted for further evaluation management and treatment. Review of Systems Constitutional: Constitutional: Reports body ache(s), Reports chills, Reports fatigue, Reports fever(s), Reports lethargy, Reports malaise, Reports night sweats, Reports poor appetite and Reports weakness Eyes: Eyes: Denies change in vision ENT: Denies dysphagia and Denies odynophagia Cardiovascular: Cardiovascular: Denies chest pain, Reports leg edema, Denies lightheadedness and Denies palpitations Respiratory: Respiratory: Reports chest congestion, Reports cough, Reports dyspnea and Denies wheezing Gastrointestinal: Gastrointestinal: Denies abdominal pain, Denies dyspepsia, Denies heartburn, Denies nausea and Denies vomiting Genitourinary: Genitourinary: Denies dysuria Musculoskeletal: Musculoskeletal: Reports myalgias Integumentary/Breasts: Skin/Breast: Denies rash Neurologic: Denies vertigo, Denies dizziness, Denies focal weakness and Denies Sensory deficit (Neuro) Psychiatric: Psychiatric: Reports no additional psychiatric complaints and Reports as per HPI Endocrine: Endocrine: Denies cold intolerance, Denies flushing, Denies heat intolerance, Denies polyphagia, Denies polydipsia and Denies palpitations Hematologic/Lymphatic: Hematologic/Lymphatic: Reports no additional hematologic/lymphatic complaints and Reports as per HPI Allergic/Immunologic: Allergic/Immunologic: Reports no additional allergic/immunologic complaints and Reports as per HPI PMFSH Past Medical History Medical History (Updated 07/05/22 @ 02:46 by Andrea Gaviria MD) Atrial flutter Atrial flutter with rapid ventricular response Beta thalassemia trait Catheter-associated urinary tract infection Cerebrovascular accident, embolic (~12/2017) Chronic anemia Diabetes mellitus DVT (deep venous thrombosis) Dysphagia As a result of previous strokes. G-tube in place. Gastrostomy tube in place History of intracranial hemorrhage Hydrocephalus (~02/2020) Status post PLANT OPERATOR/SHIFT SUPERVISOR shunt. Hyperlipidemia Intolerant to statins. Hypertension Indwelling Aparicio catheter present Intracerebral hemorrhage (~02/2020) Hemorrhagic stroke occurred while she was on Eliquis, and she was hospitalized at [facility] at that time. Obstructive sleep apnea Osteoarthritis PAF (paroxysmal atrial fibrillation) Paroxysmal atrial fibrillation Paroxysmal atrial flutter Severe sepsis Subdural hematoma (~04/2020) Type 2 diabetes mellitus, uncontrolled Surgical History Surgical History History of appendectomy History of gastrostomy tube placement History of total bilateral knee repl
[2022-07-04 22:46] LABS: NT Pro B Type Natriuretic Pept 2340 pg/mL (5-100)
--- NOTE | 2022-07-04 23:01 | ED.SOB ---
HPI - SOB/Dyspnea General Chief Complaint: Shortness of Breath/Dyspnea Stated Complaint: LOW O2 SATS, GEN WEAKNESS Time Seen by Provider: 07/04/22 21:26 History of Present Illness HPI Narrative: Patient is a 76-year-old male who presents to the ER with shortness of breath. Patient came to the ER via EMS with low O2 sat. Last night patient was having cough that then progressed today. She reports couple episodes of emesis today but no aspiration. No chest pain or chest pressure. Denies runny nose or sore throat. Cough is nonproductive. Patient receiving neb treatment by EMS. Patient does have history of COPD. Related Data Home Medications Medication Instructions Recorded Confirmed metoprolol tartrate 50 mg tablet 100 mg PO DAILY 02/24/20 06/15/22 cholecalciferol (vitamin D3) 25 5,000 mcg PO DAILY 05/25/20 06/15/22 mcg (1,000 unit) tablet (Vitamin D3) acetaminophen 500 mg tablet 500 mg PO Q4H PRN Pain 12/10/20 06/15/22 albuterol sulfate 90 mcg/actuation 2 puff inhalation DAILY 12/10/20 06/15/22 aerosol inhaler escitalopram oxalate 10 mg tablet 10 mg PO HS 12/10/20 06/15/22 pantoprazole 40 mg tablet,delayed 40 mg PO BID 12/10/20 06/15/22 release (Protonix) ondansetron HCl 4 mg tablet 4 mg PO Q8H PRN Nausea 12/16/21 06/15/22 amiodarone 200 mg tablet (Pacerone) 200 mg PO BID 12/20/21 06/15/22 amlodipine 10 mg tablet 1 tablet PO DAILY 12/20/21 06/15/22 apixaban 2.5 mg tablet (Eliquis) 2.5 tablet PO BID 12/20/21 06/15/22 ezetimibe 10 mg tablet 1 tablet PO DAILY 12/20/21 06/15/22 fluticasone propionate 50 2 spray intranasal DAILY 12/20/21 06/15/22 mcg/actuation nasal spray,suspension (Flonase Allergy Relief) gabapentin 300 mg capsule 1 cap PO BID 12/20/21 06/15/22 linagliptin 5 mg tablet (Tradjenta) 1 tablet PO DAILY 12/20/21 06/15/22 montelukast 10 mg tablet 1 tablet PO DAILY 12/20/21 06/15/22 oxybutynin chloride 5 mg tablet 1 tablet PO BID 12/20/21 06/15/22 rosuvastatin 40 mg tablet 1 tablet PO DAILY 12/20/21 06/15/22 Allergies Allergy/AdvReac Type Severity Reaction Status Date / Time JOLIE Inhibitors Allergy Unknown Unknown Verified 07/05/22 00:00 hydrocodone Allergy Unknown Unknown Verified 07/05/22 00:00 lovastatin Allergy Unknown Unknown Verified 07/05/22 00:00 pravastatin Allergy Unknown Unknown Verified 07/05/22 00:00 Sulfa (Sulfonamide Allergy Unknown Unknown Verified 07/05/22 00:00 Antibiotics) Sulfonylureas Allergy Unknown Unknown Verified 07/05/22 00:00 acetaminophen Allergy Unknown Verified 07/05/22 00:00 perfume Allergy Unknown Verified 07/05/22 00:00 pollen extracts Allergy Unknown Verified 07/05/22 00:00 Review of Systems Review of Systems: All systems reviewed & are unremarkable except as noted in HPI and below Constitutional: Constitutional: Denies chills, Denies fatigue and Denies fever(s) ENT: Denies nasal congestion and Denies sore throat Cardiovascular: Cardiovascular: Denies chest pain, Denies rapid heart rate and Denies radiating jaw, neck or arm pain Respiratory: Respiratory: Reports cough, Denies dyspnea and Denies wheezing Gastrointestinal: Gastrointestinal: Denies abdominal pain, Reports nausea and Reports vomiting [facility] Past Medical History Medical History (Updated 07/05/22 @ 04:46 by Lang Young MD) Atrial flutter Atrial flutter with rapid ventricular response Beta thalassemia trait Catheter-associated urinary tract infection Cerebrovascular accident, embolic (~12/2017) Chronic anemia Diabetes mellitus DVT (deep venous thrombosis) Dysphagia As a result of previous strokes. G-tube in place. Gastrostomy tube in place History of intracranial hemorrhage Hydrocephalus (~02/2020) Status post OPERATIONS LOGISTICS ANALYST shunt. Hyperlipidemia Intolerant to statins. Hypertension Indwelling Aparicio catheter present Intracerebral hemorrhage (~02/2020) Hemorrhagic stroke occurred while she was on Eliquis, and she was hospitalized at [facility] at that time. Obstructive sleep apnea
[2022-07-04 23:55] VITALS: BP 115/64; PULSE 70; RESP 23; O2SAT 95
[2022-07-05] VITALS (23 sets, daily range): BP systolic 102–123; BP diastolic 42–55; PULSE 57–78; RESP 14–20; TEMP 36.2–37.3; O2SAT 93–99; BMI 41.7
--- NOTE | 2022-07-05 | ECHO_ITS ---
Patient Info Name: Bettie Roque Age: 76 years : 1945 Gender: Female Ht: 69 in Wt: 282 lbs BSA: 2.56 m2 HR: 57 bpm BP: 123 / 55 mmHg Heart Rhythm: Sinus Rhythm Technical Quality: Fair Exam Date: 07/05/2022 9:51 AM Exam Location: [facility] Patient Status: Inpatient Admit Date: 07/05/2022 Staff Ordering Physician: Andrea Gaviria MD Casino Operations Supervisor: Carol Ann Bowling RDCS Attending Provider: Andrea Gaviria MD Referring Physician: Khadra ARDON; Exam Type: CA echo dop color flow w con Study Info Indications - elevated bnp Complete two-dimensional, color flow and Doppler transthoracic echocardiogram is performed with contrast to opacify the left ventricle and to improve the deliniation of the left ventricle endocardial borders. Contrast/Agitated Saline Contrast/Ag. Saline: Definity Amount: 3.00 ml Administered By: Carol Ann Bowling RDCS Existing IV Access: Yes IV Access Condition: patent with no signs of infiltration Summary 1. Left ventricular systolic function is hyperdynamic, estimated at >70%. 2. The left ventricular diastolic function is grade III diastolic dysfunction. 3. Right ventricular systolic function is normal. 4. There is mild mitral valve regurgitation. 5. There is moderate tricuspid valve regurgitation. Left Ventricle Left ventricular chamber dimension is normal. Left ventricular systolic function is hyperdynamic, estimated at >70%. There is no increased left ventricular wall thickness. The left ventricular diastolic function is grade III diastolic dysfunction. Right Ventricle Right ventricular chamber dimension is normal. Right ventricular systolic function is normal. Left Atria Left atrial chamber dimension is normal. Right Atria Right atrial chamber dimension is normal. Atrial Septum Intact interatrial septum visualized by color flow imaging. Aortic Valve The aortic valve is trileaflet. There is no aortic valve stenosis. There is no aortic valve regurgitation. Pulmonic Valve The pulmonic valve is not well visualized. Mitral Valve There is no mitral valve stenosis. There is mild mitral valve regurgitation. Tricuspid Valve There is moderate tricuspid valve regurgitation. Pericardium/Pleural There is no pericardial effusion. Inferior Vena Cava Normal inferior vena cava with <50% collapse upon inspiration consistent with elevated right atrial pressure, 8 mmHg. Aorta The aortic root size at the sinus of Valsalva is normal. Left Ventricular Outflow Tract Name Value Normal LVOT 2D LVOT Diameter 2.00 cm LVOT Doppler LVOT Peak Gradient 6 mmHg LVOT Mean Gradient 3 mmHg LVOT VTI 23.06 cm LVOT VTI/AV VTI Ratio 0.69 LVOT Stroke Volume 72.21 ml LVOT CO 4.88 l/min LVOT CI 1.91 L/min/m2 Pulmonic Valve
[2022-07-05] MEDS: ALBUTEROL SULFATE NEB 2.5 MG/3 ML INH 5 MG INHALATION ×3 (03:03→14:48)
[2022-07-05] MEDS: IPRATROPIUM BR 0.02% INH SOLN 0.5 MG/2.5 ML VIAL INHALATION ×4 (03:03→22:10)
--- NOTE | 2022-07-05 08:03 | PC.NURSE ---
Day shift RN assumed care of this patient, customs entry writer helping with admission/mediations This patient, Bettie Roque, was admitted to 3 Med Surg Room 317-01. Patient/family oriented to hospital policies and general routines including ID bracelet, bed and alarms, visiting hours, pain management, procedures, bathroom and other care routines, personal items, smoking policy, room service/diet, and visiting hours. Information on how to activate the Rapid Response Team has been discussed. Patient/Family are encouraged to report perceived risks to care and to ask questions if they do not understand what they are told or what they should do.
[2022-07-05] MEDS: PERFLUTREN LIPID MICROSPHERES 1.5 ML VIAL DILUTED TO 10 ML TOTAL VOLUME IV PUSH (10:35)
--- NOTE | 2022-07-05 10:35 | IVDEFINITY ---
Prior to administration of IV Definity the patient was educated on the risks and benefits of the imaging enhancing agent including potential adverse side effects. The patient verbalized understanding. Allergies were verified. No exclusion criteria were identified and at least one of the following inclusion criteria were met: 1) physician request, 2) patient technically difficult to image (per the [place] [employer]ocardi[employer] guidelines of two or more segments not discernable within the apical view), or 3) questionable left ventricular function. ?
[2022-07-05 11:10] LABS: Alanine Aminotransferase 86 U/L (6-35); Albumin Level 2.8 g/dL (3.5-5.1); Alkaline Phosphatase 111 U/L (38-126); Anion Gap 2 mmol/L (8-16); Aspartate Amino Transferase 174 U/L (14-36); Bilirubin,Total 1.2 mg/dL (0.2-1.3); Blood Urea Nitrogen 20 mg/dL (7-17); Calcium 7.4 mg/dL (8.4-10.2); Carbon Dioxide 27 mmol/L (22-30); Chloride 106 mmol/L (98-107); Estimated CRCL calculation 34 ml/min; Estimated Glomerular Filt Rate 33; Glucose 159 mg/dL (65-110); Potassium 4.5 mmol/L (3.4-5.0); Sodium 135 mmol/L (137-145)
[2022-07-05] MEDS: AMIODARONE HCL 200 MG TABLET PO ×2 (11:17→17:09)
[2022-07-05] MEDS: FERROUS SULFATE 324 MG TABLET PO (11:18)
[2022-07-05] MEDS: PANTOPRAZOLE 40 MG TABLET PO ×2 (11:18→17:09)
[2022-07-05] MEDS: amLODIPine BESYLATE 5 MG TABLET 10 MG PO (11:18)
[2022-07-05] MEDS: GABAPENTIN 300 MG CAPSULE PO (11:18)
[2022-07-05] MEDS: EZETIMIBE 10 MG TABLET PO (11:19)
[2022-07-05] MEDS: EMPAGLIFLOZIN 25 MG TABLET PO (11:19)
[2022-07-05] MEDS: CHOLECALCIFEROL 1,000 UNITS TABLET 5000 UNITS PO (11:19)
[2022-07-05] MEDS: ROSUVASTATIN 10 MG TABLET 40 MG PO (11:20)
[2022-07-05] MEDS: FLUTICASONE PROPIONATE 0.05% NA SPR 16 GM BTL (*BKC) 2 SPRAY NASAL (11:20)
[2022-07-05 11:36] LABS: Glucose Point of Care 185 mg/dl (65-105)
[2022-07-05 14:15] LABS: Glucose Point of Care 187 mg/dl (65-105)
[2022-07-05 14:55] LABS: Alveolar/Arterial O2 Gradient 106.3 mmHg; Base Excess ABG 1.5 mEq/l (+/-2.0); Fractional Inspired Oxygen 32 %; HCO3 ABG 26.1 mEq/l (22.0-26.0); Oxygen Content ABG 14.5 %vol (16.0-22.0); Oxygen Saturation ABG 95.1 % (95.0-100.0); Oxyhemoglobin 93.5 % THb (90.0-100.0); PO2 ABG 73.9 mmHg (80.0-100.0); PO2 FiO2 Ratio Arterial Blood 2.31 %; pH ABG 7.421 (7.350-7.450)
[2022-07-05 14:56] LABS: Device NASAL CANNULA; Modified Allen's Test Pass; Site Drawn LEFT RADIAL
[2022-07-05 14:59] LABS: Ammonia 25 umol/L (9-30); Lactic Acid Reflex 1.4 mmol/L (0.7-2.0)
[2022-07-05] MEDS: FUROSEMIDE INJ 40 MG/4 ML VIAL IV PUSH (15:03)
[2022-07-05 15:07] LABS: Hematocrit 33.7 % (37.0-47.0); Hemoglobin 10.3 g/dL (12.0-15.0); Mean Corpuscular HGB Conc 30.6 g/dl (32-36); Mean Corpuscular Hemoglobin 23.4 pg (26-34); Mean Corpuscular Volume 76.6 fl (80-100); Mean Platelet Volume 10.1 fl (7.4-10.4); Platelet Count Result 284 k/mm3 (150-375); Red Cell Distribution Width 20.9 % (11.5-14.5); White Blood Count 8.1 K/mm3 (4.5-10.0)
--- NOTE | 2022-07-05 16:15 | PM.IMPN ---
Progress Note: A&P Assessment and Plan (1) Pneumonia: Code(s): J18.9 - Pneumonia, unspecified organism Status: Acute Assessment and Plan: Continue cefepime and vanc and Zithromax Recently discharged from [facility] treated for pneumonia on 06/22/2022 blood cultures pending Supportive care (2) Acute kidney injury superimposed on CKD: Code(s): N17.9 - Acute kidney failure, unspecified; N18.9 - Chronic kidney disease, unspecified Status: Acute Assessment and Plan: Continue Aparicio catheter for strict I/o monitoring. Daily intake and output & weights Renal ultrasound 06/22 negative Daily BMP (3) Paroxysmal atrial fibrillation: Code(s): I48.0 - Paroxysmal atrial fibrillation Status: Chronic Assessment and Plan: Rate controlled Patient had intracranial bleed while on oral anticoagulation. confirm patient is not taking Eliquis Monitor telemetry. (4) Diabetes mellitus: Code(s): E11.9 - Type 2 diabetes mellitus without complications Status: Chronic Assessment and Plan: Continue home meds Accu-Cheks AC and HS (5) Intracerebral hemorrhage: Onset Date: ~02/2020 Code(s): I61.9 - Nontraumatic intracerebral hemorrhage, unspecified Status: Acute Assessment and Plan: Remote history Who while on oral anticoagulation (6) Congestive heart failure (CHF): Code(s): I50.9 - Heart failure, unspecified Status: Acute Assessment and Plan: Pulmonary edema noted on chest x-ray, BNP 2300. Echocardiogram with grade 3 diastolic dysfunction. Repeat chest x-ray with worsening pulmonary edema. Lasix 40 mg IVP x1 now. Monitor I/O and daily weights. Monitor respiratory status. Patient is currently on Jardiance Elevated BLE on pillows with JOLIE wraps/compression stockings. Time Spent With Patient Time with patient: 25 - 35 minutes Subjective Date/time seen: 07/05/22 16:15 Interval history: She reports feeling like a sac of potatoes today. She feels ill and tired. She feels like her breathing is labored at times. She has some pain with coughing. No palpitations or dizziness. Nursing reports the patient has been lethargic throughout the day. Review of Systems Review of Systems: All systems reviewed & are unremarkable except as noted in HPI and below Exam Narrative: General:?No acute distress. Tired appearing. HEENT:?Normocephalic.?PERRL, EOMI. scleral anicteric. moist mucous membranes. Neck:??Supple. Respiratory:?Lungs sounds diminished with fine crackles bibasilar lobes. RR unlabored and shallow. Cardiovascular:??regular rate and rhythm.? No murmurs or gallops. Atrial paced on telemetry. Gastrointestinal:??Abdomen is soft, obese and nontender to palpation. positive bowel sounds.? No guarding. Skin:??Warm and dry. No cyanosis. Extremities:??2+ edema BLE. Radial and pedal pulses intact. Grossly normal ROM with generalized weakness. Neurological:??Lethargic and oriented x3.? Cranial nerves 2-12 are grossly intact. No gross focal deficits. Psychiatric:?Cooperative. flat affect. Objective Data Vital Signs Vital Signs: Vital Signs - 24 hr 07/04/22 21:12 07/04/22 21:28 07/04/22 22:09 Temperature 98.2 F Pulse Rate 79 70 Respiratory Rate 19 Blood Pressure 144/82 H Pulse Oximetry 85 L 96 Oxygen Delivery Room Air Nasal Cannula Oxygen Flow Rate 2 07/04/22 22:09 07/04/22 23:55 07/04/22 22:02 Temperature Pulse Rate 70 71 Respiratory Rate 23 H 26 H Blood Pressure 115/64 122/62 Pulse Oximetry 94 95 93 Oxygen Delivery Nasal Cannula Oxygen Flow Rate 2 07/05/22 03:03 07/05/22 03:42 07/05/22 03:15 Temperature Pulse Rate 69 69 71 Respiratory Rate 20 20 Blood Pressure Pulse Oximetry 98 Oxygen Delivery Nasal Cannula Oxygen Flow Rate 2 07/05/22 04:00 07/05/22 05:59 07/05/22 09:35 Temperature 99.1 F Pulse Rate 70 57 L 70 Respiratory Rate 14 2
[2022-07-05 16:52] LABS: Glucose Point of Care 168 mg/dl (65-105)
[2022-07-05] MEDS: ESCITALOPRAM OXALATE 10 MG TABLET PO (20:20)
[2022-07-05] MEDS: MONTELUKAST SODIUM 10 MG TABLET PO (20:20)
[2022-07-05] MEDS: INSULIN GLARGINE (*BKC) 100 UNITS/ML 30 UNITS SUB-Q (20:20)
[2022-07-05] MEDS: ALBUTEROL SULFATE NEB 2.5 MG/3 ML INH INHALATION (22:11)
[2022-07-05 22:15] LABS: Glucose Point of Care 176 mg/dl (65-105)
[2022-07-06] VITALS (21 sets, daily range): BP systolic 99–101; BP diastolic 46–57; PULSE 67–78; RESP 14–20; TEMP 35.9–37.1; O2SAT 94–99
[2022-07-06] MEDS: IPRATROPIUM BR 0.02% INH SOLN 0.5 MG/2.5 ML VIAL INHALATION ×4 (02:53→21:12)
[2022-07-06] MEDS: ALBUTEROL SULFATE NEB 2.5 MG/3 ML INH INHALATION ×4 (02:53→21:12)
[2022-07-06] MEDS: SODIUM CHLOR 3% 15 ML NEB (RESPIRATORY THERAPY) 6 ML INHALATION (06:23)
[2022-07-06 07:03] LABS: Basophils Percent Auto 0.4 % (0.2-1.2); Eosinophils Absolute Auto 0.4 K/mm3 (0-0.3); Eosinophils Percent Auto 5.2 % (0-4.4); Hematocrit 31.4 % (37.0-47.0); Hemoglobin 9.8 g/dL (12.0-15.0); Immature Granulocyte Absolute 0.03 K/mm3 (0.00-0.031); Immature Granulocyte Percent A 0.4 % (0-0.5); Lymphocytes Absolute Auto 1.19 K/mm3 (0.9-3.2); Lymphocytes Percent Auto 15.6 % (18.3-44.2); Mean Corpuscular HGB Conc 31.2 g/dl (32-36); Mean Corpuscular Hemoglobin 23.1 pg (26-34); Mean Corpuscular Volume 74.1 fl (80-100); Mean Platelet Volume 9.8 fl (7.4-10.4); Monocytes Absolute Auto 1.1 K/mm3 (0.1-0.6); Monocytes Percent Auto 13.7 % (2.6-8.5); Neutrophils Absolute Auto 4.9 K/mm3 (1.3-6.7); Neutrophils Percent Auto 64.7 % (45.5-73.1); Platelet Count Result 259 k/mm3 (150-375); Red Blood Count 4.24 M/mm3 (4.2-5.4); Red Cell Distribution Width 20.3 % (11.5-14.5); White Blood Count 7.6 K/mm3 (4.5-10.0)
[2022-07-06 07:10] LABS: Alanine Aminotransferase 78 U/L (6-35); Albumin Level 2.6 g/dL (3.5-5.1); Alkaline Phosphatase 130 U/L (38-126); Anion Gap 5 mmol/L (8-16); Aspartate Amino Transferase 141 U/L (14-36); Bilirubin,Total 0.8 mg/dL (0.2-1.3); Blood Urea Nitrogen 21 mg/dL (7-17); Calcium 7.1 mg/dL (8.4-10.2); Carbon Dioxide 28 mmol/L (22-30); Chloride 102 mmol/L (98-107); Estimated CRCL calculation 32 ml/min; Estimated Glomerular Filt Rate 31; Glucose 170 mg/dL (65-110); Potassium 4.4 mmol/L (3.4-5.0); Sodium 135 mmol/L (137-145)
[2022-07-06 08:12] LABS: Glucose Point of Care 163 mg/dl (65-105)
[2022-07-06] MEDS: ROSUVASTATIN 10 MG TABLET 40 MG PO (08:20)
[2022-07-06] MEDS: CHOLECALCIFEROL 1,000 UNITS TABLET 5000 UNITS PO (08:20)
[2022-07-06] MEDS: PANTOPRAZOLE 40 MG TABLET PO ×2 (08:21→16:15)
[2022-07-06] MEDS: EMPAGLIFLOZIN 25 MG TABLET PO (08:21)
[2022-07-06] MEDS: METOPROLOL SUCCINATE EXT REL 25 MG TABCR PO (08:21)
[2022-07-06] MEDS: AMIODARONE HCL 200 MG TABLET PO ×2 (08:21→16:15)
[2022-07-06] MEDS: FERROUS SULFATE 324 MG TABLET PO (08:21)
[2022-07-06] MEDS: GABAPENTIN 300 MG CAPSULE PO ×2 (08:21→16:15)
[2022-07-06] MEDS: amLODIPine BESYLATE 5 MG TABLET 10 MG PO (08:21)
[2022-07-06] MEDS: FLUTICASONE PROPIONATE 0.05% NA SPR 16 GM BTL (*BKC) 2 SPRAY NASAL (08:21)
[2022-07-06] MEDS: EZETIMIBE 10 MG TABLET PO (08:21)
[2022-07-06 08:33] LABS: Anisocytosis 1+ (NORMAL); Platelet Estimate Adequate (Adequate)
[2022-07-06 08:34] LABS: Schistocytes None Seen (NORMAL); Target Cells 2+ (NORMAL)
--- NOTE | 2022-07-06 09:35 | PM.IMPN ---
Progress Note: A&P Assessment and Plan (1) Pneumonia: Code(s): J18.9 - Pneumonia, unspecified organism Status: Acute Assessment and Plan: Continue cefepime and vanc and Zithromax Recently discharged from [facility] treated for pneumonia on 06/22/2022 blood cultures negative to date. MRSA screen pending. If breathing remains stable and afebrile in am, will transition to oral antibiotics. Supportive care (2) Acute kidney injury superimposed on CKD: Code(s): N17.9 - Acute kidney failure, unspecified; N18.9 - Chronic kidney disease, unspecified Status: Acute Assessment and Plan: Continue Aparicio catheter for strict I/o monitoring. Daily intake and output & weights Renal ultrasound 06/22 negative Daily BMP 07/06/22 - BUN 21, creatinine 1.9, GFR 31 ?hypervolemia. Continue diuresis with lasix 40 mg IV x1 today. Repeat labs in am. (3) Paroxysmal atrial fibrillation: Code(s): I48.0 - Paroxysmal atrial fibrillation Status: Chronic Assessment and Plan: Rate controlled Patient had intracranial bleed while on oral anticoagulation. confirm patient is not taking Eliquis Monitor telemetry. (4) Diabetes mellitus: Code(s): E11.9 - Type 2 diabetes mellitus without complications Status: Chronic Assessment and Plan: Continue home meds Accu-Cheks AC and HS Stable. (5) Intracerebral hemorrhage: Onset Date: ~02/2020 Code(s): I61.9 - Nontraumatic intracerebral hemorrhage, unspecified Status: Acute Assessment and Plan: Remote history while on oral anticoagulation (6) Congestive heart failure (CHF): Code(s): I50.9 - Heart failure, unspecified Status: Acute Assessment and Plan: Pulmonary edema noted on chest x-ray, BNP 2300. Echocardiogram with grade 3 diastolic dysfunction. Repeat chest x-ray with worsening pulmonary edema. Lasix 40 mg IVP daily Monitor I/O and daily weights. Monitor respiratory status. Patient is currently on Jardiance Elevated BLE on pillows with JOLIE wraps/compression stockings. (7) Pleuritic chest pain: Code(s): R07.81 - Pleurodynia Status: Acute Assessment and Plan: C/o substernal pain with inspiration and cough. Troponin 0.13, EKG unchanged. BNP 4470 and elevated. Continue lasix as above. D-dimer 1.3. ?related to CKD. Patient was taking eliquis, but had hemorrhagic stroke while on the medication. Check Venous dopplers. If renal function improves will check CTA chest. Add tessalon perles and lidoderm patch (8) Obstructive sleep apnea: Code(s): G47.33 - Obstructive sleep apnea (adult) (pediatric) Status: Acute Assessment and Plan: Unable to tolerate CPAP. Check Apnea link overnight for nocturnal O2 needs. Time Spent With Patient Time with patient: 25 - 35 minutes Subjective Date/time seen: 07/06/22 09:35 She reports her breathing is somewhat improved. She has intermittent chest squeezing with inspiration and coughing. She denies pain radiation to jaw, neck, both arms or between shoulder blades. Nursing reports she was more alert last night after lasix and she was weaned to room air this morning. The patient states she tried using a cpap approximately 1 year ago, but could not tolerate the face mask and has not tried a different mask. Review of Systems Review of Systems: All systems reviewed & are unremarkable except as noted in HPI and below Exam Narrative: General:?Mild distress. Tired, anxious appearing. HEENT:?Normocephalic.?Pupils equal and round. scleral anicteric. moist mucous membranes. Neck:??Supple. Respiratory:?Lungs sounds diminished with fine crackles bibasilar lobes. Dry, harsh cough. Cardiovascular:??regular rate and rhythm.? No murmurs or gallops. Atrial paced on telemetry. Gastrointestinal:??Abdomen is soft, obese and nontender to palpation. positive bowel sounds.? No guarding. Skin:??Warm and dry
[2022-07-06] MEDS: FUROSEMIDE INJ 40 MG/4 ML VIAL IV PUSH (09:55)
--- NOTE | 2022-07-06 11:02 | P.CDI_ITS ---
CDI Query Clarification Request Acute on chronic diastolic CHF <Geraldine Danielle APRN - Last Filed: 07/07/22 07:21> Clarified Diagnosis Clarified Diagnosis: Elevated BNP on 07/04/22 lab work. Pt receiving IV Lasix. Documented pulmonary edema. Documented BLE edema. CHF noted on the assessment and plan. Please specify type and acuity of heart failure if known. * Acute * Chronic * Acute on Chronic * Unknown * Systolic * Diastolic * Combined Systolic and Diastolic * Unknown <Mindy Cota RN - Last Filed: 07/06/22 11:08>
--- NOTE | 2022-07-06 11:32 | ECG_ITS ---
Measurements Intervals [place] Rate: 69 P: 223 SD: 224 QRS: -7 QRSD: 101 T: 3 QT: 417 QTc: 449 Interpretive Statements ELECTRONIC ATRIAL PACEMAKER NONSPECIFIC T-WAVE ABNORMALITY ABNORMAL RHYTHM ECG COMPARED TO ECG 07/04/2022 21:20:54 NO SIGNIFICANT CHANGES Electronically Signed On 07-06-2022 15:00:42 ACID CUTTER by Saúl Almaraz M.D.
[2022-07-06 12:02] LABS: Glucose Point of Care 223 mg/dl (65-105)
[2022-07-06] MEDS: LIDOCAINE 5% PATCH 1 PATCH TRANSDERM (12:08)
[2022-07-06] MEDS: INSULIN ASPART (*BKC) 100 UNITS/ML SUB-Q ×2 (12:09→16:17)
[2022-07-06] MEDS: NITROGLYCERIN SL 0.4 MG TABLET SUBLINGUAL (12:09)
[2022-07-06] MEDS: BENZONATATE 100 MG CAPSULE PO (12:16)
[2022-07-06 12:21] LABS: NT Pro B Type Natriuretic Pept 4470 pg/mL (5-100); Troponin I 0.013 ng/mL (0.000-0.034)
[2022-07-06 16:45] LABS: Glucose Point of Care 262 mg/dl (65-105)
[2022-07-06] MEDS: ACETAMINOPHEN 500 MG TABLET PO (18:11)
[2022-07-06] MEDS: MONTELUKAST SODIUM 10 MG TABLET PO (21:38)
[2022-07-06] MEDS: ESCITALOPRAM OXALATE 10 MG TABLET PO (21:39)
[2022-07-06] MEDS: INSULIN GLARGINE (*BKC) 100 UNITS/ML 30 UNITS SUB-Q (21:40)
[2022-07-06 21:55] LABS: Glucose Point of Care 176 mg/dl (65-105)
[2022-07-07] VITALS (15 sets, daily range): BP systolic 106–110; BP diastolic 61–67; PULSE 70–82; RESP 14–20; TEMP 36.1–36.5; O2SAT 90–100
[2022-07-07] MEDS: SODIUM CHLOR 3% 15 ML NEB (RESPIRATORY THERAPY) 6 ML INHALATION (05:42)
[2022-07-07 07:06] LABS: Basophils Percent Auto 0.4 % (0.2-1.2); Eosinophils Absolute Auto 0.5 K/mm3 (0-0.3); Eosinophils Percent Auto 6.5 % (0-4.4); Hematocrit 33.2 % (37.0-47.0); Hemoglobin 10.3 g/dL (12.0-15.0); Immature Granulocyte Absolute 0.02 K/mm3 (0.00-0.031); Immature Granulocyte Percent A 0.3 % (0-0.5); Lymphocytes Absolute Auto 1.12 K/mm3 (0.9-3.2); Lymphocytes Percent Auto 15.2 % (18.3-44.2); Mean Corpuscular Volume 74.3 fl (80-100); Mean Platelet Volume 9.8 fl (7.4-10.4); Monocytes Absolute Auto 1.1 K/mm3 (0.1-0.6); Monocytes Percent Auto 14.4 % (2.6-8.5); Neutrophils Absolute Auto 4.6 K/mm3 (1.3-6.7); Neutrophils Percent Auto 63.2 % (45.5-73.1); Platelet Count Result 278 k/mm3 (150-375); Red Blood Count 4.47 M/mm3 (4.2-5.4); Red Cell Distribution Width 20.3 % (11.5-14.5); White Blood Count 7.4 K/mm3 (4.5-10.0)
[2022-07-07 07:16] LABS: Alanine Aminotransferase 66 U/L (6-35); Albumin Level 2.8 g/dL (3.5-5.1); Alkaline Phosphatase 153 U/L (38-126); Anion Gap 6 mmol/L (8-16); Aspartate Amino Transferase 107 U/L (14-36); Bilirubin,Total 0.9 mg/dL (0.2-1.3); Blood Urea Nitrogen 22 mg/dL (7-17); Calcium 7.3 mg/dL (8.4-10.2); Carbon Dioxide 30 mmol/L (22-30); Chloride 100 mmol/L (98-107); Estimated CRCL calculation 32 ml/min; Estimated Glomerular Filt Rate 31; Glucose 179 mg/dL (65-110); Potassium 4.4 mmol/L (3.4-5.0); Sodium 136 mmol/L (137-145)
--- NOTE | 2022-07-07 07:21 | PM.IMPN ---
Progress Note: A&P Assessment and Plan (1) Pneumonia: Code(s): J18.9 - Pneumonia, unspecified organism Status: Acute Assessment and Plan: Continue cefepime and vanc and Zithromax Recently discharged from [facility] treated for pneumonia on 06/22/2022 blood cultures negative to date. MRSA screen negative. Sputum culture mixed hao Transition to oral doxycycline 100 mg BID. Continue cefepime IV day 3 of therapy. Supportive [facility] O2 eval in am if still requiring oxygen. (2) Acute kidney injury superimposed on CKD: Code(s): N17.9 - Acute kidney failure, unspecified; N18.9 - Chronic kidney disease, unspecified Status: Acute Assessment and Plan: Continue Aparicio catheter for strict I/o monitoring. Daily intake and output & weights Renal ultrasound 06/22 negative Daily BMP 07/06/22 - BUN 21, creatinine 1.9, GFR 31 ?hypervolemia. Continue diuresis with lasix 40 mg IV x1 today. Repeat labs in am. 07/07/22 unchanged. Monitor. (3) Paroxysmal atrial fibrillation: Code(s): I48.0 - Paroxysmal atrial fibrillation Status: Chronic Assessment and Plan: Rate controlled Patient had intracranial bleed while on oral anticoagulation. confirm patient is not taking Eliquis Monitor telemetry. (4) Diabetes mellitus: Code(s): E11.9 - Type 2 diabetes mellitus without complications Status: Chronic Assessment and Plan: Continue home meds Accu-Cheks AC and HS Stable. (5) Intracerebral hemorrhage: Onset Date: ~02/2020 Code(s): I61.9 - Nontraumatic intracerebral hemorrhage, unspecified Status: Acute Assessment and Plan: Remote history while on oral anticoagulation (6) Congestive heart failure (CHF): Code(s): I50.9 - Heart failure, unspecified Status: Acute Assessment and Plan: Pulmonary edema noted on chest x-ray, BNP 2300. Echocardiogram with grade 3 diastolic dysfunction. Repeat chest x-ray with worsening pulmonary edema. Lasix 40 mg IVP daily on 07/05/22 and 07/06/22. consider adding PRN dose Monitor I/O and daily weights. Monitor respiratory status. Patient is currently on Jardiance Elevated BLE on pillows with JOLIE wraps/compression stockings. Stable. (7) Pleuritic chest pain: Code(s): R07.81 - Pleurodynia Status: Acute Assessment and Plan: C/o substernal pain with inspiration and cough. Troponin 0.13, EKG unchanged. BNP 4470 and elevated. Continue lasix as above. D-dimer 1.3. ?related to CKD. Patient was taking eliquis, but had hemorrhagic stroke while on the medication. Venous dopplers negative. If renal function improves will check CTA chest. GFR 31 and unable to perform CTA. symptoms resolved with topical therapy and cough suppressant. PE seems unlikely- patient is not tachypneic, tachycardic and chest pain resolved. continue tessalon perles and lidoderm patch Resolved. (8) Obstructive sleep apnea: Code(s): G47.33 - Obstructive sleep apnea (adult) (pediatric) Status: Acute Assessment and Plan: Unable to tolerate CPAP. Apnea link overnight for nocturnal O2 needs- evaluation period not sufficient. She would benefit from nocturnal O2 eval. (9) Constipation: Code(s): K59.00 - Constipation, unspecified Status: Acute Assessment and Plan: Miralax PO x1 now and PRN. Add senna plus 1 tab at HS Ambulate patient Plan Possible discharge tomorrow if continues to improve Time Spent With Patient Time with patient: 15 - 25 minutes Subjective Date/time seen: 07/07/22 07:21 Patient found sitting up in bed. No c/o chest pain or shortness of breath. She is concerned about constipation. No nausea, emesis or abdominal distention. She is tolerating her diet. Apnea monitor overnight was too short for evaluation and patient was noted to have 1L O2 on at that time. Review of Systems Review of Systems: All systems reviewed
[2022-07-07 07:46] LABS: Glucose Point of Care 193 mg/dl (65-105)
[2022-07-07] MEDS: LIDOCAINE 5% PATCH 1 PATCH TRANSDERM (08:05)
[2022-07-07] MEDS: AMIODARONE HCL 200 MG TABLET PO ×2 (08:05→16:36)
[2022-07-07] MEDS: CHOLECALCIFEROL 1,000 UNITS TABLET 5000 UNITS PO (08:05)
[2022-07-07] MEDS: METOPROLOL SUCCINATE EXT REL 25 MG TABCR PO (08:06)
[2022-07-07] MEDS: PANTOPRAZOLE 40 MG TABLET PO ×2 (08:06→16:36)
[2022-07-07] MEDS: EZETIMIBE 10 MG TABLET PO (08:06)
[2022-07-07] MEDS: ROSUVASTATIN 10 MG TABLET 40 MG PO (08:06)
[2022-07-07] MEDS: amLODIPine BESYLATE 5 MG TABLET 10 MG PO (08:06)
[2022-07-07] MEDS: GABAPENTIN 300 MG CAPSULE PO ×2 (08:06→16:36)
[2022-07-07] MEDS: EMPAGLIFLOZIN 25 MG TABLET PO (08:06)
[2022-07-07] MEDS: FLUTICASONE PROPIONATE 0.05% NA SPR 16 GM BTL (*BKC) 2 SPRAY NASAL (08:07)
[2022-07-07] MEDS: FERROUS SULFATE 324 MG TABLET PO (08:07)
[2022-07-07 08:12] LABS: Ovalocytes 1+ (NORMAL); Platelet Estimate Adequate (Adequate); Target Cells 2+ (NORMAL)
[2022-07-07 08:13] LABS: Hypochromasia 2+ (NORMAL); Schistocytes None Seen (NORMAL); Tear Drop Cells 1+ (NORMAL)
[2022-07-07] MEDS: IPRATROPIUM BR 0.02% INH SOLN 0.5 MG/2.5 ML VIAL INHALATION ×3 (08:51→20:49)
[2022-07-07] MEDS: ALBUTEROL SULFATE NEB 2.5 MG/3 ML INH INHALATION ×3 (08:51→20:49)
[2022-07-07] MEDS: polyethylene glycoL 3350 17 GM POWD.PACK PO (11:08)
[2022-07-07 11:58] LABS: Glucose Point of Care 219 mg/dl (65-105)
[2022-07-07] MEDS: INSULIN ASPART (*BKC) 100 UNITS/ML SUB-Q (12:03)
[2022-07-07 17:10] LABS: Glucose Point of Care 187 mg/dl (65-105)
[2022-07-07] MEDS: MONTELUKAST SODIUM 10 MG TABLET PO (22:22)
[2022-07-07] MEDS: SENNA/DOCUSATE SODIUM TABLET 1 TAB PO (22:22)
[2022-07-07] MEDS: ESCITALOPRAM OXALATE 10 MG TABLET PO (22:22)
[2022-07-07] MEDS: DOXYCYCLINE HYCLATE 100 MG TABLET PO (22:23)
[2022-07-07] MEDS: INSULIN GLARGINE (*BKC) 100 UNITS/ML 30 UNITS SUB-Q (22:29)
[2022-07-08 00:02] LABS: Glucose Point of Care 171 mg/dl (65-105)
[2022-07-08] MEDS: IPRATROPIUM BR 0.02% INH SOLN 0.5 MG/2.5 ML VIAL INHALATION ×3 (04:18→13:58)
[2022-07-08] MEDS: ALBUTEROL SULFATE NEB 2.5 MG/3 ML INH INHALATION ×3 (04:18→13:58)
[2022-07-08 05:55] VITALS: BP 102/63; PULSE 70; RESP 22; TEMP 36.6; O2SAT 99
[2022-07-08] MEDS: LIDOCAINE 5% PATCH 1 PATCH TRANSDERM (08:10)
[2022-07-08] MEDS: polyethylene glycoL 3350 17 GM POWD.PACK PO (08:10)
[2022-07-08 08:11] VITALS: PULSE 74
[2022-07-08] MEDS: GABAPENTIN 300 MG CAPSULE PO (08:11)
[2022-07-08] MEDS: EZETIMIBE 10 MG TABLET PO (08:11)
[2022-07-08] MEDS: ROSUVASTATIN 10 MG TABLET 40 MG PO (08:11)
[2022-07-08] MEDS: METOPROLOL SUCCINATE EXT REL 25 MG TABCR PO (08:11)
[2022-07-08 08:12] VITALS: PULSE 75
[2022-07-08] MEDS: FERROUS SULFATE 324 MG TABLET PO (08:12)
[2022-07-08] MEDS: DOXYCYCLINE HYCLATE 100 MG TABLET PO (08:12)
[2022-07-08] MEDS: PANTOPRAZOLE 40 MG TABLET PO (08:12)
[2022-07-08] MEDS: CHOLECALCIFEROL 1,000 UNITS TABLET 5000 UNITS PO (08:12)
[2022-07-08] MEDS: amLODIPine BESYLATE 5 MG TABLET 10 MG PO (08:12)
[2022-07-08] MEDS: FLUTICASONE PROPIONATE 0.05% NA SPR 16 GM BTL (*BKC) 2 SPRAY NASAL (08:12)
[2022-07-08] MEDS: AMIODARONE HCL 200 MG TABLET PO (08:12)
[2022-07-08] MEDS: EMPAGLIFLOZIN 25 MG TABLET PO (08:13)
[2022-07-08 08:43] LABS: Basophils Percent Auto 0.4 % (0.2-1.2); Eosinophils Absolute Auto 0.5 K/mm3 (0-0.3); Hematocrit 33.7 % (37.0-47.0); Hemoglobin 10.3 g/dL (12.0-15.0); Immature Granulocyte Absolute 0.02 K/mm3 (0.00-0.031); Immature Granulocyte Percent A 0.3 % (0-0.5); Lymphocytes Absolute Auto 1.31 K/mm3 (0.9-3.2); Mean Corpuscular HGB Conc 30.6 g/dl (32-36); Mean Corpuscular Hemoglobin 23.3 pg (26-34); Mean Corpuscular Volume 76.1 fl (80-100); Mean Platelet Volume 10.4 fl (7.4-10.4); Monocytes Absolute Auto 0.9 K/mm3 (0.1-0.6); Monocytes Percent Auto 12.4 % (2.6-8.5); Neutrophils Absolute Auto 4.2 K/mm3 (1.3-6.7); Neutrophils Percent Auto 60.9 % (45.5-73.1); Platelet Count Result 326 k/mm3 (150-375); Red Blood Count 4.43 M/mm3 (4.2-5.4); Red Cell Distribution Width 20.6 % (11.5-14.5); White Blood Count 6.9 K/mm3 (4.5-10.0)
[2022-07-08 08:58] LABS: Glucose Point of Care 100 mg/dl (65-105)
[2022-07-08 09:01] LABS: Alanine Aminotransferase 55 U/L (6-35); Albumin Level 2.8 g/dL (3.5-5.1); Alkaline Phosphatase 130 U/L (38-126); Anion Gap 5 mmol/L (8-16); Aspartate Amino Transferase 82 U/L (14-36); Bilirubin,Total 0.7 mg/dL (0.2-1.3); Blood Urea Nitrogen 20 mg/dL (7-17); Calcium 7.5 mg/dL (8.4-10.2); Carbon Dioxide 28 mmol/L (22-30); Chloride 107 mmol/L (98-107); Estimated CRCL calculation 35 ml/min; Estimated Glomerular Filt Rate 35; Glucose 100 mg/dL (65-110); Potassium 4.2 mmol/L (3.4-5.0); Sodium 140 mmol/L (137-145)
[2022-07-08 09:05] VITALS: PULSE 79; RESP 16
[2022-07-08 09:20] VITALS: PULSE 81; RESP 16; O2SAT 95
[2022-07-08 11:43] LABS: Glucose Point of Care 199 mg/dl (65-105)
[2022-07-08] MEDS: BISACODYL 10 MG SUPPOSITORY RECTAL (12:06)
--- NOTE | 2022-07-08 12:12 | PM.DS ---
DS: Admitting Diagnosis Discharge Date 07/08/2022 1212 Admitting Diagnosis Pneumonia Acute kidney injury superimposed on CKD Paroxysmal atrial fibrillation Diabetes mellitus Intracerebral hemorrhage DS: Discharge Diagnosis Discharge Diagnosis (1) Pneumonia: Code(s): J18.9 - Pneumonia, unspecified organism Status: Acute Assessment and Plan: Patient presented with shortness of breath. Chest x-ray subsegmental right lower lobe atelectasis/consolidation. She had previously been hospitalized and treated with antibiotics. She was started on IV cefepime and vanc and Zithromax blood cultures negative to date. MRSA screen negative. Sputum culture mixed hao Transitioned to oral doxycycline 100 mg BID. Continue cefepime IV day 3 of therapy. Weaned from supplemental oxygen. Attempted to test apnea link for nocturnal oxygen needs, however, screening too short and patient was on 1L oxygen (2) Acute kidney injury superimposed on CKD: Code(s): N17.9 - Acute kidney failure, unspecified; N18.9 - Chronic kidney disease, unspecified Status: Acute Assessment and Plan: Continue Aparicio catheter for strict I/o monitoring. BUN and creatinine mildly elevated baseline. Daily intake and output & weights Renal ultrasound 06/22 negative 07/06/22 - BUN 21, creatinine 1.9, GFR 31 ?hypervolemia. Continue diuresis with lasix 40 mg IV x1 today. Repeat labs in am. 07/07/22 unchanged. Monitor. (3) Paroxysmal atrial fibrillation: Code(s): I48.0 - Paroxysmal atrial fibrillation Status: Chronic Assessment and Plan: Rate controlled. Patient had intracranial bleed while on oral anticoagulation. confirmed with patient's she is not taking Eliquis (4) Diabetes mellitus: Code(s): E11.9 - Type 2 diabetes mellitus without complications Status: Chronic Assessment and Plan: Continued Jardiance and lantus (5) Intracerebral hemorrhage: Onset Date: ~02/2020 Code(s): I61.9 - Nontraumatic intracerebral hemorrhage, unspecified Status: Chronic Assessment and Plan: Remote history while on oral anticoagulation Neuro stable. (6) Congestive heart failure (CHF): Code(s): I50.9 - Heart failure, unspecified Status: Acute Assessment and Plan: Pulmonary edema noted on chest x-ray, BNP 2300. Echocardiogram with grade 3 diastolic dysfunction. Repeat chest x-ray showed worsening pulmonary edema. Lasix 40 mg IVP daily on 07/05/22 and 07/06/22. Monitored I/O and daily weights. Patient is currently on Jardiance Elevated BLE on pillows with JOLIE wraps/compression stockings. Improved. (7) Pleuritic chest pain: Code(s): R07.81 - Pleurodynia Status: Acute Assessment and Plan: C/o substernal pain with inspiration and cough. Troponin 0.13, EKG unchanged. BNP 4470 and elevated. Continue lasix as above. D-dimer 1.3. ?related to CKD. Patient was taking eliquis, but had hemorrhagic stroke while on the medication. Venous dopplers negative. If renal function improves will check CTA chest. GFR 31 and unable to perform CTA. symptoms resolved with topical therapy and cough suppressant. PE seems unlikely- patient is not tachypneic, tachycardic and chest pain resolved. continue tessalon perles and lidoderm patch Resolved. (8) Obstructive sleep apnea: Code(s): G47.33 - Obstructive sleep apnea (adult) (pediatric) Status: Acute Assessment and Plan: Unable to tolerate CPAP. Apnea link overnight for nocturnal O2 needs- evaluation period not sufficient. She would benefit from nocturnal O2 eval. (9) Constipation: Code(s): K59.00 - Constipation, unspecified Status: Acute Assessment and Plan: Miralax PO x1 now and PRN. Add senna plus 1 tab at HS Ambulate patient DS: Summary Hospital Course Reason for hospitalization: Shortness of breath Hospital Course: Bettie Roque is a
[2022-07-08 12:51] LABS: EDCOVIDSCREEN Negative (Negative)
[2022-07-08 14:00] VITALS: BP 98/53; PULSE 66; PULSE 70; RESP 16; TEMP 36.4; O2SAT 100
== END 2022-07-08 15:40 | DRG 193 ==
LOC: ANHED 22:01 → ANH3MEDSUR 07-05 00:01
PROVIDERS: Admitting Provider Internal Medicine; Emergency Provider Emergency Medicine; PCP Family Medicine; Visit Provider Nurse Practitioner Family
DX: J18.9 Pneumonia, unspecified organism (principal); I50.33 Acute on chronic diastolic (congestive) heart failure; I13.0 Hypertensive heart and chronic kidney disease with heart failure and stage 1 through stage 4 chronic kidney disease, or unspecified chronic kidney disease; G91.9 Hydrocephalus, unspecified; N17.9 Acute kidney failure, unspecified; I48.0 Paroxysmal atrial fibrillation; N18.9 Chronic kidney disease, unspecified; E11.22 Type 2 diabetes mellitus with diabetic chronic kidney disease; D56.3 Thalassemia minor; E78.5 Hyperlipidemia, unspecified; K59.00 Constipation, unspecified; K21.9 Gastro-esophageal reflux disease without esophagitis; M19.90 Unspecified osteoarthritis, unspecified site; R07.81 Pleurodynia; G47.33 Obstructive sleep apnea (adult) (pediatric); Z20.822 Contact with and (suspected) exposure to COVID-19; Z96.653 Presence of artificial knee joint, bilateral; Z86.73 Personal history of transient ischemic attack (TIA), and cerebral infarction without residual deficits; Z86.718 Personal history of other venous thrombosis and embolism; Z93.1 Gastrostomy status; Z98.2 Presence of cerebrospinal fluid drainage device; Z87.891 Personal history of nicotine dependence; Z79.4 Long term (current) use of insulin; Z79.01 Long term (current) use of anticoagulants
CPT/HCPCS: 36415; 36600; 71045; 80053; 82140; 82805; 82948; 83605; 83880; 84484; 85025; 85027; 85380; 87040; 87070; 87081; 87205; 87426; 87637; 93005; 93970; 94640; 94762; 96365; 96366; 96367; 97161; 99285; A9270; C8929; C9803; G0378; J0456; J0692; J0696; J1815; J1940; J3370; Q9957

== ENCOUNTER 2022-07-31 19:13 | Inpatient (IN) | payer MEDICARE, SELFPAY ==
[2022-07-31] VITALS (29 sets, daily range): BP systolic 102–115; BP diastolic 61–83; PULSE 70–85; RESP 10–26; O2SAT 87–100
--- NOTE | ~2022-07-31 | CT_ITS ---
EXAMINATION: CT brain wo con DATE: 08/02/2022 16:28 INDICATION: Fall. TECHNIQUE: Computed tomography (CT) of the head was performed without intravenous contrast. The mA wa s adjusted according to patient size. Iterative reconstruction technique was employed. The dose-lengt h product was 605.33 mGy-cm. COMPARISON: Head CT 06/14/2022, 06/03/20 FINDINGS: There is an old infarct in left cerebellum. There is chronic encephalomalacia involving the right frontotemporal parietal region and left parietal occipital region. There are scattered areas o f low attenuation in the cerebral white matter. There is a chronic subdural hematoma versus dural thi ckening that is hypodense to fields matter overlying right frontal lobe with maximum thickness of 4 mm. There is no acute ischemic infarct or abnormal mass lesion. The ventricles are normal in size. The p aranasal sinuses are clear. There are likely changes of ocular lens replacement surgeries. The mastoi d air cells are normal. There is an old kristi hole in the right frontal bone. There is a right parieta l shunt catheter with tip in body of right lateral ventricle. IMPRESSION: 1. Old infarct in left cerebellum. Chronic encephalomalacia involving the right frontotemporal pariet al region and left parietal occipital region. 2. Stable extensive nonspecific cerebral white matter disease, which likely represents chronic small vessel ischemic disease. 3. Stable chronic small subdural hematoma versus dural thickening overlying the right frontal lobe. 4. Normal sized ventricles with shunt catheter in expected position. Reviewed, dictated and finalized at location A. TH INFORMATION ADMINISTRATOR IMPRESSION: 1. Old infarct in left cerebellum. Chronic encephalomalacia involving the right frontotemporal parietal region and left parietal occipital region. 2. Stable extensive nonspecific cerebral white matter disease, which likely rep resents chronic small vessel ischemic disease. 3. Stable chronic small subdural hematoma versus dural thickening overlying the right frontal lobe. 4. Normal sized ventricles with shunt catheter in expected position.
--- NOTE | ~2022-07-31 | CT_ITS ---
Clinical Indication: Hypoxia CT Scan of the Chest with Contrast: Technique: Contiguous sections were acquired throughout the chest after intravenous administration of 100 cc of Omnipaque 350. Dose reduction technique was used on this scan by utilizing automated expos ure control and iterative reconstruction technique. The dose-length product (DLP) was 769.54 mGy-cm. COMPARISON: 07/09/2020 Findings: There is no evidence of any significant mediastinal, hilar or axillary lymphadenopathy. Shotty prevas cular lymph nodes are similar to prior exam. There is no filling defect in the pulmonary arterial noemi e to suggest pulmonary embolus. Central pulmonary vasculature is somewhat prominent. There is no evid ence of aortic dissection or aneurysm. There is mild cardiomegaly. No pericardial effusion. There are small bilateral pleural effusions, left greater than right, with mild bibasilar atelectasis . No pulmonary nodule evident. Images through the upper abdomen reveal small amount of upper abdomina l ascites. Impression: No evidence of pulmonary embolus, aortic dissection, or aortic aneurysm. Small bilateral pleural effusions, left greater than right, with mild bibasilar atelectasis. Questionable pulmonary artery hypertension. Correlate clinically. Small amount of ascites. Reviewed, dictated and finalized at location . AL EVISCERATOR Impression: No evidence of pulmonary embolus, aortic dissection, or aortic aneurysm. Small bilateral pleural effusions, left greater than right, with mild bibasilar atelectasis. Questionable pulmonary artery hypertension. Correlate clinically. Small amount of ascites.
--- NOTE | ~2022-07-31 | XR_ITS ---
EXAMINATION: XR chest 1V portable Exam Date/Time: 07/31/2022 19:35 CHILD NURSE HISTORY: shortness of breath, cough, recent pneumonia Comparison: 07/05/2022, 07/04/2022, and 06/20/2022. RESULT: Lines, tubes, and devices: Left chest pacer with intact leads. Partially visualized FUND CONTROLLER shunt tubing. Lungs and pleura: Low lung volumes with crowding. Ill-defined patchy groundglass opacities bilateral ly. Consolidative opacity in the right lateral and posterior lung base. Cardiomediastinal silhouette: Stable. Other: No acute osseous or upper abdominal finding. IMPRESSION: Right basilar consolidation versus diaphragmatic eventration. Low lung volumes with scattered atelect asis. Infection/edema not excluded. Reviewed, dictated and finalized at location K. D NURSE IMPRESSION: Right basilar consolidation versus diaphragmatic eventration. Low lung volumes with scattered atelectasis. Infection/edema not excluded.
--- NOTE | ~2022-07-31 | XR_ITS ---
EXAMINATION: XR chest 1V portable DATE: 08/03/2022 09:32 INDICATION: Shortness of breath. TECHNIQUE: A single frontal view of the chest was obtained. COMPARISON: Chest single view 07/31/2022, chest CT 07/31/2022 FINDINGS: There is mild atelectasis in the lower lung zones. No pleural effusion or pneumothorax. Car diomegaly is noted. There is a left chest wall pacer with leads in the right atrium and right ventric le. There is a ventriculoperitoneal shunt. IMPRESSION: 1. Mild atelectasis in the lower lung zones. 2. Cardiomegaly. Reviewed, dictated and finalized at location A. VINER
--- NOTE | ~2022-07-31 | XR_ITS ---
EXAMINATION: XR barium swallow modified DATE: 08/01/2022 14:26 INDICATION: Aspiration TECHNIQUE: The patient was given barium-containing material of multiple consistencies to swallow by t franklyn speech pathologist while I performed fluoroscopy. Dose-area product was 0.948 Gy-cm2. 1.2 minutes fluoroscopy time FINDINGS: Oral Stage: Within functional limits Pharyngeal Phase: Within functional limits Cervical/Esophageal Stage: Within functional limits IMPRESSION: Modified esophagram findings as above. Please refer to the speech therapy report [facility]. Reviewed, dictated and finalized at Location A. Reviewed, dictated and finalized at location A. ARCH METHODOLOGIST IMPRESSION: Modified esophagram findings as above. Please refer to the speech t herapy report for specific recommendations.
--- NOTE | 2022-07-31 19:24 | PC.NURSE ---
Patient placed on 3L of oxygen per nasal cannula for oxygen saturations of 88% on room air. Patient oxygen saturations increased to 95% on 3L.
--- NOTE | 2022-07-31 19:25 | ECG_ITS ---
Measurements Intervals [place] Rate: 69 P: 268 [place]: 222 QRS: -9 QRSD: 95 T: 54 QT: 375 QTc: 404 Interpretive Statements ELECTRONIC ATRIAL PACEMAKER DELAYED PRECORDIAL R/S TRANSITION NONSPECIFIC T-WAVE ABNORMALITY- HIGH LATERAL LEADS BASELINE WANDER- V1-V3 BORDERLINE ECG COMPARED TO ECG 07/06/2022 12:00:46 NO SIGNIFICANT CHANGES Electronically Signed On 08-01-2022 7:45:36 ASSISTANT TECHNICIAN by Mello Nesbitt D.O.
[2022-07-31 19:50] LABS: Basophils Absolute Auto 0.1 K/mm3 (0.0-0.1); Basophils Percent Auto 0.8 % (0.2-1.2); Eosinophils Absolute Auto 0.3 K/mm3 (0-0.3); Hematocrit 37.7 % (37.0-47.0); Hemoglobin 11.6 g/dL (12.0-15.0); Immature Granulocyte Absolute 0.02 K/mm3 (0.00-0.031); Immature Granulocyte Percent A 0.2 % (0-0.5); Lymphocytes Percent Auto 22.1 % (18.3-44.2); Mean Corpuscular HGB Conc 30.8 g/dl (32-36); Mean Corpuscular Hemoglobin 23.9 pg (26-34); Mean Corpuscular Volume 77.7 fl (80-100); Mean Platelet Volume 10.1 fl (7.4-10.4); Monocytes Absolute Auto 0.8 K/mm3 (0.1-0.6); Monocytes Percent Auto 9.8 % (2.6-8.5); Neutrophils Absolute Auto 5.5 K/mm3 (1.3-6.7); Neutrophils Percent Auto 64.1 % (45.5-73.1); Platelet Count Result 297 k/mm3 (150-375); Red Blood Count 4.85 M/mm3 (4.2-5.4); Red Cell Distribution Width 21.3 % (11.5-14.5); White Blood Count 8.6 K/mm3 (4.5-10.0)
[2022-07-31 20:14] LABS: Alanine Aminotransferase 64 U/L (6-35); Albumin Level 3.1 g/dL (3.5-5.1); Alkaline Phosphatase 145 U/L (38-126); Anion Gap 4 mmol/L (8-16); Aspartate Amino Transferase 139 U/L (14-36); Bilirubin,Total 1.5 mg/dL (0.2-1.3); Blood Urea Nitrogen 14 mg/dL (7-17); Calcium 7.8 mg/dL (8.4-10.2); Carbon Dioxide 26 mmol/L (22-30); Chloride 107 mmol/L (98-107); Estimated CRCL calculation 41 ml/min; Estimated Glomerular Filt Rate 44; Glucose 172 mg/dL (65-110); Potassium 4.9 mmol/L (3.4-5.0); Sodium 137 mmol/L (137-145)
--- NOTE | 2022-07-31 20:19 | ED.GENADULT ---
HPI - General Adult General Chief complaint: Unspecified <Gopal Gomez MD - Last Filed: 08/01/22 00:01> Stated complaint: low pulse ox <Gopal Gomez MD - Last Filed: 08/01/22 00:01> Time Seen by Provider: 07/31/22 19:36 <Gopal Gomez MD - Last Filed: 08/01/22 00:01> History of Present Illness HPI narrative: This is a 76-year-old female with past medical history of stroke with left-sided residual weakness, COPD, brought in by EMS for low O2 saturations. Per nursing staff, EMS was called for the patient grunting and wheezing at home. On arrival her O2 was 83% on room air. The patient was placed on supplemental oxygen and given nebulizer treatments. The patient states she has been coughing since being discharged with pneumonia. She was recently released from a rehab facility at home. She denies hematemesis but does complain of intermittent substernal chest pain rated 4/10. She states her breathing feels improved. <Gopal Gomez MD - Last Filed: 08/01/22 00:01> Related Data Home medications: Home Medications Medication Instructions Recorded Confirmed cholecalciferol (vitamin D3) 25 5,000 mcg PO DAILY 05/25/20 07/05/22 mcg (1,000 unit) tablet (Vitamin D3) acetaminophen 500 mg tablet 500 mg PO Q4H PRN Pain 12/10/20 07/05/22 albuterol sulfate 90 mcg/actuation 2 puff inhalation DAILY 12/10/20 07/05/22 aerosol inhaler escitalopram oxalate 10 mg tablet 10 mg PO HS 12/10/20 07/05/22 pantoprazole 40 mg tablet,delayed 40 mg PO BID 12/10/20 07/05/22 release (Protonix) ondansetron HCl 4 mg tablet 4 mg PO Q8H PRN Nausea 12/16/21 07/05/22 amiodarone 200 mg tablet (Pacerone) 200 mg PO BID 12/20/21 07/05/22 amlodipine 10 mg tablet 1 tablet PO DAILY 12/20/21 07/05/22 apixaban 2.5 mg tablet (Eliquis) 2.5 tablet PO BID 12/20/21 07/05/22 ezetimibe 10 mg tablet 1 tablet PO DAILY 12/20/21 07/05/22 fluticasone propionate 50 2 spray intranasal DAILY 12/20/21 07/05/22 mcg/actuation nasal spray,suspension (Flonase Allergy Relief) gabapentin 300 mg capsule 1 cap PO BID 12/20/21 07/05/22 montelukast 10 mg tablet 1 tablet PO DAILY 12/20/21 07/05/22 rosuvastatin 40 mg tablet 1 tablet PO DAILY 12/20/21 07/05/22 empagliflozin 25 mg tablet 25 mg PO DAILY 07/05/22 07/05/22 (Jardiance) ferrous sulfate 325 mg (65 mg 325 mg PO DAILY 07/05/22 07/05/22 iron) tablet,delayed release <Gopal Gomez MD - Last Filed: 08/01/22 00:01> Allergies/adverse reactions: Allergies Allergy/AdvReac Type Severity Reaction Status Date / Time JOLIE Inhibitors Allergy Unknown Unknown Verified 07/31/22 19:25 hydrocodone Allergy Unknown Unknown Verified 07/31/22 19:25 lovastatin Allergy Unknown Unknown Verified 07/31/22 19:25 pravastatin Allergy Unknown Unknown Verified 07/31/22 19:25 Sulfa (Sulfonamide Allergy Unknown Unknown Verified 07/31/22 19:25 Antibiotics) Sulfonylureas Allergy Unknown Unknown Verified 07/31/22 19:25 acetaminophen Allergy Unknown Verified 07/31/22 19:25 perfume Allergy Unknown Verified 07/31/22 19:25 pollen extracts Allergy Unknown Verified 07/31/22 19:25 <Gopal Gomez MD - Last Filed: 08/01/22 00:01> Review of Systems Review of Systems: CONSTITUTIONAL: Chills and sweats denies fever, EYES: Denies visual changes, redness, or discharge. ENT: Denies rhinorrhea, congestion, sore throat, or otalgia. CARDIOVASCULAR: Intermittent chest pain denies palpitations, or edema. RESPIRATORY: Denies cough or dyspnea. GASTROINTESTINAL: Denies abdominal pain, nausea, vomiting, or diarrhea. GENITOURINARY: Denies dysuria or hematuria. SKIN: Denies rash or itching. MUSCULOSKELETAL: Denies back pain, joint pain, or myalgia. NEUROLOGIC: Denies headache, numbness, dizziness, or weakness. PSYCHIATRIC: Denies anxiety or depression. <Gopal Gomez MD - Last Filed: 08/01/22 00:01> [facility] Past Medical History Medical History: Medical History (Updated 08/01/22 @ 02:1
[2022-07-31 20:28] LABS: Troponin I 0.012 ng/mL (0.000-0.034)
[2022-07-31 21:17] LABS: Influenza A QL RT-PCR Negative (Negative); Influenza B QL RT-PCR Negative (Negative); SARS-CoV-2 RNA PCR Negative
[2022-07-31] MEDS: ALBUTEROL SULFATE NEB 2.5 MG/3 ML INH 5 MG INHALATION (23:34)
--- NOTE | 2022-07-31 23:37 | PCRCNOTE ---
waited for pt to arrive from CT to begin breathing treatment. pt does PRN UPD at home according to family and pt.
[2022-08-01] VITALS (33 sets, daily range): BP systolic 104–120; BP diastolic 49–67; PULSE 0–91; RESP 16–24; TEMP 36.3–37.2; O2SAT 92–100
[2022-08-01 00:06] LABS: Troponin I 0.018 ng/mL (0.000-0.034)
--- NOTE | 2022-08-01 00:32 | PC.NURSE ---
called Lab @ 0033, spoke to Hernandez, add on BNP.
[2022-08-01 00:45] LABS: Add Urine Microscopic? YES; Appearance Urine Clear (Clear); Bilirubin Urine Negative (Negative); Blood Urine 2+ (Negative); Color Urine Yellow (Yellow); Glucose Urine UA 3+ mg/dL (Negative); Ketones Urine Negative (Negative); Leukocyte Esterase Ur Negative LEU/UL (Negative); Nitrate Urine Negative (Negative); Protein Urine 2+ mg/dL (Negative)
[2022-08-01 00:52] LABS: Mucus Urine Rare /lpf; Squamous Epithelial Cell Urine Occasional /hpf (Few)
[2022-08-01 01:33] LABS: NT Pro B Type Natriuretic Pept 3440 pg/mL (19.9-100)
[2022-08-01] MEDS: FUROSEMIDE INJ 40 MG/4 ML VIAL IV PUSH ×3 (02:46→20:40)
[2022-08-01 06:39] LABS: Hematocrit 34.3 % (37.0-47.0); Hemoglobin 10.5 g/dL (12.0-15.0); Mean Corpuscular HGB Conc 30.6 g/dl (32-36); Mean Corpuscular Hemoglobin 23.9 pg (26-34); Mean Corpuscular Volume 78.1 fl (80-100); Platelet Count Result 276 k/mm3 (150-375); Red Blood Count 4.39 M/mm3 (4.2-5.4); Red Cell Distribution Width 20.6 % (11.5-14.5)
[2022-08-01 06:50] LABS: Anion Gap 3 mmol/L (8-16); Blood Urea Nitrogen 15 mg/dL (7-17); Calcium 7.5 mg/dL (8.4-10.2); Carbon Dioxide 29 mmol/L (22-30); Chloride 110 mmol/L (98-107); Estimated CRCL calculation 34 ml/min; Estimated Glomerular Filt Rate 35; Glucose 156 mg/dL (65-110); Potassium 3.8 mmol/L (3.4-5.0); Sodium 142 mmol/L (137-145)
[2022-08-01 08:27] LABS: Magnesium 1.9 mg/dL (1.6-2.3)
--- NOTE | 2022-08-01 10:40 | PM.IMHP ---
H&P: HPI History of Present Illness Date/Time: 08/01/22 10:40 Chief Complaint: Hypoxia Narrative: 76yo female with CVA, DM, pAFib, COLTEN and HTN here after being found with hypoxia. Patient was seen here in early June for generalized weakness with x-ray showing bibasilar airspace disease atelectasis or pneumonia. It was felt that she had pneumonia treated with Rocephina dn Azithromycin. Also treated with IV Lasix for pulmonary vascular congestion. Speech recommended regular diet with Level 2 liquids. She was discharged on 06/22 to [facility]. She had completed her antibiotics prior to discharge. She was re-admitted on 07/04 for shortness of breath again felt related to PNA. CXR showing right lower lobe atelectasis/consolidation. She was treated for HCAP. Pulmonary edema noted on repeat chest x-ray with BNP 2300. Echocardiogram with grade 3 diastolic dysfunction. She was started on lasix IV. She was discharged back to SNF on 07/08 with oral abx for he next 3-4 days. Also sent on lasix 40mg po daily prn. Patient was returned to the SNF and did well. She was walking with a walker. Patient returned home 4 days prior to admission. Since being home, patient has now reverted back to using just a wheelchair per her . Patient is alert but mildly confused. This is her baseline. Majority history obtained from patient and from the . The family does have nursing that comes 5 days a week. Nursing did see the patient on the day of admission but no vital signs were obtained according to the . It should be mentioned the 's history is vague and contradictory at times. states that his daughter called and said that the patient needs vital signs taken. The measured a heart rate of 78 but mistaken this for blood pressure and called EMS due to low blood pressure and difficulty breathing . On EMS arrival, blood pressure was 122/72 with a pulse of 70 and respiratory rate 24. She was 83% room air. She does not wear oxygen at home. She does have sleep apnea but does not wear noninvasive ventilation because she cannot tolerate this. She has been having a cough productive white sputum for unclear duration. Patient states has been going on since her last admission but feels the cough is more recent. No fever, chills, odynophagia, dysphagia, ear pain, chest pain, palpitations. No nausea, vomiting, diarrhea, constipation, abdominal pain or changes in her chronic back pain. She does have pedal edema but there has been no change in this. She has nocturia x2 is chronic. Patient sleeps with the head of bed elevated which is also chronic. She is not on home diuretics. No calf pain. She does feel short of breath at times. She was brought to the emergency room for evaluation. In the emergency room she was 88% on room air. She was tachypneic at 24 and blood pressure and pulse were normal. I values were unrevealing. She did have elevated liver enzymes but noted in the past. BNP 3440. CTA chest showing no PE but with small bilateral pleural effusions with atelectasis. Albuterol and Lasix IV given. She was admitted for further care. Review of Systems Review of Systems: All systems reviewed & are unremarkable except as noted in HPI and below PMFSH Past Medical History Medical History Atrial flutter Atrial flutter with rapid ventricular response Beta thalassemia trait Catheter-associated urinary tract infection Cerebrovascular accident, embolic (~12/2017) Chronic anemia CKD (chronic kidney disease) Diabetes mellitus DVT (deep venous thrombosis) Dysphagia As a result of previous strokes. G-tube in place. Gastrostomy tube in place History of intracranial hemorrhage Hydrocephalus (~02/2020) Status post PACK PULLER shunt. Hyperlipidemia Intolerant to statins. Hypertension Indwelling Aparicio catheter present Intracerebral hemorrhage (~02/2020) Hemorrhagi
[2022-08-01] MEDS: IPRATROPIUM BR 0.02% INH SOLN 0.5 MG/2.5 ML VIAL INHALATION ×2 (10:52→20:25)
[2022-08-01] MEDS: ALBUTEROL SULFATE NEB 2.5 MG/3 ML INH 5 MG INHALATION ×2 (10:52→20:20)
[2022-08-01] MEDS: METOPROLOL TARTRATE 50 MG TAB PO ×2 (13:18→20:41)
--- NOTE | 2022-08-01 14:43 | PCSTNOTE ---
Please refer to the Bedside Swallow Evaluation in the EMR. Please note, silent aspiration cannot be ruled out at bedside.
[2022-08-01] MEDS: INSULIN ASPART (*BKC) 100 UNITS/ML SUB-Q (16:54)
[2022-08-01 17:03] LABS: Glucose Point of Care 316 mg/dl (65-105)
[2022-08-01] MEDS: OXYBUTYNIN CHLORIDE 5 MG TABLET PO (17:05)
[2022-08-01] MEDS: PANTOPRAZOLE 40 MG TABLET PO (17:06)
[2022-08-01] MEDS: AMIODARONE HCL 200 MG TABLET PO (17:06)
[2022-08-01] MEDS: APIXABAN 2.5 MG TABLET PO (17:07)
[2022-08-01] MEDS: SENNA/DOCUSATE SODIUM TABLET 1 TAB PO (20:40)
[2022-08-01] MEDS: ESCITALOPRAM OXALATE 10 MG TABLET PO (20:40)
[2022-08-01] MEDS: GABAPENTIN 300 MG CAPSULE PO (20:40)
[2022-08-01] MEDS: INSULIN GLARGINE (*BKC) 100 UNITS/ML 30 UNITS SUB-Q (20:41)
[2022-08-01 21:06] LABS: Glucose Point of Care 204 mg/dl (65-105)
[2022-08-01] MEDS: ACETAMINOPHEN 500 MG TABLET PO (22:51)
[2022-08-02] VITALS (21 sets, daily range): BP systolic 82–107; BP diastolic 48–55; PULSE 0–92; RESP 16–20; TEMP 36–36.7; O2SAT 91–100
[2022-08-02] MEDS: FLUCONAZOLE 150 MG TABLET PO (01:46)
[2022-08-02] MEDS: ALBUTEROL SULFATE NEB 2.5 MG/3 ML INH 5 MG INHALATION ×3 (02:59→15:01)
[2022-08-02] MEDS: IPRATROPIUM BR 0.02% INH SOLN 0.5 MG/2.5 ML VIAL INHALATION ×3 (02:59→15:00)
[2022-08-02 06:31] LABS: Basophils Absolute Auto 0.1 K/mm3 (0.0-0.1); Basophils Percent Auto 1.3 % (0.2-1.2); Eosinophils Absolute Auto 0.4 K/mm3 (0-0.3); Eosinophils Percent Auto 5.2 % (0-4.4); Hematocrit 33.8 % (37.0-47.0); Hemoglobin 10.5 g/dL (12.0-15.0); Immature Granulocyte Absolute 0.02 K/mm3 (0.00-0.031); Immature Granulocyte Percent A 0.3 % (0-0.5); Lymphocytes Percent Auto 21.7 % (18.3-44.2); Mean Corpuscular HGB Conc 31.1 g/dl (32-36); Mean Corpuscular Hemoglobin 24.2 pg (26-34); Mean Corpuscular Volume 78.1 fl (80-100); Mean Platelet Volume 10.5 fl (7.4-10.4); Monocytes Absolute Auto 0.8 K/mm3 (0.1-0.6); Monocytes Percent Auto 10.9 % (2.6-8.5); Neutrophils Absolute Auto 4.2 K/mm3 (1.3-6.7); Neutrophils Percent Auto 60.6 % (45.5-73.1); Platelet Count Result 276 k/mm3 (150-375); Red Blood Count 4.33 M/mm3 (4.2-5.4); Red Cell Distribution Width 20.2 % (11.5-14.5); White Blood Count 6.9 K/mm3 (4.5-10.0)
[2022-08-02 06:36] LABS: Alanine Aminotransferase 53 U/L (6-35); Albumin Level 2.5 g/dL (3.5-5.1); Alkaline Phosphatase 108 U/L (38-126); Anion Gap 4 mmol/L (8-16); Aspartate Amino Transferase 92 U/L (14-36); Blood Urea Nitrogen 17 mg/dL (7-17); Calcium 7.4 mg/dL (8.4-10.2); Carbon Dioxide 32 mmol/L (22-30); Chloride 105 mmol/L (98-107); Estimated CRCL calculation 32 ml/min; Estimated Glomerular Filt Rate 33; Glucose 147 mg/dL (65-110); Magnesium 1.8 mg/dL (1.6-2.3); Phosphorus 3.7 mg/dL (2.5-4.5); Potassium 3.3 mmol/L (3.4-5.0); Sodium 141 mmol/L (137-145)
[2022-08-02 06:54] LABS: Iron 35 ug/dL (37-170)
[2022-08-02 07:03] LABS: Percent Iron Saturation 15 % (20-50)
[2022-08-02 07:09] LABS: Hemoglobin A1C 6.2 % (<5.7)
[2022-08-02 07:41] LABS: Glucose Point of Care 137 mg/dl (65-105)
[2022-08-02 07:42] LABS: Folic Acid 2.9 ng/mL (2.76->20)
[2022-08-02 07:52] LABS: Free T4 Free Thyroxine Reflex 2.38 ng/dL (0.78-2.19)
--- NOTE | 2022-08-02 08:38 | PM.IMPN ---
Progress Note: A&P Assessment and Plan (1) Hypoxia: Code(s): R09.02 - Hypoxemia Status: Acute Assessment and Plan: Wean as able, multifactorial (2) COPD (chronic obstructive pulmonary disease): Code(s): J44.9 - Chronic obstructive pulmonary disease, unspecified Status: Acute (3) CHF (congestive heart failure): Code(s): I50.9 - Heart failure, unspecified Status: Acute Assessment and Plan: Continue diuresis, Lasix 40 mg IV q.12, monitor response (4) Paroxysmal atrial fibrillation: Code(s): I48.0 - Paroxysmal atrial fibrillation Status: Chronic Assessment and Plan: Rate controlled, paced rhythm (5) Type 2 diabetes mellitus: Qualifiers: Diabetes mellitus complication status: without complication Diabetes mellitus intermediate school teacher insulin use: with intermediate school teacher use Qualified Code(s): E11.9 - Type 2 diabetes mellitus without complications; Z79.4 - terminal system operator (current) use of insulin Code(s): E11.9 - Type 2 diabetes mellitus without complications Status: Chronic Assessment and Plan: Accu-Cheks with sliding scale insulin (6) Hypertension: Qualifiers: Hypertension type: essential hypertension Qualified Code(s): I10 - Essential (primary) hypertension Code(s): I10 - Essential (primary) hypertension Status: Chronic Assessment and Plan: Quite hypotensive, asymptomatic, monitor (7) CKD (chronic kidney disease): Code(s): N18.9 - Chronic kidney disease, unspecified Status: Acute Assessment and Plan: Repeat BMP pending, monitor creatinine (8) Obstructive sleep apnea: Code(s): G47.33 - Obstructive sleep apnea (adult) (pediatric) Status: Acute Assessment and Plan: ApneaLink pending Plan DVT prophylaxis with Eliquis GI prophylaxis not indicated Code status full code Subjective Date/time seen: 08/02/22 08:38 Interval history: No overnight events noted. No chest pain or shortness of breath. No nausea, vomiting or diarrhea. No fevers or chills. On no oxygen at home, 2 L O2 nasal cannula here, attempt to wean Review of Systems Review of Systems: 12 point review of systems was assessed and was negative except as noted in the HPI Exam Narrative: General: No acute distress, alert and oriented per baseline HEENT: Atraumatic, normocephalic, mucous membranes moist CV: Regular rate and rhythm, S1, S2 Lungs: Clear to auscultation bilaterally, no rales or crackles noted, no wheezes, good air entry Abdomen: Soft, nontender, nondistended Extremities: Normal to inspection Skin: No rashes noted, no lesions or wounds seen Psych: Euthymic, normal affect Objective Data Vital Signs Vital Signs: Vital Signs - 24 hr 08/01/22 10:55 08/01/22 10:56 08/01/22 13:18 Temperature Pulse Rate 69 69 69 Respiratory Rate 18 18 Blood Pressure Pulse Oximetry 100 Oxygen Delivery Nasal Cannula Oxygen Flow Rate 2 Fraction of Inspired Oxygen 28 08/01/22 12:00 08/01/22 14:50 08/01/22 17:06 Temperature 97.3 F L Pulse Rate 70 69 70 Respiratory Rate 18 Blood Pressure 111/56 L Pulse Oximetry 98 Oxygen Delivery Oxygen Flow Rate Fraction of Inspired Oxygen 08/01/22 16:00 08/01/22 20:00 08/01/22 22:29 Temperature 98.9 F Pulse Rate 70 70 Respiratory Rate 18 Blood Pressure 120/66 Pulse Oximetry 98 100 Oxygen Delivery Nasal Cannula Oxygen Flow Rate 2 Fraction of Inspired Oxygen 08/01/22 20:40 08/01/22 20:45 08/02/22 03:00 Temperature Pulse Rate 78 74 87 Respiratory Rate 18 18 20 Blood Pressure Pulse Oximetry Oxygen Delivery Oxygen Flow Rate Fraction of Inspired Oxygen 08/02/22 03:16 08/01/22 20:00 08/02/22 00:00 Temperature Pulse Rate 81 71 70 Respiratory Rate 20 Blood Pressure Pulse Oximetry Oxygen Delivery Oxygen Flow Rate Fraction of Inspired Oxygen
--- NOTE | 2022-08-02 09:39 | PCOTNOTE ---
Attempted OT evaluation, patient is currently eating at this time, will follow and attempt at later time.
[2022-08-02] MEDS: FERROUS SULFATE 324 MG TABLET PO (10:04)
[2022-08-02] MEDS: EZETIMIBE 10 MG TABLET PO (10:04)
[2022-08-02] MEDS: OXYBUTYNIN CHLORIDE 5 MG TABLET PO ×2 (10:04→17:44)
[2022-08-02] MEDS: MONTELUKAST SODIUM 10 MG TABLET PO (10:04)
[2022-08-02] MEDS: APIXABAN 2.5 MG TABLET PO ×2 (10:05→17:44)
[2022-08-02] MEDS: CHOLECALCIFEROL 1,000 UNITS TABLET 5000 UNITS PO (10:05)
[2022-08-02] MEDS: GABAPENTIN 300 MG CAPSULE PO ×2 (10:05→20:17)
[2022-08-02] MEDS: EMPAGLIFLOZIN 25 MG TABLET PO (10:06)
[2022-08-02] MEDS: FLUTICASONE PROPIONATE 0.05% NA SPR 16 GM BTL (*BKC) 2 SPRAY NASAL (10:06)
[2022-08-02] MEDS: PANTOPRAZOLE 40 MG TABLET PO ×2 (10:06→17:44)
[2022-08-02 11:22] LABS: Glucose Point of Care 258 mg/dl (65-105)
[2022-08-02] MEDS: METOPROLOL TARTRATE 50 MG TAB PO ×2 (11:58→20:42)
[2022-08-02] MEDS: FUROSEMIDE INJ 40 MG/4 ML VIAL IV PUSH ×2 (11:58→20:16)
[2022-08-02] MEDS: INSULIN ASPART (*BKC) 100 UNITS/ML SUB-Q (11:59)
[2022-08-02] MEDS: AMIODARONE HCL 200 MG TABLET PO ×2 (12:36→17:44)
[2022-08-02 16:15] LABS: Glucose Point of Care 182 mg/dl (65-105)
[2022-08-02] MEDS: ACETAMINOPHEN 500 MG TABLET PO ×2 (17:45→23:28)
[2022-08-02] MEDS: ESCITALOPRAM OXALATE 10 MG TABLET PO (20:16)
[2022-08-02] MEDS: SENNA/DOCUSATE SODIUM TABLET 1 TAB PO (20:16)
[2022-08-02] MEDS: INSULIN GLARGINE (*BKC) 100 UNITS/ML 30 UNITS SUB-Q (20:39)
[2022-08-02 20:47] LABS: Glucose Point of Care 304 mg/dl (65-105)
[2022-08-03] VITALS (15 sets, daily range): BP systolic 98–101; BP diastolic 50; PULSE 69–90; RESP 16–18; TEMP 36–36.8; O2SAT 91–98
[2022-08-03] MEDS: IPRATROPIUM BR 0.02% INH SOLN 0.5 MG/2.5 ML VIAL INHALATION ×2 (02:09→10:30)
[2022-08-03] MEDS: ALBUTEROL SULFATE NEB 2.5 MG/3 ML INH 5 MG INHALATION ×2 (02:10→10:30)
[2022-08-03 06:11] LABS: Basophils Absolute Auto 0.1 K/mm3 (0.0-0.1); Eosinophils Absolute Auto 0.4 K/mm3 (0-0.3); Hematocrit 34.8 % (37.0-47.0); Hemoglobin 10.6 g/dL (12.0-15.0); Immature Granulocyte Absolute 0.02 K/mm3 (0.00-0.031); Immature Granulocyte Percent A 0.3 % (0-0.5); Lymphocytes Absolute Auto 1.15 K/mm3 (0.9-3.2); Lymphocytes Percent Auto 18.2 % (18.3-44.2); Mean Corpuscular HGB Conc 30.5 g/dl (32-36); Mean Corpuscular Hemoglobin 23.6 pg (26-34); Mean Corpuscular Volume 77.3 fl (80-100); Mean Platelet Volume 9.8 fl (7.4-10.4); Monocytes Absolute Auto 0.7 K/mm3 (0.1-0.6); Monocytes Percent Auto 10.9 % (2.6-8.5); Neutrophils Percent Auto 63.6 % (45.5-73.1); Platelet Count Result 268 k/mm3 (150-375); Red Cell Distribution Width 20.5 % (11.5-14.5); White Blood Count 6.3 K/mm3 (4.5-10.0)
[2022-08-03] MEDS: ONDANSETRON HCL ODT 4 MG TABLET PO (06:11)
[2022-08-03 06:30] LABS: Alanine Aminotransferase 54 U/L (6-35); Albumin Level 2.6 g/dL (3.5-5.1); Alkaline Phosphatase 125 U/L (38-126); Anion Gap 5 mmol/L (8-16); Aspartate Amino Transferase 100 U/L (14-36); Bilirubin,Total 0.9 mg/dL (0.2-1.3); Blood Urea Nitrogen 21 mg/dL (7-17); Calcium 7.4 mg/dL (8.4-10.2); Carbon Dioxide 31 mmol/L (22-30); Chloride 105 mmol/L (98-107); Estimated CRCL calculation 31 ml/min; Estimated Glomerular Filt Rate 31; Glucose 143 mg/dL (65-110); Potassium 3.5 mmol/L (3.4-5.0); Sodium 141 mmol/L (137-145)
[2022-08-03 07:48] LABS: Glucose Point of Care 162 mg/dl (65-105)
--- NOTE | 2022-08-03 09:15 | PM.IMPN ---
Progress Note: A&P Assessment and Plan (1) Hypoxia: Code(s): R09.02 - Hypoxemia Status: Acute Assessment and Plan: resolved, stable on room air, home O2 eval pending apnealink to be done tonight on room air MBS showed no signs of aspiration repeat CXR pending could be 2/2 post-COVID syndrome vs COPD vs HF vs COLTEN? (2) COPD (chronic obstructive pulmonary disease): Code(s): J44.9 - Chronic obstructive pulmonary disease, unspecified Status: Acute Assessment and Plan: not officially diagnosed, will refer to pulm for outpatient PFTs at d/c (3) CHF (congestive heart failure): Code(s): I50.9 - Heart failure, unspecified Status: Acute Assessment and Plan: Continue diuresis, stop IV diuresis, revert to home po daily dosing, decrease dose to 20 mg daily instead of 40 mg prn (4) Paroxysmal atrial fibrillation: Code(s): I48.0 - Paroxysmal atrial fibrillation Status: Chronic Assessment and Plan: Rate controlled, paced rhythm (5) Type 2 diabetes mellitus: Qualifiers: Diabetes mellitus nursing home insulin use: with nursing home use Diabetes mellitus complication status: without complication Qualified Code(s): E11.9 - Type 2 diabetes mellitus without complications; Z79.4 - termite technician (current) use of insulin Code(s): E11.9 - Type 2 diabetes mellitus without complications Status: Chronic Assessment and Plan: Accu-Cheks with sliding scale insulin, A1c 6.2 (6) Hypertension: Qualifiers: Hypertension type: essential hypertension Qualified Code(s): I10 - Essential (primary) hypertension Code(s): I10 - Essential (primary) hypertension Status: Chronic Assessment and Plan: Quite hypotensive, asymptomatic, monitor (7) CKD (chronic kidney disease): Code(s): N18.9 - Chronic kidney disease, unspecified Status: Acute Assessment and Plan: Slightly worsened with increased diuresis, will d/c IV lasix in favor or po (8) Obstructive sleep apnea: Code(s): G47.33 - Obstructive sleep apnea (adult) (pediatric) Status: Acute Assessment and Plan: ApneaLink pending on room air tonight Plan DVT prophylaxis with Eliquis GI prophylaxis not indicated Code status full code Subjective Date/time seen: 08/03/22 09:15 Interval history: No overnight events noted. No chest pain or shortness of breath. No nausea, vomiting or diarrhea. No fevers or chills. On no oxygen at home, 2 L O2 nasal cannula here, attempt to wean Exam Narrative: General: No acute distress, alert and oriented per baseline HEENT: Atraumatic, normocephalic, mucous membranes moist CV: Regular rate and rhythm, S1, S2 Lungs: Clear to auscultation bilaterally, no rales or crackles noted, no wheezes, good air entry Abdomen: Soft, nontender, nondistended Extremities: Normal to inspection Skin: No rashes noted, no lesions or wounds seen Psych: Euthymic, normal affect Objective Data Vital Signs Vital Signs: Vital Signs - 24 hr 08/02/22 10:01 08/02/22 10:12 08/02/22 10:12 Temperature Pulse Rate 69 Respiratory Rate 18 Blood Pressure 94/51 L Pulse Oximetry 91 Oxygen Delivery Nasal Cannula Oxygen Flow Rate 2 08/02/22 10:28 08/02/22 10:35 08/02/22 11:58 Temperature Pulse Rate 70 92 Respiratory Rate 18 Blood Pressure Pulse Oximetry Oxygen Delivery Nasal Cannula Oxygen Flow Rate 2 08/02/22 12:36 08/02/22 12:00 08/02/22 15:05 Temperature Pulse Rate 78 0 L Respiratory Rate Blood Pressure Pulse Oximetry 97 Oxygen Delivery Room Air Oxygen Flow Rate 08/02/22 15:05 08/02/22 15:19 08/02/22 14:00 Temperature 96.8 F L Pulse Rate 70 72 72 Respiratory Rate 18 18 16 Blood Pressure 82/48 L Pulse Oximetry 100 Oxygen Delivery Oxygen Flow Rate 08/02/22 17:18 08/02/22 16:00 08/02/22 17:44 Temperature 97.6 F Pulse Rate 74 77
--- NOTE | 2022-08-03 09:46 | P.CDI_ITS ---
CDI Query Clarification Request acute on chronic diastolic HF <Bety Sin DO - Last Filed: 08/03/22 15:00> Clarified Diagnosis Clarified Diagnosis: Documented history of CHF. CHF noted on assessment and plan. Pt currently receiving Furosemide. Pt takes furosemide as a home medication. Pt requiring supplemental oxygen. Please specify type and acuity of heart failure if known. * Acute * Chronic * Acute on Chronic * Unknown * Systolic * Diastolic * Combined Systolic and Diastolic * Unknown <Mindy Cota RN - Last Filed: 08/03/22 09:49>
[2022-08-03] MEDS: MONTELUKAST SODIUM 10 MG TABLET PO (10:07)
[2022-08-03] MEDS: METOPROLOL TARTRATE 50 MG TAB PO (10:07)
[2022-08-03] MEDS: AMIODARONE HCL 200 MG TABLET PO (10:08)
[2022-08-03] MEDS: OXYBUTYNIN CHLORIDE 5 MG TABLET PO (10:08)
[2022-08-03] MEDS: EZETIMIBE 10 MG TABLET PO (10:08)
[2022-08-03] MEDS: GABAPENTIN 300 MG CAPSULE PO (10:09)
[2022-08-03] MEDS: FLUTICASONE PROPIONATE 0.05% NA SPR 16 GM BTL (*BKC) 2 SPRAY NASAL (10:09)
[2022-08-03] MEDS: EMPAGLIFLOZIN 25 MG TABLET PO (10:09)
[2022-08-03] MEDS: APIXABAN 2.5 MG TABLET PO (10:09)
[2022-08-03] MEDS: CHOLECALCIFEROL 1,000 UNITS TABLET 5000 UNITS PO (10:10)
[2022-08-03] MEDS: PANTOPRAZOLE 40 MG TABLET PO (10:10)
[2022-08-03] MEDS: FERROUS SULFATE 324 MG TABLET PO (10:11)
[2022-08-03] MEDS: FUROSEMIDE 20 MG TABLET PO (10:49)
[2022-08-03 11:56] LABS: Glucose Point of Care 280 mg/dl (65-105)
[2022-08-03] MEDS: INSULIN ASPART (*BKC) 100 UNITS/ML SUB-Q (12:08)
--- NOTE | 2022-08-03 14:15 | PCRCNOTE ---
NO HOME O2 NEEDED AT THIS TIME
--- NOTE | 2022-08-03 14:53 | PM.DS ---
DS: Admitting Diagnosis Discharge Date 08/03/22 Admitting Diagnosis hypoxia DS: Discharge Diagnosis Discharge Diagnosis (1) Hypoxia: Code(s): R09.02 - Hypoxemia Status: Acute Assessment and Plan: resolved, stable on room air, home O2 eval pending apnealink to be done tonight on room air MBS showed no signs of aspiration repeat CXR pending could be 2/2 post-COVID syndrome vs COPD vs HF vs COLTEN? (2) COPD (chronic obstructive pulmonary disease): Code(s): J44.9 - Chronic obstructive pulmonary disease, unspecified Status: Acute Assessment and Plan: not officially diagnosed, will refer to pulm for outpatient PFTs at d/c (3) CHF (congestive heart failure): Code(s): I50.9 - Heart failure, unspecified Status: Acute Assessment and Plan: Continue diuresis, stop IV diuresis, revert to home po daily dosing, decrease dose to 20 mg daily instead of 40 mg prn (4) Paroxysmal atrial fibrillation: Code(s): I48.0 - Paroxysmal atrial fibrillation Status: Chronic Assessment and Plan: Rate controlled, paced rhythm (5) Type 2 diabetes mellitus: Qualifiers: Diabetes mellitus long-term insulin use: with long-term use Diabetes mellitus complication status: without complication Qualified Code(s): E11.9 - Type 2 diabetes mellitus without complications; Z79.4 - FPC (current) use of insulin Code(s): E11.9 - Type 2 diabetes mellitus without complications Status: Chronic Assessment and Plan: Accu-Cheks with sliding scale insulin, A1c 6.2 (6) Hypertension: Qualifiers: Hypertension type: essential hypertension Qualified Code(s): I10 - Essential (primary) hypertension Code(s): I10 - Essential (primary) hypertension Status: Chronic Assessment and Plan: Quite hypotensive, asymptomatic, monitor (7) CKD (chronic kidney disease): Code(s): N18.9 - Chronic kidney disease, unspecified Status: Acute Assessment and Plan: Slightly worsened with increased diuresis, will d/c IV lasix in favor or po (8) Obstructive sleep apnea: Code(s): G47.33 - Obstructive sleep apnea (adult) (pediatric) Status: Acute Assessment and Plan: ApneaLink pending on room air tonight Plan DVT prophylaxis with Eliquis GI prophylaxis not indicated Code status full code DS: Summary Hospital Course Hospital Course: 76yo female with CVA, DM, pAFib, COLTEN and HTN here after being found with hypoxia. ? Patient was seen here in early June for generalized weakness with x-ray showing bibasilar airspace disease atelectasis or pneumonia.? It was felt that she had pneumonia treated with Rocephin and Azithromycin. Also treated with IV Lasix for pulmonary vascular congestion. Speech recommended regular diet with Level 2 liquids. She was discharged on 06/[facility].? She had completed her antibiotics prior to discharge. She was re-admitted on 07/04 for shortness of breath again felt related to PNA. CXR showing right lower lobe atelectasis/consolidation. She was treated for HCAP.?Pulmonary edema noted on repeat chest x-ray with BNP 2300. Echocardiogram with grade 3 diastolic dysfunction. She was started on lasix IV. She was?discharged back to SNF on 07/08 with oral abx for he next 3-4 days. Also sent on lasix 40mg po daily prn.??Patient was returned to the SNF and did well. She was walking with a walker. Patient returned home 4 days prior to admission. Since being home, patient has now reverted back to using just a wheelchair per her .? Patient is alert but mildly confused.?She was 83% room air.? She does not wear oxygen at home.?CTA chest showing no PE but with small bilateral pleural effusions with atelectasis. Albuterol and Lasix IV given. Patient is able to be weaned back to room air with diuresis. She was restarted on her home diuretic. However, the dose was changed from 40 mg as needed to 20 mg daily
== END 2022-08-03 15:52 | disposition home health service (06) | DRG 291 ==
LOC: ANHED 08-01 02:11 → ANH3MEDSUR 08-01 02:21
PROVIDERS: Internal Medicine; Preventive Medicine Aerospace Medicine; Admitting Provider Internal Medicine; Emergency Provider Emergency Medicine; PCP Family Medicine; Visit Provider Student in an Organized Health Care Education/Training Program
DX: I13.0 Hypertensive heart and chronic kidney disease with heart failure and stage 1 through stage 4 chronic kidney disease, or unspecified chronic kidney disease (principal); I50.33 Acute on chronic diastolic (congestive) heart failure; G91.9 Hydrocephalus, unspecified; I48.92 Unspecified atrial flutter; I69.354 Hemiplegia and hemiparesis following cerebral infarction affecting left non-dominant side; I69.254 Hemiplegia and hemiparesis following other nontraumatic intracranial hemorrhage affecting left non-dominant side; J44.9 Chronic obstructive pulmonary disease, unspecified; R09.02 Hypoxemia; G47.33 Obstructive sleep apnea (adult) (pediatric); I69.391 Dysphagia following cerebral infarction; D56.3 Thalassemia minor; I48.0 Paroxysmal atrial fibrillation; I07.1 Rheumatic tricuspid insufficiency; I50.9 Heart failure, unspecified; N18.9 Chronic kidney disease, unspecified; E11.22 Type 2 diabetes mellitus with diabetic chronic kidney disease; E78.5 Hyperlipidemia, unspecified; M19.90 Unspecified osteoarthritis, unspecified site; Z20.822 Contact with and (suspected) exposure to COVID-19; Z96.653 Presence of artificial knee joint, bilateral; Z79.4 Long term (current) use of insulin; Z79.01 Long term (current) use of anticoagulants; Z87.891 Personal history of nicotine dependence; Z98.2 Presence of cerebrospinal fluid drainage device; Z86.718 Personal history of other venous thrombosis and embolism; Z93.1 Gastrostomy status
CPT/HCPCS: 36415; 70450; 71045; 71275; 80048; 80053; 81001; 82607; 82728; 82746; 82948; 83036; 83540; 83550; 83735; 83880; 84100; 84439; 84443; 84484; 85025; 85027; 87086; 87088; 87636; 92611; 93005; 94618; 94640; 96374; 96376; 97110; 97161; 97165; 97530; 99285; A9270; G0378; J1815; J1940; Q9967

== ENCOUNTER 2022-08-14 09:09 | Inpatient (IN) | payer MEDICARE, SELFPAY ==
[2022-08-14] VITALS (27 sets, daily range): BP systolic 90–123; BP diastolic 48–99; PULSE 70–76; RESP 11–24; TEMP 35.7–36.5; O2SAT 92–100
--- NOTE | ~2022-08-14 | XR_ITS ---
EXAMINATION: XR sniff test without CXR2V DATE: 08/16/2022 10:48 INDICATION: Elevated right hemidiaphragm. TECHNIQUE: I performed fluoroscopy while be patient performed normal respiration, deep respiration, a nd forceful sniffing. The total number of images was 768. The fluoroscopy exposure time was 0.6 minut es. COMPARISON: Chest CT 08/15/2022, chest 2 views 08/14/2022, chest single view 07/04/2022 FINDINGS: There is mild elevation of right hemidiaphragm. There is symmetric motion of the right and left sides of the diaphragm with respiration. No paradoxical motion. There is a left chest wall pacer with leads in the right atrium and right ventricle. IMPRESSION: 1. Mild elevation of right hemidiaphragm with symmetric motion of the right and left sides of the sera phragm. Reviewed, dictated and finalized at location A. RD PRESS SUPERVISOR IMPRESSION: 1. Mild elevation of right hemidiaphragm with symmetric motion of the right and left sides of the diaphragm.
--- NOTE | ~2022-08-14 | CT_ITS ---
EXAMINATION:CT diagnostic chest wo con DATE: 08/15/2022 15:12 INDICATION: Shortness of breath. TECHNIQUE: Computed tomography (CT) of the chest was performed without intravenous contrast. Automate d exposure control and iterative reconstruction technique were employed. The dose-length product (DLP ) was 1338.36 mGy-cm. COMPARISON: Chest CT 07/31/2022, 07/09/20 FINDINGS: The lungs demonstrate motion artifact and mild atelectasis. There is chronic mild elevation of right hemidiaphragm. There is smooth septal thickening bilaterally, consistent with mild pulmonar y edema. There are small left and trace right pleural effusions. Cardiomegaly is noted. There is a le ft chest wall pacer with leads in the right atrium and right ventricle. There are coronary artery kennedy cifications. No pericardial effusion. There is mild mediastinal lymphadenopathy, likely reactive. A r ight-sided ventricular peritoneal shunt is noted. There is a small volume of perisplenic ascites. IMPRESSION: 1. Mild pulmonary edema with small left pleural effusion. 2. Small volume of perisplenic ascites. Reviewed, dictated and finalized at location A. ER MEDICAL AND LAB DIRECTOR
--- NOTE | ~2022-08-14 | XR_ITS ---
Clinical Indication: Chest pain PA and lateral views of the chest: Comparison: 08/03/2022 Findings: The patient noted. The lungs are clear, without evidence of focal consolidation or pleural effusion. Stable elevation right hemidiaphragm. Cardiomediastinal silhouette is stable, with pacemake r device. Bones and soft tissues are unremarkable. Impression: Clear lungs. Elevated right hemidiaphragm. LINEN ROOM ATTENDANT shunt and pacemaker is. Reviewed, dictated and finalized at location M. INSTALLER Impression: Clear lungs. Elevated right hemidiaphragm. LINEN ROOM ATTENDANT shunt and pacemaker is.
--- NOTE | 2022-08-14 09:17 | ECG_ITS ---
Measurements Intervals [place] Rate: 78 P: 262 NV: 231 QRS: -8 QRSD: 108 T: 66 QT: 378 QTc: 432 Interpretive Statements ELECTRONIC ATRIAL PACEMAKER NONSPECIFIC T-WAVE ABNORMALITY LOW-VOLTAGE QRS IN PRECORDIAL LEADS ABNORMAL ECG COMPARED TO ECG 07/31/2022 20:09:08 T-WAVE ABNORMALITY NOW PRESENT Electronically Signed On 08-14-2022 16:17:27 BREADING MACHINE TENDER by Bogdan Lilly M.D.
[2022-08-14 09:49] LABS: Alveolar/Arterial O2 Gradient 32.6 mmHg; Base Excess ABG 4.1 mEq/l (+/-2.0); Carboxyhemoglobin 2.1 % THb (0-2.0); Fractional Inspired Oxygen 21 %; HCO3 ABG 28.7 mEq/l (22.0-26.0); Methemoglobin ABG 0.2 %THb (0-1.5); Oxygen Content ABG 15.9 %vol (16.0-22.0); Oxygen Saturation ABG 93.5 % (95.0-100.0); Oxyhemoglobin 90.3 % THb (90.0-100.0); PCO2 ABG 43.2 mmHg (35.0-45.0); PO2 ABG 65.4 mmHg (80.0-100.0); PO2 FiO2 Ratio Arterial Blood 3.11 %; Reduced Hemoglobin 7.4 %THb (0-5.0); Total Hemoglobin 12.5 g/dL (12.0-18.0); pH ABG 7.441 (7.350-7.450)
[2022-08-14 09:51] LABS: Device ROOM AIR; Modified Allen's Test Pass; Site Drawn RIGHT RADIAL
--- NOTE | 2022-08-14 10:17 | ED.SOB ---
HPI - SOB/Dyspnea General Chief Complaint: Shortness of Breath/Dyspnea <Lola Hernandes PA-C - Last Filed: 08/14/22 15:45> Stated Complaint: difficulty breathing chest tightness <Lola Hernandes PA-C - Last Filed: 08/14/22 15:45> Time Seen by Provider: 08/14/22 09:30 <Lola Hernandes PA-C - Last Filed: 08/14/22 15:45> Source: patient and EMS <Lola Hernandes PA-C - Last Filed: 08/14/22 15:45> Mode of arrival: EMS <SHAWN Benton Last Filed: 08/14/22 15:45> Limitations: no limitations <Lola Hernandes PA-C - Last Filed: 08/14/22 15:45> History of Present Illness HPI Narrative: This is a 76 year old female that presents to the ER for shortness of breath ongoing over the last couple of days. Reportedly patient's oxygen saturation was in the 80s on room air. Patient was given a nebulizer treatment in route with improvement. She is now on room air with normal oxygen saturation. Associated with productive cough. She had reported chest tightness in route, but is no longer having any chest discomfort. Denies fever or lower extremity edema. <Lola Hernandes PA-C - Last Filed: 08/14/22 15:45> Related Data Home Medications: Home Medications Medication Instructions Recorded Confirmed cholecalciferol (vitamin D3) 25 5,000 mcg PO DAILY 05/25/20 08/01/22 mcg (1,000 unit) tablet (Vitamin D3) acetaminophen 500 mg tablet 500 mg PO Q4H PRN Pain 12/10/20 08/01/22 albuterol sulfate 90 mcg/actuation 2 puff inhalation DAILY 12/10/20 08/01/22 aerosol inhaler escitalopram oxalate 10 mg tablet 10 mg PO HS 12/10/20 08/01/22 pantoprazole 40 mg tablet,delayed 40 mg PO BID 12/10/20 08/01/22 release (Protonix) ondansetron HCl 4 mg tablet 4 mg PO Q8H PRN Nausea 12/16/21 08/01/22 amiodarone 200 mg tablet (Pacerone) 200 mg PO BID 12/20/21 08/01/22 ezetimibe 10 mg tablet 1 tablet PO DAILY 12/20/21 08/01/22 fluticasone propionate 50 2 spray intranasal DAILY 12/20/21 08/01/22 mcg/actuation nasal spray,suspension (Flonase Allergy Relief) gabapentin 300 mg capsule 1 cap PO BID 12/20/21 08/01/22 montelukast 10 mg tablet 1 tablet PO DAILY 12/20/21 08/01/22 rosuvastatin 40 mg tablet 1 tablet PO DAILY 12/20/21 08/01/22 ferrous sulfate 325 mg (65 mg 325 mg PO DAILY 07/05/22 08/01/22 iron) tablet,delayed release apixaban 2.5 mg tablet (Eliquis) 2.5 mg PO BID 08/01/22 08/01/22 benzonatate 100 mg capsule 100 mg PO TID PRN Cough 08/01/22 08/01/22 empagliflozin 25 mg tablet 25 mg PO DAILY 08/01/22 08/01/22 (Jardiance) metoprolol tartrate 50 mg tablet 50 mg PO BID 08/01/22 08/01/22 oxybutynin chloride 5 mg tablet 5 mg PO BID 08/01/22 08/01/22 <Lola Hernandes PA-C - Last Filed: 08/14/22 15:45> Allergies/Adverse Reactions: Allergies Allergy/AdvReac Type Severity Reaction Status Date / Time JOLIE Inhibitors Allergy Unknown Unknown Verified 07/31/22 19:25 hydrocodone Allergy Unknown Unknown Verified 07/31/22 19:25 lovastatin Allergy Unknown Unknown Verified 07/31/22 19:25 pravastatin Allergy Unknown Unknown Verified 07/31/22 19:25 Sulfa (Sulfonamide Allergy Unknown Unknown Verified 07/31/22 19:25 Antibiotics) Sulfonylureas Allergy Unknown Unknown Verified 07/31/22 19:25 perfume Allergy Unknown Verified 07/31/22 19:25 pollen extracts Allergy Unknown Verified 07/31/22 19:25 <Lola Hernandes PA-C - Last Filed: 08/14/22 15:45> Review of Systems Review of Systems: CONSTITUTIONAL: Denies fever ENT: Reports congestion CARDIOVASCULAR: Reports chest pain. Denies edema. RESPIRATORY: Reports cough and dyspnea. <Lola Hernandes PA-C - Last Filed: 08/14/22 15:45> All systems reviewed & are unremarkable except as noted in HPI and below <Lola Hernandes PA-C - Last Filed: 08/14/22 15:45> [facility] Past Medical History Medical History: Medical History Atrial flutter Atrial flutter with rapid ventricular response Beta t
[2022-08-14 10:20] LABS: Basophils Percent Auto 0.5 % (0.2-1.2); Eosinophils Absolute Auto 0.2 K/mm3 (0-0.3); Eosinophils Percent Auto 2.8 % (0-4.4); Hematocrit 37.6 % (37.0-47.0); Hemoglobin 11.7 g/dL (12.0-15.0); Immature Granulocyte Absolute 0.03 K/mm3 (0.00-0.031); Immature Granulocyte Percent A 0.4 % (0-0.5); Lymphocytes Absolute Auto 1.86 K/mm3 (0.9-3.2); Mean Corpuscular HGB Conc 31.1 g/dl (32-36); Mean Corpuscular Volume 77.2 fl (80-100); Monocytes Absolute Auto 0.7 K/mm3 (0.1-0.6); Neutrophils Absolute Auto 5.6 K/mm3 (1.3-6.7); Neutrophils Percent Auto 66.3 % (45.5-73.1); Platelet Count Result 324 k/mm3 (150-375); Red Blood Count 4.87 M/mm3 (4.2-5.4); Red Cell Distribution Width 19.5 % (11.5-14.5); White Blood Count 8.5 K/mm3 (4.5-10.0)
[2022-08-14 10:29] LABS: INR 1.6; Partial Thromboplastin Time 35.6 SECONDS (22.3-36.8); Prothrombin Time 18.3 Seconds (11.1-14.7)
[2022-08-14 10:30] LABS: Alanine Aminotransferase 58 U/L (6-35); Albumin Level 2.6 g/dL (3.5-5.1); Alkaline Phosphatase 182 U/L (38-126); Anion Gap 5 mmol/L (8-16); Aspartate Amino Transferase 174 U/L (14-36); Blood Urea Nitrogen 22 mg/dL (7-17); Calcium 7.6 mg/dL (8.4-10.2); Carbon Dioxide 32 mmol/L (22-30); Chloride 105 mmol/L (98-107); Estimated CRCL calculation 32 ml/min; Estimated Glomerular Filt Rate 33; Glucose 167 mg/dL (65-110); Lipase 49 U/L (23-300); Potassium 3.1 mmol/L (3.4-5.0); Sodium 142 mmol/L (137-145)
[2022-08-14 10:51] LABS: NT Pro B Type Natriuretic Pept 3070 pg/mL (19.9-100)
[2022-08-14 10:52] LABS: Troponin I < 0.012 ng/mL (0.000-0.034)
[2022-08-14 11:05] LABS: Influenza A QL RT-PCR Negative (Negative); Influenza B QL RT-PCR Negative (Negative); SARS-CoV-2 RNA PCR Negative
--- NOTE | 2022-08-14 11:25 | ECG_ITS ---
Measurements Intervals [place] Rate: 69 P: 240 NM: 226 QRS: 18 QRSD: 117 T: 48 QT: 427 QTc: 460 Interpretive Statements ELECTRONIC ATRIAL PACEMAKER MODERATE INTRAVENTRICULAR CONDUCTION DELAY NONSPECIFIC T-WAVE ABNORMALITY ABNORMAL ECG COMPARED TO ECG 08/14/2022 09:13:38 INTRAVENTRICULAR CONDUCTION DELAY NOW PRESENT Electronically Signed On 08-14-2022 16:21:42 ORIENTAL RUG STRETCHER by Bogdan Lilly M.D.
--- NOTE | 2022-08-14 11:27 | PC.NURSE ---
Patient states he chest pain is back, JACINTA Davila notified. Repeating EKG.
[2022-08-14 11:44] LABS: Magnesium 1.9 mg/dL (1.6-2.3)
[2022-08-14] MEDS: POTASSIUM CHLORIDE 20 MEQ PACKET (FOR LIQUID) 40 MEQ PO (12:09)
--- NOTE | 2022-08-14 12:16 | PC.NURSE ---
This RN interrogated patient's [employer] pacemaker. Spoke to Christopher from [employer], states there were no episodes and everything looked good from the pacemaker.
[2022-08-14] MEDS: FUROSEMIDE INJ 40 MG/4 ML VIAL IV PUSH (13:21)
[2022-08-14 14:02] LABS: Troponin I < 0.012 ng/mL (0.000-0.034)
--- NOTE | 2022-08-14 15:52 | ADMGEN ---
This patient, Bettie Roque, was admitted to Medical Room 254-01. Patient/family oriented to hospital policies and general routines including ID bracelet, bed and alarms, visiting hours, pain management, procedures, bathroom and other care routines, personal items, smoking policy, room service/diet, and visiting hours. Information on how to activate the Rapid Response Team has been discussed. Patient/Family are encouraged to report perceived risks to care and to ask questions if they do not understand what they are told or what they should do.
[2022-08-14 16:49] LABS: Troponin I < 0.012 ng/mL (0.000-0.034)
[2022-08-14 17:36] LABS: Glucose Point of Care 162 mg/dl (65-105)
[2022-08-14 21:34] LABS: Glucose Point of Care 166 mg/dl (65-105)
--- NOTE | 2022-08-14 22:07 | PM.IMHP ---
H&P: HPI History of Present Illness Date/Time: 08/14/22 22:07 Chief Complaint: Shortness of Narrative: This is a 76-year-old female patient who has a history of obstructive sleep apnea, atrial fibrillation, CVA, and AFib. The patient has been short of breath over the last couple days. The patient stated that she was supposed to get home oxygen but she never did receive it. Reportedly the patient's oxygen saturation was in 80s on room air. The patient took a nebulizer treatment and route. The patient reported chest pain EN route. Chest x-ray was read as clear lungs elevated right hemidiaphragm ANIMAL CRUELTY INVESTIGATOR shunt and pacemaker. The patient was given aspirin, potassium, and Lasix. Potassium 3.1 creatinine 1.8. Which appears to beer baseline. Blood sugar 166. A sees 174, ALT 58, alkaline phosphatase 182. Which is near her baseline. She is negative for influenza A/B and COVID. Troponins are nonreactive x3. BNP is 3070. The patient is being admitted to observation on the date of service of 08/14/2022 Review of Systems Review of Systems: See HPI All systems reviewed & are unremarkable except as noted in HPI and below Constitutional: Constitutional: Reports as per HPI and Reports no additional constitutional complaints Eyes: Eyes: Reports as per HPI and Reports no additional eye complaints ENT: Reports system reviewed and no additional complaints, except as documented and Reports Normal hearing present Cardiovascular: Cardiovascular: Reports no additional cardiovascular complaints Respiratory: Respiratory: Reports no additional respiratory complaints and Reports no additional respiratory complaints Gastrointestinal: Gastrointestinal: Reports as per HPI and Reports no additional gastrointestinal complaints Musculoskeletal: Musculoskeletal: Reports no additional musculoskeletal complaints Integumentary/Breasts: Skin/Breast: Reports system reviewed and no additional complaints, except as docu and Reports as per HPI Neurologic: Reports system reviewed and no additional complaints, except as documented, Reports as per HPI and Reports Normal hearing present Psychiatric: Psychiatric: Reports no additional psychiatric complaints and Reports as per HPI Endocrine: Endocrine: Reports no additional endocrine complaints Hematologic/Lymphatic: Hematologic/Lymphatic: Reports no additional hematologic/lymphatic complaints Allergic/Immunologic: Allergic/Immunologic: Reports no additional allergic/immunologic complaints PMF Past Medical History Medical History Atrial flutter Atrial flutter with rapid ventricular response Beta thalassemia trait Catheter-associated urinary tract infection Cerebrovascular accident, embolic (~12/2017) Chronic anemia CKD (chronic kidney disease) Diabetes mellitus DVT (deep venous thrombosis) Dysphagia As a result of previous strokes. G-tube in place. Gastrostomy tube in place History of intracranial hemorrhage Hydrocephalus (~02/2020) Status post ANIMAL CRUELTY INVESTIGATOR shunt. Hyperlipidemia Intolerant to statins. Hypertension Indwelling Aparicio catheter present Intracerebral hemorrhage (~02/2020) Hemorrhagic stroke occurred while she was on Eliquis, and she was hospitalized at [facility] at that time. Obstructive sleep apnea Osteoarthritis PAF (paroxysmal atrial fibrillation) Paroxysmal atrial fibrillation Paroxysmal atrial flutter Severe sepsis Subdural hematoma (~04/2020) Type 2 diabetes mellitus, uncontrolled Surgical History Surgical History History of appendectomy History of gastrostomy tube placement History of total bilateral knee replacement History of tracheostomy History of tubal ligation S/P IVC filter Status post ventriculo-peritoneal shunt placement (~02/2020) Family History Family History Mother Diabetes mellitus Father Cerebrovascular
[2022-08-15] VITALS (8 sets, daily range): BP systolic 95–111; BP diastolic 45–59; PULSE 70–72; RESP 18–20; TEMP 35.7–36.5; O2SAT 91–100
[2022-08-15 05:49] LABS: Basophils Absolute Auto 0.1 K/mm3 (0.0-0.1); Basophils Percent Auto 0.7 % (0.2-1.2); Eosinophils Absolute Auto 0.3 K/mm3 (0-0.3); Eosinophils Percent Auto 3.9 % (0-4.4); Hematocrit 34.5 % (37.0-47.0); Hemoglobin 10.9 g/dL (12.0-15.0); Immature Granulocyte Absolute 0.02 K/mm3 (0.00-0.031); Immature Granulocyte Percent A 0.2 % (0-0.5); Lymphocytes Absolute Auto 1.46 K/mm3 (0.9-3.2); Lymphocytes Percent Auto 17.9 % (18.3-44.2); Mean Corpuscular HGB Conc 31.6 g/dl (32-36); Mean Corpuscular Hemoglobin 23.6 pg (26-34); Mean Corpuscular Volume 74.7 fl (80-100); Monocytes Absolute Auto 0.7 K/mm3 (0.1-0.6); Monocytes Percent Auto 9.1 % (2.6-8.5); Neutrophils Absolute Auto 5.6 K/mm3 (1.3-6.7); Neutrophils Percent Auto 68.2 % (45.5-73.1); Platelet Count Result 317 k/mm3 (150-375); Red Blood Count 4.62 M/mm3 (4.2-5.4); Red Cell Distribution Width 18.8 % (11.5-14.5); White Blood Count 8.2 K/mm3 (4.5-10.0)
[2022-08-15 06:17] LABS: Anisocytosis 1+ (NORMAL); Hypochromasia 1+ (NORMAL); Microcytosis 1+ (NORMAL); Platelet Estimate Adequate (Adequate); Schistocytes None Seen (NORMAL); Target Cells 2+ (NORMAL)
[2022-08-15 08:17] LABS: Glucose Point of Care 150 mg/dl (65-105)
[2022-08-15] MEDS: FLUTICASONE PROPIONATE 0.05% NA SPR 16 GM BTL (*BKC) 2 SPRAY NASAL (08:19)
[2022-08-15] MEDS: FERROUS SULFATE 324 MG TABLET PO (08:19)
[2022-08-15] MEDS: APIXABAN 2.5 MG TABLET PO ×2 (08:20→20:34)
[2022-08-15] MEDS: CALCIUM CARBONATE (OSCAL) 500 MG TABLET PO (08:20)
[2022-08-15] MEDS: CHOLECALCIFEROL 1,000 UNITS TABLET 5000 UNITS PO (08:20)
[2022-08-15] MEDS: DOCUSATE SODIUM 100 MG CAPSULE PO (08:21)
[2022-08-15] MEDS: EMPAGLIFLOZIN 25 MG TABLET PO (08:21)
[2022-08-15] MEDS: EZETIMIBE 10 MG TABLET PO (08:22)
[2022-08-15] MEDS: GABAPENTIN 300 MG CAPSULE PO ×2 (08:22→17:07)
[2022-08-15] MEDS: LIDOCAINE 5% PATCH 1 PATCH TRANSDERM (08:23)
[2022-08-15] MEDS: MONTELUKAST SODIUM 10 MG TABLET PO (08:23)
[2022-08-15] MEDS: polyethylene glycoL 3350 17 GM POWD.PACK PO (08:23)
[2022-08-15] MEDS: oxyBUTYnin CHLORIDE 5 MG TABLET PO ×2 (08:23→20:33)
[2022-08-15] MEDS: POTASSIUM CHLORIDE 20 MEQ PACKET (FOR LIQUID) PO (08:24)
[2022-08-15] MEDS: ROSUVASTATIN 10 MG TABLET 40 MG PO (08:24)
[2022-08-15 10:35] LABS: Hemoglobin A1C 7.2 % (<5.7)
[2022-08-15] MEDS: FLUTICASONE/UMECLIDIN/VILANTER 100-62.5-25 MCG ELLIPTA 1 PUFF INHALATION (11:17)
--- NOTE | 2022-08-15 12:04 | PM.IMPN ---
Progress Note: A&P Assessment and Plan (1) Acute respiratory failure with hypoxia: Code(s): J96.01 - Acute respiratory failure with hypoxia Status: Acute (2) Acute hypokalemia: Code(s): E87.6 - Hypokalemia Status: Acute (3) Acute dyspnea: Code(s): R06.00 - Dyspnea, unspecified Status: Acute (4) CKD (chronic kidney disease): Code(s): N18.9 - Chronic kidney disease, unspecified Status: Acute (5) Hypothyroidism: Code(s): E03.9 - Hypothyroidism, unspecified Status: Acute (6) Chronic anemia: Code(s): D64.9 - Anemia, unspecified Status: Chronic (7) Type 2 diabetes mellitus: Qualifiers: Diabetes mellitus buttermaker helper insulin use: with buttermaker helper use Diabetes mellitus complication status: without complication Qualified Code(s): E11.9 - Type 2 diabetes mellitus without complications; Z79.4 - retirement (current) use of insulin Code(s): E11.9 - Type 2 diabetes mellitus without complications Status: Chronic Plan 76-year-old female patient who has a history of obstructive sleep apnea, atrial fibrillation, CVA, and AFib, presented with SOB.? Reportedly the patient's oxygen saturation was in 80s on room air.? The patient took a nebulizer treatment and route.? The patient reported chest pain EN route.? Chest x-ray was read as clear lungs elevated right hemidiaphragm GRAIN TRIMMER shunt and pacemaker. tested negative for RSV/Influenza/COVID 19. Noted to have hypokalemia. 1)Acute Hypoxic Resp Failure: ABG was s/o hypoxia c/w O2 support No evidence of PNA Holding lasix as BP was low Will get Pulmonary consult 2)H/o Afibb: On Amiodarone and Eliquis Worsening TSH as noted Await free T4 Cardiology consult, to see if we can stop Amiodarone and switch to something else for rate control 3)CKD with Hypokalema: Await labs from today Avoid nephrotoxins 4)Diabetes mellitus: BG check TID AC and HS c/w Basal bolus regimen c/w jardiance 5)Chronic Anemia: Stable H/H Monitor 6)Hypotyhroidism: TSH>10 Await Free T4 On Amiodarone Will start on levothyroxine ?Can stop Amiodarone Will get cardiology consult 7)Code:Full 8)DVT ppx: on Eliquis 9)Dispo:pending improvement, PT/OT, likely will need placement, horticultural manager aware Time Spent With Patient Time with patient: 25 - 35 minutes Subjective Date/time seen: 08/15/22 12:04 Interval history: Admitted with SOB overnight, feeling ok Currently on 2L NC, no complaints Review of Systems Constitutional: Constitutional: Reports lethargy ENT: Reports system reviewed and no additional complaints, except as documented Cardiovascular: Comments: denies chest pain Respiratory: Respiratory: Reports dyspnea Comments: no wheezing Gastrointestinal: Gastrointestinal: Reports no additional gastrointestinal complaints Musculoskeletal: Musculoskeletal: Reports no additional musculoskeletal complaints Neurologic: Reports system reviewed and no additional complaints, except as documented Exam Narrative: on 2L NC Const: General: comfortable and no acute distress HENMT: Mouth: Yes moist mucous membranes Eyes: Sclera: sclerae normal Pupils: Equal, round and reactive pupils present Neck: Neck: supple Resp: Effort & Inspection: normal respiratory effort Other: no crackles, no wheezing, decreased breath sounds B/L Cardio: Rate: regular rate Rhythm: regular rhythm GI: GI Palp: Yes Soft to palpation Auscultation: normal bowel sounds Skin: General skin exam: normal color Extrem: General: normal to inspection Psych: Mental Status: mental status grossly normal Objective Data Vital Signs Vital Signs: Vital Signs - 24 hr 08/14/22 12:49 08/14/22 12:18 08/14/22 12:40 Temperature Pulse Rate 75 71 70 Respiratory Rate 17 14 11 L Blood Pressure 107/77 Pulse Oximetry 95 94 94 Oxygen Delivery Oxygen Flow Rate 08/14/22 12:45 08/14/22 12:49 08/14/22 12:50 Tempera
[2022-08-15 12:17] LABS: Glucose Point of Care 247 mg/dl (65-105)
[2022-08-15] MEDS: INSULIN ASPART (*BKC) 100 UNITS/ML SUB-Q (12:28)
[2022-08-15 12:29] LABS: Lactic Acid Reflex 1.7 mmol/L (0.7-2.0)
[2022-08-15 13:11] LABS: Anion Gap 2 mmol/L (8-16); Blood Urea Nitrogen 20 mg/dL (7-17); Calcium 7.6 mg/dL (8.4-10.2); Carbon Dioxide 33 mmol/L (22-30); Chloride 100 mmol/L (98-107); Estimated CRCL calculation 34 ml/min; Estimated Glomerular Filt Rate 35; Glucose 226 mg/dL (65-110); Magnesium 1.9 mg/dL (1.6-2.3); Potassium 3.9 mmol/L (3.4-5.0); Sodium 135 mmol/L (137-145)
--- NOTE | 2022-08-15 13:45 | PM.CNPUL ---
Assessment and Plan Assessment and plan (1) Hypoxia: Code(s): R09.02 - Hypoxemia Status: Acute Assessment and Plan: 76-year-old with a history of intracerebral hemorrhage in 2020, status post SAMPLE MAKER ORIGINAL shunt, DVT 2020, permanent pacemaker, congestive heart failure, COPD, morbid obesity with obstructive sleep apnea diagnosed in 2008. According to her significant other the patient never made a good recovery after the intracerebral hemorrhage in 2020 in which she required a tracheostomy and PEG tube. Patient has multiple admissions for shortness of breath, fluid overload and carries a diagnosis of COPD but I have no PFTs and she has a 1 pack year history of tobacco use from age [age]. She has no bullous emphysema on her CT scan. ABG on 08/14/2022 with a pH of 7.44/43/65 on room air. She has no evidence of hypercarbic respiratory failure or obesity hypoventilation syndrome. Etiology of patient's hypoxemia includes: fluid overload, elevated right hemidiaphragm, morbid obesity with untreated obstructive sleep apnea and atelectasis on prior CT scans, amiodarone toxicity, . Doubt pulmonary embolism, pneumonia, or COPD. Agree with increasing Lasix from 40 IV q.day to 40 IV b.i.d., follow ins and outs and daily weights. Will repeat BNP (3070 on 08/14/22). patient with an elevated hemidiaphragm noted on 01/26/2019 but not on 10/16/2017. it looks markedly elevated on 08/14/2022 and I will obtain a CT scan of the chest without contrast to assess for possible pleural effusion. Will consider sniff test. The patient has morbid obesity with atelectasis. Unfortunately she is unable to tolerate a CPAP mask at this time. Obtain an overnight oximetry on 2 L nasal cannula to assess her oxygen needs at night. Agree with discussions with Cardiology regarding discontinuation of amiodarone as the patient has a pacemaker in place may be able to use alternative medicines to control her rate. The patient has a 1 pack year history of smoking from age [age] and has no occupational exposures. She has no bullous emphysema on her CT scan of the chest. I have no PFTs. I doubt that she has smoking-related COPD. The patient does state that inhalers to help her. At this time I do not think she needs inhaled corticosteroids and I will discontinue her trilogy and start Anoro Ellipta 62.5-25 at 1 puff q.day. Discontinue montelukast for now. Continue Tessalon Perles 100 mg p.o. t.i.d. p.r.n.. Discussed wtih Dr. Mckeon History of Present Illness History of Present Illness Consult date: 08/15/22 Chief complaint: CHF Exacerbation/Acute Respiratory Failure w Hypox Narrative: 08/15/2021: This is a new pulmonary consult for hypoxia 76-year-old with a history of intracerebral hemorrhage in 2020, status post SAMPLE MAKER ORIGINAL shunt, DVT 2020, permanent pacemaker, congestive heart failure, COPD, morbid obesity with obstructive sleep apnea diagnosed in 2008. According to her significant other the patient never made a good recovery after the intracerebral hemorrhage in 2020 in which she required a tracheostomy and PEG tube. patient is hard to get a accurate history from due to her prior intracerebral hemorrhage. She has left-sided upper extremity weakness greater than lower extremity weakness. The patient states that 1 year ago she could only walk across the room due to leg fatigue and shortness of breath. She states that now she can only walk across the room due to leg pain and shortness of breath but she feels that this is a little worse than a few months ago when she went to physical therapy and was walking 44 ft with a walker. She has no rest shortness of breath. The patient has a chronic cough that she says is better recently. The. A patient produces phlegm 4 to 5 times a day and has never had any hemoptysis. The patient states she can lay flat but she has pedal edema. Regarding her obstructive sleep apnea she was prescribed a fullface mask with a CPAP
[2022-08-15] MEDS: LEVOTHYROXINE SODIUM 50 MCG TABLET PO (13:56)
[2022-08-15 16:05] LABS: Free T4 Free Thyroxine Reflex 2.53 ng/dL (0.78-2.19)
[2022-08-15] MEDS: FUROSEMIDE INJ 40 MG/4 ML VIAL IV PUSH (17:07)
[2022-08-15 17:17] LABS: Glucose Point of Care 161 mg/dl (65-105)
[2022-08-15] MEDS: ESCITALOPRAM OXALATE 10 MG TABLET PO (20:33)
[2022-08-15] MEDS: SENNA/DOCUSATE SODIUM TABLET 1 TAB PO (20:33)
[2022-08-15] MEDS: INSULIN GLARGINE (*BKC) 100 UNITS/ML 32 UNITS SUB-Q (20:36)
[2022-08-15 20:40] LABS: Glucose Point of Care 266 mg/dl (65-105)
[2022-08-16] VITALS (8 sets, daily range): BP systolic 106–121; BP diastolic 51–58; PULSE 69–74; RESP 18–20; TEMP 36.3–36.8; O2SAT 98–100
[2022-08-16] MEDS: ACETAMINOPHEN 500 MG TABLET PO (00:45)
[2022-08-16] MEDS: LEVOTHYROXINE SODIUM 50 MCG TABLET PO (05:19)
[2022-08-16 06:49] LABS: Basophils Absolute Auto 0.1 K/mm3 (0.0-0.1); Basophils Percent Auto 0.9 % (0.2-1.2); Eosinophils Absolute Auto 0.3 K/mm3 (0-0.3); Eosinophils Percent Auto 3.3 % (0-4.4); Hematocrit 33.7 % (37.0-47.0); Hemoglobin 10.4 g/dL (12.0-15.0); Immature Granulocyte Absolute 0.03 K/mm3 (0.00-0.031); Immature Granulocyte Percent A 0.4 % (0-0.5); Lymphocytes Absolute Auto 1.37 K/mm3 (0.9-3.2); Lymphocytes Percent Auto 18.1 % (18.3-44.2); Mean Corpuscular HGB Conc 30.9 g/dl (32-36); Mean Corpuscular Hemoglobin 23.6 pg (26-34); Mean Corpuscular Volume 76.6 fl (80-100); Mean Platelet Volume 10.4 fl (7.4-10.4); Monocytes Absolute Auto 0.8 K/mm3 (0.1-0.6); Monocytes Percent Auto 10.7 % (2.6-8.5); Neutrophils Percent Auto 66.6 % (45.5-73.1); Platelet Count Result 317 k/mm3 (150-375); Red Cell Distribution Width 19.4 % (11.5-14.5); White Blood Count 7.6 K/mm3 (4.5-10.0)
[2022-08-16 06:57] LABS: Alanine Aminotransferase 51 U/L (6-35); Albumin Level 2.7 g/dL (3.5-5.1); Alkaline Phosphatase 129 U/L (38-126); Anion Gap 3 mmol/L (8-16); Aspartate Amino Transferase 119 U/L (14-36); Bilirubin,Total 1.2 mg/dL (0.2-1.3); Blood Urea Nitrogen 21 mg/dL (7-17); Calcium 7.6 mg/dL (8.4-10.2); Carbon Dioxide 31 mmol/L (22-30); Chloride 102 mmol/L (98-107); Estimated CRCL calculation 34 ml/min; Estimated Glomerular Filt Rate 35; Glucose 139 mg/dL (65-110); Potassium 3.5 mmol/L (3.4-5.0); Sodium 136 mmol/L (137-145)
[2022-08-16 07:05] LABS: NT Pro B Type Natriuretic Pept 1130 pg/mL (19.9-100)
[2022-08-16 08:23] LABS: Glucose Point of Care 139 mg/dl (65-105)
[2022-08-16] MEDS: FERROUS SULFATE 324 MG TABLET PO (08:38)
[2022-08-16] MEDS: APIXABAN 2.5 MG TABLET PO ×2 (08:39→20:33)
[2022-08-16] MEDS: CALCIUM CARBONATE (OSCAL) 500 MG TABLET PO (08:39)
[2022-08-16] MEDS: CHOLECALCIFEROL 1,000 UNITS TABLET 5000 UNITS PO (08:40)
[2022-08-16] MEDS: EMPAGLIFLOZIN 25 MG TABLET PO (08:40)
[2022-08-16] MEDS: GABAPENTIN 300 MG CAPSULE PO ×2 (08:41→17:38)
[2022-08-16] MEDS: FLUTICASONE PROPIONATE 0.05% NA SPR 16 GM BTL (*BKC) 2 SPRAY NASAL (08:41)
[2022-08-16] MEDS: EZETIMIBE 10 MG TABLET PO (08:41)
[2022-08-16] MEDS: FUROSEMIDE INJ 40 MG/4 ML VIAL IV PUSH ×2 (08:41→17:39)
[2022-08-16] MEDS: oxyBUTYnin CHLORIDE 5 MG TABLET PO ×2 (08:42→20:33)
[2022-08-16] MEDS: POTASSIUM CHLORIDE 20 MEQ PACKET (FOR LIQUID) PO (08:42)
[2022-08-16] MEDS: ROSUVASTATIN 10 MG TABLET 40 MG PO (08:43)
[2022-08-16] MEDS: UMECLIDINIUM/VILANTEROL 62.5-25 MCG ELLIPTA 1 PUFF INHALATION (09:04)
--- NOTE | 2022-08-16 10:48 | PM.PNPUL ---
Progress Note: A&P Assessment and Plan (1) Hypoxia: Code(s): R09.02 - Hypoxemia Status: Acute Assessment and Plan: 76-year-old with a history of intracerebral hemorrhage in 2020, status post MANAGER INVENTORY CONTROL shunt, DVT 2020, permanent pacemaker, congestive heart failure, COPD, morbid obesity with obstructive sleep apnea diagnosed in 2008. According to her significant other the patient never made a good recovery after the intracerebral hemorrhage in 2020 in which she required a tracheostomy and PEG tube. Patient has multiple admissions for shortness of breath, fluid overload and carries a diagnosis of COPD but I have no PFTs and she has a 1 pack year history of tobacco use from age [age]. She has no bullous emphysema on her CT scan. ABG on 08/14/2022 with a pH of 7.44/43/65 on room air. She has no evidence of hypercarbic respiratory failure or obesity hypoventilation syndrome. Etiology of patient's hypoxemia includes: fluid overload, elevated right hemidiaphragm, morbid obesity with untreated obstructive sleep apnea and atelectasis on prior CT scans, amiodarone toxicity, . Doubt pulmonary embolism, pneumonia, or COPD. Agree with increasing Lasix from 40 IV q.day to 40 IV b.i.d., follow ins and outs and daily weights. Will repeat BNP (3070 on 08/14/22). patient with an elevated hemidiaphragm noted on 01/26/2019 but not on 10/16/2017. it looks markedly elevated on 08/14/2022 and I will obtain a CT scan of the chest without contrast to assess for possible pleural effusion. Will consider sniff test. The patient has morbid obesity with atelectasis. Unfortunately she is unable to tolerate a CPAP mask at this time. Obtain an overnight oximetry on 2 L nasal cannula to assess her oxygen needs at night. Agree with discussions with Cardiology regarding discontinuation of amiodarone as the patient has a pacemaker in place may be able to use alternative medicines to control her rate. The patient has a 1 pack year history of smoking from age [age] and has no occupational exposures. She has no bullous emphysema on her CT scan of the chest. I have no PFTs. I doubt that she has smoking-related COPD. The patient does state that inhalers to help her. At this time I do not think she needs inhaled corticosteroids and I will discontinue her trilogy and start Anoro Ellipta 62.5-25 at 1 puff q.day. Discontinue montelukast for now. Continue Tessalon Perles 100 mg p.o. t.i.d. p.r.n.. 08/15 CT scan of the chest demonstrated mildly elevated right hemidiaphragm, mild pulmonary edema, small left pleural effusion, small perisplenic ascites, permanent pacemaker and MANAGER INVENTORY CONTROL shunt in place. 08/16 Patient tells me she is breathing normal. She has saturation 93% on 2 L nasal cannula. Her white blood cell count is 7.6, creatinine is 1.7. There are no I/Os charted and there are no weight is listed. She has on Lasix 40 IV b.i.d.. Patient had an overnight oximetry on 2 L nasal cannula with average saturation 95%, low saturation 66%, time with saturation less than or equal to 88% was 8 minutes or 2% of the monitored time. Her oxygen desaturation index was 21.7. Of note the respiratory therapist stated that when she removed the test the patient was on room air as the oxygen had fold off and she did not know when it came off. Her desaturations were in the 2nd half of the evening. BNP is improved from 3070 to a value of 1130. Etiology of patient's hypoxia includes fluid overload, small amount of atelectasis on the CT scan, elevated right hemidiaphragm, morbid obesity, and untreated obstructive sleep apnea (intolerant to CPAP). agree with continued aggressive diuresis. I will order sniff test to assess for paralyzed right hemidiaphragm. She has no mediastinal pathology explaining this. Likely idiopathic. Agree with continue 2 L nasal cannula at night. Goal saturation 90-94% and wean as tolerated. Will follow with you. Subjective Date/time seen:
[2022-08-16 12:09] LABS: Glucose Point of Care 210 mg/dl (65-105)
--- NOTE | 2022-08-16 12:19 | PM.CNCAR ---
Assessment and Plan Assessment and plan (1) Hypothyroidism: Code(s): E03.9 - Hypothyroidism, unspecified Status: Acute (2) Acute respiratory failure with hypoxia: Code(s): J96.01 - Acute respiratory failure with hypoxia Status: Acute (3) CHF exacerbation: Qualifiers: Heart failure type: unspecified Qualified Code(s): I50.9 - Heart failure, unspecified Code(s): I50.9 - Heart failure, unspecified Status: Acute (4) CKD (chronic kidney disease): Code(s): N18.9 - Chronic kidney disease, unspecified Status: Acute (5) Obstructive sleep apnea: Code(s): G47.33 - Obstructive sleep apnea (adult) (pediatric) Status: Acute (6) Atrial fibrillation: Code(s): I48.91 - Unspecified atrial fibrillation Status: Acute Plan Given worsening TSH, elevated T4, along with elevated liver enzymes, I am going to stop her Amiodarone. Patient is on Metoprolol 50mg BID at home, will continue with that. Will have her device interrogated as well. Further recommendations pending results of device interrogation. History of Present Illness History of Present Illness Consult date/time: 08/16/22 12:19 Requesting physician: Lissette Mckeon MD Consult reason: congestive heart failure and Other (Amiodarone use) Reason For Visit: CHF Exacerbation/Acute Respiratory Failure w Hypox Narrative: We are consulted regarding amiodarone use in this patient. Patient is a 76-year-old female with a history of atrial fibrillation, which has been problematic in the past. Used to be on sotalol therapy. Had an ischemic CVA in 2017 despite being on systemic anticoagulation. She had recurrences of atrial fibrillation despite high doses of sotalol and was then shifted to amiodarone. Had seen EP in the past, and did not need ablation at that time. She had a hemorrhagic subdural hematoma in the fall of 2019 that resulted in discontinuation of anticoagulation. Has an IVC filter in place for bilateral lower extremity DVTs and then subsequently a PE. She also has a history of COLTEN. Patient sees Dr. Hurtado in clinic. She presented to the hospital on 08/14 for shortness of breath over the past couple of days. Patient was supposed to get home oxygen but did not receive it. ER evaluation showed elevated BNP of 3070. TSH was previously elevated at 10 back in July 2022, however, is now 13.6. CXR showed mild atelectasis, cardiomegaly, but no pleural effusions. Chest CT done on 08/15 showed mild pulmonary edema and small left pleural effusion, along with small volume of perisplenic ascites. EKG on admission showed atrial paced rhythm. Recent TTE from 07/05 showed LVEF >70%, grade 3 diastolic dysfunction, mild MR, moderate TR. T4 is elevated at 2.53. Patient was started on IV diuresis. BNP this morning is improved to 1130. Patient denies any chest pain, palpitations, shortness of breath. She is sleeping comfortably this morning. Review of Systems Review of Systems: 12-point ROS obtained. Negative, unless stated in HPI. [facility] Past Medical History Medical History Atrial flutter Atrial flutter with rapid ventricular response Beta thalassemia trait Catheter-associated urinary tract infection Cerebrovascular accident, embolic (~12/2017) Chronic anemia CKD (chronic kidney disease) Diabetes mellitus DVT (deep venous thrombosis) Dysphagia As a result of previous strokes. G-tube in place. Gastrostomy tube in place History of intracranial hemorrhage Hydrocephalus (~02/2020) Status post TENTERING MACHINE FEEDER shunt. Hyperlipidemia Intolerant to statins. Hypertension Indwelling Aparicio catheter present Intracerebral hemorrhage (~02/2020) Hemorrhagic stroke occurred while she was on Eliquis, and she was hospitalized at [facility] at that time. Obstructive sleep apnea Osteoarthritis PAF (paroxysmal atrial fibrillation) Paroxysmal atrial fibrillation Paroxysmal atrial
[2022-08-16] MEDS: INSULIN ASPART (*BKC) 100 UNITS/ML SUB-Q (12:27)
--- NOTE | 2022-08-16 13:34 | PM.IMPN ---
Progress Note: A&P Assessment and Plan (1) Acute respiratory failure with hypoxia: Code(s): J96.01 - Acute respiratory failure with hypoxia Status: Acute (2) Acute hypokalemia: Code(s): E87.6 - Hypokalemia Status: Acute (3) Acute dyspnea: Code(s): R06.00 - Dyspnea, unspecified Status: Acute (4) CKD (chronic kidney disease): Code(s): N18.9 - Chronic kidney disease, unspecified Status: Acute (5) Hypothyroidism: Code(s): E03.9 - Hypothyroidism, unspecified Status: Acute (6) Chronic anemia: Code(s): D64.9 - Anemia, unspecified Status: Chronic (7) Type 2 diabetes mellitus: Qualifiers: Diabetes mellitus complication status: without complication Diabetes mellitus terminal supervisor insulin use: with terminal supervisor use Qualified Code(s): E11.9 - Type 2 diabetes mellitus without complications; Z79.4 - long-term (current) use of insulin Code(s): E11.9 - Type 2 diabetes mellitus without complications Status: Chronic Plan 76-year-old female patient who has a history of obstructive sleep apnea, atrial fibrillation, CVA, and AFib, presented with SOB.? Reportedly the patient's oxygen saturation was in 80s on room air.? The patient took a nebulizer treatment and route.? The patient reported chest pain EN route.? Chest x-ray was read as clear lungs elevated right hemidiaphragm MANAGER BUSINESS PLANNING shunt and pacemaker. tested negative for RSV/Influenza/COVID 19. Noted to have hypokalemia. # Acute Hypoxic Resp Failure: ABG was s/o hypoxia c/w O2 support No evidence of PNA Holding lasix as BP was low Pulmonary consulted. Started on diuresis BNP is elevated Cardiology consulted Chest x-ray very clear with elevated right hemidiaphragmatic CT chest with mild pulmonary edema with small left pleural effusion. Small volume of perisplenic ascites. #H/o Afibb: On Amiodarone and Eliquis Worsening TSH as noted Await free T4 Cardiology consult, to see if we can stop Amiodarone and switch to something else for rate control. Amiodarone has been stopped. Device interrogation in process # CKD with Hypokalema: Avoid nephrotoxins 3 stable creatinine # Diabetes mellitus: BG check TID AC and HS c/w Basal bolus regimen c/w jardiance # Chronic Anemia: Stable H/H Monitor # Hypotyhroidism: TSH>10 Await Free T4 On Amiodarone Started on levothyroxine ?Can stop Amiodarone Cardiology consulted amiodarone stopped # History of CVA in 2018 despite being on systemic anticoagulation # History of hemorrhagic subdural hematoma with fall in 2019 leading to discontinuation of anticoagulation currently on apixaban 2.5 mg b.i.d. 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 Feeling better. Remains on 2 L oxygen. Discussed with the nursing staff. Review of Systems Review of Systems: All systems reviewed & are unremarkable except as noted in HPI and below Exam Narrative: GENERAL: Well-appearing, well-nourished, and in no acute distress. HEAD: Normocephalic, atraumatic. EYES: EOMI. ENT: Nares clear, no rhinorrhea or epistaxis. Mucous membranes moist. NECK: Supple. No adenopathy or masses. CHEST: No respiratory distress.? Rales at the lung bases.? No wheezes or rhonchi HEART: Regular rate and rhythm. No murmur heard. Normal peripheral pulses. EXTREMITIES: Normal range of motion. No edema. Normal DP pulses SKIN: Warm, dry, no rash. NEURO: No focal deficits. Alert and oriented x3. PSYCH: Normal mood and affect Objective Data Vital Signs Vital Signs: Vital Signs - 24 hr 08/15/22 14:53 08/15/22 17:03 08/15/22 20:13 Temperature 97.7 F 97.3 F L Pulse Rate 70 70 Respiratory Rate 18 20 Blood Pressure 110/55 L 111/5
--- NOTE | 2022-08-16 16:18 | PC.NURSE ---
On 08/16/22, the student, [Ruth Isaac], provided care and completed [facility] documentation on this patient. I have reviewed the student's documentation and agree with the findings.
[2022-08-16 17:37] LABS: Glucose Point of Care 140 mg/dl (65-105)
[2022-08-16] MEDS: ESCITALOPRAM OXALATE 10 MG TABLET PO (20:33)
[2022-08-16] MEDS: INSULIN GLARGINE (*BKC) 100 UNITS/ML 32 UNITS SUB-Q (20:33)
[2022-08-16] MEDS: SENNA/DOCUSATE SODIUM TABLET 1 TAB PO (20:33)
[2022-08-16] MEDS: METOPROLOL TARTRATE 50 MG TAB PO (20:54)
[2022-08-16 21:31] LABS: Glucose Point of Care 201 mg/dl (65-105)
[2022-08-17] VITALS (9 sets, daily range): BP systolic 103–112; BP diastolic 51–58; PULSE 70–77; RESP 16–20; TEMP 36.4–36.8; O2SAT 92–100
[2022-08-17 05:23] LABS: Basophils Absolute Auto 0.1 K/mm3 (0.0-0.1); Basophils Percent Auto 0.9 % (0.2-1.2); Eosinophils Absolute Auto 0.3 K/mm3 (0-0.3); Hemoglobin 10.3 g/dL (12.0-15.0); Immature Granulocyte Absolute 0.03 K/mm3 (0.00-0.031); Immature Granulocyte Percent A 0.3 % (0-0.5); Lymphocytes Absolute Auto 1.17 K/mm3 (0.9-3.2); Lymphocytes Percent Auto 12.9 % (18.3-44.2); Mean Corpuscular HGB Conc 31.2 g/dl (32-36); Mean Corpuscular Hemoglobin 23.9 pg (26-34); Mean Corpuscular Volume 76.6 fl (80-100); Mean Platelet Volume 10.7 fl (7.4-10.4); Monocytes Percent Auto 10.7 % (2.6-8.5); Neutrophils Absolute Auto 6.5 K/mm3 (1.3-6.7); Neutrophils Percent Auto 72.2 % (45.5-73.1); Platelet Count Result 329 k/mm3 (150-375); Red Blood Count 4.31 M/mm3 (4.2-5.4); Red Cell Distribution Width 18.6 % (11.5-14.5)
[2022-08-17 05:35] LABS: Alanine Aminotransferase 50 U/L (6-35); Albumin Level 2.8 g/dL (3.5-5.1); Alkaline Phosphatase 132 U/L (38-126); Anion Gap 3 mmol/L (8-16); Aspartate Amino Transferase 138 U/L (14-36); Bilirubin,Total 1.1 mg/dL (0.2-1.3); Blood Urea Nitrogen 21 mg/dL (7-17); Calcium 7.6 mg/dL (8.4-10.2); Carbon Dioxide 33 mmol/L (22-30); Chloride 101 mmol/L (98-107); Estimated CRCL calculation 32 ml/min; Estimated Glomerular Filt Rate 33; Glucose 90 mg/dL (65-110); Magnesium 1.9 mg/dL (1.6-2.3); Potassium 3.6 mmol/L (3.4-5.0); Sodium 137 mmol/L (137-145)
[2022-08-17] MEDS: LEVOTHYROXINE SODIUM 50 MCG TABLET PO (06:19)
[2022-08-17 08:07] LABS: Glucose Point of Care 79 mg/dl (65-105)
[2022-08-17] MEDS: FERROUS SULFATE 324 MG TABLET PO (08:26)
[2022-08-17] MEDS: CALCIUM CARBONATE (OSCAL) 500 MG TABLET PO (08:27)
[2022-08-17] MEDS: APIXABAN 2.5 MG TABLET PO ×2 (08:27→20:41)
[2022-08-17] MEDS: CHOLECALCIFEROL 1,000 UNITS TABLET 5000 UNITS PO (08:27)
[2022-08-17] MEDS: DOCUSATE SODIUM 100 MG CAPSULE PO (08:28)
[2022-08-17] MEDS: EZETIMIBE 10 MG TABLET PO (08:28)
[2022-08-17] MEDS: GABAPENTIN 300 MG CAPSULE PO ×2 (08:28→17:53)
[2022-08-17] MEDS: METOPROLOL TARTRATE 50 MG TAB PO ×2 (08:29→20:41)
[2022-08-17] MEDS: FLUTICASONE PROPIONATE 0.05% NA SPR 16 GM BTL (*BKC) 2 SPRAY NASAL (08:29)
[2022-08-17] MEDS: POTASSIUM CHLORIDE 20 MEQ PACKET (FOR LIQUID) PO (08:30)
[2022-08-17] MEDS: oxyBUTYnin CHLORIDE 5 MG TABLET PO ×2 (08:30→20:42)
[2022-08-17] MEDS: ROSUVASTATIN 10 MG TABLET 40 MG PO (08:30)
[2022-08-17] MEDS: UMECLIDINIUM/VILANTEROL 62.5-25 MCG ELLIPTA 1 PUFF INHALATION (09:08)
--- NOTE | 2022-08-17 10:25 | PM.PNPUL ---
Progress Note: A&P Assessment and Plan (1) Hypoxia: Code(s): R09.02 - Hypoxemia Status: Acute Assessment and Plan: 76-year-old with a history of intracerebral hemorrhage in 2020, status post DRIFT MINER shunt, DVT 2020, permanent pacemaker, congestive heart failure, COPD, morbid obesity with obstructive sleep apnea diagnosed in 2008. According to her significant other the patient never made a good recovery after the intracerebral hemorrhage in 2020 in which she required a tracheostomy and PEG tube. Patient has multiple admissions for shortness of breath, fluid overload and carries a diagnosis of COPD but I have no PFTs and she has a 1 pack year history of tobacco use from age [age]. She has no bullous emphysema on her CT scan. ABG on 08/14/2022 with a pH of 7.44/43/65 on room air. She has no evidence of hypercarbic respiratory failure or obesity hypoventilation syndrome. Etiology of patient's hypoxemia includes: fluid overload, elevated right hemidiaphragm, morbid obesity with untreated obstructive sleep apnea and atelectasis on prior CT scans, amiodarone toxicity, . Doubt pulmonary embolism, pneumonia, or COPD. Agree with increasing Lasix from 40 IV q.day to 40 IV b.i.d., follow ins and outs and daily weights. Will repeat BNP (3070 on 08/14/22). patient with an elevated hemidiaphragm noted on 01/26/2019 but not on 10/16/2017. it looks markedly elevated on 08/14/2022 and I will obtain a CT scan of the chest without contrast to assess for possible pleural effusion. Will consider sniff test. The patient has morbid obesity with atelectasis. Unfortunately she is unable to tolerate a CPAP mask at this time. Obtain an overnight oximetry on 2 L nasal cannula to assess her oxygen needs at night. Agree with discussions with Cardiology regarding discontinuation of amiodarone as the patient has a pacemaker in place may be able to use alternative medicines to control her rate. The patient has a 1 pack year history of smoking from age [age] and has no occupational exposures. She has no bullous emphysema on her CT scan of the chest. I have no PFTs. I doubt that she has smoking-related COPD. The patient does state that inhalers to help her. At this time I do not think she needs inhaled corticosteroids and I will discontinue her trilogy and start Anoro Ellipta 62.5-25 at 1 puff q.day. Discontinue montelukast for now. Continue Tessalon Perles 100 mg p.o. t.i.d. p.r.n.. 08/15 CT scan of the chest demonstrated mildly elevated right hemidiaphragm, mild pulmonary edema, small left pleural effusion, small perisplenic ascites, permanent pacemaker and DRIFT MINER shunt in place. No evidence of emphysema, interstitial lung disease, pleural disease, lung masses. 08/16 Patient tells me she is breathing normal. She has saturation 93% on 2 L nasal cannula. Her white blood cell count is 7.6, creatinine is 1.7. There are no I/Os charted and there are no weight is listed. She has on Lasix 40 IV b.i.d.. Patient had an overnight oximetry on 2 L nasal cannula with average saturation 95%, low saturation 66%, time with saturation less than or equal to 88% was 8 minutes or 2% of the monitored time. Her oxygen desaturation index was 21.7. Of note the respiratory therapist stated that when she removed the test the patient was on room air as the oxygen had fold off and she did not know when it came off. Her desaturations were in the 2nd half of the evening. BNP is improved from 3070 to a value of 1130. Etiology of patient's hypoxia includes fluid overload, small amount of atelectasis on the CT scan, elevated right hemidiaphragm, morbid obesity, and untreated obstructive sleep apnea (intolerant to CPAP). agree with continued aggressive diuresis. I will order sniff test to assess for paralyzed right hemidiaphragm. She has no mediastinal pathology explaining this. Likely idiopathic. Agree with continue 2 L nasal cannula at night. Goal saturation 90
--- NOTE | 2022-08-17 11:36 | PC.NURSE ---
On 08/17/22, the student, [Ranjith Puente], provided care and completed [facility] documentation on this patient. I have reviewed the student's documentation and agree with the findings.
[2022-08-17 12:33] LABS: Glucose Point of Care 166 mg/dl (65-105)
--- NOTE | 2022-08-17 14:17 | PM.IMPN ---
Progress Note: A&P Assessment and Plan (1) Acute respiratory failure with hypoxia: Code(s): J96.01 - Acute respiratory failure with hypoxia Status: Acute (2) Acute hypokalemia: Code(s): E87.6 - Hypokalemia Status: Acute (3) Acute dyspnea: Code(s): R06.00 - Dyspnea, unspecified Status: Acute (4) CKD (chronic kidney disease): Code(s): N18.9 - Chronic kidney disease, unspecified Status: Acute (5) Hypothyroidism: Code(s): E03.9 - Hypothyroidism, unspecified Status: Acute (6) Chronic anemia: Code(s): D64.9 - Anemia, unspecified Status: Chronic (7) Type 2 diabetes mellitus: Qualifiers: Diabetes mellitus wind farm support specialist insulin use: with wind farm support specialist use Diabetes mellitus complication status: without complication Qualified Code(s): E11.9 - Type 2 diabetes mellitus without complications; Z79.4 - half-way (current) use of insulin Code(s): E11.9 - Type 2 diabetes mellitus without complications Status: Chronic Plan 76-year-old female patient who has a history of obstructive sleep apnea, atrial fibrillation, CVA, and AFib, presented with SOB.? Reportedly the patient's oxygen saturation was in 80s on room air.? The patient took a nebulizer treatment and route.? The patient reported chest pain EN route.? Chest x-ray was read as clear lungs elevated right hemidiaphragm COMMERCIAL INSULATOR shunt and pacemaker. tested negative for RSV/Influenza/COVID 19. Noted to have hypokalemia. # Acute Hypoxic Resp Failure: ABG was s/o hypoxia c/w O2 support No evidence of PNA Pulmonary consulted. Started on diuresis BNP is elevated which is improving Cardiology consulted Chest x-ray very clear with elevated right hemidiaphragmatic CT chest with mild pulmonary edema with small left pleural effusion. Small volume of perisplenic ascites. On IV Lasix. With switched to oral Lasix today. #H/o Afibb: On Amiodarone and Eliquis Worsening TSH as noted Free T4 low Cardiology consulted and amiodarone has been stopped. Noticed that this has been stopped few weeks back by primary environmental designer as well. Device interrogation in process # CKD with Hypokalema: Avoid nephrotoxins 3 stable creatinine # Diabetes mellitus: BG check TID AC and HS c/w Basal bolus regimen c/w jardiance # Chronic Anemia: Stable H/H Monitor # Hypotyhroidism: TSH>10 Await Free T4 On Amiodarone Started on levothyroxine ?Can stop Amiodarone Cardiology consulted amiodarone stopped # History of CVA in 2018 despite being on systemic anticoagulation # History of hemorrhagic subdural hematoma with fall in 2019 leading to discontinuation of anticoagulation currently on apixaban 2.5 mg b.i.d. # Status post COMMERCIAL INSULATOR shunt # IVC filter in place for bilateral lower extremity DVTs and PE # History of COLTEN # Code:Full # DVT ppx: on Eliquis # Dispo: PT/OT, will need placement Subjective Date/time seen: 08/17/22 14:17 Interval history: No overnight events. Feeling better. Wants to go home. Discussed with daughter at bedside. Remains on 1-2 L oxygen. Discussed with Pulmonary. Review of Systems Review of Systems: All systems reviewed & are unremarkable except as noted in HPI and below Exam Narrative: GENERAL: Well-appearing, well-nourished, and in no acute distress. HEAD: Normocephalic, atraumatic. EYES: EOMI. ENT: Nares clear, no rhinorrhea or epistaxis. Mucous membranes moist. NECK: Supple. No adenopathy or masses. CHEST: No respiratory distress.? Rales at the lung bases.? No wheezes or rhonchi HEART: Regular rate and rhythm. No murmur heard. Normal peripheral pulses. EXTREMITIES: Normal range of motion. Trace edema. Normal DP pulses SKIN: Warm, dry, no rash. NEURO: No focal deficits. Alert and oriented x3. PSYCH: Normal mood and affect Objective Data Vital Signs Vital Signs: Vital Signs - 24 hr 08/16/22 14:40 08/16/22 15:01 08/16/22 17:38 Temperature 98 F Pulse Rate 69 69 Respirator
--- NOTE | 2022-08-17 14:34 | PM.PNCARD ---
Progress Note: A&P Assessment and Plan (1) Atrial fibrillation: Code(s): I48.91 - Unspecified atrial fibrillation Status: Acute (2) Hypothyroidism: Code(s): E03.9 - Hypothyroidism, unspecified Status: Acute (3) Acute respiratory failure with hypoxia: Code(s): J96.01 - Acute respiratory failure with hypoxia Status: Acute (4) CHF exacerbation: Qualifiers: Heart failure type: unspecified Qualified Code(s): I50.9 - Heart failure, unspecified Code(s): I50.9 - Heart failure, unspecified Status: Acute (5) CKD (chronic kidney disease): Code(s): N18.9 - Chronic kidney disease, unspecified Status: Acute Plan Device interrogation reviewed - well functioning device, no AFIB noted. Continue with Toprol. No longer to be on Amiodarone. Agree with transitioning to oral Lasix. Will have patient follow-up with Dr. Hurtado in clinic. No additional cardiac recommendations, we will sign off at this time. Subjective Date/time seen: 08/17/22 14:34 Interval history: Reason for visit: Amiodarone use No acute events overnight. Breathing feels much better. Sitting up in chair at bedside. No chest pain. Family at bedside and reports that her Amiodarone had actually been stopped by Dr. Hurtado a couple weeks ago, so they have not been giving it to the patient at home - medication list on EMR was not updated to reflect this. Review of Systems Review of Systems: 8-point ROS obtained. Negative, unless stated in HPI. Exam Const: General: comfortable and no acute distress HENMT: Mouth: Yes moist mucous membranes Eyes: General: appearance normal, both eyes and all related structures Sclera: sclerae normal Neck: Neck: supple Resp: Auscultation: diminished lung sounds Cardio: Rate: regular rate Rhythm: regular rhythm Heart sounds: no murmurs GI: GI Palp: Yes Soft to palpation and No Tenderness to palpation present (GI) Skin: General skin exam: normal color Neuro: Speech: normal speech Extrem: General: normal to inspection and no edema Psych: Mental Status: mental status grossly normal Affect: normal affect Objective Data Vital Signs Vital Signs: Vital Signs - 24 hr 08/16/22 14:40 08/16/22 15:01 08/16/22 17:38 Temperature 36.6 C Pulse Rate 69 69 Respiratory Rate 18 18 Blood Pressure 106/58 L 114/58 L Pulse Oximetry 100 100 Oxygen Delivery Nasal Cannula Oxygen Flow Rate 2 08/16/22 20:54 08/16/22 21:41 08/17/22 05:42 Temperature 36.8 C 36.8 C Pulse Rate 74 70 74 Respiratory Rate 18 18 Blood Pressure 108/51 L 112/56 L Pulse Oximetry 100 100 Oxygen Delivery Oxygen Flow Rate 08/17/22 08:23 08/17/22 08:29 08/17/22 09:08 Temperature 36.7 C Pulse Rate 70 70 Respiratory Rate 16 Blood Pressure 103/53 L Pulse Oximetry 100 92 Oxygen Delivery Nasal Cannula Oxygen Flow Rate 1 08/17/22 10:10 08/17/22 10:39 08/17/22 08:00 Temperature Pulse Rate 71 Respiratory Rate 20 Blood Pressure Pulse Oximetry 94 92 Oxygen Delivery Nasal Cannula Nasal Cannula Nasal Cannula Oxygen Flow Rate 1 1 1 08/17/22 13:44 Temperature 36.7 C Pulse Rate 70 Respiratory Rate 18 Blood Pressure 108/58 L Pulse Oximetry 99 Oxygen Delivery Oxygen Flow Rate Intake/Output Intake/Output: Intake & Output 08/14/22 08/15/22 08/16/22 08/17/22 23:59 23:59 23:59 23:59 Intake Total 240 1510 1200 850 Output Total 300 1150 1250 1200 Balance -60 360 -50 -350 Meds/Results Medications: Active Medications Generic Name Dose Route Start Last Admin Trade Name Earlq PRN Reason Stop Dose Admin Acetaminophen 500 mg 08/15/22 02:18 08/16/22 00:45 Acetaminophen 500 Mg Tablet PO 500 mg Q6H PRN Administration Pain Apixaban 2.5 mg 08/15/22 09:00 08/17/22 08:27 Apixaban 2.5 Mg Tablet PO 2.5 mg Q12HR BENITA Administration Benzonatate 100 mg 08/15/22 02:18 Benzonatate 100 Mg Cap
[2022-08-17 17:00] LABS: Glucose Point of Care 186 mg/dl (65-105)
[2022-08-17] MEDS: FUROSEMIDE 40 MG TABLET PO (17:53)
[2022-08-17 20:13] LABS: Glucose Point of Care 188 mg/dl (65-105)
[2022-08-17] MEDS: ESCITALOPRAM OXALATE 10 MG TABLET PO (20:42)
[2022-08-17] MEDS: SENNA/DOCUSATE SODIUM TABLET 1 TAB PO (20:42)
[2022-08-17] MEDS: INSULIN GLARGINE (*BKC) 100 UNITS/ML 32 UNITS SUB-Q (20:42)
[2022-08-18 05:33] LABS: Alanine Aminotransferase 51 U/L (6-35); Albumin Level 2.8 g/dL (3.5-5.1); Alkaline Phosphatase 144 U/L (38-126); Anion Gap 4 mmol/L (8-16); Aspartate Amino Transferase 150 U/L (14-36); Bilirubin,Total 1.1 mg/dL (0.2-1.3); Blood Urea Nitrogen 22 mg/dL (7-17); Calcium 7.7 mg/dL (8.4-10.2); Carbon Dioxide 31 mmol/L (22-30); Chloride 103 mmol/L (98-107); Estimated CRCL calculation 32 ml/min; Estimated Glomerular Filt Rate 33; Glucose 136 mg/dL (65-110); Magnesium 1.9 mg/dL (1.6-2.3); Potassium 3.4 mmol/L (3.4-5.0); Sodium 138 mmol/L (137-145)
[2022-08-18 05:38] VITALS: BP 112/55; PULSE 70; RESP 18; TEMP 36.7; O2SAT 100
[2022-08-18 05:41] LABS: Basophils Absolute Auto 0.1 K/mm3 (0.0-0.1); Basophils Percent Auto 0.9 % (0.2-1.2); Eosinophils Absolute Auto 0.3 K/mm3 (0-0.3); Eosinophils Percent Auto 3.3 % (0-4.4); Hematocrit 32.8 % (37.0-47.0); Hemoglobin 10.3 g/dL (12.0-15.0); Immature Granulocyte Absolute 0.03 K/mm3 (0.00-0.031); Immature Granulocyte Percent A 0.4 % (0-0.5); Lymphocytes Absolute Auto 1.33 K/mm3 (0.9-3.2); Lymphocytes Percent Auto 16.5 % (18.3-44.2); Mean Corpuscular HGB Conc 31.4 g/dl (32-36); Mean Corpuscular Hemoglobin 23.6 pg (26-34); Mean Corpuscular Volume 75.2 fl (80-100); Mean Platelet Volume 10.7 fl (7.4-10.4); Monocytes Absolute Auto 0.9 K/mm3 (0.1-0.6); Monocytes Percent Auto 11.6 % (2.6-8.5); Neutrophils Absolute Auto 5.4 K/mm3 (1.3-6.7); Neutrophils Percent Auto 67.3 % (45.5-73.1); Platelet Count Result 314 k/mm3 (150-375); Red Blood Count 4.36 M/mm3 (4.2-5.4); Red Cell Distribution Width 18.4 % (11.5-14.5); White Blood Count 8.1 K/mm3 (4.5-10.0)
[2022-08-18] MEDS: LEVOTHYROXINE SODIUM 50 MCG TABLET PO (06:23)
[2022-08-18] MEDS: POTASSIUM CHLORIDE 20 MEQ PACKET (FOR LIQUID) PO (08:31)
[2022-08-18] MEDS: LIDOCAINE 5% PATCH 1 PATCH TRANSDERM (08:31)
[2022-08-18] MEDS: polyethylene glycoL 3350 17 GM POWD.PACK PO (08:32)
[2022-08-18] MEDS: CHOLECALCIFEROL 1,000 UNITS TABLET 5000 UNITS PO (08:32)
[2022-08-18] MEDS: APIXABAN 2.5 MG TABLET PO (08:32)
[2022-08-18 08:33] VITALS: PULSE 72
[2022-08-18] MEDS: EMPAGLIFLOZIN 25 MG TABLET PO (08:33)
[2022-08-18] MEDS: GABAPENTIN 300 MG CAPSULE PO ×2 (08:33→16:35)
[2022-08-18] MEDS: METOPROLOL TARTRATE 50 MG TAB PO (08:33)
[2022-08-18 08:34] VITALS: RESP 18; O2SAT 94
[2022-08-18] MEDS: UMECLIDINIUM/VILANTEROL 62.5-25 MCG ELLIPTA 1 PUFF INHALATION (08:34)
[2022-08-18] MEDS: EZETIMIBE 10 MG TABLET PO (08:34)
[2022-08-18] MEDS: FERROUS SULFATE 324 MG TABLET PO (08:34)
[2022-08-18] MEDS: ROSUVASTATIN 10 MG TABLET 40 MG PO (08:34)
[2022-08-18] MEDS: FUROSEMIDE 40 MG TABLET PO (08:34)
[2022-08-18] MEDS: oxyBUTYnin CHLORIDE 5 MG TABLET PO (08:34)
[2022-08-18 08:35] VITALS: O2SAT 94
[2022-08-18] MEDS: FLUTICASONE PROPIONATE 0.05% NA SPR 16 GM BTL (*BKC) 2 SPRAY NASAL (08:35)
[2022-08-18] MEDS: CALCIUM CARBONATE (OSCAL) 500 MG TABLET PO (08:36)
[2022-08-18 08:38] LABS: Glucose Point of Care 102 mg/dl (65-105)
[2022-08-18 11:40] LABS: Glucose Point of Care 198 mg/dl (65-105)
--- NOTE | 2022-08-18 12:52 | P.CDI_ITS ---
CDI Query Clarification Request acute on chronic diastolic heart failure <Alexander Pagan MD - Last Filed: 08/18/22 17:58> Clarified Diagnosis Clarified Diagnosis: Elevated BNP on 08/14/22 and 08/16/22 lab work. CHF noted on Cardiology's progress note from 08/16/22 and 08/17/22. Pt receiving furosemide. Edema documented in the charting. Chest CT from 08/15/22 notes pulmonary edema. Please specify type and acuity of heart failure if known. * Acute * Chronic * Acute on Chronic * Unknown * Systolic * Diastolic * Combined Systolic and Diastolic * Unknown <Mindy Cota RN - Last Filed: 08/18/22 12:59>
--- NOTE | 2022-08-18 13:25 | PM.DS ---
DS: Admitting Diagnosis Discharge Date 08/18/2022 Admitting Diagnosis shortness of breath DS: Discharge Diagnosis Discharge Diagnosis (1) Acute respiratory failure with hypoxia: Code(s): J96.01 - Acute respiratory failure with hypoxia Status: Acute (2) Acute hypokalemia: Code(s): E87.6 - Hypokalemia Status: Acute (3) Acute dyspnea: Code(s): R06.00 - Dyspnea, unspecified Status: Acute (4) CKD (chronic kidney disease): Code(s): N18.9 - Chronic kidney disease, unspecified Status: Acute (5) Hypothyroidism: Code(s): E03.9 - Hypothyroidism, unspecified Status: Acute (6) Chronic anemia: Code(s): D64.9 - Anemia, unspecified Status: Chronic (7) Type 2 diabetes mellitus: Qualifiers: Diabetes mellitus complication status: without complication Diabetes mellitus skilled nursing insulin use: with skilled nursing use Qualified Code(s): E11.9 - Type 2 diabetes mellitus without complications; Z79.4 - termination clerk (current) use of insulin Code(s): E11.9 - Type 2 diabetes mellitus without complications Status: Chronic DS: Summary Hospital Course Hospital Course: 76-year-old female patient who has a history of obstructive sleep apnea, atrial fibrillation, CVA, and AFib, presented with SOB.? Reportedly the patient's oxygen saturation was in 80s on room air.? The patient took a nebulizer treatment and route.? The patient reported chest pain EN route.? Chest x-ray was read as clear lungs elevated right hemidiaphragm BUSINESS DEVELOPMENT ANALYST shunt and pacemaker. tested negative for RSV/Influenza/COVID 19. Noted to have hypokalemia. # Acute Hypoxic Resp Failure: ABG was s/o hypoxia c/w O2 support No evidence of PNA but shows mild pulmonary edema. Pulmonary consulted.? Started on diuresis BNP is elevated which is improving Cardiology consulted . Lasix increased to 40 mg twice daily at discharge. Along with potassium supplement Chest x-ray very clear with elevated right hemidiaphragmatic CT chest with mild pulmonary edema with small left pleural effusion.? Small volume of perisplenic ascites. On IV Lasix.? With switched to oral Lasix . Well compensated by the time of discharge #H/o Afibb: On Amiodarone and Eliquis Worsening TSH as noted Free T4 low Cardiology consulted and amiodarone has been stopped.? Noticed that this has been stopped few weeks back by primary physician office secretary as well.? Device interrogation with no significant arrhythmia. Follow-up with cardiology as an outpatient basis # CKD with Hypokalema: Avoid nephrotoxins 3 stable creatinine # Diabetes mellitus: BG check TID AC and HS c/w Basal bolus regimen c/w jardiance # Chronic Anemia: Stable H/H Monitor # Hypotyhroidism: TSH>10 low free T4 On Amiodarone Started on levothyroxine 50 mcg daily. Needs TSH in 4 weeks ?Can stop Amiodarone Cardiology consulted amiodarone stopped # History of CVA in 2018 despite being on systemic anticoagulation # History of hemorrhagic subdural hematoma with fall in 2019 leading to discontinuation of anticoagulation currently on apixaban 2.5 mg b.i.d. # Status post BUSINESS DEVELOPMENT ANALYST shunt # IVC filter in place for bilateral lower extremity DVTs and PE # History of COLTEN # Code:Full # DVT ppx: on Eliquis # Dispo:? PT/OT, will need placement however was denied. after discussion with the family member arrangements are with home health and for the support with equipments made at the time of discharge. She will need oxygen at discharge to home. She also benefit from sit to stand device so that she is able to change/ transfer reposition for toileting As she is unable to walk long distance. Time Spent with Patient Time attestation: Total time spent providing and/or coordinating discharge services: 45 minutes Exam Narrative: GENERAL: Well-appearing, well-nourished, and in no acute distress. HEAD: Normocephalic, atraumatic. EYES: EOMI. ENT: Nares clear, no rhinorrhea or epistaxis. Mucous
[2022-08-18 14:00] VITALS: BP 102/62; PULSE 63; RESP 18; TEMP 36.4; O2SAT 100
--- NOTE | 2022-08-18 14:15 | PC.NURSE ---
Sabine Blake PFT was the Respiratory therapist doing the Home O2 evaluation not Rut Snads PFT when patient slid to the floor upon returning to the recliner.
--- NOTE | 2022-08-18 14:15 | PC.NURSE ---
Patient was working with Rut Sands PFT for home O2 evaluation. Patient was returning to recliner. Keely Guthrie from OT went passed room as patient was sliding down recliner. Nurse was outside the door. With the help of Charge Nurse Brandi, OT Keely Guthrie, Rut Sands PFT, and RN patient was assisted to the recliner using gait belt.
[2022-08-18 14:26] VITALS: BP 102/51; PULSE 70; RESP 14; TEMP 36.3; O2SAT 100
--- NOTE | 2022-08-18 14:40 | PCRCNOTE ---
PATIENT IS IN THE PROCESS OF A HOME OXYGEN SET-UP WITH RICHARD THRU HER DOCTORS OFFICE. THIS O2 EQUIPMENT IS TO BE DELIVERED TO PATIENTS HOME TODAY WHEN DAUGHTER CALLS TO LET RICHARD KNOW SHE HAS BEEN D/C. RICHARD WILL BE DELIVERING A TRANSPORT TANK TO PATIENTS ROOM [place].
[2022-08-18 17:35] LABS: Glucose Point of Care 167 mg/dl (65-105)
== END 2022-08-18 18:15 | disposition home health service (06) | DRG 291 ==
LOC: ANHED 15:17 → ANH2MED 15:26
PROVIDERS: General Practice; Internal Medicine; Nurse Practitioner; Physician Assistant; Admitting Provider Family Medicine; Emergency Provider Emergency Medicine; PCP Family Medicine; Visit Provider Internal Medicine
DX: I13.0 Hypertensive heart and chronic kidney disease with heart failure and stage 1 through stage 4 chronic kidney disease, or unspecified chronic kidney disease (principal); I50.33 Acute on chronic diastolic (congestive) heart failure; J96.01 Acute respiratory failure with hypoxia; I48.92 Unspecified atrial flutter; G91.9 Hydrocephalus, unspecified; J98.11 Atelectasis; N18.9 Chronic kidney disease, unspecified; E11.22 Type 2 diabetes mellitus with diabetic chronic kidney disease; E87.6 Hypokalemia; I48.0 Paroxysmal atrial fibrillation; I69.391 Dysphagia following cerebral infarction; R13.10 Dysphagia, unspecified; D56.3 Thalassemia minor; D64.9 Anemia, unspecified; E03.9 Hypothyroidism, unspecified; E66.01 Morbid (severe) obesity due to excess calories; E78.5 Hyperlipidemia, unspecified; M19.90 Unspecified osteoarthritis, unspecified site; G47.33 Obstructive sleep apnea (adult) (pediatric); Z20.822 Contact with and (suspected) exposure to COVID-19; Z96.653 Presence of artificial knee joint, bilateral; Z79.01 Long term (current) use of anticoagulants; Z79.84 Long term (current) use of oral hypoglycemic drugs; Z93.1 Gastrostomy status; Z98.2 Presence of cerebrospinal fluid drainage device; Z95.0 Presence of cardiac pacemaker; Z86.718 Personal history of other venous thrombosis and embolism; Z87.891 Personal history of nicotine dependence; Z68.39 Body mass index [BMI] 39.0-39.9, adult
CPT/HCPCS: 36415; 36600; 71046; 71250; 76000; 80048; 80053; 82375; 82805; 82948; 83036; 83050; 83605; 83690; 83735; 83880; 84439; 84443; 84484; 85025; 85610; 85730; 87636; 93005; 94640; 94762; 96374; 97161; 97166; 99285; A9270; G0378; J1815; J1940

== ENCOUNTER 2022-10-15 19:07 | Emergency (ER) | payer OTHER, MEDICARE, SELFPAY ==
[2022-10-15] VITALS (23 sets, daily range): BP systolic 101–118; BP diastolic 42–87; PULSE 70–77; RESP 12–20; TEMP 37.4; O2SAT 94–100
--- NOTE | ~2022-10-15 | CT_ITS ---
CT head without contrast Indication: Altered mental status COMPARISON: 08/02/2022 Technique: Serial scans were obtained through the brain without the administration of contrast. Dose reduction technique was used on this scan by utilizing automated exposure control and iterative recon struction technique. The dose-length product (DLP) was 605.33 mGy-cm. 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 No hyperdense acute hemorrhage seen. No acute infarct or mass lesion evident.. Stable ch ronic encephalomalacia in the bilateral parietal lobes noted. The ventricles and subarachnoid spaces are dilated, consistent with mild to moderate atrophy. 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 Low attenuation regions are seen within the periventricular white matter bilaterally, li carli representing changes from chronic microvascular ischemic disease. There is no evidence of edema, mass effect or midline shift. The visualized paranasal sinuses and mastoid air cells are clear. Impression: No acute abnormality seen. No change since 08/02/2022. Minimal subacute to chronic right cerebral convexity subdural hematoma versus dural thickening. Right parietal ventriculostomy shunt catheter in place with mild dilatation of ventricular system. Chronic white matter disease including probable chronic encephalomalacia in the bilateral parietal lo bes. Reviewed, dictated and finalized at location M. Impression: No acute abnormality seen. No change since 08/02/2022. Minimal subacute to chronic right cerebral convexity subdural hematoma versus d ural thickening. Right parietal ventriculostomy shunt catheter in place with mild dilatation of ventricular system. Chronic white matter disease including probable chronic encephalomalacia in the bilateral parietal lobes.
--- NOTE | 2022-10-15 21:28 | ECG_ITS ---
Measurements Intervals Johnston Rate: 69 P: -79 ID: [id number] QRS: 5 QRSD: 124 T: 73 QT: 463 QTc: 499 Interpretive Statements ELECTRONIC ATRIAL PACEMAKER MODERATE INTRAVENTRICULAR CONDUCTION DELAY [110+ ms QRS DURATION] NONSPECIFIC T-WAVE ABNORMALITY PROLONGED QT INTERVAL ABNORMAL ECG COMPARED TO ECG 08/14/2022 11:31:01 PROLONGED QT INTERVAL NOW PRESENT Electronically Signed On 10-16-2022 16:54:00 CDT by Bogdan Lilly M.D.
[2022-10-15] MEDS: SODIUM CHLORIDE 0.9% IV 1,000 ML 999 ML IV CONT (21:45)
[2022-10-15] MEDS: LORazepam INJ (*CRX) 2 MG/ML VIAL 1 MG IV PUSH (21:48)
--- NOTE | 2022-10-15 21:55 | ED.GENADULT ---
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 the patient has had a steady decline and has fluctuating mentation over the last several weeks. Today her noticed that she had a shaking episode in the morning. After that she has been left for less responsive than normal. She has left-sided hemiplegia but her has noted that her right side is becoming less active. She has also had significant diarrhea and has stopped eating. The patient is on hospice I discussed goals of care with family. They want to see why she is having seizures. Additionally they would like IV fluids. At this time the patient moans to voice but does not follow commands. Related Data Home Medications Medication Instructions Recorded Confirmed cholecalciferol (vitamin D3) 25 5,000 mcg PO DAILY 05/25/20 08/14/22 mcg (1,000 unit) tablet (Vitamin D3) acetaminophen 500 mg tablet 500 mg PO Q6H PRN Pain 12/10/20 08/14/22 albuterol sulfate 90 mcg/actuation 2 puff inhalation Q6H PRN 12/10/20 08/14/22 aerosol inhaler Shortness Of Breath escitalopram oxalate 10 mg tablet 10 mg PO HS 12/10/20 08/14/22 pantoprazole 40 mg tablet,delayed 40 mg PO BID 12/10/20 08/14/22 release (Protonix) ondansetron HCl 4 mg tablet 4 mg PO Q8H PRN Nausea 12/16/21 08/14/22 ezetimibe 10 mg tablet 1 tablet PO DAILY 12/20/21 08/14/22 fluticasone propionate 50 2 spray intranasal DAILY 12/20/21 08/14/22 mcg/actuation nasal spray,suspension (Flonase Allergy Relief) gabapentin 300 mg capsule 1 cap PO BID 12/20/21 08/14/22 montelukast 10 mg tablet 1 tablet PO DAILY 12/20/21 08/14/22 rosuvastatin 40 mg tablet 1 tablet PO DAILY 12/20/21 08/14/22 ferrous sulfate 325 mg (65 mg 325 mg PO DAILY 07/05/22 08/14/22 iron) tablet,delayed release apixaban 2.5 mg tablet (Eliquis) 2.5 mg PO BID 08/01/22 08/14/22 benzonatate 100 mg capsule 100 mg PO TID PRN Cough 08/01/22 08/14/22 empagliflozin 25 mg tablet 25 mg PO DAILY 08/01/22 08/14/22 (Jardiance) metoprolol tartrate 50 mg tablet 50 mg PO BID 08/01/22 08/14/22 oxybutynin chloride 5 mg tablet 5 mg PO BID 08/01/22 08/14/22 ascorbic acid (vitamin C) 500 mg 500 mg PO DAILY 08/14/22 08/14/22 chewable tablet budesonide 0.25 mg/2 mL suspension 0.5 mg inhalation DAILY 08/14/22 08/14/22 for nebulization (Pulmicort) calcium carbonate 500 mg calcium 500 mg PO DAILY 08/14/22 08/14/22 (1,250 mg) chewable tablet docusate sodium 100 mg tablet 100 mg PO EVERY OTHER DAY 08/14/22 08/14/22 dulaglutide 0.75 mg/0.5 mL 0.75 mg subcut WEEKLY 08/14/22 08/14/22 subcutaneous pen injector (Trulicity) hydrocortisone butyrate 0.1 % 1 applic topical PRN 08/14/22 08/14/22 topical cream insulin glargine 100 unit/mL 32 units subcut HS 08/14/22 08/14/22 subcutaneous solution (Lantus U-100 Insulin) insulin lispro 100 unit/mL 12 unit subcut TID 08/14/22 08/14/22 subcutaneous pen ipratropium 0.5 mg-albuterol 3 mg 3 ml inhalation Q4H PRN Shortness 08/14/22 08/14/22 (2.5 mg base)/3 mL nebulization Of Breath soln lidocaine 5 % topical patch 1 patch transdermal DAILY 08/14/22 08/14/22 (Lidoderm) methylcellulose (laxative) 500 mg 1,000 mg PO BID 08/14/22 08/14/22 tablet (Citrucel) olopatadine 0.1 % eye drops 1 drp EACH EYE BID PRN Allergy 08/14/22 08/14/22 Symptoms polyethylene glycol 3350 17 gram 17 g PO DAILY 08/14/22 08/14/22 oral powder packet vitamin D3 125 mcg (5,000 1 tablet PO DAILY 08/14/22 08/14/22 unit)-folic acid 1 mg tablet Allergies Allergy/AdvReac Type Severity Reaction Status Date / Time JOLIE Inhibitors Allergy Unknown Unknown Verified 07/31/22 19:25 hydrocodone Allergy Unknown Unknown Verified 07/31/22 19:25 lovastatin Allergy Unknown Unknown Verified 07/31/22 19:25 pravastatin Aller
[2022-10-16] VITALS (34 sets, daily range): BP systolic 84–123; BP diastolic 35–57; PULSE 70–80; RESP 12–23; O2SAT 97–100
[2022-10-16 01:59] LABS: Appearance Urine Turbid (Clear); Bacteria Urine 4+ /hpf; Bilirubin Urine Negative (Negative); Blood Urine 2+ (Negative); Budding Yeast Urine Present /hpf; Color Urine Dark Yellow (Yellow); Glucose Urine UA Negative (Negative); Ketones Urine Negative (Negative); Leukocyte Esterase Ur 3+ LEU/UL (Negative); Mucus Urine Present /lpf; Nitrate Urine Negative (Negative); Protein Urine 1+ mg/dL (Negative); Specific Grav Ur 1.018 (1.001-1.035); Squamous Epithelial Cell Urine None seen /hpf (Few); WBC Urine >100 /hpf
[2022-10-16 02:26] LABS: Add Urine Microscopic? YES
--- NOTE | 2022-10-16 02:32 | PC.NURSE ---
pt. blood specimen rejected multiple times via lab. okayed no blood work needed.
[2022-10-16] MEDS: LORazepam INJ (*CRX) 2 MG/ML VIAL IV PUSH (05:25)
--- NOTE | 2022-10-16 06:32 | PC.NURSE ---
called [facility] to request transport. ETA [id number]
== END 2022-10-16 07:48 | disposition hospice, home (50) ==
PROVIDERS: Emergency Provider Emergency Medicine; PCP Family Medicine
DX: N39.0 Urinary tract infection, site not specified (principal); I69.919 Unspecified symptoms and signs involving cognitive functions following unspecified cerebrovascular disease; I69.954 Hemiplegia and hemiparesis following unspecified cerebrovascular disease affecting left non-dominant side; I48.0 Paroxysmal atrial fibrillation; I48.92 Unspecified atrial flutter; E11.22 Type 2 diabetes mellitus with diabetic chronic kidney disease; I12.9 Hypertensive chronic kidney disease with stage 1 through stage 4 chronic kidney disease, or unspecified chronic kidney disease; N18.9 Chronic kidney disease, unspecified; D64.9 Anemia, unspecified; G47.33 Obstructive sleep apnea (adult) (pediatric); M19.90 Unspecified osteoarthritis, unspecified site; Z96.653 Presence of artificial knee joint, bilateral; Z87.891 Personal history of nicotine dependence; Z79.4 Long term (current) use of insulin; Z79.01 Long term (current) use of anticoagulants; Z79.84 Long term (current) use of oral hypoglycemic drugs; Z95.0 Presence of cardiac pacemaker; I45.9 Conduction disorder, unspecified; R94.31 Abnormal electrocardiogram [ECG] [EKG]; R90.82 White matter disease, unspecified
CPT/HCPCS: 36415; 70450; 80053; 81001; 87086; 87088; 93005; 96361; 96365; 96374; 96375; 99285; J0696; J1953; J2060; J7030